=== PATIENT | female | born 1950 | race African-American/Black ===

== ENCOUNTER → 2016-08-01 | Emergency (ER) | payer MEDICARE, MEDICAID ==
[~2016-08-01] VITALS: Ht 170.2 cm; Wt 111.1 kg
[~2016-08-01] MED LIST: ACUVAIL 0.45%1 EACH OP; ALBUTEROL2.5 MG/3 M HHN; ATIVAN1 MG ORAL; AUGMENTIN 875-1 EAC1 ORAL; Acetaminophen 500mg (ES) tab ORAL ONE; BACTRIM DS TAB1 EAC1 ORAL; ERYTHROMYCIN3.5 GM BOTH EYES; FERROUS SULFAT325 MG PO; FLONASE16 GM NASAL; FUROSEMIDE20 M1 ORAL; HYDROXYZINE HCL25 M1 PO; IBUPROFEN400 MG ORAL; KEFLEX500 MG ORAL; KENALOG 0.1% CR15 GM APPLIC; LASIX20 MG PO; NAPROXEN500 M2 ORAL; PATANOL1 DROP BOTH EYES; PREDNISONE20 MG ORAL; QVAR INH1 PUFF INH; SYNALAR 0.01%15 GM EXT; TYLENOL EXTRA500 MG ORAL; VITAMIN B-122000 MC1 INJ; vitamin b 12 PO
--- NOTE | 2016-08-01 13:01 | Emergency Room Report ---
History of Present Illness General Chief Complaint: Upper Extremity Injury Present Illness HPI 66-year-old female presents to emergency department complaining of 3/ 10 localized pain in the right fifth digit times one day. Patient states she is cleaning a bit better when one of her large cement flowerpot fell onto her finger. Patient reports mild swelling mild erythema and intermittent pain. Patient reports that it feels as though "there are chips inside of her finger." She believes she may have broken her finger. Patient denies previous injury to the extremity.Denies numbness tingling or loss of sensation or gross motor movements of the extremities, incontinence of bowel or bladder. Denies CP, Palpitations, LOC, AMS, dizziness, Changes in Vision, Sensation, paresthesias, or a sudden severe headache. 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 Hx Hypertension: No - left knee replacement Hx Pacemaker: No Hx Asthma: Yes - bronchitis Hx COPD: Yes Hx Diabetes: No Hx Cancer: No Hx Dialysis: No Hx Neurological Problems: No Hx Cerebrovascular Accident: No Hx Seizures: No Review of Systems All Other Systems: negative except mentioned in HPI Physical Exam Vital Signs Date Time Temp Pulse Resp B/P Pulse Ox O2 Delivery O2 Flow Rate FiO2 08/01/16 11:54 98.4 80 18 119/76 99 Room Air Sp02 EP Interpretation: reviewed, normal General Appearance: no apparent distress, alert, GCS 15, non-toxic Head: normocephalic, atraumatic Eyes: bilateral eye PERRL, bilateral eye normal inspection ENT: hearing grossly normal, normal pharynx, no angioedema, normal voice Neck: full range of motion, supple/symm/no masses Respiratory: chest non-tender, lungs clear, normal breath sounds, speaking full sentences Cardiovascular #1: regular rate, rhythm, no edema Rectal: deferred Musculoskeletal: back normal, gait/station normal, normal range of motion - with pain, no calf tenderness, swelling - distal right 5th digit, tender - distal right 5th digit, no evidence of sub ungual hematoma. no crepitus or obvious deformity noted Neurologic: alert, oriented x3, responsive, motor strength/tone normal, sensory intact, speech normal Psychiatric: judgement/insight normal, memory normal, mood/affect normal, no suicidal/homicidal ideation Skin: normal color, no rash, warm/dry, well hydrated Lymphatic: no adenopathy Medical Decision Making PA Attestation Dr. Garcia is my supervising Physician whom patient management has been discussed with. Diagnostic Impression: Primary Impression: Contusion of finger of right hand Qualified Codes: S60.051A - Contusion of right little finger without damage to nail, initial encounter ER Course Pt. presents to the ED c/o pain and mild swelling to the right 5th digit x 1 day. flower pot fell onto finger. Ddx considered but are not limited to Fracture, dislocation, contusion, Sprain/ Strain/Spasm, crush injury. Vital signs: are WNL, pt. is afebrile H&PE are most consistent with contusion will r/o fx with imaging. ORDERS: - X-ray right hand 3 views - negative for fx, Dislocation, or significant soft tissue injury, per preliminary read in ED by Dr. Garcia ED INTERVENTIONS: - 1000mg Tylenol PO - Finger Splint applied to the right 5th digit by technical services specialist. Pt. remains neurovascularly intact. DISCHARGE: At this time pt. is stable for d/c to home. Will provide printed patient care instructions, and any necessary prescriptions. Care plan and follow up instructions have been discussed with the patient prior to discharge. Last Vital Signs Date Time Temp Pulse Resp B/P Pulse Ox O2 Delivery O2 Flow Rate FiO2 08/01/16 11:54 98.4 80 18 119/76 99 Room Air Disposition: HOME, SELF-CARE Condition: Stable Scripts Acetaminophen* (TYLENOL EXTRA STRENGTH*) 500 Mg Tablet 500 MG ORAL Q6H, #30 TAB 0 Refills Prov: Cynthia Waddell 08/01/16 Referrals: [facility],REFERRING (PCP) Patient Instructions: CONTUSION, Upper Extremity Additional Instructions: Take medications as directed. Follow up with PCP in 3-5 days Return sooner to ED if new symptoms occur, or current symptoms become worse. Cynthia Waddell Aug 01, 2016 13:01
[2016-08-01 13:19] VITALS: BP 130/80
--- NOTE | 2016-08-02 08:47 | Diagnostic Imaging Report ---
Indication: PAIN Technique: 3 views right hand Comparison: none Findings: The bones appear demineralized. No acute fractures. Questionable alignment abnormality is seen at the first carpometacarpal joint.. There is ulnar minus variance incidentally noted Impression: No acute bony trauma Questionable subluxation of the first carpometacarpal joint. Suspect artifactual, as per discussion with referring physician there is no pain at this location Suspect osteoporosis
== END | disposition home or self-care (01) ==
LOC: EMR 12:17
DX: S60.051A Contusion of right little finger without damage to nail, initial encounter (principal); J45.909 Unspecified asthma, uncomplicated; J44.9 Chronic obstructive pulmonary disease, unspecified; W20.8XXA Other cause of strike by thrown, projected or falling object, initial encounter; Y92.9 Unspecified place or not applicable; Y99.8 Other external cause status
CPT/HCPCS: 29130; 99283

== ENCOUNTER → 2016-10-17 | Emergency (ER) | payer MEDICARE, MEDICAID ==
[~2016-10-17] VITALS: Ht 170.2 cm; Wt 113.4 kg
[~2016-10-17] MED LIST changes: -Acetaminophen 500mg (ES) tab ORAL ONE; +HYDROCODON-ACE1 EA15 ORAL; +IBUPROFEN600 MG ORAL; +Ketorolac 60mg Inj IM ONE; +Methocarbamol 750mg tab ORAL ONE; +ROBAXIN-750750 MG PO
[2016-10-17 04:35] VITALS: BP 122/85
[2016-10-17 04:36] VITALS: BP 115/79
--- NOTE | 2016-10-17 22:40 | Emergency Room Report ---
History of Present Illness General Chief Complaint: Pain Source: Patient Present Illness HPI 66YOF walk in patient with c/o pain to right lateral buttock area since yesterday. Pain is sharp, non-radiating 03/04. Atraumatic. Never had before. No exacerbating activity. No associated urinary complaint. Took 2 extra strength tyelnol with minimal improvement. Denies abd pain, nausea/vomiting, diarrhea, constipation, fever/chills. She makes specific request for IV dilaudid, states "I got it here last time." Denies other medical problems. 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 Hx Hypertension: No - left knee replacement Hx Pacemaker: No Hx Asthma: Yes - bronchitis Hx COPD: Yes Hx Diabetes: No Hx Cancer: No Hx Dialysis: No Hx Neurological Problems: No Hx Cerebrovascular Accident: No Hx Seizures: No Review of Systems All Other Systems: negative except mentioned in HPI Physical Exam Vital Signs Date Time Temp Pulse Resp B/P Pulse Ox O2 Delivery O2 Flow Rate FiO2 10/17/16 02:21 98.2 78 22 115/79 100 Sp02 EP Interpretation: reviewed, normal General Appearance: normal inspection, well appearing, no apparent distress, alert, GCS 15, non-toxic, obese, other - Ambulating around the ER without diffiuculty Head: normocephalic, atraumatic Eyes: bilateral eye EOMI, bilateral eye PERRL ENT: normal ENT inspection, hearing grossly normal, normal voice Neck: normal inspection, full range of motion, supple, no bony tend Respiratory: normal inspection, lungs clear, normal breath sounds, no respiratory distress, no retraction, no wheezing Cardiovascular #1: regular rate, rhythm, no edema Gastrointestinal: normal inspection, normal bowel sounds, non tender, soft, no guarding, no hernia Genitourinary: no CVA tenderness Musculoskeletal: normal inspection, back normal, normal range of motion, Bolivar' s Sign negative, other - Focal area of ttp to right lateral buttock. No rash or ecchymoses or bruising seen Neurologic: normal inspection, alert, oriented x3, responsive, rn prior authorization III-XII nml as tested, speech normal Psychiatric: normal inspection, judgement/insight normal, mood/affect normal Skin: normal inspection, normal color, no rash Lymphatic: normal inspection Medical Decision Making Diagnostic Impression: Primary Impression: Sciatica of right side ER Course Focal area of MSK pain to right lateral buttock VSS. Afebrile. Atraumatic. No assoic urinary compaints, unlikey pyelo Low suspicion for sciatica Possibly d.t extreme of weight, ?osteoarthritis but no focal ttp of hip/pelvis Specific request for Dilaudid raises concern for narcotics seeking behavior I offered IM toradol and Rx robaxin and patient was in agreement DC home with PMD followup Last Vital Signs Date Time Temp Pulse Resp B/P Pulse Ox O2 Delivery O2 Flow Rate FiO2 10/17/16 04:36 98.2 22 115/79 100 10/17/16 04:35 78 Status: improved Disposition: HOME, SELF-CARE Condition: Improved Scripts Methocarbamol* (ROBAXIN-750*) 750 Mg Tablet 750 MG PO TID, #30 TAB 0 Refills Prov: TERELL GUADARRAMA M.D. 10/17/16 Referrals: NON PHYSICIAN (PCP) Patient Instructions: Musculoskeletal Pain Additional Instructions: - Take Robaxin up to 3x a day for pain to right buttock/back - Follow up with your primary care doctor in 2-3 days as needed - Contine applying heat to area of pain TERELL GUADARRAMA M.D. Oct 17, 2016 22:40
== END | disposition home or self-care (01) ==
LOC: EMR 03:10
DX: M54.31 Sciatica, right side (principal); J44.9 Chronic obstructive pulmonary disease, unspecified; J45.909 Unspecified asthma, uncomplicated; Z96.652 Presence of left artificial knee joint; Z86.718 Personal history of other venous thrombosis and embolism
CPT/HCPCS: 96372; 99283

== ENCOUNTER 2016-10-18 20:46 | Emergency (ER) | payer MEDICARE, MEDICAID ==
[~2016-10-18] VITALS: Ht 170.2 cm; Wt 113.9 kg
[~2016-10-18 20:46] MED LIST changes: -HYDROCODON-ACE1 EA15 ORAL; -IBUPROFEN600 MG ORAL; -Ketorolac 60mg Inj IM ONE; -Methocarbamol 750mg tab ORAL ONE
[2016-10-18] MEDS ORDERED: Ketorolac 60mg Inj IM ONE (21:45)
[2016-10-18] MEDS ORDERED: HYDROCODON-ACE1 EA15 ORAL (22:28)
[2016-10-18] MEDS ORDERED: IBUPROFEN600 MG ORAL (22:28)
[2016-10-18] MEDS ORDERED: HYDROmorphone 1mg/ml Carpuject ONE (22:28)
--- NOTE | 2016-10-18 22:29 | Emergency Room Report ---
History of Present Illness General Chief Complaint: Pain Source: Patient Present Illness HPI This is a 66-year-old female with a BMI of 39. She presents with right hip pain and has been ongoing for 2 days. She was here the other day. She was prescribed medication and help some. Worse with movement. Worse with prolonged sitting. No trauma. No fever or chills. No radiation. 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 Hx Hypertension: No - left knee replacement Hx Pacemaker: No Hx Asthma: Yes - bronchitis Hx COPD: Yes Hx Diabetes: No Hx Cancer: No Hx Dialysis: No Hx Neurological Problems: No Hx Cerebrovascular Accident: No Hx Seizures: No Review of Systems Eye: Denies: blurred vision, eye pain ENT: Denies: ear pain, nose congestion, throat swelling Respiratory: Denies: cough, shortness of breath Cardiovascular: Denies: chest pain, palpitations Gastrointestinal: Denies: abdominal pain, diarrhea, nausea, vomiting Musculoskeletal: Reports: joint pain, Denies: back pain Skin: Denies: rash Neurological: Denies: headache, numbness Endocrine: Denies: increased thirst, increased urine Hematologic/Lymphatic: Denies: easy bruising All Other Systems: negative except mentioned in HPI Physical Exam Vital Signs Date Time Temp Pulse Resp B/P Pulse Ox O2 Delivery O2 Flow Rate FiO2 10/18/16 21:06 98.1 78 18 107/69 99 Room Air vitals normal Sp02 EP Interpretation: reviewed, normal General Appearance: well appearing, no apparent distress, alert, obese Head: normocephalic, atraumatic Eyes: bilateral eye EOMI, bilateral eye PERRL ENT: hearing grossly normal, normal pharynx Neck: full range of motion, supple, no meningismus Respiratory: chest non-tender, lungs clear, normal breath sounds Cardiovascular #1: regular rate, rhythm, no murmur Gastrointestinal: normal bowel sounds, non tender, no mass, no organomegaly, no bruit, non-distended Musculoskeletal: back normal, gait/station normal, normal range of motion, other - Vague diffuse tenderness to the Right hip with range of motion. Neurologic: alert, oriented x3 Psychiatric: mood/affect normal Skin: warm/dry Medical Decision Making Diagnostic Impression: Primary Impression: Osteoarthritis of right hip Qualified Codes: M16.11 - Unilateral primary osteoarthritis, right hip Additional Impression: Morbid obesity with BMI of 40.0-44.9, adult ER Course Patient presents with right hip pain most likely secondary to osteoarthritis. This probably do to her obesity. She said she already lost about 200 pounds. I encouraged her to continue. Pain to her this is a chronic issue that she may be hip replacement in the future. No evidence of septic joint. No evidence of trauma. Other X-Ray Diagnostic Results Other X-Ray Diagnostic Results : X-Ray Ordered: Right hip x-rays Date: Oct 19, 2016 Time: 03:20 EP Interpretation: Yes Findings: no fractures, no dislocation, no soft tissue swelling, other - Degenerative changes Number of Views: 3 Last Vital Signs Date Time Temp Pulse Resp B/P Pulse Ox O2 Delivery O2 Flow Rate FiO2 10/18/16 21:06 98.1 78 18 107/69 99 Room Air Status: improved Disposition: HOME, SELF-CARE Condition: Stable Scripts Ibuprofen* (MOTRIN*) 600 Mg Tablet 600 MG ORAL THREE TIMES A DAY, #30 TAB 0 Refills Prov: CARLOS SULLIVAN M.D. 10/18/16 Hydrocodone/Acetaminophen 5-325* (HYDROCODONE/ACETAMINOPHEN 5-325*) 1 Each Tablet 1 TAB ORAL Q6H Y for For Pain, #20 TAB 0 Refills Prov: CARLOS SULLIVAN M.D. 10/18/16 Referrals: NON PHYSICIAN (PCP) Additional Instructions: Follow up with your doctor in 7 days. Return if worse. CARLOS SULLIVAN M.D. Oct 18, 2016 22:29
[2016-10-18] MEDS ORDERED: HYDROmorphone 1mg/ml Carpuject IM ONE (22:30)
[2016-10-18 22:38] VITALS: BP 108/63
--- NOTE | 2016-10-19 14:43 | Diagnostic Imaging Report ---
Indication: PAIN Technique: 2 views of the right hip Comparison: None Findings: No acute fractures. No dislocations. Joint spaces are preserved. Impression: Negative
== END 2016-10-18 22:45 | disposition home or self-care (01) ==
LOC: EMR 21:58
DX: M16.11 Unilateral primary osteoarthritis, right hip (principal); E66.01 Morbid (severe) obesity due to excess calories; Z68.41 Body mass index [BMI] 40.0-44.9, adult
CPT/HCPCS: 73502; 96372; 99284; J1170

== ENCOUNTER 2017-03-22 12:04 | Emergency (ER) | payer MEDICARE, MEDICAID ==
[~2017-03-22] VITALS: Ht 172.7 cm; Wt 115.7 kg
[~2017-03-22 12:04] MED LIST changes: +HYDROCODON-ACE1 EA15 ORAL; +IBUPROFEN600 MG ORAL
[2017-03-22 12:33] VITALS: BP 144/73
--- NOTE | 2017-03-22 13:28 | Diagnostic Imaging Report ---
Indication: PAIN Technique: 3 views of the right shoulder Comparison: none Findings: No acute fractures. No dislocations. There are mild degenerative changes of the acromioclavicular joint. The slight irregularity of the superolateral aspect of the humeral head, could indicate old Hill-Sachs injury. Impression:No acute bony trauma. Possible old Hill-Sachs deformity
[2017-03-22] MEDS ORDERED: Ketorolac 60mg Inj IM ONE (13:30)
--- NOTE | 2017-03-22 13:33 | Emergency Room Report ---
History of Present Illness General Chief Complaint: Pain Present Illness HPI 67-year-old female presents to the emergency department complaining of 8/10 in severity right shoulder pain x1 month. Patient states that she fell on her shoulder approximately one month ago and was not evaluated. Patient states her symptoms have not improved. Patient states pain with raising her arm above 45 angle. Patient states her pain is localized. Denies fevers, chills, previous injury to the extremity. Denies weakness in the affected extremity. Denies numbness tingling or loss of sensation or gross motor movements of the extremities, incontinence of bowel or bladder. Denies CP, Palpitations, LOC, AMS , dizziness, Changes in Vision, Sensation, paresthesias, or a sudden severe headache. 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 Hx Hypertension: No - left knee replacement Hx Pacemaker: No Hx Asthma: Yes - bronchitis Hx COPD: Yes Hx Diabetes: No Hx Cancer: No Hx Dialysis: No Hx Neurological Problems: No Hx Cerebrovascular Accident: No Hx Seizures: No Review of Systems All Other Systems: negative except mentioned in HPI Physical Exam Vital Signs Date Time Temp Pulse Resp B/P (MAP) Pulse Ox O2 Delivery O2 Flow Rate FiO2 03/22/17 12:11 98.2 70 18 144/73 100 Room Air Sp02 EP Interpretation: reviewed, normal General Appearance: no apparent distress, alert, GCS 15, non-toxic Head: normocephalic, atraumatic Eyes: bilateral eye normal inspection, bilateral eye PERRL ENT: hearing grossly normal, normal voice Neck: full range of motion Respiratory: lungs clear, normal breath sounds, speaking full sentences Cardiovascular #1: regular rate, rhythm, normal capillary refill Cardiovascular #2: 2+ radial (R), 2+ radial (L) Rectal: deferred Musculoskeletal: back normal, gait/station normal, normal range of motion, tender - TTP just over the A/C joint area, mild swellling noted, no bruises or obvious deformity, FROM with pain. able to perform lift off test. Neurologic: alert, oriented x3, responsive, motor strength/tone normal, sensory intact, speech normal Psychiatric: judgement/insight normal, memory normal, mood/affect normal Skin: normal color, no rash, warm/dry, well hydrated Medical Decision Making PA Attestation Dr. South is my supervising Physician whom patient management has been discussed with. Diagnostic Impression: Primary Impression: Shoulder pain, right Qualified Codes: M25.511 - Pain in right shoulder ER Course 67-year-old female presents to the emergency department complaining of 8/10 in severity right shoulder pain x1 month. Patient states that she fell on her shoulder approximately one month ago and was not evaluated. Patient states her symptoms have not improved. Patient states pain with raising her arm above 45 angle. Patient states her pain is localized. Denies fevers, chills, previous injury to the extremity. Denies weakness in the affected extremity. Denies numbness tingling or loss of sensation or gross motor movements of the extremities, incontinence of bowel or bladder. Denies CP, Palpitations, LOC, AMS , dizziness, Changes in Vision, Sensation, paresthesias, or a sudden severe headache. Ddx considered but are not limited to Fracture, dislocation, contusion, Sprain/ Strain/Spasm, Vital signs: are WNL, pt. is afebrile H&PE are most consistent with musculoskeletal injury will perform imaging to r/ o fractures/dislocations. ORDERS: - X-ray Right Shoulder 3 views - negative for fx, Dislocation, or significant soft tissue injury, per preliminary read in ED by Dr. South - interpretation is scribed by PA. - Official radiology read is also negative for acute fractures. ED INTERVENTIONS: - Toradol IM -Pt is provided with a copy of her x-rays. - Encouraged patient to followup with PMD as more advanced imaging may be required since her symptoms have not improved also patient may require orthopedic evaluation. DISCHARGE: At this time pt. is stable for d/c to home. Will provide printed patient care instructions, and any necessary prescriptions. Care plan and follow up instructions have been discussed with the patient prior to discharge. Last Vital Signs Date Time Temp Pulse Resp B/P (MAP) Pulse Ox O2 Delivery O2 Flow Rate FiO2 03/22/17 12:33 98.2 18 144/73 100 Room Air 03/22/17 12:11 70 Disposition: HOME, SELF-CARE Condition: Stable Scripts Cyclobenzaprine Hcl* (FLEXERIL*) 10 Mg Tablet 10 MG ORAL THREE TIMES A DAY for 7 Days, #21 TAB Prov: Cynthia Waddell 03/22/17 Ibuprofen* (MOTRIN*) 600 Mg Tablet 600 MG ORAL THREE TIMES A DAY, #30 TAB 0 Refills Prov: Cynthia Waddell 03/22/17 Referrals: NON PHYSICIAN (PCP) Patient Instructions: Shoulder Pain, Shoulder Range of Motion Exercises Additional Instructions: Take medications as directed. Recommend Uniform Maker Evaluation, and MRI if your symptoms are not responding to conservative treatments. Follow up with a Primary Care Provider in 3-5 days, even if your symptoms have resolved. Return sooner to ED if new symptoms occur, or current symptoms become worse. Do not drink alcohol, drive, or operate heavy machinery while taking Flexeril as this may cause drowsiness. - Please note that this Emergency Department Report was dictated using [employer] helper technology software, occasionally this can lead to erroneous entry secondary to interpretation by the dictation equipment. Cynthia Waddell Mar 22, 2017 13:33
[2017-03-22] MEDS ORDERED: IBUPROFEN600 MG ORAL (13:34)
[2017-03-22] MEDS ORDERED: CYCLOBENZAPRINE10 MG ORAL (13:34)
[2017-03-22 13:40] VITALS: BP 138/70
== END 2017-03-22 13:40 | disposition home or self-care (01) ==
LOC: EMR 12:41
DX: M25.511 Pain in right shoulder (principal); J44.9 Chronic obstructive pulmonary disease, unspecified; Z96.652 Presence of left artificial knee joint
CPT/HCPCS: 96372; 99284

== ENCOUNTER 2017-05-27 04:18 | Inpatient (IN) | payer MEDICARE, MEDICAID ==
[~2017-05-27] VITALS: Ht 170.2 cm; Wt 156.5 kg
[2017-05-27] VITALS (63 sets, daily range): BP systolic 78–185; BP diastolic 37–160
[~2017-05-27 04:18] MED LIST changes: +CYCLOBENZAPRINE10 MG ORAL
[2017-05-27] MEDS ORDERED: NS 1000ml 3,500 ML IVLG ONE (04:30)
[2017-05-27] MEDS ORDERED: Cefepime HCl 1 GM in NS 55 ML IV SCH (04:30)
[2017-05-27] MEDS ORDERED: Cefepime 1gm vial ONE (04:45)
[2017-05-27 05:00] LABS: MEAN CORPUSCULAR HEMOGLOBIN 27.5 PG (27.0-31.0); MEAN CORPUSCULAR HGB CONC 31.5 G/DL (32.0-36.0); MEAN CORPUSCULAR VOLUME 87 FL (80-99); MEAN PLATELET VOLUME 8.3 FL (6.5-10.1); PLATELET COUNT 87 K/UL (150-450); RED BLOOD COUNT 4.63 M/UL (4.20-5.40); RED CELL DISTRIBUTION WIDTH 13.1 % (11.6-14.8)
[2017-05-27 05:07] LABS: WHITE BLOOD COUNT 0.8 K/UL (4.8-10.8)
[2017-05-27 05:09] LABS: ANION GAP 17 mmol/L (5-15); CALCIUM 7.9 MG/DL (8.5-10.1); CARBON DIOXIDE 19 MMOL/L (21-32); CHLORIDE 100 MMOL/L (98-107); CREATININE 1.8 MG/DL (0.55-1.30); GLOMERULAR FILTRATION RATE 34.1 mL/min (>60); POTASSIUM 3.2 MMOL/L (3.5-5.1); SODIUM 136 MMOL/L (136-145)
--- NOTE | 2017-05-27 05:09 | Emergency Room Report ---
History of Present Illness General Chief Complaint: Fever Source: Patient, EMS Present Illness HPI Patient is a 67-year-old female presented after increased chills and fever. She reported feeling dizzy lightheaded. She reported having cough and difficulty breathing. She prior history of COPD. She previously had gastric bypass. Patient denied any hematemesis. Patient was noted to have 103 temperature. She had a remote history of DVTPatient presented increased pain to her lower back.She was noted to be taking multiple medications which primarily for pain. Allergies: Coded Allergies: No Known Allergies (Unverified , 09/04/12) Patient History Past Medical History: see triage record Reviewed Nursing Documentation: PMH: Agreed, PSxH: Agreed Nursing Documentation-PMH Hx Cardiac Problems: No - hx dvt left ankle 15 years ago Hx Hypertension: No - left knee replacement Hx Pacemaker: No Hx Asthma: Yes - bronchitis Hx COPD: Yes Hx Diabetes: No Hx Cancer: No Hx Dialysis: No Hx Neurological Problems: No Hx Cerebrovascular Accident: No Hx Seizures: No Review of Systems All Other Systems: limited - by poor historian Physical Exam Vital Signs Date Time Temp Pulse Resp B/P (MAP) Pulse Ox O2 Delivery O2 Flow Rate FiO2 05/27/17 04:19 102.9 130 22 99/46 94 Room Air General Appearance: moderate distress, obese, Chronically Ill Head: normocephalic ENT: no angioedema, uvula midline, moist mucus membranes Neck: full range of motion Respiratory: lungs clear, normal breath sounds Cardiovascular #1: no edema, tachycardia Gastrointestinal: normal inspection, non tender, soft Musculoskeletal: normal inspection, back normal, digits/nails normal Neurologic: normal inspection, alert, oriented x3, 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 Total critical care time excluding procedures approximately 45 minutes. Central Line Central Line : Consent: Emergent Central Line Lumen: triple Maximal Sterile Barrier Tech: yes cap, yes mask, yes sterile gown, yes sterile gloves, yes large sterile sheet, yes hand hygiene, yes chlorhexidine prep Central Line Postion: internal jugular (R) Anesthesia: Lidocaine cc's of anesthesia: 5 Complications: none Central Line Post Position: sutured, good blood return Attempts: One Patient Tolerated: Well Complications: None Medical Decision Making Diagnostic Impression: Primary Impression: Acute febrile illness Additional Impressions: Pyelonephritis Septic shock ER Course Patient presented for fever. Differential diagnosis included wasn't limited to pneumonia, urinary tract infection, drug fever, allergic reaction, sepsis, cholecystitis, among others.Because of complexity of patient's case laboratory testing and imaging studies were ordered. EKG interpreted by me showed sinus tachycardia with a rate of [address] depression. Patient started on IV fluids as well as IV antibiotic. The patient was noted to be hypotensive after a short time. She started on l fluid bolus. Patient was reassessed and had improvement in her perfusion after IV fluids. Patient noted persistently hypotensive after IV fluid bolus. She started on IV Levophed Laboratory testing was notable for neutropenia as well as evidence of renal insufficiency. Patient is also noted to have elevated lactic acid with lactic acid greater than 6. Dr. Alfonso Rodríguez was contacted for inpatient management due to panel physician. Labs Test 05/27/17 04:35 05/27/17 04:39 05/27/17 05:19 White Blood Count 0.8 K/UL (4.8-10.8) Red Blood Count 4.63 M/UL (4.20-5.40) Hemoglobin 12.7 G/DL (12.0-16.0) Hematocrit 40.5 % (37.0-47.0) Mean Corpuscular Volume 87 FL (80-99) Mean Corpuscular Hemoglobin 27.5 PG (27.0-31.0) Mean Corpuscular Hemoglobin Concent 31.5 G/DL (32.0-36.0) Red Cell Distribution Width 13.1 % (11.6-14.8) Platelet Count 87 K/UL (150-450) Mean Platelet Volume 8.3 FL (6.5-10.1) Neutrophils (%) (Auto) % (45.0-75.0) Lymphocytes (%) (Auto) % (20.0-45.0) Monocytes (%) (Auto) % (1.0-10.0) Eosinophils (%) (Auto) % (0.0-3.0) Basophils (%) (Auto) % (0.0-2.0) Prothrombin Time 12.6 SEC (9.30-11.50) Prothromb Time International Ratio 1.2 (0.9-1.1) Activated Partial Thromboplast Time 25 SEC (23-33) Sodium Level 136 MMOL/L (136-145) Potassium Level 3.2 MMOL/L (3.5-5.1) Chloride Level 100 MMOL/L (98-107) Carbon Dioxide Level 19 MMOL/L (21-32) Anion Gap 17 mmol/L (5-15) Blood Urea Nitrogen 31 mg/dL (7-18) Creatinine 1.8 MG/DL (0.55-1.30) Estimat Glomerular Filtration Rate 34.1 mL/min (>60) Glucose Level 118 MG/DL (74-106) Lactic Acid Level 6.60 mmol/L (0.66-2.22) Calcium Level 7.9 MG/DL (8.5-10.1) Total Bilirubin 2.2 MG/DL (0.2-1.0) Direct Bilirubin 1.1 MG/DL (0.0-0.3) Aspartate Amino Transf (AST/SGOT) 127 U/L (15-37) Alanine Aminotransferase (ALT/SGPT) 85 U/L (12-78) Alkaline Phosphatase 157 U/L (46-116) Total Creatine Kinase 64 U/L (26-308) Creatine Kinase MB 1.6 NG/ML (0.0-3.6) Creatine Kinase MB Relative Index 2.5 Troponin I < 0.017 ng/mL (0.000-0.056) Total Protein 6.6 G/DL (6.4-8.2) Albumin 2.8 G/DL (3.4-5.0) Globulin 3.8 g/dL Albumin/Globulin Ratio 0.7 (1.0-2.7) Arterial Blood pH 7.402 (7.350-7.450) Arterial Blood Partial Pressure CO2 30.8 mmHg (35.0-45.0) Arterial Blood Partial Pressure O2 72.7 mmHg (75.0-100.0) Arterial Blood HCO3 18.7 mmol/L (22.0-26.0) Arterial Blood Oxygen Saturation 92.6 % (92.0-98.0) Arterial Blood Base Excess -5.1 Geoff Test Positive Urine Color Yellow Urine Appearance Cloudy Urine pH 5 (4.5-8.0) Urine Specific [place] 1.025 (1.005-1.035) Urine Protein 1+ (NEGATIVE) Urine Glucose (UA) Negative (NEGATIVE) Urine Ketones 2+ (NEGATIVE) Urine Occult Blood 5+ (NEGATIVE) Urine Nitrite Positive (NEGATIVE) Urine Bilirubin Negative (NEGATIVE) Urine Urobilinogen 1 MG/DL (0.0-1.0) Urine Leukocyte Esterase 3+ (NEGATIVE) Urine RBC 5-10 /HPF (0 - 2) Urine WBC 30-40 /HPF (0 - 2) Urine Squamous Epithelial Cells Occasional /LPF Urine Bacteria Many /HPF (NONE) EKG Diagnostic Results Rate: tachycardiac Rhythm: NSR ST Segments: other - diffuse st depression Rhythm Strip Diag. Results EP Interpretation: yes Rhythm: NSR, no PVC's, no ectopy Last Vital Signs Date Time Temp Pulse Resp B/P (MAP) Pulse Ox O2 Delivery O2 Flow Rate FiO2 05/27/17 04:19 102.9 130 22 99/46 94 Room Air Status: improved Disposition: ADMITTED INPATIENT Condition: Critical Referrals: NOT CHOSEN IPA/,REFERRING (PCP) Steve Sarkar May 27, 2017 05:09
[2017-05-27 05:10] LABS: INR 1.2 (0.9-1.1); PROTHROMBIN TIME 12.6 SEC (9.30-11.50)
[2017-05-27] MEDS ORDERED: Acetaminophen 650 MG SUPP RECTAL ONE (05:15)
[2017-05-27 05:23] LABS: ALANINE AMINOTRANSFERASE 85 U/L (12-78); ALBUMIN/GLOBULIN RATIO 0.7 (1.0-2.7); ASPARTATE AMINO TRANSFERASE 127 U/L (15-37); CKMB 1.6 NG/ML (0.0-3.6); TOTAL PROTEIN 6.6 G/DL (6.4-8.2)
[2017-05-27 05:25] LABS: ABG BASE EXCESS -5.1; ABG PCO2 30.8 mmHg (35.0-45.0)
[2017-05-27 05:25] LABS: BILIRUBIN,DIRECT 1.1 MG/DL (0.0-0.3)
[2017-05-27 05:26] LABS: ABG ALLEN TEST POSITIVE
[2017-05-27 05:35] LABS: REFLEX LACTIC ACID YES OR NO YES
[2017-05-27 05:50] LABS: APPEARANCE,URINE CLOUDY; KETONES,URINE 2+ (NEGATIVE); LEUKOCYTE ESTERASE ,URINE 3+ (NEGATIVE); NITRITE,URINE POSITIVE (NEGATIVE); PH,URINE 5 (4.5-8.0); PROTEIN,URINE 1+ (NEGATIVE); UROBILINOGEN,URINE 1 MG/DL (0.0-1.0)
[2017-05-27 06:02] LABS: BACTERIA,URINE MANY /HPF; SQUAMOUS EPITHELIAL CELL,UR OCCASIONAL /LPF (NONE/OCC); WBC,URINE 30-40 /HPF (0 - 2)
[2017-05-27] MEDS ORDERED: HYDROXYZINE HCL10 M1 PO (06:02)
[2017-05-27] MEDS ORDERED: TRAMADOL HCL50 MG ORAL (06:02)
[2017-05-27] MEDS ORDERED: DICYCLOMINE HCL10 MG PO (06:02)
[2017-05-27] MEDS ORDERED: FEOSOL1 TAB ORAL (06:02)
[2017-05-27] MEDS ORDERED: ACETAMINOPHEN-1 EAC1 ORAL (06:02)
[2017-05-27] MEDS ORDERED: CYCLOBENZAPRINE10 MG ORAL (06:02)
[2017-05-27] MEDS ORDERED: ZOFRAN4 M3 ORAL (06:02)
[2017-05-27 06:10] LABS: BAND NEUTROPHILS % (MANUAL) 2 % (0-8); BASOPHILS % (MANUAL) 0 % (0-2); EOSINOPHILS % (MANUAL) 0 % (0-3); LYMPHOCYTES % (MANUAL) 42 % (20-45); NEUTROPHILS % (MANUAL) 53 % (45-75); PLATELET ESTIMATE DECREASED; PLATELET MORPHOLOGY NORMAL; TOTAL CELLS COUNTED 100
[2017-05-27] MEDS ORDERED: Pantoprazole Inj IVP ONE (06:15)
[2017-05-27] MEDS ORDERED: Sodium Chloride 500ML 550 ML IV SCH (06:15)
[2017-05-27] MEDS ORDERED: Levophed 4mg/4mL Inj IV ONE ×2 (06:36→10:27)
[2017-05-27] MEDS ORDERED: Miralax 17gm pkt ORAL PRN (06:45)
[2017-05-27] MEDS ORDERED: Morphine Sulfate 2mg/ml Inj IVP PRN (06:45)
[2017-05-27] MEDS ORDERED: Albuterol/Ipratropium 3ml neb HHN PRN (06:45)
[2017-05-27] MEDS ORDERED: Bacitracin Oint UD TOPIC ONE ×2 (08:06→08:15)
[2017-05-27] MEDS ORDERED: Heparin 5000 units/ml inj SUBQ SCH (09:00)
[2017-05-27] MEDS ORDERED: Amikacin Rx to dose MISC PRN (09:15)
[2017-05-27] MEDS ORDERED: Vancomycin 1.5 GM in D5W 275 ML IVPB ONE (09:30)
[2017-05-27] MEDS ORDERED: Vancomycin 1gm inj IVPB ONE (09:41)
[2017-05-27] MEDS: Pantoprazole Inj IVP SCH (09:46)
--- NOTE | 2017-05-27 09:54 | Diagnostic Imaging Report ---
Indication: Abdominal pain Technique: Continuous helical transaxial imaging of the abdomen and pelvis was obtained from the lung bases to the pubic symphysis. No intravenous contrast was administered. Coronal 2-D reformats were also obtained. Automatic Exposure Control was utilized. Total Dose length Product (DLP): [address] Dose Index Volume (CTDIvol): 0.15, 19.95 mGy Comparison: 09/26/11 Findings: Previous gastric bypass and distal jejunostomy are noted. There is no evidence of bowel obstruction or abscess. The study is significantly limited in that no intravenous contrast oral contrast was given. There are hypodensities in the liver that appear stable compared to last examination. These are nonspecific with regard to the nature. There is hydronephrosis on the right which is also stable. No obvious obstructing stone identified. There is a right adnexal cystic structure again demonstrated measuring 5.2 x 4.4 cm presumed ovarian in nature. Urinary bladder is mildly distended. Cholecystectomy clips again noted. Hysterectomy and node.] Right thigh muscular lipoma noted. Impression: Multiple chronic findings without change compared to previous study. Current study is obtained is limited as no contrast was given. The CT scanner at [facility] is accredited by the [employer] and the scans are performed using dose optimization techniques as appropriate to a performed exam including Automatic Exposure control.
[2017-05-27] MEDS ORDERED: Ertapenem 1 GM in NS 55 ML IV SCH (10:00)
[2017-05-27] MEDS ORDERED: Vancomycin 1.5gm/D5W 250ml 250 ML IVPB ONE (10:00)
--- NOTE | 2017-05-27 10:14 | Diagnostic Imaging Report ---
Indication: Line placement Comparison: Earlier the same day A single view chest radiograph was obtained. Findings: Regular line is in place and the tip is in the SVC in good position. No change otherwise. No pneumothorax. Impression: central line in good position
--- NOTE | 2017-05-27 10:15 | Diagnostic Imaging Report ---
Indication: Dyspnea Comparison: January 25, 2000 and A single view chest radiograph was obtained. Findings: Cardiomediastinal appearance is within normal limits for age. Pulmonary vascularity is appropriate. The diaphragmatic contour is smooth and costophrenic angles are sharp. No pleural effusions are identified. The bones are unremarkable. Impression: No acute findings
[2017-05-27] MEDS ORDERED: Amikacin 1,000 MG in NS 110 ML IV SCH (11:00)
[2017-05-27] MEDS ORDERED: TBO-Filgrastim 300 mcg/0.5ml SQ ONE (13:00)
[2017-05-27] MEDS: Piperacillin/Tazobactam 3.375 GM in D5W 55 ML IVPB SCH ×2 (13:50→21:54)
--- NOTE | 2017-05-27 14:37 | Cardiac Electrophysiology PN ---
Subjective Subjective [id number] Objective Last 24 Hour Vital Signs Date Time Temp Pulse Resp B/P (MAP) Pulse Ox O2 Delivery O2 Flow Rate FiO2 05/27/17 13:37 78/45 05/27/17 13:00 106 19 111/58 87 Room Air 05/27/17 12:45 106 19 111/58 87 Room Air 05/27/17 12:30 108 19 112/64 87 Room Air 05/27/17 12:15 109 21 109/65 87 Room Air 05/27/17 12:00 110 05/27/17 12:00 100.4 108 17 86/52 92 Room Air 05/27/17 11:45 110 24 92/74 95 Room Air 05/27/17 11:30 111 25 87/50 94 Room Air 05/27/17 11:15 101.4 116 25 185/160 93 Room Air 05/27/17 11:05 100.4 112 24 104/61 94 Room Air 05/27/17 11:05 101.3 112 24 104/61 94 Room Air 05/27/17 10:35 95/57 05/27/17 10:10 122 23 115/57 94 Room Air 05/27/17 10:00 115/57 05/27/17 09:55 111/47 05/27/17 09:50 87/46 05/27/17 09:35 102/56 05/27/17 09:30 87/47 05/27/17 09:25 89/50 05/27/17 09:20 86/44 05/27/17 09:10 101.3 127 24 95/47 95 Room Air 05/27/17 09:00 78/32 05/27/17 08:15 102/52 05/27/17 08:10 88/51 05/27/17 08:05 133 25 92/48 94 Room Air 05/27/17 07:50 99/52 05/27/17 07:45 88/45 05/27/17 07:40 96/52 05/27/17 07:35 89/51 05/27/17 07:30 87/42 05/27/17 07:25 87/43 05/27/17 07:20 80/47 05/27/17 07:15 102.3 124 22 84/47 95 Room Air 05/27/17 07:15 84/47 05/27/17 07:10 102.3 05/27/17 07:10 87/41 05/27/17 07:05 90/38 05/27/17 07:00 126 26 82/38 97 Room Air 05/27/17 07:00 82/38 05/27/17 06:55 120 22 91/46 97 Room Air 05/27/17 06:54 84/40 05/27/17 06:50 121 18 100/37 96 Room Air 05/27/17 06:45 124 18 84/40 96 Room Air 05/27/17 06:02 102.3 118 26 101/42 97 Room Air 05/27/17 05:32 104.4 117 27 101/41 100 Room Air 05/27/17 04:32 102.9 130 22 99/46 94 Room Air 05/27/17 04:19 102.9 130 22 99/46 94 Room Air Intake and Output 05/27/17 05/28/17 19:00 07:00 Intake Total 0 ml Balance 0 ml Intake Oral 0 ml # Voids 2 # Bowel Movements 2 Laboratory Tests Test 05/27/17 04:35 05/27/17 04:39 05/27/17 05:19 05/27/17 06:20 White Blood Count 0.8 K/UL (4.8-10.8) *L Red Blood Count 4.63 M/UL (4.20-5.40) Hemoglobin 12.7 G/DL (12.0-16.0) Hematocrit 40.5 % (37.0-47.0) Mean Corpuscular Volume 87 FL (80-99) Mean Corpuscular Hemoglobin 27.5 PG (27.0-31.0) Mean Corpuscular Hemoglobin Concent 31.5 G/DL (32.0-36.0) L Red Cell Distribution Width 13.1 % (11.6-14.8) Platelet Count 87 K/UL (150-450) L Mean Platelet Volume 8.3 FL (6.5-10.1) Neutrophils (%) (Auto) % (45.0-75.0) Lymphocytes (%) (Auto) % (20.0-45.0) Monocytes (%) (Auto) % (1.0-10.0) Eosinophils (%) (Auto) % (0.0-3.0) Basophils (%) (Auto) % (0.0-2.0) Differential Total Cells Counted 100 Neutrophils % (Manual) 53 % (45-75) Lymphocytes % (Manual) 42 % (20-45) Monocytes % (Manual) 3 % (1-10) Eosinophils % (Manual) 0 % (0-3) Basophils % (Manual) 0 % (0-2) Band Neutrophils 2 % (0-8) Platelet Estimate Decreased L Platelet Morphology Normal Prothrombin Time 12.6 SEC (9.30-11.50) H Prothromb Time International Ratio 1.2 (0.9-1.1) H Activated Partial Thromboplast Time 25 SEC (23-33) Sodium Level 136 MMOL/L (136-145) Potassium Level 3.2 MMOL/L (3.5-5.1) L Chloride Level 100 MMOL/L (98-107) Carbon Dioxide Level 19 MMOL/L (21-32) L Anion Gap 17 mmol/L (5-15) H Blood Urea Nitrogen 31 mg/dL (7-18) H Creatinine 1.8 MG/DL (0.55-1.30) H Estimat Glomerular Filtration Rate 34.1 mL/min (>60) Glucose Level 118 MG/DL (74-106) H Lactic Acid Level 6.60 mmol/L (0.66-2.22) H 4.10 mmol/L (0.66-2.22) H Calcium Level 7.9 MG/DL (8.5-10.1) L Total Bilirubin 2.2 MG/DL (0.2-1.0) H Direct Bilirubin 1.1 MG/DL (0.0-0.3) H Aspartate Amino Transf (AST/SGOT) 127 U/L (15-37) H Alanine Aminotransferase (ALT/SGPT) 85 U/L (12-78) H Alkaline Phosphatase 157 U/L (46-116) H Total Creatine Kinase 64 U/L (26-308) Creatine Kinase MB 1.6 NG/ML (0.0-3.6) Creatine Kinase MB Relative Index 2.5 Troponin I < 0.017 ng/mL (0.000-0.056) Total Protein 6.6 G/DL (6.4-8.2) Albumin 2.8 G/DL (3.4-5.0) L Globulin 3.8 g/dL Albumin/Globulin Ratio 0.7 (1.0-2.7) L HIV (1&2) Antibody Rapid Negative (NEGATIVE) Arterial Blood pH 7.402 (7.350-7.450) Arterial Blood Partial Pressure CO2 30.8 mmHg (35.0-45.0) L Arterial Blood Partial Pressure O2 72.7 mmHg (75.0-100.0) L Arterial Blood HCO3 18.7 mmol/L (22.0-26.0) L Arterial Blood Oxygen Saturation 92.6 % (92.0-98.0) Arterial Blood Base Excess -5.1 Geoff Test Positive Urine Color Yellow Urine Appearance Cloudy Urine pH 5 (4.5-8.0) Urine Specific [place] 1.025 (1.005-1.035) Urine Protein 1+ (NEGATIVE) H Urine Glucose (UA) Negative (NEGATIVE) Urine Ketones 2+ (NEGATIVE) H Urine Occult Blood 5+ (NEGATIVE) H Urine Nitrite Positive (NEGATIVE) H Urine Bilirubin Negative (NEGATIVE) Urine Urobilinogen 1 MG/DL (0.0-1.0) H Urine Leukocyte Esterase 3+ (NEGATIVE) H Urine RBC 5-10 /HPF (0 - 2) H Urine WBC 30-40 /HPF (0 - 2) H Urine Squamous Epithelial Cells Occasional /LPF Urine Bacteria Many /HPF (NONE) H Microbiology Date/Time Source Procedure Growth Status 05/27/17 05:19 Nasal Nares Influenza Types A,B Antigen (JADYN) - Final Complete CHRISTIAN FONSECA May 27, 2017 14:37
[2017-05-27] MEDS ORDERED: TBO-Filgrastim 480 mcg/0.8ml SQ ONE (15:00)
[2017-05-27 16:06] LABS: REFLEX LACTIC ACID YES OR NO YES
--- NOTE | 2017-05-27 17:46 | Pulmonolgy Critical Care Note ---
Critical Care - Asmt/Plan Problems: (1) Septic shock (2) Pyelonephritis (3) ATN (acute tubular necrosis) (4) History of DVT (deep vein thrombosis) (5) Anxiety Respiratory: monitor respiratory rate, adjust FIO2, CXR Cardiac: continue pressors, continue to monitor HR/BP Renal: F/U I&O, keep IV fluid Infectious Disease: check cultures, continue antibiotics Gastrointestinal: continue feedings/current rate Endocrine: check TSH, check HgA1C, continue sliding scale insulin Hematologic: transfuse if hgb<8.5 Neurologic: PRN Ativan, PRN Morphine, keep patient comfortable Affect: PRN ativan Prophylaxis: Protonix, Heparin Notes Reviewed: mask former, 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 with: 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0 05/27/17 14:15 100 17 97/57 87 Room Air 05/27/17 14:00 107/56 05/27/17 14:00 101 17 99/54 87 Room Air 05/27/17 13:45 101 17 100/60 88 Room Air 05/27/17 13:37 78/45 05/27/17 13:30 101 18 78/45 88 Room Air 05/27/17 13:15 102 18 100/52 88 Room Air 05/27/17 13:00 111/58 05/27/17 13:00 106 19 111/58 87 Room Air 05/27/17 12:45 106 19 111/58 87 Room Air 05/27/17 12:30 108 19 112/64 87 Room Air 05/27/17 12:15 109 21 109/65 87 Room Air 05/27/17 12:00 86/52 05/27/17 12:00 110 05/27/17 12:00 100.4 108 17 86/52 92 Room Air 05/27/17 11:45 110 24 92/74 95 Room Air 05/27/17 11:30 111 25 87/50 94 Room Air 05/27/17 11:15 101.4 116 25 185/160 93 Room Air 05/27/17 11:05 100.4 112 24 104/61 94 Room Air 05/27/17 11:05 101.3 112 24 104/61 94 Room Air 05/27/17 10:35 95/57 05/27/17 10:10 122 23 115/57 94 Room Air 05/27/17 10:00 115/57 05/27/17 09:55 111/47 05/27/17 09:50 87/46 05/27/17 09:35 102/56 05/27/17 09:30 87/47 05/27/17 09:25 89/50 05/27/17 09:20 86/44 05/27/17 09:10 101.3 127 24 95/47 95 Room Air 05/27/17 09:00 78/32 05/27/17 08:15 102/52 05/27/17 08:10 88/51 05/27/17 08:05 133 25 92/48 94 Room Air 05/27/17 07:50 99/52 05/27/17 07:45 88/45 05/27/17 07:40 96/52 05/27/17 07:35 89/51 05/27/17 07:30 87/42 05/27/17 07:25 87/43 05/27/17 07:20 80/47 05/27/17 07:15 102.3 124 22 84/47 95 Room Air 05/27/17 07:15 84/47 05/27/17 07:10 102.3 05/27/17 07:10 87/41 05/27/17 07:05 90/38 05/27/17 07:00 126 26 82/38 97 Room Air 05/27/17 07:00 82/38 05/27/17 06:55 120 22 91/46 97 Room Air 05/27/17 06:54 84/40 05/27/17 06:50 121 18 100/37 96 Room Air 05/27/17 06:45 124 18 84/40 96 Room Air 05/27/17 06:02 102.3 118 26 101/42 97 Room Air 05/27/17 05:32 104.4 117 27 101/41 100 Room Air 05/27/17 04:32 102.9 130 22 99/46 94 Room Air 05/27/17 04:19 102.9 130 22 99/46 94 Room Air Status: awake Condition: critical HEENT: atraumatic, normocephalic Lungs: clear Heart: HR/BP stable, HR/BP unstable Abdomen: soft, non-tender, active bowel sounds Extremities: no C/C/E, edema Decubiti: location Micro: Microbiology Date/Time Source Procedure Growth Status 05/27/17 05:19 Nasal Nares Influenza Types A,B Antigen (JADYN) - Final Complete Critical Care - Subjective ICU Day: 1 Interval Events: 67-year-old female with hx of COPD, DVT, gastric bypass presented to ER with CC of chills and fever. She reported feeling dizzy lightheaded having cough and difficulty breathing. Patient denied any hematemesis. Patient had a temperature of 103 . she also had increased pain to her lower back. She was hypotensive and is admitted to ICU. I&O: Intake and Output 05/27/17 05/28/17 19:00 07:00 Intake Total 1106.84 ml Balance 1106.84 ml Intake Oral 0 ml IV Total 1106.84 ml # Voids 2 # Bowel Movements 2 CXR: VAMSI Labs: Laboratory Tests Test 05/27/17 04:35 05/27/17 04:39 05/27/17 05:19 05/27/17 06:20 White Blood Count 0.8 K/UL (4.8-10.8) *L Red Blood Count 4.63 M/UL (4.20-5.40) Hemoglobin 12.7 G/DL (12.0-16.0) Hematocrit 40.5 % (37.0-47.0) Mean Corpuscular Volume 87 FL (80-99) Mean Corpuscular Hemoglobin 27.5 PG (27.0-31.0) Mean Corpuscular Hemoglobin Concent 31.5 G/DL (32.0-36.0) L Red Cell Distribution Width 13.1 % (11.6-14.8) Platelet Count 87 K/UL (150-450) L Mean Platelet Volume 8.3 FL (6.5-10.1) Neutrophils (%) (Auto) % (45.0-75.0) Lymphocytes (%) (Auto) % (20.0-45.0) Monocytes (%) (Auto) % (1.0-10.0) Eosinophils (%) (Auto) % (0.0-3.0) Basophils (%) (Auto) % (0.0-2.0) Differential Total Cells Counted 100 Neutrophils % (Manual) 53 % (45-75) Lymphocytes % (Manual) 42 % (20-45) Monocytes % (Manual) 3 % (1-10) Eosinophils % (Manual) 0 % (0-3) Basophils % (Manual) 0 % (0-2) Band Neutrophils 2 % (0-8) Platelet Estimate Decreased L Platelet Morphology Normal Prothrombin Time 12.6 SEC (9.30-11.50) H Prothromb Time International Ratio 1.2 (0.9-1.1) H Activated Partial Thromboplast Time 25 SEC (23-33) Sodium Level 136 MMOL/L (136-145) Potassium Level 3.2 MMOL/L (3.5-5.1) L Chloride Level 100 MMOL/L (98-107) Carbon Dioxide Level 19 MMOL/L (21-32) L Anion Gap 17 mmol/L (5-15) H Blood Urea Nitrogen 31 mg/dL (7-18) H Creatinine 1.8 MG/DL (0.55-1.30) H Estimat Glomerular Filtration Rate 34.1 mL/min (>60) Glucose Level 118 MG/DL (74-106) H Lactic Acid Level 6.60 mmol/L (0.66-2.22) H 4.10 mmol/L (0.66-2.22) H Calcium Level 7.9 MG/DL (8.5-10.1) L Total Bilirubin 2.2 MG/DL (0.2-1.0) H Direct Bilirubin 1.1 MG/DL (0.0-0.3) H Aspartate Amino Transf (AST/SGOT) 127 U/L (15-37) H Alanine Aminotransferase (ALT/SGPT) 85 U/L (12-78) H Alkaline Phosphatase 157 U/L (46-116) H Total Creatine Kinase 64 U/L (26-308) Creatine Kinase MB 1.6 NG/ML (0.0-3.6) Creatine Kinase MB Relative Index 2.5 Troponin I < 0.017 ng/mL (0.000-0.056) Total Protein 6.6 G/DL (6.4-8.2) Albumin 2.8 G/DL (3.4-5.0) L Globulin 3.8 g/dL Albumin/Globulin Ratio 0.7 (1.0-2.7) L HIV (1&2) Antibody Rapid Negative (NEGATIVE) Arterial Blood pH 7.402 (7.350-7.450) Arterial Blood Partial Pressure CO2 30.8 mmHg (35.0-45.0) L Arterial Blood Partial Pressure O2 72.7 mmHg (75.0-100.0) L Arterial Blood HCO3 18.7 mmol/L (22.0-26.0) L Arterial Blood Oxygen Saturation 92.6 % (92.0-98.0) Arterial Blood Base Excess -5.1 Geoff Test Positive Urine Color Yellow Urine Appearance Cloudy Urine pH 5 (4.5-8.0) Urine Specific [place] 1.025 (1.005-1.035) Urine Protein 1+ (NEGATIVE) H Urine Glucose (UA) Negative (NEGATIVE) Urine Ketones 2+ (NEGATIVE) H Urine Occult Blood 5+ (NEGATIVE) H Urine Nitrite Positive (NEGATIVE) H Urine Bilirubin Negative (NEGATIVE) Urine Urobilinogen 1 MG/DL (0.0-1.0) H Urine Leukocyte Esterase 3+ (NEGATIVE) H Urine RBC 5-10 /HPF (0 - 2) H Urine WBC 30-40 /HPF (0 - 2) H Urine Squamous Epithelial Cells Occasional /LPF Urine Bacteria Many /HPF (NONE) H Test 05/27/17 15:30 Lactic Acid Level 3.60 mmol/L (0.66-2.22) H Random Amikacin Level Pending Hepatitis A IgM Antibody Pending Hepatitis B Surface Antigen Pending Hepatitis B Core IgM Antibody Pending Hepatitis C Antibody Pending ADAMA MENDIETA 3, 2017 17:46
--- NOTE | 2017-05-27 18:00 | Consultation ---
DATE OF CONSULTATION: 05/27/2017 CONSULTING PHYSICIAN: Eric Disla M.D. PRIMARY ATTENDING PHYSICIAN: Alfonso Rodríguez D.O. REASON FOR CONSULTATION: Septic shock. HISTORY OF PRESENT ILLNESS: This is a 67-year-old female, admitted today because of fever and chills. She had also coughing and at the time of admission had low blood pressure, tachycardia, fever of 102.9. The patient had central catheter placed in ER and transferred to ICU, currently is on Levophed. PAST MEDICAL HISTORY: Significant for morbid obesity. 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 ALLERGIES: No known drug allergies. MEDICATIONS: Getting vancomycin, amikacin, DuoNeb inhaler, Tylenol, MiraLAX, Zofran, norepinephrine. REVIEW OF SYSTEMS: Fever, some throbbing headache, nausea. No vomiting. No significant coughing. No dysuria. SOCIAL HISTORY: Lives at home. Single. Denies alcohol, drug abuse, or smoking. PHYSICAL EXAMINATION: VITAL SIGNS: Temperature 101.3, pulse 122, and blood pressure 95/57. GENERAL APPEARANCE: Seems to be awake, more alert than in the ER. HEAD AND NECK: Supple neck. Right intrajugular central line. HEART: Tachycardic. LUNGS: Clear. ABDOMEN: Soft, nontender. EXTREMITIES: She has no edema. NEUROLOGIC: Awake, alert, and oriented x3. LABORATORY AND DIAGNOSTIC DATA: Sodium 136, potassium 3.2, BUN 31, creatinine 1.8, glucose 118. Lactic acid is 4.1. Bilirubin is elevated at 2.2. AST 127, ALT 85, alkaline phosphatase 157, albumin 2.8. UA showed nitrite positive, urine WBC 30-40, leukocyte esterase 3+ positive. The patient had CT scan of abdomen and pelvis without contrast that showed chronic findings, changes including right hydronephrosis and some cystic lesion, may be ovarian. WBC 0.8, hemoglobin 12.7, hematocrit platelets 87,000; neutrophil count is 53. IMPRESSION: Sepsis with septic shock. Source of infection seems to be urinary tract infection. The patient has right hydronephrosis and pyuria. The patient has leukopenia, neutropenia, has thrombocytopenia, lactic acidosis, and acute renal failure. RECOMMENDATION: We will follow up the cultures including blood, sputum, and urine. We will follow up the CBC. We will continue amikacin and vancomycin. The patient to get a dose of ertapenem. We will start the patient on Zosyn. At the end of my exam, I thank Dr. Alfonso Rodríguez for involving me in the care of this patient. Eric Disla M.D. DR: Christin JOB#: [id number] CC:
[2017-05-27] MEDS: Potassium Chloride 10 MEQ in NS 110 ML IVPB SCH ×3 (18:34→21:47)
--- NOTE | 2017-05-27 18:45 | History and Physical Report ---
DATE OF ADMISSION: 05/27/2017 TIME SEEN: At 8 a.m. CONSULTANTS: 1. Latha Gill M.D. 2. Logan Mahan M.D. 3. Dr. Ballesteros. CHIEF COMPLAINT: Shortness of breath, slight chest pain, fever, and dizziness. BRIEF HISTORY: This is a 67-year-old female who lives at home and presents with one-day history of slight fever, weakness, shortness of breath, and slight chest pain. She came to the ER, diagnosed with fever of 103, shortness of breath, chest pain, and possible sepsis, and being admitted to ICU for further care. Currently calm, she is slightly anxious in bed awaiting CT of abdomen, no complaint. PAST MEDICAL HISTORY: Nothing. PAST SURGICAL HISTORY: Gastric bypass. MEDICATIONS: Include amikacin, ertapenem, vancomycin, Protonix, albuterol, morphine sulfate, and Zofran. ALLERGIES: Denies. SOCIAL HISTORY: No smoking. No alcohol. No intravenous drug abuse. FAMILY HISTORY: Noncontributory. REVIEW OF SYSTEMS: Slight chest pain. Slight shortness of breath. No nausea, vomiting, or diarrhea. PHYSICAL EXAMINATION: GENERAL: Slightly anxious in bed, oriented x3, in no acute distress. VITAL SIGNS: Temperature not given, pulse was initially 103, pulse 133, respirations 25, and blood pressure 92/48. CARDIOVASCULAR: No murmur. LUNGS: Poor exchange. ABDOMEN: Bowel sounds positive. Nontender and nondistended. EXTREMITIES: No cyanosis, clubbing, or edema. NEUROLOGIC: The patient moves all extremities, slightly weak. LABORATORY AND DIAGNOSTIC DATA: Laboratories at this time show white count 0.8, leukopenia; platelets 87,000, thrombocytopenia. BMP showed potassium 3.2, BUN and creatinine 31/1.8, and glucose 118. Troponin 0.017. Albumin 2.8. INR 1.2. Urinalysis showed occult blood, positive nitrites. ASSESSMENT: 1. Urinary tract infection. 2. Sepsis. 3. Shock. 4. Shortness of breath. 5. Dizziness. 6. Renal insufficiency. 7. Hypokalemia. 8. Leukopenia. 9. Thrombocytopenia. 10. Malnutrition. 11. Chest pain. PLAN: 1. Continue home medications. 2. O2 and pulmonary treatment as needed. 3. Antibiotics per infectious disease. 4. OT, PT, and dietary evaluation. 5. CBC and BMP in the morning. 6. Blood pressure control. 7. Dr. Gill, Dr. Mahan, Dr. Ballesteros, Dr. Ken, and Dr. Scruggs to consult. 8. We will continue to follow this patient medically. Alfonso Rodríguez D.O. DR: Eric JOB#: [id number] CC:
--- NOTE | 2017-05-27 20:45 | Consultation ---
DATE OF CONSULTATION: 05/27/2017 CARDIOLOGY CONSULTATION CONSULTING PHYSICIAN: Logan Mahan M.D. REFERRING PHYSICIAN: Alfonso Rodríguez D.O. REASON FOR CONSULTATION: Hypotension. HISTORY OF PRESENT ILLNESS: The patient is a 67-year-old lady, who presented to the emergency room for fever and chills and dizziness and lightheadedness. The patient has a history of COPD, history of gastric bypass, and morbid obesity. The patient was noted to have a temperature of 103 and has remote history of DVT. In the emergency room, the patient was hypotensive with the blood pressure in the 70s and then was transferred to intensive care unit and started on pressors. At the time of my evaluation, the patient denies any chest pain or shortness of breath even though her white count was only 0.8. PAST MEDICAL HISTORY: Asthma, COPD, history of left ankle DVT six years ago. FAMILY HISTORY: Noncontributory. REVIEW OF SYSTEMS: Review of systems was performed and was negative other than what was mentioned in the history of present illness. PHYSICAL EXAMINATION: VITAL SIGNS: Blood pressure is 78/45, pulse 106, respirations 18, and temperature maximum is 101.4. HEAD AND NECK: No JVD. LUNGS: Coarse rhonchi. CARDIOVASCULAR: Regular S1 and S2. Tachycardic. ABDOMEN: Soft. EXTREMITIES: No pitting edema. LABORATORY DATA: Labs show white count of 0.8, hemoglobin 12.7, hematocrit of 40, and platelet count of 87,000. Sodium 133, potassium 3.2, BUN of 31, creatinine of 1.8, and glucose of 118. Lactic acid was 6.6. Troponin is negative. ASSESSMENT AND PLAN: 1. Hypotension. This is likely due to septic shock. The patient does not have any chest pain. Troponin is negative. We will get an echocardiogram to evaluate for ejection fraction and wall motion abnormality. The patient is already on broad-spectrum antibiotics with amikacin and vancomycin as well as Zosyn. The patient is also on Levophed and may need more IV fluids. 2. Chronic obstructive pulmonary disease. 3. Lactic acidosis. 4. Renal failure. Creatinine of 1.8. 5. Severe leukopenia. Evaluation is pending. Thank you very much, Dr. Rodríguez, for allowing me to participate in the care of this patient. Please do not hesitate to contact me if you have any questions regarding my evaluation. Logan Mahan M.D. DR: Boris JOB#: [id number] CC:
[2017-05-27] MEDS: Dyna-Hex 2% Top Sol 2oz TOPIC SCH (20:46)
[2017-05-27 22:05] LABS: REFLEX LACTIC ACID YES OR NO YES
--- NOTE | 2017-05-27 23:00 | Consultation ---
DATE OF CONSULTATION: 05/27/2017 HEMATOLOGY/ONCOLOGY CONSULTATION CONSULTING PHYSICIAN: Valentin Ken M.D. REQUESTING PHYSICIAN: Alfonso Rodríguez D.O. REASON FOR CONSULTATION: Evaluation of severe leukopenia. IDENTIFICATION DATA: Dear Dr.Jimmy Rodríguez, The patient is a pleasant 67-year-old female, who has been admitted multiple times in the past. She has a past medical history, which is significant for DVT, left ankle 15 years ago, COPD, asthma, gastric bypass, left knee replacement, and musculoskeletal disorder, at this time presents to [facility] with sepsis with septic shock, noted to have fevers and chills, temperature 101.2 degrees. She was started on pressors and vasopressors. Currently noted to have WBC of 0.8. Hematology service consulted. Neupogen administered. The patient currently is on pressors. PAST MEDICAL HISTORY: As noted above. PAST SURGICAL HISTORY: Gastric bypass and left knee replacement. ALLERGIES: No known drug allergies. REVIEW OF SYSTEMS: CONSTITUTIONAL: Some fevers and chills noted. SKIN: No rashes, bumps, or itching. HEENT: No headache, hearing, or vision changes. BREASTS: No lumps, pain, or discharge. PULMONARY: No cough, sputum, or shortness of breath. GASTROINTESTINAL: No nausea, vomiting, or diarrhea. GENITOURINARY: No dysuria, frequency, or urgency. MUSCULOSKELETAL: No joint swelling, muscle pain, or trauma. PHYSICAL EXAMINATION: VITAL SIGNS: Reviewed. GENERAL: No distress. PULMONARY: Decreased breath sounds. CARDIOVASCULAR: Regular rate. No S3 or S4. ABDOMEN: Soft, nontender, and nondistended. EXTREMITIES: 1+ edema. LABORATORY AND DIAGNOSTIC DATA: WBC 0.8, hemoglobin 12.7, hematocrit 41, and platelet count 87,000. ASSESSMENT AND RECOMMENDATIONS: 1. Leukopenia, severe 0.8. ANC less than 500. Administered Neupogen stat. Potentially secondary to septic shock. In addition, recommended use of antibiotics. The patient currently on vancomycin, Zosyn, and amikacin. Continue at this time per Infectious Disease service. 2. Deep venous thrombosis history in the past. Obtain duplex of lower extremities to rule out deep venous thrombosis. 3. Thrombocytopenia. Rule out human immunodeficiency virus, hepatitis, and cirrhosis of the liver. 4. Acute kidney injury with creatinine of 1.8. Continue to closely monitor. Administer fluids as needed. 5. Transaminitis, rule out alcohol abuse. 6. Coagulopathy, potentially secondary to myelosuppression. Continue to closely follow. 7. Urinary tract infection, on antibiotics. We will continue to closely monitor. We will medications as needed. Rule out those medications that can cause leukopenia besides and currently septic shock. I appreciate the consultation. Valentin Ken M.D. DR: Ambika JOB#: [id number] CC:
[2017-05-28] VITALS (95 sets, daily range): BP systolic 43–132; BP diastolic 18–81
[2017-05-28 05:37] LABS: MEAN CORPUSCULAR HEMOGLOBIN 28.3 PG (27.0-31.0); MEAN CORPUSCULAR HGB CONC 32.1 G/DL (32.0-36.0); MEAN CORPUSCULAR VOLUME 88 FL (80-99); MEAN PLATELET VOLUME 8.9 FL (6.5-10.1); PLATELET COUNT 50 K/UL (150-450); RED BLOOD COUNT 4.48 M/UL (4.20-5.40); RED CELL DISTRIBUTION WIDTH 13.8 % (11.6-14.8); WHITE BLOOD COUNT 17.2 K/UL (4.8-10.8)
[2017-05-28] MEDS: Piperacillin/Tazobactam 3.375 GM in D5W 55 ML IVPB SCH ×3 (05:43→22:03)
[2017-05-28 06:18] LABS: ALANINE AMINOTRANSFERASE 59 U/L (12-78); ALBUMIN/GLOBULIN RATIO 0.7 (1.0-2.7); ANION GAP 13 mmol/L (5-15); ASPARTATE AMINO TRANSFERASE 91 U/L (15-37); BILIRUBIN,DIRECT 1.8 MG/DL (0.0-0.3); CALCIUM 7.4 MG/DL (8.5-10.1); CARBON DIOXIDE 19 MMOL/L (21-32); CHLORIDE 107 MMOL/L (98-107); CREATININE 1.8 MG/DL (0.55-1.30); GLOMERULAR FILTRATION RATE 34.1 mL/min (>60); POTASSIUM 3.6 MMOL/L (3.5-5.1); SODIUM 139 MMOL/L (136-145); THYROID STIMULATING HORMONE 0.782 uiU/mL (0.358-3.740); TOTAL PROTEIN 5.8 G/DL (6.4-8.2)
[2017-05-28 06:35] LABS: REFLEX LACTIC ACID YES OR NO YES
[2017-05-28 07:29] LABS: BAND NEUTROPHILS % (MANUAL) 28 % (0-8); BASOPHILS % (MANUAL) 0 % (0-2); EOSINOPHILS % (MANUAL) 0 % (0-3); LYMPHOCYTES % (MANUAL) 4 % (20-45); NEUTROPHILS % (MANUAL) 63 % (45-75); PLATELET ESTIMATE DECREASED; TOTAL CELLS COUNTED 100
[2017-05-28 07:30] LABS: PLATELET MORPHOLOGY NORMAL
--- NOTE | 2017-05-28 08:05 | Infectious Diseases Prog Note ---
Assessment/Plan Assessment/Plan A; Sepsis/Septic shock UTI Acute renal failure Elevated bilirubin & transaminase s/p Cholecystectomy s/p gastric bypass Lactic acidosis P: Discontinue Amikacin Continue Zosyn & Vancomycin will f/u cultures Subjective ROS Limited/Unobtainable: No HEENT: Reports: no symptoms Respiratory: Reports: no symptoms Cardiovascular: Reports: other - on Levophed 16 microgram/kg/min Gastrointestinal/Abdominal: Reports: no symptoms Genitourinary: Reports: no symptoms Neurologic: Reports: no symptoms Allergies: Coded Allergies: No Known Allergies (Unverified , 09/04/12) Objective Vital Signs Last 24 Hour Vital Signs Date Time Temp Pulse Resp B/P (MAP) Pulse Ox O2 Delivery O2 Flow Rate FiO2 05/28/17 07:27 108 26 Nasal Cannula 28 05/28/17 07:20 Nasal Cannula 2.0 05/28/17 07:20 95 Nasal Cannula 2.0 05/28/17 06:30 111 17 116/60 94 Nasal Cannula 2.0 05/28/17 06:15 111 17 116/60 94 Nasal Cannula 2.0 05/28/17 06:13 98.4 05/28/17 06:00 112 17 103/57 94 Nasal Cannula 2.0 05/28/17 05:45 108 17 106/65 94 Nasal Cannula 2.0 05/28/17 05:33 107 15 99 Room Air 21 05/28/17 05:30 110 17 114/60 94 Nasal Cannula 2.0 05/28/17 05:24 36 05/28/17 05:24 110 24 94 Room Air 21 05/28/17 05:24 108 14 Room Air 21 05/28/17 05:15 110 17 114/67 94 Nasal Cannula 2.0 05/28/17 05:00 108 17 106/65 94 Nasal Cannula 2.0 05/28/17 04:56 98/59 05/28/17 04:45 108 17 106/65 94 Nasal Cannula 2.0 05/28/17 04:30 110 17 72/49 94 Nasal Cannula 2.0 05/28/17 04:15 110 17 95/56 94 Nasal Cannula 2.0 05/28/17 04:00 99.0 109 17 110/68 94 Nasal Cannula 2.0 05/28/17 04:00 109 05/28/17 03:45 109 17 96/56 94 Nasal Cannula 2.0 05/28/17 03:30 110 17 101/52 94 Nasal Cannula 2.0 05/28/17 03:15 109 17 98/57 96 Nasal Cannula 2.0 05/28/17 03:00 108 17 98/59 96 Nasal Cannula 2.0 05/28/17 02:45 108 17 98/58 96 Nasal Cannula 2.0 05/28/17 02:30 107 17 91/57 96 Nasal Cannula 2.0 05/28/17 02:15 107 17 98/57 96 Nasal Cannula 2.0 05/28/17 02:00 107 17 87/41 96 Nasal Cannula 2.0 05/28/17 01:45 107 17 85/45 96 Nasal Cannula 2.0 05/28/17 01:30 106 17 91/42 96 Nasal Cannula 2.0 05/28/17 01:15 108 17 98/52 96 Nasal Cannula 2.0 05/28/17 01:05 94/58 05/28/17 01:00 107 17 100/58 96 Nasal Cannula 2.0 05/28/17 00:45 107 17 101/48 96 Nasal Cannula 2.0 05/28/17 00:30 107 17 105/62 96 Nasal Cannula 2.0 05/28/17 00:15 106 17 94/52 96 Nasal Cannula 2.0 05/28/17 00:00 105 05/28/17 00:00 98.4 106 17 94/54 96 Nasal Cannula 2.0 05/27/17 23:45 106 17 101/58 96 Nasal Cannula 2.0 05/27/17 23:30 108 17 94/58 96 Nasal Cannula 2.0 05/27/17 23:15 106 17 96/53 96 Nasal Cannula 2.0 05/27/17 23:00 106 17 97/56 96 Nasal Cannula 2.0 05/27/17 22:45 106 17 97/56 96 Nasal Cannula 2.0 05/27/17 22:30 106 17 102/59 96 Nasal Cannula 2.0 05/27/17 22:15 106 17 100/61 96 Nasal Cannula 2.0 05/27/17 22:00 104 17 101/59 96 Nasal Cannula 2.0 05/27/17 21:45 102 19 97/52 96 Nasal Cannula 2.0 05/27/17 21:31 101/59 05/27/17 21:30 99 19 113/63 96 Nasal Cannula 2.0 05/27/17 21:15 100 19 100/63 96 Nasal Cannula 2.0 05/27/17 21:00 98 19 112/71 96 Nasal Cannula 2.0 05/27/17 20:45 95 19 110/60 96 Nasal Cannula 2.0 05/27/17 20:30 95 19 102/64 96 Nasal Cannula 2.0 05/27/17 20:15 94 19 88/56 96 Nasal Cannula 2.0 05/27/17 20:00 99 05/27/17 20:00 98.1 95 19 87/57 96 Nasal Cannula 2.0 05/27/17 19:45 95 19 93/60 96 Nasal Cannula 2.0 05/27/17 19:30 96 22 86/54 97 Nasal Cannula 2.0 05/27/17 19:15 96 22 87/53 97 Nasal Cannula 2.0 05/27/17 19:00 98 Nasal Cannula 2.0 28 05/27/17 19:00 Nasal Cannula 2.0 28 05/27/17 19:00 101/59 05/27/17 19:00 97 22 101/59 97 Nasal Cannula 2.0 05/27/17 18:45 96 22 118/67 97 Nasal Cannula 2.0 05/27/17 18:30 96 18 107/62 96 Nasal Cannula 2.0 05/27/17 18:15 96 18 107/60 96 Nasal Cannula 2.0 05/27/17 18:00 96 18 100/60 96 Nasal Cannula 2.0 05/27/17 18:00 100/60 05/27/17 17:45 95 19 109/61 96 Nasal Cannula 2.0 05/27/17 17:30 95 18 112/69 96 Nasal Cannula 2.0 05/27/17 17:15 96 17 105/65 95 Nasal Cannula 2.0 05/27/17 17:00 97 21 99/59 95 Nasal Cannula 2.0 05/27/17 16:49 112/68 05/27/17 16:45 96 21 78/53 95 Nasal Cannula 2.0 05/27/17 16:30 97 17 106/64 94 Nasal Cannula 2.0 05/27/17 16:15 98.1 96 17 112/68 95 Nasal Cannula 2.0 05/27/17 16:00 100 05/27/17 16:00 106/66 05/27/17 16:00 98 16 106/66 95 Nasal Cannula 2.0 05/27/17 15:45 99 16 106/66 95 Nasal Cannula 2.0 05/27/17 15:30 99 16 109/62 94 Nasal Cannula 2.0 05/27/17 15:15 100 19 94/65 96 Nasal Cannula 2.0 05/27/17 15:00 100 16 97/58 94 Nasal Cannula 2.0 05/27/17 15:00 97/58 05/27/17 14:45 100 16 107/56 95 Nasal Cannula 2.0 05/27/17 14:30 100 16 97/57 95 Nasal Cannula 2.0 05/27/17 14:15 100 17 97/57 87 Room Air 05/27/17 14:00 107/56 05/27/17 14:00 101 17 99/54 87 Room Air 05/27/17 13:45 101 17 100/60 88 Room Air 05/27/17 13:37 78/45 05/27/17 13:30 101 18 78/45 88 Room Air 05/27/17 13:15 102 18 100/52 88 Room Air 05/27/17 13:00 111/58 05/27/17 13:00 106 19 111/58 87 Room Air 05/27/17 12:45 106 19 111/58 87 Room Air 05/27/17 12:30 108 19 112/64 87 Room Air 05/27/17 12:15 109 21 109/65 87 Room Air 05/27/17 12:00 86/52 05/27/17 12:00 110 05/27/17 12:00 100.4 108 17 86/52 92 Room Air 05/27/17 11:45 110 24 92/74 95 Room Air 05/27/17 11:30 111 25 87/50 94 Room Air 05/27/17 11:15 101.4 116 25 185/160 93 Room Air 05/27/17 11:05 100.4 112 24 104/61 94 Room Air 05/27/17 11:05 101.3 112 24 104/61 94 Room Air 05/27/17 10:35 95/57 05/27/17 10:10 122 23 115/57 94 Room Air 05/27/17 10:00 115/57 05/27/17 09:55 111/47 05/27/17 09:50 87/46 05/27/17 09:35 102/56 05/27/17 09:30 87/47 05/27/17 09:25 89/50 05/27/17 09:20 86/44 05/27/17 09:10 101.3 127 24 95/47 95 Room Air 05/27/17 09:00 78/32 05/27/17 08:15 102/52 05/27/17 08:10 88/51 05/27/17 08:05 133 25 92/48 94 Room Air Height (Feet): 5 Height (Inches): 7.00 Weight (Pounds): 313 General Appearance: no acute distress HEENT: mucous membranes moist Respiratory/Chest: lungs clear Cardiovascular: tachycardia, other - RIJ central line Abdomen: soft, non tender Extremities: no edema Neurologic/Psychiatric: alert, oriented x 3, responsive Microbiology Date/Time Source Procedure Growth Status 05/27/17 04:40 Blood Blood Culture - Preliminary NO GROWTH AFTER 24 HOURS Resulted 05/27/17 04:35 Blood Blood Culture - Preliminary NO GROWTH AFTER 24 HOURS Resulted 05/27/17 05:19 Nasal Nares Influenza Types A,B Antigen (JADYN) - Final Complete 05/27/17 05:19 Urine,Clean Catch Urine Culture - Preliminary Gram Negative Bacillus 1 Resulted Laboratory Tests Test 05/27/17 15:30 05/27/17 21:21 05/28/17 04:35 Lactic Acid Level 3.60 mmol/L (0.66-2.22) H 2.50 mmol/L (0.66-2.22) H 2.00 mmol/L (0.66-2.22) Random Amikacin Level Pending Hepatitis A IgM Antibody Pending Hepatitis B Surface Antigen Pending Hepatitis B Core IgM Antibody Pending Hepatitis C Antibody Pending White Blood Count 17.2 K/UL (4.8-10.8) #H Red Blood Count 4.48 M/UL (4.20-5.40) Hemoglobin 12.7 G/DL (12.0-16.0) Hematocrit 39.5 % (37.0-47.0) Mean Corpuscular Volume 88 FL (80-99) Mean Corpuscular Hemoglobin 28.3 PG (27.0-31.0) Mean Corpuscular Hemoglobin Concent 32.1 G/DL (32.0-36.0) Red Cell Distribution Width 13.8 % (11.6-14.8) Platelet Count 50 K/UL (150-450) L Mean Platelet Volume 8.9 FL (6.5-10.1) Neutrophils (%) (Auto) % (45.0-75.0) Lymphocytes (%) (Auto) % (20.0-45.0) Monocytes (%) (Auto) % (1.0-10.0) Eosinophils (%) (Auto) % (0.0-3.0) Basophils (%) (Auto) % (0.0-2.0) Differential Total Cells Counted 100 Neutrophils % (Manual) 63 % (45-75) Lymphocytes % (Manual) 4 % (20-45) L Monocytes % (Manual) 5 % (1-10) Eosinophils % (Manual) 0 % (0-3) Basophils % (Manual) 0 % (0-2) Band Neutrophils 28 % (0-8) H Platelet Estimate Decreased L Platelet Morphology Normal Red Blood Cell Morphology Normal Sodium Level 139 MMOL/L (136-145) Potassium Level 3.6 MMOL/L (3.5-5.1) Chloride Level 107 MMOL/L (98-107) Carbon Dioxide Level 19 MMOL/L (21-32) L Anion Gap 13 mmol/L (5-15) Blood Urea Nitrogen 37 mg/dL (7-18) H Creatinine 1.8 MG/DL (0.55-1.30) H Estimat Glomerular Filtration Rate 34.1 mL/min (>60) Glucose Level 91 MG/DL (74-106) Calcium Level 7.4 MG/DL (8.5-10.1) L Total Bilirubin 2.8 MG/DL (0.2-1.0) H Direct Bilirubin 1.8 MG/DL (0.0-0.3) H Aspartate Amino Transf (AST/SGOT) 91 U/L (15-37) H Alanine Aminotransferase (ALT/SGPT) 59 U/L (12-78) Alkaline Phosphatase 113 U/L (46-116) Troponin I 0.006 ng/mL (0.000-0.056) Pro-B-Type Natriuretic Peptide 7572 pg/mL (0-125) H Total Protein 5.8 G/DL (6.4-8.2) L Albumin 2.3 G/DL (3.4-5.0) L Globulin 3.5 g/dL Albumin/Globulin Ratio 0.7 (1.0-2.7) L Thyroid Stimulating Hormone (TSH) 0.782 uiU/mL (0.358-3.740) Free Thyroxine 1.18 NG/DL (0.76-1.46) Current Medications Medications (Trade) Dose Ordered Sig/Safia Route PRN Reason Start Time Stop Time Status Last Admin Dose Admin Acetaminophen (Tylenol) 650 mg Q4H PRN ORAL fever 05/27/17 06:45 06/26/17 06:44 Albuterol/ Ipratropium (Albuterol/ Ipratropium) 3 ml Q4H PRN HHN Shortness of Breath 05/27/17 06:45 06/01/17 06:44 05/28/17 05:29 Amikacin Protocol (Amikacin pharmacy to dose) 1 ea DAILYPRN PRN MISC RX PROTOCOL 05/27/17 09:15 06/26/17 09:14 Amikacin Sulfate 1000 mg/Sodium Chloride 114 ml @ 114 mls/hr Q48H IV 05/27/17 11:00 06/03/17 10:59 05/27/17 12:40 Chlorhexidine Gluconate (Desiree-Hex 2%) 1 applic DAILY@2000 TOPIC 05/27/17 20:00 06/26/17 19:59 05/27/17 20:46 Hydromorphone HCl (Dilaudid) 2 mg Q4H PRN IVP Severe Pain (Pain Scale 7-10) 05/27/17 12:00 06/03/17 11:59 05/28/17 05:43 Norepinephrine Bitartrate 4 mg/ Dextrose 254 ml @ 0 mls/hr Q24H IV 05/27/17 06:45 06/26/17 06:44 05/28/17 04:56 Ondansetron HCl (Zofran) 4 mg Q6H PRN IVP Nausea & Vomiting 05/27/17 06:45 06/26/17 06:44 05/27/17 21:32 Pantoprazole (Protonix) 40 mg DAILY IVP 05/27/17 09:00 06/26/17 08:59 05/27/17 09:46 Piperacillin Sod/ Tazobactam Sod 3.375 gm/Dextrose 55 ml @ 13.75 mls/ hr Q8HR IVPB 05/27/17 13:00 06/03/17 12:59 05/28/17 05:43 Polyethylene Glycol (Miralax) 17 gm DAILYPRN PRN ORAL Constipation 05/27/17 06:45 06/26/17 06:44 Sodium Chloride 1,000 ml @ 100 mls/hr Q10H IVLG 05/27/17 06:44 06/26/17 06:43 05/28/17 00:46 Vancomycin HCl (Vanco rx to dose) 1 ea DAILYPRN PRN MISC RX PROTOCOL 05/27/17 08:45 06/26/17 08:44 Vancomycin HCl/ Dextrose 250 ml @ 125 mls/hr Q24H IVPB 05/28/17 09:00 06/02/17 08:59 SUKHDEV CUEVAS May 28, 2017 08:05
--- NOTE | 2017-05-28 08:45 | General Progress Note ---
Progress Note Progress Note patient seen and examined lab ordered full note will be dictated shortly PHILLY DONNELLY May 28, 2017 08:44
[2017-05-28] MEDS: Vancomycin 1.5 GM/D5W 250ML IVPB SCH (09:03)
[2017-05-28] MEDS: Pantoprazole Inj IVP SCH (09:03)
--- NOTE | 2017-05-28 10:33 | Diagnostic Imaging Report ---
Indication: DYSPNEA Technique: One view of the chest Comparison: 05/27/2017 Findings: Lungs and pleural spaces are clear. Heart size is normal. Right jugular central venous catheter projects with the tip in the high right atrium. Findings are unchanged Impression: Unchanged, over one day, findings as above.
[2017-05-28 11:33] LABS: ABG BASE EXCESS -6.9
[2017-05-28 11:34] LABS: ABG ALLEN TEST POSITIVE
--- NOTE | 2017-05-28 12:04 | Pulmonolgy Critical Care Note ---
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 with: nurses, consultants, 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 - Objective Last 24 Hour Vital Signs Date Time Temp Pulse Resp B/P (MAP) Pulse Ox O2 Delivery O2 Flow Rate FiO2 05/28/17 11:00 109/71 05/28/17 10:45 106 22 72/57 96 Room Air 05/28/17 10:30 106 20 112/71 96 Room Air 05/28/17 10:15 106 15 115/68 97 Room Air 05/28/17 10:00 106/55 05/28/17 10:00 106 14 115/68 96 Room Air 05/28/17 09:45 108 21 115/68 99 Room Air 05/28/17 09:30 105 21 115/68 97 Room Air 05/28/17 09:24 103/81 05/28/17 09:15 103 21 88/71 98 Room Air 05/28/17 09:00 105 20 88/71 97 Room Air 05/28/17 08:45 108 20 78/52 98 Room Air 05/28/17 08:30 108 20 95/79 99 Room Air 05/28/17 08:15 108 20 95/79 97 Room Air 05/28/17 08:00 98.1 108 20 113/64 100 Room Air 05/28/17 08:00 108 05/28/17 08:00 113/64 05/28/17 07:45 107 21 113/64 97 Room Air 05/28/17 07:30 108 19 113/62 96 Room Air 05/28/17 07:27 108 26 Nasal Cannula 28 05/28/17 07:20 Nasal Cannula 2.0 28 05/28/17 07:20 95 Nasal Cannula 2.0 28 05/28/17 07:15 109 21 90/50 96 Room Air 05/28/17 07:00 110 18 90/50 97 Room Air 05/28/17 06:30 111 17 116/60 94 Nasal Cannula 2.0 05/28/17 06:15 111 17 116/60 94 Nasal Cannula 2.0 05/28/17 06:13 98.4 05/28/17 06:00 112 17 103/57 94 Nasal Cannula 2.0 05/28/17 05:45 108 17 106/65 94 Nasal Cannula 2.0 05/28/17 05:33 107 15 99 Room Air 21 05/28/17 05:30 110 17 114/60 94 Nasal Cannula 2.0 05/28/17 05:24 36 05/28/17 05:24 110 24 94 Room Air 21 05/28/17 05:24 108 14 Room Air 05/28/17 05:15 110 17 114/67 94 Nasal Cannula 2.0 05/28/17 05:00 108 17 106/65 94 Nasal Cannula 2.0 05/28/17 04:56 98/59 05/28/17 04:45 108 17 106/65 94 Nasal Cannula 2.0 05/28/17 04:30 110 17 72/49 94 Nasal Cannula 2.0 05/28/17 04:15 110 17 95/56 94 Nasal Cannula 2.0 05/28/17 04:00 99.0 109 17 110/68 94 Nasal Cannula 2.0 05/28/17 04:00 109 05/28/17 03:45 109 17 96/56 94 Nasal Cannula 2.0 05/28/17 03:30 110 17 101/52 94 Nasal Cannula 2.0 05/28/17 03:15 109 17 98/57 96 Nasal Cannula 2.0 05/28/17 03:00 108 17 98/59 96 Nasal Cannula 2.0 05/28/17 02:45 108 17 98/58 96 Nasal Cannula 2.0 05/28/17 02:30 107 17 91/57 96 Nasal Cannula 2.0 05/28/17 02:15 107 17 98/57 96 Nasal Cannula 2.0 05/28/17 02:00 107 17 87/41 96 Nasal Cannula 2.0 05/28/17 01:45 107 17 85/45 96 Nasal Cannula 2.0 05/28/17 01:30 106 17 91/42 96 Nasal Cannula 2.0 05/28/17 01:15 108 17 98/52 96 Nasal Cannula 2.0 05/28/17 01:05 94/58 05/28/17 01:00 107 17 100/58 96 Nasal Cannula 2.0 05/28/17 00:45 107 17 101/48 96 Nasal Cannula 2.0 05/28/17 00:30 107 17 105/62 96 Nasal Cannula 2.0 05/28/17 00:15 106 17 94/52 96 Nasal Cannula 2.0 05/28/17 00:00 105 05/28/17 00:00 98.4 106 17 94/54 96 Nasal Cannula 2.0 05/27/17 23:45 106 17 101/58 96 Nasal Cannula 2.0 05/27/17 23:30 108 17 94/58 96 Nasal Cannula 2.0 05/27/17 23:15 106 17 96/53 96 Nasal Cannula 2.0 05/27/17 23:00 106 17 97/56 96 Nasal Cannula 2.0 05/27/17 22:45 106 17 97/56 96 Nasal Cannula 2.0 05/27/17 22:30 106 17 102/59 96 Nasal Cannula 2.0 05/27/17 22:15 106 17 100/61 96 Nasal Cannula 2.0 05/27/17 22:00 104 17 101/59 96 Nasal Cannula 2.0 05/27/17 21:45 102 19 97/52 96 Nasal Cannula 2.0 05/27/17 21:31 101/59 05/27/17 21:30 99 19 113/63 96 Nasal Cannula 2.0 05/27/17 21:15 100 19 100/63 96 Nasal Cannula 2.0 05/27/17 21:00 98 19 112/71 96 Nasal Cannula 2.0 05/27/17 20:45 95 19 110/60 96 Nasal Cannula 2.0 05/27/17 20:30 95 19 102/64 96 Nasal Cannula 2.0 05/27/17 20:15 94 19 88/56 96 Nasal Cannula 2.0 05/27/17 20:00 99 05/27/17 20:00 98.1 95 19 87/57 96 Nasal Cannula 2.0 05/27/17 19:45 95 19 93/60 96 Nasal Cannula 2.0 05/27/17 19:30 96 22 86/54 97 Nasal Cannula 2.0 05/27/17 19:15 96 22 87/53 97 Nasal Cannula 2.0 05/27/17 19:00 98 Nasal Cannula 2.0 28 05/27/17 19:00 Nasal Cannula 2.0 28 05/27/17 19:00 101/59 05/27/17 19:00 97 22 101/59 97 Nasal Cannula 2.0 05/27/17 18:45 96 22 118/67 97 Nasal Cannula 2.0 05/27/17 18:30 96 18 107/62 96 Nasal Cannula 2.0 05/27/17 18:15 96 18 107/60 96 Nasal Cannula 2.0 05/27/17 18:00 96 18 100/60 96 Nasal Cannula 2.0 05/27/17 18:00 100/60 05/27/17 17:45 95 19 109/61 96 Nasal Cannula 2.0 05/27/17 17:30 95 18 112/69 96 Nasal Cannula 2.0 05/27/17 17:15 96 17 105/65 95 Nasal Cannula 2.0 05/27/17 17:00 97 21 99/59 95 Nasal Cannula 2.0 05/27/17 16:49 112/68 05/27/17 16:45 96 21 78/53 95 Nasal Cannula 2.0 05/27/17 16:30 97 17 106/64 94 Nasal Cannula 2.0 05/27/17 16:15 98.1 96 17 112/68 95 Nasal Cannula 2.0 05/27/17 16:00 100 05/27/17 16:00 106/66 05/27/17 16:00 98 16 106/66 95 Nasal Cannula 2.0 05/27/17 15:45 99 16 106/66 95 Nasal Cannula 2.0 05/27/17 15:30 99 16 109/62 94 Nasal Cannula 2.0 05/27/17 15:15 100 19 94/65 96 Nasal Cannula 2.0 05/27/17 15:00 100 16 97/58 94 Nasal Cannula 2.0 05/27/17 15:00 97/58 05/27/17 14:45 100 16 107/56 95 Nasal Cannula 2.0 05/27/17 14:30 100 16 97/57 95 Nasal Cannula 2.0 05/27/17 14:15 100 17 97/57 87 Room Air 12/3/17 14:00 107/56 05/27/17 14:00 101 17 99/54 87 Room Air 05/27/17 13:45 101 17 100/60 88 Room Air 05/27/17 13:37 78/45 05/27/17 13:30 101 18 78/45 88 Room Air 05/27/17 13:15 102 18 100/52 88 Room Air 05/27/17 13:00 111/58 05/27/17 13:00 106 19 111/58 87 Room Air 05/27/17 12:45 106 19 111/58 87 Room Air 05/27/17 12:30 108 19 112/64 87 Room Air 05/27/17 12:15 109 21 109/65 87 Room Air Status: awake Condition: critical HEENT: atraumatic Neck: full ROM Heart: regular Abdomen: non-tender, feeding tube Extremities: no C/C/E Micro: Microbiology Date/Time Source Procedure Growth Status 05/27/17 04:40 Blood Blood Culture - Preliminary NO GROWTH AFTER 24 HOURS Resulted 05/27/17 04:35 Blood Blood Culture - Preliminary NO GROWTH AFTER 24 HOURS Resulted 05/27/17 05:19 Nasal Nares Influenza Types A,B Antigen (JADYN) - Final Complete 05/27/17 05:19 Urine,Clean Catch Urine Culture - Preliminary Gram Negative Bacillus 1 Resulted Critical Care - Subjective ROS Limited/Unobtainable: Yes ICU Day: 2 Intubation Day: 2 Condition: critical EKG Rhythm: Sinus Rhythm FI02: 28 Sputum Amount: None Fluids: NS 100 cc/hour Drips: levophed 14 I&O: Intake and Output 05/28/17 05/29/17 19:00 07:00 Intake Total 913.01 ml Output Total 575 ml Balance 338.01 ml IV Total 763.01 ml Other 150 ml Output Urine Total 575 ml CXR: clear Labs: Laboratory Tests Test 05/27/17 15:30 05/27/17 21:21 05/28/17 04:35 05/28/17 10:30 Lactic Acid Level 3.60 mmol/L (0.66-2.22) H 2.50 mmol/L (0.66-2.22) H 2.00 mmol/L (0.66-2.22) 2.80 mmol/L (0.66-2.22) H Random Amikacin Level Pending Hepatitis A IgM Antibody Pending Hepatitis B Surface Antigen Pending Hepatitis B Core IgM Antibody Pending Hepatitis C Antibody Pending White Blood Count 17.2 K/UL (4.8-10.8) #H Red Blood Count 4.48 M/UL (4.20-5.40) Hemoglobin 12.7 G/DL (12.0-16.0) Hematocrit 39.5 % (37.0-47.0) Mean Corpuscular Volume 88 FL (80-99) Mean Corpuscular Hemoglobin 28.3 PG (27.0-31.0) Mean Corpuscular Hemoglobin Concent 32.1 G/DL (32.0-36.0) Red Cell Distribution Width 13.8 % (11.6-14.8) Platelet Count 50 K/UL (150-450) L Mean Platelet Volume 8.9 FL (6.5-10.1) Neutrophils (%) (Auto) % (45.0-75.0) Lymphocytes (%) (Auto) % (20.0-45.0) Monocytes (%) (Auto) % (1.0-10.0) Eosinophils (%) (Auto) % (0.0-3.0) Basophils (%) (Auto) % (0.0-2.0) Differential Total Cells Counted 100 Neutrophils % (Manual) 63 % (45-75) Lymphocytes % (Manual) 4 % (20-45) L Monocytes % (Manual) 5 % (1-10) Eosinophils % (Manual) 0 % (0-3) Basophils % (Manual) 0 % (0-2) Band Neutrophils 28 % (0-8) H Platelet Estimate Decreased L Platelet Morphology Normal Red Blood Cell Morphology Normal Sodium Level 139 MMOL/L (136-145) Potassium Level 3.6 MMOL/L (3.5-5.1) Chloride Level 107 MMOL/L (98-107) Carbon Dioxide Level 19 MMOL/L (21-32) L Anion Gap 13 mmol/L (5-15) Blood Urea Nitrogen 37 mg/dL (7-18) H Creatinine 1.8 MG/DL (0.55-1.30) H Estimat Glomerular Filtration Rate 34.1 mL/min (>60) Glucose Level 91 MG/DL (74-106) Calcium Level 7.4 MG/DL (8.5-10.1) L Total Bilirubin 2.8 MG/DL (0.2-1.0) H Direct Bilirubin 1.8 MG/DL (0.0-0.3) H Aspartate Amino Transf (AST/SGOT) 91 U/L (15-37) H Alanine Aminotransferase (ALT/SGPT) 59 U/L (12-78) Alkaline Phosphatase 113 U/L (46-116) Troponin I 0.006 ng/mL (0.000-0.056) Pro-B-Type Natriuretic Peptide 7572 pg/mL (0-125) H Total Protein 5.8 G/DL (6.4-8.2) L Albumin 2.3 G/DL (3.4-5.0) L Globulin 3.5 g/dL Albumin/Globulin Ratio 0.7 (1.0-2.7) L Thyroid Stimulating Hormone (TSH) 0.782 uiU/mL (0.358-3.740) Free Thyroxine 1.18 NG/DL (0.76-1.46) Fibrinogen 387 mg/dL (200-400) Folate Pending Test 05/28/17 11:25 Arterial Blood pH 7.366 (7.350-7.450) Arterial Blood Partial Pressure CO2 31.0 mmHg (35.0-45.0) L Arterial Blood Partial Pressure O2 73.8 mmHg (75.0-100.0) L Arterial Blood HCO3 17.4 mmol/L (22.0-26.0) L Arterial Blood Oxygen Saturation 94.4 % (92.0-98.0) Arterial Blood Base Excess -6.9 Geoff Test Positive ADAMA MENDIETA May 28, 2017 12:04
--- NOTE | 2017-05-28 12:15 | Cardiac Electrophysiology PN ---
Assessment/Plan Assessment/Plan 1. Septic shock. The patient does not have any chest pain. Troponin is negative. Her echocardiogram showed EF 55%. The patient is already on broad-spectrum antibiotics and Levophed. 2. Chronic obstructive pulmonary disease. 3. Lactic acidosis. 4. Renal failure. Creatinine of 1.8. 5. Severe leukopenia. 0.8 increased to 17 DW RN Subjective Subjective Alert in ICU on Levophed 15 mcg/ min. No arrhythmias on tele. Objective Last 24 Hour Vital Signs Date Time Temp Pulse Resp B/P (MAP) Pulse Ox O2 Delivery O2 Flow Rate FiO2 05/28/17 11:00 109/71 05/28/17 10:45 106 22 72/57 96 Room Air 05/28/17 10:30 106 20 112/71 96 Room Air 05/28/17 10:15 106 15 115/68 97 Room Air 05/28/17 10:00 106/55 05/28/17 10:00 106 14 115/68 96 Room Air 05/28/17 09:45 108 21 115/68 99 Room Air 05/28/17 09:30 105 21 115/68 97 Room Air 05/28/17 09:24 103/81 05/28/17 09:15 103 21 88/71 98 Room Air 05/28/17 09:00 105 20 88/71 97 Room Air 05/28/17 08:45 108 20 78/52 98 Room Air 05/28/17 08:30 108 20 95/79 99 Room Air 05/28/17 08:15 108 20 95/79 97 Room Air 05/28/17 08:00 98.1 108 20 113/64 100 Room Air 05/28/17 08:00 108 05/28/17 08:00 113/64 05/28/17 07:45 107 21 113/64 97 Room Air 05/28/17 07:30 108 19 113/62 96 Room Air 05/28/17 07:27 108 26 Nasal Cannula 28 05/28/17 07:20 Nasal Cannula 2.0 28 05/28/17 07:20 95 Nasal Cannula 2.0 28 05/28/17 07:15 109 21 90/50 96 Room Air 05/28/17 07:00 110 18 90/50 97 Room Air 05/28/17 06:30 111 17 116/60 94 Nasal Cannula 2.0 05/28/17 06:15 111 17 116/60 94 Nasal Cannula 2.0 05/28/17 06:13 98.4 05/28/17 06:00 112 17 103/57 94 Nasal Cannula 2.0 05/28/17 05:45 108 17 106/65 94 Nasal Cannula 2.0 05/28/17 05:33 107 15 99 Room Air 21 05/28/17 05:30 110 17 114/60 94 Nasal Cannula 2.0 05/28/17 05:24 36 05/28/17 05:24 110 24 94 Room Air 21 05/28/17 05:24 108 14 Room Air 21 05/28/17 05:15 110 17 114/67 94 Nasal Cannula 2.0 05/28/17 05:00 108 17 106/65 94 Nasal Cannula 2.0 05/28/17 04:56 98/59 05/28/17 04:45 108 17 106/65 94 Nasal Cannula 2.0 05/28/17 04:30 110 17 72/49 94 Nasal Cannula 2.0 05/28/17 04:15 110 17 95/56 94 Nasal Cannula 2.0 05/28/17 04:00 99.0 109 17 110/68 94 Nasal Cannula 2.0 05/28/17 04:00 109 05/28/17 03:45 109 17 96/56 94 Nasal Cannula 2.0 05/28/17 03:30 110 17 101/52 94 Nasal Cannula 2.0 05/28/17 03:15 109 17 98/57 96 Nasal Cannula 2.0 05/28/17 03:00 108 17 98/59 96 Nasal Cannula 2.0 05/28/17 02:45 108 17 98/58 96 Nasal Cannula 2.0 05/28/17 02:30 107 17 91/57 96 Nasal Cannula 2.0 05/28/17 02:15 107 17 98/57 96 Nasal Cannula 2.0 05/28/17 02:00 107 17 87/41 96 Nasal Cannula 2.0 05/28/17 01:45 107 17 85/45 96 Nasal Cannula 2.0 05/28/17 01:30 106 17 91/42 96 Nasal Cannula 2.0 05/28/17 01:15 108 17 98/52 96 Nasal Cannula 2.0 05/28/17 01:05 94/58 05/28/17 01:00 107 17 100/58 96 Nasal Cannula 2.0 05/28/17 00:45 107 17 101/48 96 Nasal Cannula 2.0 05/28/17 00:30 107 17 105/62 96 Nasal Cannula 2.0 05/28/17 00:15 106 17 94/52 96 Nasal Cannula 2.0 05/28/17 00:00 105 05/28/17 00:00 98.4 106 17 94/54 96 Nasal Cannula 2.0 05/27/17 23:45 106 17 101/58 96 Nasal Cannula 2.0 05/27/17 23:30 108 17 94/58 96 Nasal Cannula 2.0 05/27/17 23:15 106 17 96/53 96 Nasal Cannula 2.0 05/27/17 23:00 106 17 97/56 96 Nasal Cannula 2.0 05/27/17 22:45 106 17 97/56 96 Nasal Cannula 2.0 05/27/17 22:30 106 17 102/59 96 Nasal Cannula 2.0 05/27/17 22:15 106 17 100/61 96 Nasal Cannula 2.0 05/27/17 22:00 104 17 101/59 96 Nasal Cannula 2.0 05/27/17 21:45 102 19 97/52 96 Nasal Cannula 2.0 05/27/17 21:31 101/59 05/27/17 21:30 99 19 113/63 96 Nasal Cannula 2.0 05/27/17 21:15 100 19 100/63 96 Nasal Cannula 2.0 05/27/17 21:00 98 19 112/71 96 Nasal Cannula 2.0 05/27/17 20:45 95 19 110/60 96 Nasal Cannula 2.0 05/27/17 20:30 95 19 102/64 96 Nasal Cannula 2.0 05/27/17 20:15 94 19 88/56 96 Nasal Cannula 2.0 05/27/17 20:00 99 05/27/17 20:00 98.1 95 19 87/57 96 Nasal Cannula 2.0 05/27/17 19:45 95 19 93/60 96 Nasal Cannula 2.0 05/27/17 19:30 96 22 86/54 97 Nasal Cannula 2.0 05/27/17 19:15 96 22 87/53 97 Nasal Cannula 2.0 05/27/17 19:00 98 Nasal Cannula 2.0 28 05/27/17 19:00 Nasal Cannula 2.0 28 05/27/17 19:00 101/59 05/27/17 19:00 97 22 101/59 97 Nasal Cannula 2.0 05/27/17 18:45 96 22 118/67 97 Nasal Cannula 2.0 05/27/17 18:30 96 18 107/62 96 Nasal Cannula 2.0 05/27/17 18:15 96 18 107/60 96 Nasal Cannula 2.0 05/27/17 18:00 96 18 100/60 96 Nasal Cannula 2.0 05/27/17 18:00 100/60 05/27/17 17:45 95 19 109/61 96 Nasal Cannula 2.0 05/27/17 17:30 95 18 112/69 96 Nasal Cannula 2.0 05/27/17 17:15 96 17 105/65 95 Nasal Cannula 2.0 05/27/17 17:00 97 21 99/59 95 Nasal Cannula 2.0 05/27/17 16:49 112/68 05/27/17 16:45 96 21 78/53 95 Nasal Cannula 2.0 05/27/17 16:30 97 17 106/64 94 Nasal Cannula 2.0 05/27/17 16:15 98.1 96 17 112/68 95 Nasal Cannula 2.0 05/27/17 16:00 100 05/27/17 16:00 106/66 05/27/17 16:00 98 16 106/66 95 Nasal Cannula 2.0 05/27/17 15:45 99 16 106/66 95 Nasal Cannula 2.0 05/27/17 15:30 99 16 109/62 94 Nasal Cannula 2.0 05/27/17 15:15 100 19 94/65 96 Nasal Cannula 2.0 05/27/17 15:00 100 16 97/58 94 Nasal Cannula 2.0 05/27/17 15:00 97/58 05/27/17 14:45 100 16 107/56 95 Nasal Cannula 2.0 05/27/17 14:30 100 16 97/57 95 Nasal Cannula 2.0 05/27/17 14:15 100 17 97/57 87 Room Air 05/27/17 14:00 107/56 05/27/17 14:00 101 17 99/54 87 Room Air 05/27/17 13:45 101 17 100/60 88 Room Air 05/27/17 13:37 78/45 05/27/17 13:30 101 18 78/45 88 Room Air 05/27/17 13:15 102 18 100/52 88 Room Air 05/27/17 13:00 111/58 05/27/17 13:00 106 19 111/58 87 Room Air 05/27/17 12:45 106 19 111/58 87 Room Air 05/27/17 12:30 108 19 112/64 87 Room Air 05/27/17 12:15 109 21 109/65 87 Room Air Intake and Output 05/28/17 05/29/17 19:00 07:00 Intake Total 913.01 ml Output Total 750 ml Balance 163.01 ml IV Total 763.01 ml Other 150 ml Output Urine Total 750 ml Laboratory Tests Test 05/27/17 15:30 05/27/17 21:21 05/28/17 04:35 05/28/17 10:30 Lactic Acid Level 3.60 mmol/L (0.66-2.22) H 2.50 mmol/L (0.66-2.22) H 2.00 mmol/L (0.66-2.22) 2.80 mmol/L (0.66-2.22) H Random Amikacin Level Pending Hepatitis A IgM Antibody Pending Hepatitis B Surface Antigen Pending Hepatitis B Core IgM Antibody Pending Hepatitis C Antibody Pending White Blood Count 17.2 K/UL (4.8-10.8) #H Red Blood Count 4.48 M/UL (4.20-5.40) Hemoglobin 12.7 G/DL (12.0-16.0) Hematocrit 39.5 % (37.0-47.0) Mean Corpuscular Volume 88 FL (80-99) Mean Corpuscular Hemoglobin 28.3 PG (27.0-31.0) Mean Corpuscular Hemoglobin Concent 32.1 G/DL (32.0-36.0) Red Cell Distribution Width 13.8 % (11.6-14.8) Platelet Count 50 K/UL (150-450) L Mean Platelet Volume 8.9 FL (6.5-10.1) Neutrophils (%) (Auto) % (45.0-75.0) Lymphocytes (%) (Auto) % (20.0-45.0) Monocytes (%) (Auto) % (1.0-10.0) Eosinophils (%) (Auto) % (0.0-3.0) Basophils (%) (Auto) % (0.0-2.0) Differential Total Cells Counted 100 Neutrophils % (Manual) 63 % (45-75) Lymphocytes % (Manual) 4 % (20-45) L Monocytes % (Manual) 5 % (1-10) Eosinophils % (Manual) 0 % (0-3) Basophils % (Manual) 0 % (0-2) Band Neutrophils 28 % (0-8) H Platelet Estimate Decreased L Platelet Morphology Normal Red Blood Cell Morphology Normal Sodium Level 139 MMOL/L (136-145) Potassium Level 3.6 MMOL/L (3.5-5.1) Chloride Level 107 MMOL/L (98-107) Carbon Dioxide Level 19 MMOL/L (21-32) L Anion Gap 13 mmol/L (5-15) Blood Urea Nitrogen 37 mg/dL (7-18) H Creatinine 1.8 MG/DL (0.55-1.30) H Estimat Glomerular Filtration Rate 34.1 mL/min (>60) Glucose Level 91 MG/DL (74-106) Calcium Level 7.4 MG/DL (8.5-10.1) L Total Bilirubin 2.8 MG/DL (0.2-1.0) H Direct Bilirubin 1.8 MG/DL (0.0-0.3) H Aspartate Amino Transf (AST/SGOT) 91 U/L (15-37) H Alanine Aminotransferase (ALT/SGPT) 59 U/L (12-78) Alkaline Phosphatase 113 U/L (46-116) Troponin I 0.006 ng/mL (0.000-0.056) Pro-B-Type Natriuretic Peptide 7572 pg/mL (0-125) H Total Protein 5.8 G/DL (6.4-8.2) L Albumin 2.3 G/DL (3.4-5.0) L Globulin 3.5 g/dL Albumin/Globulin Ratio 0.7 (1.0-2.7) L Thyroid Stimulating Hormone (TSH) 0.782 uiU/mL (0.358-3.740) Free Thyroxine 1.18 NG/DL (0.76-1.46) Fibrinogen 387 mg/dL (200-400) Folate Pending Test 05/28/17 11:25 Arterial Blood pH 7.366 (7.350-7.450) Arterial Blood Partial Pressure CO2 31.0 mmHg (35.0-45.0) L Arterial Blood Partial Pressure O2 73.8 mmHg (75.0-100.0) L Arterial Blood HCO3 17.4 mmol/L (22.0-26.0) L Arterial Blood Oxygen Saturation 94.4 % (92.0-98.0) Arterial Blood Base Excess -6.9 Geoff Test Positive Microbiology Date/Time Source Procedure Growth Status 05/27/17 04:40 Blood Blood Culture - Preliminary NO GROWTH AFTER 24 HOURS Resulted 05/27/17 04:35 Blood Blood Culture - Preliminary NO GROWTH AFTER 24 HOURS Resulted 05/27/17 05:19 Nasal Nares Influenza Types A,B Antigen (JADYN) - Final Complete 05/27/17 05:19 Urine,Clean Catch Urine Culture - Preliminary Gram Negative Bacillus 1 Resulted Objective HEAD AND NECK: No JVD. LUNGS: Coarse rhonchi. CARDIOVASCULAR: Regular S1 and S2. Tachycardic. ABDOMEN: Soft. EXTREMITIES: No pitting edema. CHRISTIAN FONSECA May 28, 2017 12:15
--- NOTE | 2017-05-28 13:44 | General Progress Note ---
Assessment/Plan Problem List: (1) UTI (urinary tract infection) ICD Codes: N39.0 - Urinary tract infection, site not specified SNOMED: 88326850 (2) Fever ICD Codes: R50.9 - Fever, unspecified SNOMED: 837920273 (3) Sepsis ICD Codes: A41.9 - Sepsis, unspecified organism SNOMED: 97462459 (4) Shock ICD Codes: R57.9 - Shock, unspecified SNOMED: 41854152 (5) Malnutrition ICD Codes: E46 - Unspecified protein-calorie malnutrition SNOMED: 20207739 (6) Dizzy ICD Codes: R42 - Dizziness and giddiness SNOMED: 724905343, 935683860 Status: stable, progressing, tolerating diet Assessment/Plan o2 pul tx abx ot pt diet cbc bmp am Subjective Constitutional: Reports: weakness Allergies: Coded Allergies: No Known Allergies (Unverified , 09/04/12) All Systems: reviewed and negative except above Subjective o2nc calm in icu Objective Last 24 Hour Vital Signs Date Time Temp Pulse Resp B/P (MAP) Pulse Ox O2 Delivery O2 Flow Rate FiO2 05/28/17 13:00 109/65 05/28/17 12:00 106 05/28/17 12:00 103/50 05/28/17 11:00 109/71 05/28/17 10:45 106 22 72/57 96 Room Air 05/28/17 10:30 106 20 112/71 96 Room Air 05/28/17 10:15 106 15 115/68 97 Room Air 05/28/17 10:00 106/55 05/28/17 10:00 106 14 115/68 96 Room Air 05/28/17 09:45 108 21 115/68 99 Room Air 05/28/17 09:30 105 21 115/68 97 Room Air 05/28/17 09:24 103/81 05/28/17 09:15 103 21 88/71 98 Room Air 05/28/17 09:00 105 20 88/71 97 Room Air 05/28/17 08:45 108 20 78/52 98 Room Air 05/28/17 08:30 108 20 95/79 99 Room Air 05/28/17 08:15 108 20 95/79 97 Room Air 05/28/17 08:00 98.1 108 20 113/64 100 Room Air 05/28/17 08:00 108 05/28/17 08:00 113/64 05/28/17 07:45 107 21 113/64 97 Room Air 05/28/17 07:30 108 19 113/62 96 Room Air 05/28/17 07:27 108 26 Nasal Cannula 28 05/28/17 07:20 Nasal Cannula 2.0 28 05/28/17 07:20 95 Nasal Cannula 2.0 28 05/28/17 07:15 109 21 90/50 96 Room Air 05/28/17 07:00 110 18 90/50 97 Room Air 05/28/17 06:30 111 17 116/60 94 Nasal Cannula 2.0 05/28/17 06:15 111 17 116/60 94 Nasal Cannula 2.0 05/28/17 06:13 98.4 05/28/17 06:00 112 17 103/57 94 Nasal Cannula 2.0 05/28/17 05:45 108 17 106/65 94 Nasal Cannula 2.0 05/28/17 05:33 107 15 99 Room Air 05/28/17 05:30 110 17 114/60 94 Nasal Cannula 2.0 05/28/17 05:24 36 05/28/17 05:24 110 24 94 Room Air 21 05/28/17 05:24 108 14 Room Air 21 05/28/17 05:15 110 17 114/67 94 Nasal Cannula 2.0 05/28/17 05:00 108 17 106/65 94 Nasal Cannula 2.0 05/28/17 04:56 98/59 05/28/17 04:45 108 17 106/65 94 Nasal Cannula 2.0 05/28/17 04:30 110 17 72/49 94 Nasal Cannula 2.0 05/28/17 04:15 110 17 95/56 94 Nasal Cannula 2.0 05/28/17 04:00 99.0 109 17 110/68 94 Nasal Cannula 2.0 05/28/17 04:00 109 05/28/17 03:45 109 17 96/56 94 Nasal Cannula 2.0 05/28/17 03:30 110 17 101/52 94 Nasal Cannula 2.0 05/28/17 03:15 109 17 98/57 96 Nasal Cannula 2.0 05/28/17 03:00 108 17 98/59 96 Nasal Cannula 2.0 05/28/17 02:45 108 17 98/58 96 Nasal Cannula 2.0 05/28/17 02:30 107 17 91/57 96 Nasal Cannula 2.0 05/28/17 02:15 107 17 98/57 96 Nasal Cannula 2.0 05/28/17 02:00 107 17 87/41 96 Nasal Cannula 2.0 05/28/17 01:45 107 17 85/45 96 Nasal Cannula 2.0 05/28/17 01:30 106 17 91/42 96 Nasal Cannula 2.0 05/28/17 01:15 108 17 98/52 96 Nasal Cannula 2.0 05/28/17 01:05 94/58 05/28/17 01:00 107 17 100/58 96 Nasal Cannula 2.0 05/28/17 00:45 107 17 101/48 96 Nasal Cannula 2.0 05/28/17 00:30 107 17 105/62 96 Nasal Cannula 2.0 05/28/17 00:15 106 17 94/52 96 Nasal Cannula 2.0 05/28/17 00:00 105 05/28/17 00:00 98.4 106 17 94/54 96 Nasal Cannula 2.0 05/27/17 23:45 106 17 101/58 96 Nasal Cannula 2.0 05/27/17 23:30 108 17 94/58 96 Nasal Cannula 2.0 05/27/17 23:15 106 17 96/53 96 Nasal Cannula 2.0 05/27/17 23:00 106 17 97/56 96 Nasal Cannula 2.0 05/27/17 22:45 106 17 97/56 96 Nasal Cannula 2.0 05/27/17 22:30 106 17 102/59 96 Nasal Cannula 2.0 05/27/17 22:15 106 17 100/61 96 Nasal Cannula 2.0 05/27/17 22:00 104 17 101/59 96 Nasal Cannula 2.0 05/27/17 21:45 102 19 97/52 96 Nasal Cannula 2.0 05/27/17 21:31 101/59 05/27/17 21:30 99 19 113/63 96 Nasal Cannula 2.0 05/27/17 21:15 100 19 100/63 96 Nasal Cannula 2.0 05/27/17 21:00 98 19 112/71 96 Nasal Cannula 2.0 05/27/17 20:45 95 19 110/60 96 Nasal Cannula 2.0 05/27/17 20:30 95 19 102/64 96 Nasal Cannula 2.0 05/27/17 20:15 94 19 88/56 96 Nasal Cannula 2.0 05/27/17 20:00 99 05/27/17 20:00 98.1 95 19 87/57 96 Nasal Cannula 2.0 05/27/17 19:45 95 19 93/60 96 Nasal Cannula 2.0 05/27/17 19:30 96 22 86/54 97 Nasal Cannula 2.0 05/27/17 19:15 96 22 87/53 97 Nasal Cannula 2.0 05/27/17 19:00 98 Nasal Cannula 2.0 28 05/27/17 19:00 Nasal Cannula 2.0 28 05/27/17 19:00 101/59 05/27/17 19:00 97 22 101/59 97 Nasal Cannula 2.0 05/27/17 18:45 96 22 118/67 97 Nasal Cannula 2.0 05/27/17 18:30 96 18 107/62 96 Nasal Cannula 2.0 05/27/17 18:15 96 18 107/60 96 Nasal Cannula 2.0 05/27/17 18:00 96 18 100/60 96 Nasal Cannula 2.0 05/27/17 18:00 100/60 05/27/17 17:45 95 19 109/61 96 Nasal Cannula 2.0 05/27/17 17:30 95 18 112/69 96 Nasal Cannula 2.0 05/27/17 17:15 96 17 105/65 95 Nasal Cannula 2.0 05/27/17 17:00 97 21 99/59 95 Nasal Cannula 2.0 05/27/17 16:49 112/68 05/27/17 16:45 96 21 78/53 95 Nasal Cannula 2.0 05/27/17 16:30 97 17 106/64 94 Nasal Cannula 2.0 05/27/17 16:15 98.1 96 17 112/68 95 Nasal Cannula 2.0 05/27/17 16:00 100 05/27/17 16:00 106/66 05/27/17 16:00 98 16 106/66 95 Nasal Cannula 2.0 05/27/17 15:45 99 16 106/66 95 Nasal Cannula 2.0 05/27/17 15:30 99 16 109/62 94 Nasal Cannula 2.0 05/27/17 15:15 100 19 94/65 96 Nasal Cannula 2.0 05/27/17 15:00 100 16 97/58 94 Nasal Cannula 2.0 05/27/17 15:00 97/58 05/27/17 14:45 100 16 107/56 95 Nasal Cannula 2.0 05/27/17 14:30 100 16 97/57 95 Nasal Cannula 2.0 05/27/17 14:15 100 17 97/57 87 Room Air 05/27/17 14:00 107/56 05/27/17 14:00 101 17 99/54 87 Room Air 05/27/17 13:45 101 17 100/60 88 Room Air Intake and Output 05/28/17 05/29/17 19:00 07:00 Intake Total 966.35 ml Output Total 790 ml Balance 176.35 ml IV Total 816.35 ml Other 150 ml Output Urine Total 790 ml Laboratory Tests 05/27/17 15:30: Lactic Acid Level 3.60H, Random Amikacin Level [Pending], Hepatitis A IgM Antibody [Pending], Hepatitis B Surface Antigen [Pending], Hepatitis B Core IgM Antibody [Pending], Hepatitis C Antibody [Pending] 05/27/17 21:21: Lactic Acid Level 2.50H 05/28/17 04:35: Lactic Acid Level 2.00, White Blood Count 17.2#H, Red Blood Count 4.48, Hemoglobin 12.7, Hematocrit 39.5, Mean Corpuscular Volume 88, Mean Corpuscular Hemoglobin 28.3, Mean Corpuscular Hemoglobin Concent 32.1, Red Cell Distribution Width 13.8, Platelet Count 50L, Mean Platelet Volume 8.9, Neutrophils (%) (Auto) , Lymphocytes (%) (Auto) , Monocytes (%) (Auto) , Eosinophils (%) (Auto) , Basophils (%) (Auto) , Differential Total Cells Counted 100, Neutrophils % (Manual) 63, Lymphocytes % (Manual) 4L, Monocytes % ( Manual) 5, Eosinophils % (Manual) 0, Basophils % (Manual) 0, Band Neutrophils 28H, Platelet Estimate DecreasedL, Platelet Morphology Normal, Red Blood Cell Morphology Normal, Sodium Level 139, Potassium Level 3.6, Chloride Level 107, Carbon Dioxide Level 19L, Anion Gap 13, Blood Urea Nitrogen 37H, Creatinine 1.8H , Estimat Glomerular Filtration Rate 34.1, Glucose Level 91, Calcium Level 7.4L , Total Bilirubin 2.8H, Direct Bilirubin 1.8H, Aspartate Amino Transf (AST/SGOT ) 91H, Alanine Aminotransferase (ALT/SGPT) 59, Alkaline Phosphatase 113, Troponin I 0.006, Pro-B-Type Natriuretic Peptide 7572H, Total Protein 5.8L, Albumin 2.3L, Globulin 3.5, Albumin/Globulin Ratio 0.7L, Thyroid Stimulating Hormone (TSH) 0.782, Free Thyroxine 1.18 05/28/17 10:30: Lactic Acid Level 2.80H, Fibrinogen 387, Folate 14.6 05/28/17 11:25: Arterial Blood pH 7.366, Arterial Blood Partial Pressure CO2 31.0L, Arterial Blood Partial Pressure O2 73.8L, Arterial Blood HCO3 17.4L, Arterial Blood Oxygen Saturation 94.4, Arterial Blood Base Excess -6.9, Geoff Test Positive Height (Feet): 5 Height (Inches): 7.00 Weight (Pounds): 313 General Appearance: alert EENT: normal ENT inspection Neck: normal alignment Cardiovascular: normal peripheral pulses, normal rate, regular rhythm Respiratory/Chest: chest wall non-tender, lungs clear, normal breath sounds Abdomen: normal bowel sounds, non tender, soft Extremities: normal inspection Edema: no edema noted Arm (L), no edema noted Arm (R), no edema noted Leg (L), no edema noted Leg (R), no edema noted Pedal (L), no edema noted Pedal (R), no edema noted Generalized Neurologic: responsive, motor weakness Skin: normal pigmentation, warm/dry JUAN KELLER May 28, 2017 13:44
--- NOTE | 2017-05-28 17:00 | Consultation ---
DATE OF CONSULTATION: 05/28/2017 NEPHROLOGY CONSULTATION CONSULTING PHYSICIAN: Maira Iverson M.D. REFERRING PHYSICIAN: Alfonso Rodríguez D.O. REASON FOR CONSULTATION: Acute versus chronic renal failure. HISTORY OF PRESENT ILLNESS: The patient is a 67-year-old female with past medical history significant for history of gastric bypass, history of COPD, morbid obesity, history of DVT, and the patient lost about more than 100 pounds over the years. She presented to emergency room complaining of increasing temperature of 103 degrees. The patient found to be hypotensive. Blood pressure was in 70s. The patient received some boluses and was found to have a creatinine of 1.8. I was called for management of renal disease and electrolyte imbalance. PAST MEDICAL HISTORY: History of asthma, history of DVT, history of morbid obesity, and history of gastric bypass. FAMILY HISTORY: Noncontributory. REVIEW OF SYSTEMS: GENERAL: She complained of generalized weakness, complained of fever and chills before she presented to emergency room. PULMONARY: Denies any shortness of breath, cough, or sputum. CARDIOVASCULAR: Denies any chest pain or palpitations. GASTROINTESTINAL: Complained of some nausea and vomiting. No melena. No hematochezia. GENITOURINARY: Denies any dysuria, frequency, or hematuria, although the patient states that about couple of years ago she had history of acute renal failure to the point that she was about to be started on dialysis and so baseline creatinine is unknown, but she does have a history of chronic kidney disease. PHYSICAL EXAMINATION: VITAL SIGNS: The patient has temperature of 98 degrees, blood pressure of 115/68, pulse rate of 106, and respiratory rate of 18. HEAD AND NECK: No JVP. No LAD. No thyromegaly. Extraocular movement intact. Pupils are reactive to light and accommodation. LUNGS: Clear to auscultation. CARDIAC: Regular rate and rhythm. S1 and S2. No murmur. No rub. ABDOMEN: Soft and thin. Not tender and not distended. EXTREMITIES: No edema. No clubbing. No cyanosis. LABORATORY AND DIAGNOSTIC DATA: The patient had WBC count of 17,000, hemoglobin of 12.7, hematocrit of 39, and platelet count 50. Chemistry revealed sodium 139, potassium 3.7, chloride 107, BUN of 37, and creatinine of 1.8. Lactic acid level was 6.0 dropped to 2.0. Calcium 7.1. Total bilirubin is 2.8 and direct bilirubin 1.9. Total protein is 5.8 and albumin 2.3. TSH within normal limits. Her urine revealed specific gravity of 1.025, protein 1+, ketones 1+, blood 5+, nitrite positive, WBC count of 30 to 50, and RBC of 5 to 10. ASSESSMENT: 1. Acute renal failure. The etiology of acute renal failure is multifactorial most likely unstable hemodynamics. The patient was hypotensive and tachycardic on the admission. The other possibility is that the patient received aminoglycoside, amikacin on admission for possible urinary tract infection. The other possibility is chronic kidney disease, the etiology is unknown. 2. Hypotension. 3. Hypokalemia. 4. Hypocalcemia. 5. Low albumin, I am not sure reason is malabsorption. The patient does not seem to be malnourished at this time based on the weight. 6. Neutropenia. At this point, actually the white blood cell count increased to 17,000. PLAN: Plan for the patient to check the random urine protein and creatinine ratio to calculate the proteinuria. Check the urine sodium and creatinine to calculate fractional excretion of sodium. I would do ultrasound of the kidney to evaluate the kidney size. I would replace the electrolytes as needed. I would avoid any NSAIDs. I will discontinue amikacin. I would check the vancomycin level. At the end, I would like to thank Dr. Alfonso Rodríguez for allowing me to participate in the care of this patient. Maira Iverson M.D. DR: Myles JOB#: [id number] CC:
--- NOTE | 2017-05-28 17:30 | Diagnostic Imaging Report ---
Indication: Abnormal liver function tests. Abnormal renal function tests Technique: Read-scale and duplex images of the upper abdomen were obtained Comparison: CT scan 05/27/2017. No prior ultrasounds Findings: Gallbladder is surgically absent. Common bile duct measures 7 mm in diameter. No intrahepatic biliary ductal dilatation. Liver demonstrates normal echogenicity. Within or adjacent to the left hepatic lobe, there is what appears to be a slightly hyperechoic masslike which measures 4.5 cm in diameter. Liver is slightly enlarged. Portal vein and hepatic veins are patent. Pancreas is obscured by bowel gas. Spleen is unremarkable. Left kidney measures 11.6 cm in length. Right kidney measures 12.4 cm length. Both kidneys demonstrate normal echogenicity. There is no hydronephrosis. No focal abnormality . Non-aneurysmal abdominal aorta . Impression: Surgically absent gallbladder. Mildly prominent common bile duct, likely related to postcholecystectomy state; downstream obstruction not completely excludable, however. Correlate with liver function tests, consider MRCP if clinically indicated Apparent masslike lesion adjacent to the left hepatic lobe. Review of recent CT indicates that this is most likely a postoperative stomach
--- NOTE | 2017-05-28 18:34 | Cardiology Report ---
APPROVED REPORT EXAM: Two-dimensional and M-mode echocardiogram with Doppler and color Doppler. INDICATION Left ventricular function M-Mode DIMENSIONS IVSd0.8 (0.7-1.1cm)Left Atrium (MM)3.8 (1.6-4.0cm) LVDd4.0 (3.5-5.6cm)Aortic Root2.8 (2.0-3.7cm) PWd0.9 (0.7-1.1cm)Aortic Cusp Exc.1.8 (1.5-2.0cm) LVDs3.5 (2.5-4.0cm) PWs0.9 cm Technically difficult study due to poor acoustical windows. Normal left ventricular chamber size, systolic function and wall motion. Left ventricular ejection fraction estimated to be 50-55%. No evidence of left ventricular hypertrophy. No evidence of pericardial or pleural effusion. Right cardiac chamber sizes are within normal limits. Mild left atrial enlargement by 2D. Focal aortic valve sclerosis with adequate cusp excursion. Normal mitral valve leaflets with normal excursion. Normal mitral annulus and aortic root. Pulmonic valve not well visualized. Normal tricuspid valve structure. IVC dilated at 2.4cm collapsible with respiration. A color flow and spectral Doppler study was performed and revealed: No aortic regurgitation. No mitral regurgitation. Mitral inflow velocities indicates possible pseudo normalization pattern implying significant left ventricular diastolic dysfunction. Trace tricuspid regurgitation. Tricuspid systolic velocities suggests peak right ventricular systolic pressure of 38mmHg Consistent with mild pulmonary hypertension.
--- NOTE | 2017-05-28 18:38 | Cardiology Report ---
APPROVED REPORT EKG Measurement Heart [id number] MI [id number] Sinus tachycardia Possible Left atrial enlargement Incomplete right bundle branch block Nonspecific ST abnormality Abnormal ECG
[2017-05-28] MEDS: Dyna-Hex 2% Top Sol 2oz TOPIC SCH (20:52)
--- NOTE | 2017-05-28 21:49 | General Progress Note ---
Assessment/Plan Assessment/Plan ASSESSMENT AND RECOMMENDATIONS: 1. Leukopenia, improved. s/p neupogen --> The patient currently on vancomycin, Zosyn. 2. Thrombocytopenia. Rule out human immunodeficiency virus, hepatitis. 3. Coagulopathy, potentially secondary to myelosuppression. Continue to closely follow. 4. Urinary tract infection, on antibiotics. Subjective Allergies: Coded Allergies: No Known Allergies (Unverified , 09/04/12) All Systems: reviewed and negative except above Subjective no bleeding reported, no fevers Objective Last 24 Hour Vital Signs Date Time Temp Pulse Resp B/P (MAP) Pulse Ox O2 Delivery O2 Flow Rate FiO2 05/28/17 21:22 98.6 05/28/17 21:02 126/63 05/28/17 19:35 105 24 Nasal Cannula 28 05/28/17 19:35 97 Nasal Cannula 28 05/28/17 19:35 Nasal Cannula 2.0 28 05/28/17 19:00 100 22 81/55 97 Room Air 05/28/17 19:00 81/55 05/28/17 18:45 100 20 81/55 96 Room Air 05/28/17 18:30 99 20 99/48 95 Room Air 05/28/17 18:15 105 19 99/48 93 Room Air 05/28/17 18:00 105 20 95/44 98 Room Air 05/28/17 18:00 102/58 05/28/17 17:45 104 21 43/18 90 Room Air 05/28/17 17:30 105 22 65/53 92 Room Air 05/28/17 17:15 105 22 65/53 94 Room Air 05/28/17 17:00 104 21 109/60 93 Room Air 05/28/17 17:00 109/60 05/28/17 16:45 104 22 114/57 92 Room Air 05/28/17 16:30 106 20 132/70 91 Room Air 05/28/17 16:15 106 21 83/57 91 Room Air 05/28/17 16:00 98.6 104 15 83/57 95 Room Air 05/28/17 16:00 89/54 05/28/17 16:00 103 05/28/17 15:45 104 21 105/68 91 Room Air 05/28/17 15:30 105 18 105/68 100 Room Air 05/28/17 15:15 105 14 102/59 99 Room Air 05/28/17 15:00 104 18 102/56 95 Room Air 05/28/17 15:00 119/40 05/28/17 14:45 105 14 109/71 99 Room Air 05/28/17 14:42 105/64 05/28/17 14:30 105 16 106/59 95 Room Air 05/28/17 14:15 104 17 99/59 96 Room Air 05/28/17 14:00 99/59 05/28/17 14:00 102 19 105/64 98 Room Air 05/28/17 13:45 104 19 105/64 93 Room Air 05/28/17 13:30 104 19 109/66 97 Room Air 05/28/17 13:15 105 20 89/61 99 Room Air 05/28/17 13:00 109/65 05/28/17 13:00 105 15 109/65 98 Room Air 05/28/17 12:45 106 19 109/65 100 Room Air 05/28/17 12:30 98.4 107 17 103/50 98 Room Air 05/28/17 12:15 107 15 103/50 100 Room Air 05/28/17 12:00 106 05/28/17 12:00 103/50 05/28/17 12:00 107 16 87/39 100 Room Air 05/28/17 11:45 107 16 99/55 99 Room Air 05/28/17 11:30 105 13 99/55 93 Room Air 05/28/17 11:15 104 21 107/67 98 Room Air 05/28/17 11:00 109/71 05/28/17 11:00 104 21 126/67 97 Room Air 05/28/17 10:45 106 22 72/57 96 Room Air 05/28/17 10:30 106 20 112/71 96 Room Air 05/28/17 10:15 106 15 115/68 97 Room Air 05/28/17 10:00 106/55 05/28/17 10:00 106 14 115/68 96 Room Air 05/28/17 09:45 108 21 115/68 99 Room Air 05/28/17 09:30 105 21 115/68 97 Room Air 05/28/17 09:24 103/81 05/28/17 09:15 103 21 88/71 98 Room Air 05/28/17 09:00 105 20 88/71 97 Room Air 05/28/17 08:45 108 20 78/52 98 Room Air 05/28/17 08:30 108 20 95/79 99 Room Air 05/28/17 08:15 108 20 95/79 97 Room Air 05/28/17 08:00 98.1 108 20 113/64 100 Room Air 05/28/17 08:00 108 05/28/17 08:00 113/64 05/28/17 07:45 107 21 113/64 97 Room Air 05/28/17 07:30 108 19 113/62 96 Room Air 05/28/17 07:27 108 26 Nasal Cannula 28 05/28/17 07:20 Nasal Cannula 2.0 28 05/28/17 07:20 95 Nasal Cannula 2.0 28 05/28/17 07:15 109 21 90/50 96 Room Air 05/28/17 07:00 110 18 90/50 97 Room Air 05/28/17 06:30 111 17 116/60 94 Nasal Cannula 2.0 05/28/17 06:15 111 17 116/60 94 Nasal Cannula 2.0 05/28/17 06:00 112 17 103/57 94 Nasal Cannula 2.0 05/28/17 05:45 108 17 106/65 94 Nasal Cannula 2.0 05/28/17 05:33 107 15 99 Room Air 05/28/17 05:30 110 17 114/60 94 Nasal Cannula 2.0 05/28/17 05:24 36 05/28/17 05:24 110 24 94 Room Air 21 05/28/17 05:24 108 14 Room Air 05/28/17 05:15 110 17 114/67 94 Nasal Cannula 2.0 05/28/17 05:00 108 17 106/65 94 Nasal Cannula 2.0 05/28/17 04:56 98/59 05/28/17 04:45 108 17 106/65 94 Nasal Cannula 2.0 05/28/17 04:30 110 17 72/49 94 Nasal Cannula 2.0 05/28/17 04:15 110 17 95/56 94 Nasal Cannula 2.0 05/28/17 04:00 99.0 109 17 110/68 94 Nasal Cannula 2.0 05/28/17 04:00 109 05/28/17 03:45 109 17 96/56 94 Nasal Cannula 2.0 05/28/17 03:30 110 17 101/52 94 Nasal Cannula 2.0 05/28/17 03:15 109 17 98/57 96 Nasal Cannula 2.0 05/28/17 03:00 108 17 98/59 96 Nasal Cannula 2.0 05/28/17 02:45 108 17 98/58 96 Nasal Cannula 2.0 05/28/17 02:30 107 17 91/57 96 Nasal Cannula 2.0 05/28/17 02:15 107 17 98/57 96 Nasal Cannula 2.0 05/28/17 02:00 107 17 87/41 96 Nasal Cannula 2.0 05/28/17 01:45 107 17 85/45 96 Nasal Cannula 2.0 05/28/17 01:30 106 17 91/42 96 Nasal Cannula 2.0 05/28/17 01:15 108 17 98/52 96 Nasal Cannula 2.0 05/28/17 01:05 94/58 05/28/17 01:00 107 17 100/58 96 Nasal Cannula 2.0 05/28/17 00:45 107 17 101/48 96 Nasal Cannula 2.0 05/28/17 00:30 107 17 105/62 96 Nasal Cannula 2.0 05/28/17 00:15 106 17 94/52 96 Nasal Cannula 2.0 05/28/17 00:00 105 05/28/17 00:00 98.4 106 17 94/54 96 Nasal Cannula 2.0 05/27/17 23:45 106 17 101/58 96 Nasal Cannula 2.0 05/27/17 23:30 108 17 94/58 96 Nasal Cannula 2.0 05/27/17 23:15 106 17 96/53 96 Nasal Cannula 2.0 05/27/17 23:00 106 17 97/56 96 Nasal Cannula 2.0 05/27/17 22:45 106 17 97/56 96 Nasal Cannula 2.0 05/27/17 22:30 106 17 102/59 96 Nasal Cannula 2.0 05/27/17 22:15 106 17 100/61 96 Nasal Cannula 2.0 05/27/17 22:00 104 17 101/59 96 Nasal Cannula 2.0 Intake and Output 05/28/17 05/29/17 19:00 07:00 Intake Total 2799.010 ml 100 ml Output Total 1840 ml 300 ml Balance 959.010 ml -200 ml Intake Oral 800 ml 100 ml IV Total 1849.010 ml Other 150 ml Output Urine Total 1840 ml 300 ml # Bowel Movements 2 Laboratory Tests 05/28/17 04:35: White Blood Count 17.2#H, Red Blood Count 4.48, Hemoglobin 12.7, Hematocrit 39.5 , Mean Corpuscular Volume 88, Mean Corpuscular Hemoglobin 28.3, Mean Corpuscular Hemoglobin Concent 32.1, Red Cell Distribution Width 13.8, Platelet Count 50L, Mean Platelet Volume 8.9, Neutrophils (%) (Auto) , Lymphocytes (%) ( Auto) , Monocytes (%) (Auto) , Eosinophils (%) (Auto) , Basophils (%) (Auto) , Differential Total Cells Counted 100, Neutrophils % (Manual) 63, Lymphocytes % ( Manual) 4L, Monocytes % (Manual) 5, Eosinophils % (Manual) 0, Basophils % ( Manual) 0, Band Neutrophils 28H, Platelet Estimate DecreasedL, Platelet Morphology Normal, Red Blood Cell Morphology Normal, Sodium Level 139, Potassium Level 3.6, Chloride Level 107, Carbon Dioxide Level 19L, Anion Gap 13 , Blood Urea Nitrogen 37H, Creatinine 1.8H, Estimat Glomerular Filtration Rate 34.1, Glucose Level 91, Lactic Acid Level 2.00, Calcium Level 7.4L, Total Bilirubin 2.8H, Direct Bilirubin 1.8H, Aspartate Amino Transf (AST/SGOT) 91H, Alanine Aminotransferase (ALT/SGPT) 59, Alkaline Phosphatase 113, Troponin I 0.006, Pro-B-Type Natriuretic Peptide 7572H, Total Protein 5.8L, Albumin 2.3L, Globulin 3.5, Albumin/Globulin Ratio 0.7L, Thyroid Stimulating Hormone (TSH) 0.782, Free Thyroxine 1.18 05/28/17 10:30: Lactic Acid Level 2.80H, Fibrinogen 387, Folate 14.6 05/28/17 11:25: Arterial Blood pH 7.366, Arterial Blood Partial Pressure CO2 31.0L, Arterial Blood Partial Pressure O2 73.8L, Arterial Blood HCO3 17.4L, Arterial Blood Oxygen Saturation 94.4, Arterial Blood Base Excess -6.9, Geoff Test Positive 05/28/17 16:50: Urine Eosinophils None seen, Urine Random Creatinine [Pending], Urine Random Microalbumin [Pending], Urine Random Sodium 57, Urine Creatinine 38.1, Urine Microalbumin/Creatinine Ratio [Pending] Height (Feet): 5 Height (Inches): 7.00 Weight (Pounds): 313 General Appearance: no apparent distress EENT: TMs normal Neck: normal alignment Cardiovascular: normal peripheral pulses Extremities: non-tender Skin: normal pigmentation Valentin Ken May 28, 2017 21:49
[2017-05-29] VITALS (86 sets, daily range): BP systolic 66–131; BP diastolic 23–114
[2017-05-29 05:03] LABS: ANION GAP 11 mmol/L (5-15); CARBON DIOXIDE 21 MMOL/L (21-32); CHLORIDE 107 MMOL/L (98-107); CREATININE 1.4 MG/DL (0.55-1.30); GLOMERULAR FILTRATION RATE 45.6 mL/min (>60); POTASSIUM 3.4 MMOL/L (3.5-5.1); SODIUM 139 MMOL/L (136-145)
[2017-05-29 05:08] LABS: MEAN CORPUSCULAR HEMOGLOBIN 28.7 PG (27.0-31.0); MEAN CORPUSCULAR HGB CONC 32.9 G/DL (32.0-36.0); MEAN CORPUSCULAR VOLUME 87 FL (80-99); MEAN PLATELET VOLUME 10.6 FL (6.5-10.1); PLATELET COUNT 43 K/UL (150-450); RED BLOOD COUNT 4.17 M/UL (4.20-5.40); RED CELL DISTRIBUTION WIDTH 13.8 % (11.6-14.8)
[2017-05-29] MEDS: Piperacillin/Tazobactam 3.375 GM in D5W 55 ML IVPB SCH ×3 (05:36→22:03)
[2017-05-29 08:31] LABS: BAND NEUTROPHILS % (MANUAL) 2 % (0-8); LYMPHOCYTES % (MANUAL) 5 % (20-45); NEUTROPHILS % (MANUAL) 88 % (45-75); TOTAL CELLS COUNTED 100
[2017-05-29 08:32] LABS: BASOPHILS % (MANUAL) 0 % (0-2); EOSINOPHILS % (MANUAL) 0 % (0-3); PLATELET ESTIMATE DECREASED; PLATELET MORPHOLOGY NORMAL
[2017-05-29] MEDS: Pantoprazole Inj IVP SCH (08:35)
[2017-05-29] MEDS: Vancomycin 1.5 GM/D5W 250ML IVPB SCH (08:36)
--- NOTE | 2017-05-29 09:38 | General Progress Note ---
Assessment/Plan Assessment/Plan ASSESSMENT AND RECOMMENDATIONS: 1. Leukopenia, improved. s/p neupogen, now actually resolved, wbc is 16k --> The patient currently on vancomycin, Zosyn. 2. Thrombocytopenia. Rule out human immunodeficiency virus, hepatitis. --> viral studies are negative 3. Coagulopathy, potentially secondary to myelosuppression. Continue to closely follow. 4. Urinary tract infection, on antibiotics. 5. GRAY has improved --> monitor with nephrology 6. Hypokalemia has improved with PO intake Subjective Constitutional: Reports: no symptoms HEENT: Reports: no symptoms Cardiovascular: Reports: no symptoms Respiratory: Reports: no symptoms Gastrointestinal/Abdominal: Reports: no symptoms Genitourinary: Reports: no symptoms Neurologic/Psychiatric: Reports: no symptoms Endocrine: Reports: no symptoms Hematologic/Lymphatic: Reports: anemia Allergies: Coded Allergies: No Known Allergies (Unverified , 09/04/12) Subjective no bleeding reported, no fevers, no chills Objective Last 24 Hour Vital Signs Date Time Temp Pulse Resp B/P (MAP) Pulse Ox O2 Delivery O2 Flow Rate FiO2 05/29/17 08:00 85 05/29/17 08:00 98.6 84 18 89/35 100 Room Air 05/29/17 08:00 89/35 05/29/17 07:45 85 20 83/38 99 Room Air 05/29/17 07:30 85 20 87/38 98 Room Air 05/29/17 07:15 84 18 94/47 99 Room Air 05/29/17 07:00 83 17 86/47 100 Room Air 05/29/17 06:50 98 Nasal Cannula 2.0 28 05/29/17 06:50 Nasal Cannula 2.0 28 05/29/17 06:50 84 17 Nasal Cannula 2.0 28 05/29/17 06:45 83 17 81/37 100 Room Air 05/29/17 06:30 83 17 85/43 100 Room Air 05/29/17 06:15 83 17 85/43 100 Room Air 05/29/17 06:00 89 24 81/41 97 Room Air 05/29/17 05:45 91 24 94/47 97 Room Air 05/29/17 05:30 87 24 88/46 97 Room Air 05/29/17 05:15 90 24 117/69 97 Room Air 05/29/17 05:00 90 24 131/114 97 Room Air 05/29/17 04:45 90 24 115/60 97 Room Air 05/29/17 04:30 90 24 117/69 97 Room Air 05/29/17 04:15 90 24 107/59 97 Room Air 05/29/17 04:00 89 05/29/17 04:00 98.0 90 24 106/63 97 Room Air 05/29/17 03:45 90 24 95/71 97 Room Air 05/29/17 03:30 90 24 108/55 97 Room Air 05/29/17 03:15 90 24 112/61 97 Room Air 05/29/17 03:00 90 24 99/54 97 Room Air 05/29/17 02:45 90 18 103/58 97 Room Air 05/29/17 02:30 92 18 111/64 97 Room Air 05/29/17 02:15 92 18 108/66 97 Room Air 05/29/17 02:00 91 20 122/68 96 Room Air 05/29/17 01:45 91 23 115/63 96 Room Air 05/29/17 01:30 91 24 106/61 95 Room Air 05/29/17 01:15 92 20 117/69 95 Room Air 05/29/17 01:00 115/64 05/29/17 01:00 92 20 115/64 95 Room Air 05/29/17 00:45 93 20 114/68 92 Room Air 05/29/17 00:30 92 20 119/58 91 Room Air 05/29/17 00:15 93 20 114/68 93 Room Air 05/29/17 00:00 103 05/29/17 00:00 98.7 94 20 119/64 91 Room Air 05/28/17 23:45 94 20 114/68 91 Room Air 05/28/17 23:30 97 20 122/67 91 Room Air 05/28/17 23:15 101 20 118/71 91 Room Air 05/28/17 23:00 108/67 05/28/17 23:00 102 20 108/67 91 Room Air 05/28/17 22:45 102 20 108/67 91 Room Air 05/28/17 22:30 102 20 89/49 91 Room Air 05/28/17 22:15 102 20 102/56 91 Room Air 05/28/17 22:00 102 20 102/56 91 Room Air 05/28/17 21:45 104 20 98/49 91 Room Air 05/28/17 21:30 104 20 98/49 91 Room Air 05/28/17 21:22 98.6 05/28/17 21:15 104 20 72/50 91 Room Air 05/28/17 21:02 126/63 05/28/17 21:00 104 20 85/39 91 Room Air 05/28/17 21:00 121/67 05/28/17 20:45 104 20 85/31 91 Room Air 05/28/17 20:30 103 20 126/63 91 Room Air 05/28/17 20:15 103 20 121/67 91 Room Air 05/28/17 20:00 97 05/28/17 20:00 99.0 105 20 111/66 94 Room Air 05/28/17 19:45 105 20 90/60 91 Room Air 05/28/17 19:35 105 24 Nasal Cannula 05/28/17 19:35 97 Nasal Cannula 05/28/17 19:35 Nasal Cannula 2.0 05/28/17 19:30 97 20 107/81 95 Room Air 05/28/17 19:15 97 20 107/81 95 Room Air 05/28/17 19:00 100 22 81/55 97 Room Air 05/28/17 19:00 81/55 05/28/17 18:45 100 20 81/55 96 Room Air 05/28/17 18:30 99 20 99/48 95 Room Air 05/28/17 18:15 105 19 99/48 93 Room Air 05/28/17 18:00 105 20 95/44 98 Room Air 05/28/17 18:00 102/58 05/28/17 17:45 104 21 43/18 90 Room Air 05/28/17 17:30 105 22 65/53 92 Room Air 05/28/17 17:15 105 22 65/53 94 Room Air 05/28/17 17:00 104 21 109/60 93 Room Air 05/28/17 17:00 109/60 05/28/17 16:45 104 22 114/57 92 Room Air 05/28/17 16:30 106 20 132/70 91 Room Air 05/28/17 16:15 106 21 83/57 91 Room Air 05/28/17 16:00 98.6 104 15 83/57 95 Room Air 05/28/17 16:00 89/54 05/28/17 16:00 103 05/28/17 15:45 104 21 105/68 91 Room Air 05/28/17 15:30 105 18 105/68 100 Room Air 05/28/17 15:15 105 14 102/59 99 Room Air 05/28/17 15:00 104 18 102/56 95 Room Air 05/28/17 15:00 119/40 05/28/17 14:45 105 14 109/71 99 Room Air 05/28/17 14:42 105/64 05/28/17 14:30 105 16 106/59 95 Room Air 05/28/17 14:15 104 17 99/59 96 Room Air 05/28/17 14:00 99/59 05/28/17 14:00 102 19 105/64 98 Room Air 05/28/17 13:45 104 19 105/64 93 Room Air 05/28/17 13:30 104 19 109/66 97 Room Air 05/28/17 13:15 105 20 89/61 99 Room Air 05/28/17 13:00 109/65 05/28/17 13:00 105 15 109/65 98 Room Air 05/28/17 12:45 106 19 109/65 100 Room Air 05/28/17 12:30 98.4 107 17 103/50 98 Room Air 05/28/17 12:15 107 15 103/50 100 Room Air 05/28/17 12:00 106 05/28/17 12:00 103/50 05/28/17 12:00 107 16 87/39 100 Room Air 05/28/17 11:45 107 16 99/55 99 Room Air 05/28/17 11:30 105 13 99/55 93 Room Air 05/28/17 11:15 104 21 107/67 98 Room Air 05/28/17 11:00 109/71 05/28/17 11:00 104 21 126/67 97 Room Air 05/28/17 10:45 106 22 72/57 96 Room Air 05/28/17 10:30 106 20 112/71 96 Room Air 05/28/17 10:15 106 15 115/68 97 Room Air 05/28/17 10:00 106/55 05/28/17 10:00 106 14 115/68 96 Room Air 05/28/17 09:45 108 21 115/68 99 Room Air Intake and Output 05/29/17 05/30/17 19:00 07:00 Intake Total 271.37 ml Output Total 250 ml Balance 21.37 ml Intake Oral 50 ml IV Total 121.37 ml Other 100 ml Output Urine Total 250 ml Laboratory Tests 05/28/17 10:30: Fibrinogen 387, Lactic Acid Level 2.80H, Folate 14.6 05/28/17 11:25: Arterial Blood pH 7.366, Arterial Blood Partial Pressure CO2 31.0L, Arterial Blood Partial Pressure O2 73.8L, Arterial Blood HCO3 17.4L, Arterial Blood Oxygen Saturation 94.4, Arterial Blood Base Excess -6.9, Geoff Test Positive 05/28/17 16:50: Urine Eosinophils None seen, Urine Random Creatinine [Pending], Urine Random Microalbumin [Pending], Urine Random Sodium 57, Urine Creatinine 38.1, Urine Microalbumin/Creatinine Ratio [Pending] 05/29/17 03:40: Lactic Acid Level 1.30, White Blood Count 16.0H, Red Blood Count 4.17L, Hemoglobin 12.0, Hematocrit 36.4L, Mean Corpuscular Volume 87, Mean Corpuscular Hemoglobin 28.7, Mean Corpuscular Hemoglobin Concent 32.9, Red Cell Distribution Width 13.8, Platelet Count 43L, Mean Platelet Volume 10.6H, Neutrophils (%) (Auto) , Lymphocytes (%) (Auto) , Monocytes (%) (Auto) , Eosinophils (%) (Auto) , Basophils (%) (Auto) , Differential Total Cells Counted 100, Neutrophils % (Manual) 88H, Lymphocytes % (Manual) 5L, Monocytes % (Manual) 5, Eosinophils % (Manual) 0, Basophils % (Manual) 0, Band Neutrophils 2 , Platelet Estimate DecreasedL, Platelet Morphology Normal, Sodium Level 139, Potassium Level 3.4L, Chloride Level 107, Carbon Dioxide Level 21, Anion Gap 11 , Blood Urea Nitrogen 28H, Creatinine 1.4H, Estimat Glomerular Filtration Rate 45.6, Glucose Level 92, Calcium Level 8.0L Height (Feet): 5 Height (Inches): 7.00 Weight (Pounds): 315 General Appearance: no apparent distress EENT: normal ENT inspection Neck: normal alignment Cardiovascular: regular rhythm Respiratory/Chest: chest wall non-tender Abdomen: non tender Extremities: non-tender Edema: 1+ Leg (L), 1+ Leg (R) Edema: mild edema Neurologic: alert Skin: warm/dry Valentin Ken May 29, 2017 09:38
--- NOTE | 2017-05-29 09:42 | Pulmonolgy Critical Care Note ---
Critical Care - Asmt/Plan Problems: (1) Septic shock (2) Pyelonephritis (3) ATN (acute tubular necrosis) (4) Thrombocytopenia (5) Anxiety (6) History of DVT (deep vein thrombosis) Respiratory: monitor respiratory rate, adjust FIO2 Cardiac: continue pressors, continue to monitor HR/BP Renal: F/U I&O, keep IV fluid, other - KCL 40 Infectious Disease: check cultures, continue antibiotics Gastrointestinal: continue feedings/current rate Endocrine: monitor blood sugar, check TSH Hematologic: monitor H/H, other - dc Vanco for low Plt Neurologic: PRN Ativan Prophylaxis: Heparin Disposition: keep in ICU Notes Reviewed: renal, ID Discussed with: nurses, consultants, case investigatorcertified orthotist practice manager - Objective Last 24 Hour Vital Signs Date Time Temp Pulse Resp B/P (MAP) Pulse Ox O2 Delivery O2 Flow Rate FiO2 05/29/17 08:00 85 05/29/17 08:00 98.6 84 18 89/35 100 Room Air 05/29/17 08:00 89/35 05/29/17 07:45 85 20 83/38 99 Room Air 05/29/17 07:30 85 20 87/38 98 Room Air 05/29/17 07:15 84 18 94/47 99 Room Air 05/29/17 07:00 83 17 86/47 100 Room Air 05/29/17 06:50 98 Nasal Cannula 2.0 28 05/29/17 06:50 Nasal Cannula 2.0 28 05/29/17 06:50 84 17 Nasal Cannula 2.0 28 05/29/17 06:45 83 17 81/37 100 Room Air 05/29/17 06:30 83 17 85/43 100 Room Air 05/29/17 06:15 83 17 85/43 100 Room Air 05/29/17 06:00 89 24 81/41 97 Room Air 05/29/17 05:45 91 24 94/47 97 Room Air 05/29/17 05:30 87 24 88/46 97 Room Air 05/29/17 05:15 90 24 117/69 97 Room Air 05/29/17 05:00 90 24 131/114 97 Room Air 05/29/17 04:45 90 24 115/60 97 Room Air 05/29/17 04:30 90 24 117/69 97 Room Air 05/29/17 04:15 90 24 107/59 97 Room Air 05/29/17 04:00 89 05/29/17 04:00 98.0 90 24 106/63 97 Room Air 05/29/17 03:45 90 24 95/71 97 Room Air 05/29/17 03:30 90 24 108/55 97 Room Air 05/29/17 03:15 90 24 112/61 97 Room Air 05/29/17 03:00 90 24 99/54 97 Room Air 05/29/17 02:45 90 18 103/58 97 Room Air 05/29/17 02:30 92 18 111/64 97 Room Air 05/29/17 02:15 92 18 108/66 97 Room Air 05/29/17 02:00 91 20 122/68 96 Room Air 05/29/17 01:45 91 23 115/63 96 Room Air 05/29/17 01:30 91 24 106/61 95 Room Air 05/29/17 01:15 92 20 117/69 95 Room Air 05/29/17 01:00 115/64 05/29/17 01:00 92 20 115/64 95 Room Air 05/29/17 00:45 93 20 114/68 92 Room Air 05/29/17 00:30 92 20 119/58 91 Room Air 05/29/17 00:15 93 20 114/68 93 Room Air 05/29/17 00:00 103 05/29/17 00:00 98.7 94 20 119/64 91 Room Air 05/28/17 23:45 94 20 114/68 91 Room Air 05/28/17 23:30 97 20 122/67 91 Room Air 05/28/17 23:15 101 20 118/71 91 Room Air 05/28/17 23:00 108/67 05/28/17 23:00 102 20 108/67 91 Room Air 05/28/17 22:45 102 20 108/67 91 Room Air 05/28/17 22:30 102 20 89/49 91 Room Air 05/28/17 22:15 102 20 102/56 91 Room Air 05/28/17 22:00 102 20 102/56 91 Room Air 05/28/17 21:45 104 20 98/49 91 Room Air 05/28/17 21:30 104 20 98/49 91 Room Air 05/28/17 21:22 98.6 05/28/17 21:15 104 20 72/50 91 Room Air 05/28/17 21:02 126/63 05/28/17 21:00 104 20 85/39 91 Room Air 05/28/17 21:00 121/67 05/28/17 20:45 104 20 85/31 91 Room Air 05/28/17 20:30 103 20 126/63 91 Room Air 05/28/17 20:15 103 20 121/67 91 Room Air 05/28/17 20:00 97 05/28/17 20:00 99.0 105 20 111/66 94 Room Air 05/28/17 19:45 105 20 90/60 91 Room Air 05/28/17 19:35 105 24 Nasal Cannula 28 05/28/17 19:35 97 Nasal Cannula 28 05/28/17 19:35 Nasal Cannula 2.0 28 05/28/17 19:30 97 20 107/81 95 Room Air 05/28/17 19:15 97 20 107/81 95 Room Air 05/28/17 19:00 100 22 81/55 97 Room Air 05/28/17 19:00 81/55 05/28/17 18:45 100 20 81/55 96 Room Air 05/28/17 18:30 99 20 99/48 95 Room Air 05/28/17 18:15 105 19 99/48 93 Room Air 05/28/17 18:00 105 20 95/44 98 Room Air 05/28/17 18:00 102/58 05/28/17 17:45 104 21 43/18 90 Room Air 05/28/17 17:30 105 22 65/53 92 Room Air 05/28/17 17:15 105 22 65/53 94 Room Air 05/28/17 17:00 104 21 109/60 93 Room Air 05/28/17 17:00 109/60 05/28/17 16:45 104 22 114/57 92 Room Air 05/28/17 16:30 106 20 132/70 91 Room Air 05/28/17 16:15 106 21 83/57 91 Room Air 05/28/17 16:00 98.6 104 15 83/57 95 Room Air 05/28/17 16:00 89/54 05/28/17 16:00 103 05/28/17 15:45 104 21 105/68 91 Room Air 05/28/17 15:30 105 18 105/68 100 Room Air 05/28/17 15:15 105 14 102/59 99 Room Air 05/28/17 15:00 104 18 102/56 95 Room Air 05/28/17 15:00 119/40 05/28/17 14:45 105 14 109/71 99 Room Air 05/28/17 14:42 105/64 05/28/17 14:30 105 16 106/59 95 Room Air 05/28/17 14:15 104 17 99/59 96 Room Air 05/28/17 14:00 99/59 05/28/17 14:00 102 19 105/64 98 Room Air 05/28/17 13:45 104 19 105/64 93 Room Air 05/28/17 13:30 104 19 109/66 97 Room Air 05/28/17 13:15 105 20 89/61 99 Room Air 05/28/17 13:00 109/65 05/28/17 13:00 105 15 109/65 98 Room Air 05/28/17 12:45 106 19 109/65 100 Room Air 05/28/17 12:30 98.4 107 17 103/50 98 Room Air 05/28/17 12:15 107 15 103/50 100 Room Air 05/28/17 12:00 106 05/28/17 12:00 103/50 05/28/17 12:00 107 16 87/39 100 Room Air 05/28/17 11:45 107 16 99/55 99 Room Air 05/28/17 11:30 105 13 99/55 93 Room Air 05/28/17 11:15 104 21 107/67 98 Room Air 05/28/17 11:00 109/71 05/28/17 11:00 104 21 126/67 97 Room Air 05/28/17 10:45 106 22 72/57 96 Room Air 05/28/17 10:30 106 20 112/71 96 Room Air 05/28/17 10:15 106 15 115/68 97 Room Air 05/28/17 10:00 106/55 05/28/17 10:00 106 14 115/68 96 Room Air 05/28/17 09:45 108 21 115/68 99 Room Air Status: awake, sedated HEENT: atraumatic Lungs: clear, chest wall tender Heart: HR/BP stable, HR/BP unstable Abdomen: soft, non-tender, feeding tube Extremities: no C/C/E Micro: Microbiology Date/Time Source Procedure Growth Status 05/27/17 15:40 Blood Blood Culture - Preliminary NO GROWTH AFTER 24 HOURS Resulted 05/27/17 15:30 Blood Blood Culture - Preliminary NO GROWTH AFTER 24 HOURS Resulted 05/27/17 04:40 Blood Blood Culture - Preliminary NO GROWTH AFTER 48 HOURS Resulted 05/27/17 04:35 Blood Blood Culture - Preliminary Gram Negative Bacillus 1 Resulted 05/27/17 05:19 Nasal Nares MRSA Culture - Final Staphylococcus Aureus - Mrsa Complete 05/27/17 05:19 Nasal Nares Influenza Types A,B Antigen (JADYN) - Final Complete 05/27/17 05:19 Urine,Clean Catch Urine Culture - Preliminary Enterobacter Cloacae Complex Gram Negative Bacillus 1 Resulted 05/27/17 05:19 Rectum VRE Culture - Final NO VANCOMYCIN RESISTANT ENTEROCOCCUS ... Complete Critical Care - Subjective ROS Limited/Unobtainable: No ICU Day: 3 Interval Events: still on levophed Condition: critical EKG Rhythm: Sinus Rhythm FI02: 28 Sputum Amount: None Fluids: NS 100 cc/hour Drips: Levophed I&O: Intake and Output 05/29/17 05/30/17 19:00 07:00 Intake Total 271.37 ml Output Total 250 ml Balance 21.37 ml Intake Oral 50 ml IV Total 121.37 ml Other 100 ml Output Urine Total 250 ml CXR: VAMSI Labs: Laboratory Tests Test 05/28/17 10:30 05/28/17 11:25 05/28/17 16:50 05/29/17 03:40 Fibrinogen 387 mg/dL (200-400) Lactic Acid Level 2.80 mmol/L (0.66-2.22) H 1.30 mmol/L (0.66-2.22) Folate 14.6 NG/ML (8.6-58.9) Arterial Blood pH 7.366 (7.350-7.450) Arterial Blood Partial Pressure CO2 31.0 mmHg (35.0-45.0) L Arterial Blood Partial Pressure O2 73.8 mmHg (75.0-100.0) L Arterial Blood HCO3 17.4 mmol/L (22.0-26.0) L Arterial Blood Oxygen Saturation 94.4 % (92.0-98.0) Arterial Blood Base Excess -6.9 Geoff Test Positive Urine Eosinophils None seen Urine Random Creatinine Pending Urine Random Microalbumin Pending Urine Random Sodium 57 MEQ/L (20-110) Urine Creatinine 38.1 MG/DL (30.0-125.0) Urine Microalbumin/Creatinine Ratio Pending White Blood Count 16.0 K/UL (4.8-10.8) H Red Blood Count 4.17 M/UL (4.20-5.40) L Hemoglobin 12.0 G/DL (12.0-16.0) Hematocrit 36.4 % (37.0-47.0) L Mean Corpuscular Volume 87 FL (80-99) Mean Corpuscular Hemoglobin 28.7 PG (27.0-31.0) Mean Corpuscular Hemoglobin Concent 32.9 G/DL (32.0-36.0) Red Cell Distribution Width 13.8 % (11.6-14.8) Platelet Count 43 K/UL (150-450) L Mean Platelet Volume 10.6 FL (6.5-10.1) H Neutrophils (%) (Auto) % (45.0-75.0) Lymphocytes (%) (Auto) % (20.0-45.0) Monocytes (%) (Auto) % (1.0-10.0) Eosinophils (%) (Auto) % (0.0-3.0) Basophils (%) (Auto) % (0.0-2.0) Differential Total Cells Counted 100 Neutrophils % (Manual) 88 % (45-75) H Lymphocytes % (Manual) 5 % (20-45) L Monocytes % (Manual) 5 % (1-10) Eosinophils % (Manual) 0 % (0-3) Basophils % (Manual) 0 % (0-2) Band Neutrophils 2 % (0-8) Platelet Estimate Decreased L Platelet Morphology Normal Sodium Level 139 MMOL/L (136-145) Potassium Level 3.4 MMOL/L (3.5-5.1) L Chloride Level 107 MMOL/L (98-107) Carbon Dioxide Level 21 MMOL/L (21-32) Anion Gap 11 mmol/L (5-15) Blood Urea Nitrogen 28 mg/dL (7-18) H Creatinine 1.4 MG/DL (0.55-1.30) H Estimat Glomerular Filtration Rate 45.6 mL/min (>60) Glucose Level 92 MG/DL (74-106) Calcium Level 8.0 MG/DL (8.5-10.1) L ADAMA MENDIETA May 29, 2017 09:42
--- NOTE | 2017-05-29 10:37 | Cardiac Electrophysiology PN ---
Assessment/Plan Assessment/Plan 1. Septic shock. Being tapered off Levophed. The patient does not have any chest pain. Troponin is negative. Her echocardiogram showed EF 55%. The patient is already on broad-spectrum antibiotics. 2. Chronic obstructive pulmonary disease. 3. Lactic acidosis. 4. Renal failure. Creatinine of 1.8. 5. Severe leukopenia. 0.8 increased to 17 and down to 16 today. STEPHIE RN, Paula Subjective Subjective Alert in ICU on Levophed only on 2 mcg/ min. No arrhythmias on tele.On iv Abx. Vanco DCed. Objective Last 24 Hour Vital Signs Date Time Temp Pulse Resp B/P (MAP) Pulse Ox O2 Delivery O2 Flow Rate FiO2 05/29/17 09:55 74/32 05/29/17 08:00 85 05/29/17 08:00 98.6 84 18 89/35 100 Room Air 05/29/17 08:00 89/35 05/29/17 07:45 85 20 83/38 99 Room Air 05/29/17 07:30 85 20 87/38 98 Room Air 05/29/17 07:15 84 18 94/47 99 Room Air 05/29/17 07:00 83 17 86/47 100 Room Air 05/29/17 06:50 98 Nasal Cannula 2.0 28 05/29/17 06:50 Nasal Cannula 2.0 28 05/29/17 06:50 84 17 Nasal Cannula 2.0 28 05/29/17 06:45 83 17 81/37 100 Room Air 05/29/17 06:30 83 17 85/43 100 Room Air 05/29/17 06:15 83 17 85/43 100 Room Air 05/29/17 06:00 89 24 81/41 97 Room Air 05/29/17 05:45 91 24 94/47 97 Room Air 05/29/17 05:30 87 24 88/46 97 Room Air 05/29/17 05:15 90 24 117/69 97 Room Air 05/29/17 05:00 90 24 131/114 97 Room Air 05/29/17 04:45 90 24 115/60 97 Room Air 05/29/17 04:30 90 24 117/69 97 Room Air 05/29/17 04:15 90 24 107/59 97 Room Air 05/29/17 04:00 89 05/29/17 04:00 98.0 90 24 106/63 97 Room Air 05/29/17 03:45 90 24 95/71 97 Room Air 05/29/17 03:30 90 24 108/55 97 Room Air 05/29/17 03:15 90 24 112/61 97 Room Air 05/29/17 03:00 90 24 99/54 97 Room Air 05/29/17 02:45 90 18 103/58 97 Room Air 05/29/17 02:30 92 18 111/64 97 Room Air 05/29/17 02:15 92 18 108/66 97 Room Air 05/29/17 02:00 91 20 122/68 96 Room Air 05/29/17 01:45 91 23 115/63 96 Room Air 05/29/17 01:30 91 24 106/61 95 Room Air 05/29/17 01:15 92 20 117/69 95 Room Air 05/29/17 01:00 115/64 05/29/17 01:00 92 20 115/64 95 Room Air 05/29/17 00:45 93 20 114/68 92 Room Air 05/29/17 00:30 92 20 119/58 91 Room Air 05/29/17 00:15 93 20 114/68 93 Room Air 05/29/17 00:00 103 05/29/17 00:00 98.7 94 20 119/64 91 Room Air 05/28/17 23:45 94 20 114/68 91 Room Air 05/28/17 23:30 97 20 122/67 91 Room Air 05/28/17 23:15 101 20 118/71 91 Room Air 05/28/17 23:00 108/67 05/28/17 23:00 102 20 108/67 91 Room Air 05/28/17 22:45 102 20 108/67 91 Room Air 05/28/17 22:30 102 20 89/49 91 Room Air 05/28/17 22:15 102 20 102/56 91 Room Air 05/28/17 22:00 102 20 102/56 91 Room Air 05/28/17 21:45 104 20 98/49 91 Room Air 05/28/17 21:30 104 20 98/49 91 Room Air 05/28/17 21:22 98.6 05/28/17 21:15 104 20 72/50 91 Room Air 05/28/17 21:02 126/63 05/28/17 21:00 104 20 85/39 91 Room Air 05/28/17 21:00 121/67 05/28/17 20:45 104 20 85/31 91 Room Air 05/28/17 20:30 103 20 126/63 91 Room Air 05/28/17 20:15 103 20 121/67 91 Room Air 05/28/17 20:00 97 05/28/17 20:00 99.0 105 20 111/66 94 Room Air 05/28/17 19:45 105 20 90/60 91 Room Air 05/28/17 19:35 105 24 Nasal Cannula 28 05/28/17 19:35 97 Nasal Cannula 28 05/28/17 19:35 Nasal Cannula 2.0 28 05/28/17 19:30 97 20 107/81 95 Room Air 05/28/17 19:15 97 20 107/81 95 Room Air 05/28/17 19:00 100 22 81/55 97 Room Air 05/28/17 19:00 81/55 05/28/17 18:45 100 20 81/55 96 Room Air 05/28/17 18:30 99 20 99/48 95 Room Air 05/28/17 18:15 105 19 99/48 93 Room Air 05/28/17 18:00 105 20 95/44 98 Room Air 05/28/17 18:00 102/58 05/28/17 17:45 104 21 43/18 90 Room Air 05/28/17 17:30 105 22 65/53 92 Room Air 05/28/17 17:15 105 22 65/53 94 Room Air 05/28/17 17:00 104 21 109/60 93 Room Air 05/28/17 17:00 109/60 05/28/17 16:45 104 22 114/57 92 Room Air 05/28/17 16:30 106 20 132/70 91 Room Air 05/28/17 16:15 106 21 83/57 91 Room Air 05/28/17 16:00 98.6 104 15 83/57 95 Room Air 05/28/17 16:00 89/54 05/28/17 16:00 103 05/28/17 15:45 104 21 105/68 91 Room Air 05/28/17 15:30 105 18 105/68 100 Room Air 05/28/17 15:15 105 14 102/59 99 Room Air 05/28/17 15:00 104 18 102/56 95 Room Air 05/28/17 15:00 119/40 05/28/17 14:45 105 14 109/71 99 Room Air 05/28/17 14:42 105/64 05/28/17 14:30 105 16 106/59 95 Room Air 05/28/17 14:15 104 17 99/59 96 Room Air 05/28/17 14:00 99/59 05/28/17 14:00 102 19 105/64 98 Room Air 05/28/17 13:45 104 19 105/64 93 Room Air 05/28/17 13:30 104 19 109/66 97 Room Air 05/28/17 13:15 105 20 89/61 99 Room Air 05/28/17 13:00 109/65 05/28/17 13:00 105 15 109/65 98 Room Air 05/28/17 12:45 106 19 109/65 100 Room Air 05/28/17 12:30 98.4 107 17 103/50 98 Room Air 05/28/17 12:15 107 15 103/50 100 Room Air 05/28/17 12:00 106 05/28/17 12:00 103/50 05/28/17 12:00 107 16 87/39 100 Room Air 05/28/17 11:45 107 16 99/55 99 Room Air 05/28/17 11:30 105 13 99/55 93 Room Air 05/28/17 11:15 104 21 107/67 98 Room Air 05/28/17 11:00 109/71 05/28/17 11:00 104 21 126/67 97 Room Air 05/28/17 10:45 106 22 72/57 96 Room Air Intake and Output 05/29/17 05/30/17 19:00 07:00 Intake Total 271.37 ml Output Total 250 ml Balance 21.37 ml Intake Oral 50 ml IV Total 121.37 ml Other 100 ml Output Urine Total 250 ml Laboratory Tests Test 05/28/17 11:25 05/28/17 16:50 05/29/17 03:40 Arterial Blood pH 7.366 (7.350-7.450) Arterial Blood Partial Pressure CO2 31.0 mmHg (35.0-45.0) L Arterial Blood Partial Pressure O2 73.8 mmHg (75.0-100.0) L Arterial Blood HCO3 17.4 mmol/L (22.0-26.0) L Arterial Blood Oxygen Saturation 94.4 % (92.0-98.0) Arterial Blood Base Excess -6.9 Geoff Test Positive Urine Eosinophils None seen Urine Random Creatinine Pending Urine Random Microalbumin Pending Urine Random Sodium 57 MEQ/L (20-110) Urine Creatinine 38.1 MG/DL (30.0-125.0) Urine Microalbumin/Creatinine Ratio Pending White Blood Count 16.0 K/UL (4.8-10.8) H Red Blood Count 4.17 M/UL (4.20-5.40) L Hemoglobin 12.0 G/DL (12.0-16.0) Hematocrit 36.4 % (37.0-47.0) L Mean Corpuscular Volume 87 FL (80-99) Mean Corpuscular Hemoglobin 28.7 PG (27.0-31.0) Mean Corpuscular Hemoglobin Concent 32.9 G/DL (32.0-36.0) Red Cell Distribution Width 13.8 % (11.6-14.8) Platelet Count 43 K/UL (150-450) L Mean Platelet Volume 10.6 FL (6.5-10.1) H Neutrophils (%) (Auto) % (45.0-75.0) Lymphocytes (%) (Auto) % (20.0-45.0) Monocytes (%) (Auto) % (1.0-10.0) Eosinophils (%) (Auto) % (0.0-3.0) Basophils (%) (Auto) % (0.0-2.0) Differential Total Cells Counted 100 Neutrophils % (Manual) 88 % (45-75) H Lymphocytes % (Manual) 5 % (20-45) L Monocytes % (Manual) 5 % (1-10) Eosinophils % (Manual) 0 % (0-3) Basophils % (Manual) 0 % (0-2) Band Neutrophils 2 % (0-8) Platelet Estimate Decreased L Platelet Morphology Normal Sodium Level 139 MMOL/L (136-145) Potassium Level 3.4 MMOL/L (3.5-5.1) L Chloride Level 107 MMOL/L (98-107) Carbon Dioxide Level 21 MMOL/L (21-32) Anion Gap 11 mmol/L (5-15) Blood Urea Nitrogen 28 mg/dL (7-18) H Creatinine 1.4 MG/DL (0.55-1.30) H Estimat Glomerular Filtration Rate 45.6 mL/min (>60) Glucose Level 92 MG/DL (74-106) Lactic Acid Level 1.30 mmol/L (0.66-2.22) Calcium Level 8.0 MG/DL (8.5-10.1) L Microbiology Date/Time Source Procedure Growth Status 05/27/17 15:40 Blood Blood Culture - Preliminary NO GROWTH AFTER 24 HOURS Resulted 05/27/17 15:30 Blood Blood Culture - Preliminary NO GROWTH AFTER 24 HOURS Resulted 05/27/17 04:40 Blood Blood Culture - Preliminary NO GROWTH AFTER 48 HOURS Resulted 05/27/17 04:35 Blood Blood Culture - Preliminary Gram Negative Bacillus 1 Resulted 05/27/17 05:19 Nasal Nares MRSA Culture - Final Staphylococcus Aureus - Mrsa Complete 05/27/17 05:19 Nasal Nares Influenza Types A,B Antigen (JADYN) - Final Complete 05/27/17 05:19 Urine,Clean Catch Urine Culture - Preliminary Enterobacter Cloacae Complex Gram Negative Bacillus 1 Resulted 05/27/17 05:19 Rectum VRE Culture - Final NO VANCOMYCIN RESISTANT ENTEROCOCCUS ... Complete Objective HEAD AND NECK: No JVD. LUNGS: Coarse rhonchi. CARDIOVASCULAR: Regular S1 and S2. Mildly Tachycardic. ABDOMEN: Soft. EXTREMITIES: No pitting edema. CHRISTIAN FONSECA May 29, 2017 10:37
--- NOTE | 2017-05-29 10:39 | Diagnostic Imaging Report ---
APPROVED REPORT CPT Code: 97646 Present Symptoms Comments: Hx COPD. Lt knee replacement 2013. BILATERAL: Imaging reveals a patent deep venous system bilaterally. There is no evidence of thrombus within the femoral, popliteal or tibial segments. The greater saphenous veins are also within normal limits. Doppler indicates normal spontaneous flow within these segments.
--- NOTE | 2017-05-29 12:41 | Nephrology Progress Note ---
Assessment/Plan Assessment 1. Acute renal failure. . 2. Hypotension. 3. Hypokalemia. 4. Hypocalcemia. 5. Low albumin Plan plan to continue ivf monitoring electrolyte replace k avoid NSAID Subjective ROS Limited/Unobtainable: Yes Constitutional: Reports: no symptoms HEENT: Reports: no symptoms Genitourinary: Reports: no symptoms Neurologic/Psychiatric: Reports: no symptoms Subjective still on levophed alert and awake no complains Objective Objective Last 24 Hour Vital Signs Date Time Temp Pulse Resp B/P (MAP) Pulse Ox O2 Delivery O2 Flow Rate FiO2 05/29/17 12:00 92/57 05/29/17 11:00 101/44 05/29/17 10:45 84 19 101/44 95 Room Air 05/29/17 10:30 85 13 109/80 92 Room Air 05/29/17 10:15 82 15 109/80 95 Room Air 05/29/17 10:15 98.6 05/29/17 10:00 85 21 84/43 95 Room Air 05/29/17 09:55 74/32 05/29/17 09:45 86 15 84/43 93 Room Air 05/29/17 09:30 86 19 74/32 98 Room Air 05/29/17 09:15 86 17 90/52 97 Room Air 05/29/17 09:00 87/87 05/29/17 09:00 84 18 87/41 99 Room Air 05/29/17 08:45 84 20 79/48 99 Room Air 05/29/17 08:30 84 19 66/52 98 Room Air 05/29/17 08:15 85 19 90/36 99 Room Air 05/29/17 08:00 85 05/29/17 08:00 98.6 84 18 89/35 100 Room Air 05/29/17 08:00 89/35 05/29/17 07:45 85 20 83/38 99 Room Air 05/29/17 07:30 85 20 87/38 98 Room Air 05/29/17 07:15 84 18 94/47 99 Room Air 05/29/17 07:00 83 17 86/47 100 Room Air 05/29/17 06:50 98 Nasal Cannula 2.0 28 05/29/17 06:50 Nasal Cannula 2.0 28 05/29/17 06:50 84 17 Nasal Cannula 2.0 05/29/17 06:45 83 17 81/37 100 Room Air 05/29/17 06:30 83 17 85/43 100 Room Air 05/29/17 06:15 83 17 85/43 100 Room Air 05/29/17 06:00 89 24 81/41 97 Room Air 05/29/17 05:45 91 24 94/47 97 Room Air 05/29/17 05:30 87 24 88/46 97 Room Air 05/29/17 05:15 90 24 117/69 97 Room Air 05/29/17 05:00 90 24 131/114 97 Room Air 05/29/17 04:45 90 24 115/60 97 Room Air 05/29/17 04:30 90 24 117/69 97 Room Air 05/29/17 04:15 90 24 107/59 97 Room Air 05/29/17 04:00 89 05/29/17 04:00 98.0 90 24 106/63 97 Room Air 05/29/17 03:45 90 24 95/71 97 Room Air 05/29/17 03:30 90 24 108/55 97 Room Air 05/29/17 03:15 90 24 112/61 97 Room Air 05/29/17 03:00 90 24 99/54 97 Room Air 05/29/17 02:45 90 18 103/58 97 Room Air 05/29/17 02:30 92 18 111/64 97 Room Air 05/29/17 02:15 92 18 108/66 97 Room Air 05/29/17 02:00 91 20 122/68 96 Room Air 05/29/17 01:45 91 23 115/63 96 Room Air 05/29/17 01:30 91 24 106/61 95 Room Air 05/29/17 01:15 92 20 117/69 95 Room Air 05/29/17 01:00 115/64 05/29/17 01:00 92 20 115/64 95 Room Air 05/29/17 00:45 93 20 114/68 92 Room Air 05/29/17 00:30 92 20 119/58 91 Room Air 05/29/17 00:15 93 20 114/68 93 Room Air 05/29/17 00:00 103 05/29/17 00:00 98.7 94 20 119/64 91 Room Air 05/28/17 23:45 94 20 114/68 91 Room Air 05/28/17 23:30 97 20 122/67 91 Room Air 05/28/17 23:15 101 20 118/71 91 Room Air 05/28/17 23:00 108/67 05/28/17 23:00 102 20 108/67 91 Room Air 05/28/17 22:45 102 20 108/67 91 Room Air 05/28/17 22:30 102 20 89/49 91 Room Air 05/28/17 22:15 102 20 102/56 91 Room Air 05/28/17 22:00 102 20 102/56 91 Room Air 05/28/17 21:45 104 20 98/49 91 Room Air 05/28/17 21:30 104 20 98/49 91 Room Air 05/28/17 21:15 104 20 72/50 91 Room Air 05/28/17 21:02 126/63 05/28/17 21:00 104 20 85/39 91 Room Air 05/28/17 21:00 121/67 05/28/17 20:45 104 20 85/31 91 Room Air 05/28/17 20:30 103 20 126/63 91 Room Air 05/28/17 20:15 103 20 121/67 91 Room Air 05/28/17 20:00 97 05/28/17 20:00 99.0 105 20 111/66 94 Room Air 05/28/17 19:45 105 20 90/60 91 Room Air 05/28/17 19:35 105 24 Nasal Cannula 05/28/17 19:35 97 Nasal Cannula 28 05/28/17 19:35 Nasal Cannula 2.0 28 05/28/17 19:30 97 20 107/81 95 Room Air 05/28/17 19:15 97 20 107/81 95 Room Air 05/28/17 19:00 100 22 81/55 97 Room Air 05/28/17 19:00 81/55 05/28/17 18:45 100 20 81/55 96 Room Air 05/28/17 18:30 99 20 99/48 95 Room Air 05/28/17 18:15 105 19 99/48 93 Room Air 05/28/17 18:00 105 20 95/44 98 Room Air 05/28/17 18:00 102/58 05/28/17 17:45 104 21 43/18 90 Room Air 05/28/17 17:30 105 22 65/53 92 Room Air 05/28/17 17:15 105 22 65/53 94 Room Air 05/28/17 17:00 104 21 109/60 93 Room Air 05/28/17 17:00 109/60 05/28/17 16:45 104 22 114/57 92 Room Air 05/28/17 16:30 106 20 132/70 91 Room Air 05/28/17 16:15 106 21 83/57 91 Room Air 05/28/17 16:00 98.6 104 15 83/57 95 Room Air 05/28/17 16:00 89/54 05/28/17 16:00 103 05/28/17 15:45 104 21 105/68 91 Room Air 05/28/17 15:30 105 18 105/68 100 Room Air 05/28/17 15:15 105 14 102/59 99 Room Air 05/28/17 15:00 104 18 102/56 95 Room Air 05/28/17 15:00 119/40 05/28/17 14:45 105 14 109/71 99 Room Air 05/28/17 14:42 105/64 05/28/17 14:30 105 16 106/59 95 Room Air 05/28/17 14:15 104 17 99/59 96 Room Air 05/28/17 14:00 99/59 05/28/17 14:00 102 19 105/64 98 Room Air 05/28/17 13:45 104 19 105/64 93 Room Air 05/28/17 13:30 104 19 109/66 97 Room Air 05/28/17 13:15 105 20 89/61 99 Room Air 05/28/17 13:00 109/65 05/28/17 13:00 105 15 109/65 98 Room Air 05/28/17 12:45 106 19 109/65 100 Room Air Intake and Output 05/29/17 05/30/17 19:00 07:00 Intake Total 797.92 ml Output Total 600 ml Balance 197.92 ml Intake Oral 50 ml IV Total 567.92 ml Other 180 ml Output Urine Total 600 ml Laboratory Tests 05/28/17 16:50: Urine Eosinophils None seen, Urine Random Creatinine [Pending], Urine Random Microalbumin [Pending], Urine Random Sodium 57, Urine Creatinine 38.1, Urine Microalbumin/Creatinine Ratio [Pending] 12/5/17 03:40: White Blood Count 16.0H, Red Blood Count 4.17L, Hemoglobin 12.0, Hematocrit 36.4L, Mean Corpuscular Volume 87, Mean Corpuscular Hemoglobin 28.7, Mean Corpuscular Hemoglobin Concent 32.9, Red Cell Distribution Width 13.8, Platelet Count 43L, Mean Platelet Volume 10.6H, Neutrophils (%) (Auto) , Lymphocytes (%) (Auto) , Monocytes (%) (Auto) , Eosinophils (%) (Auto) , Basophils (%) (Auto) , Differential Total Cells Counted 100, Neutrophils % (Manual) 88H, Lymphocytes % (Manual) 5L, Monocytes % (Manual) 5, Eosinophils % (Manual) 0, Basophils % ( Manual) 0, Band Neutrophils 2, Platelet Estimate DecreasedL, Platelet Morphology Normal, Sodium Level 139, Potassium Level 3.4L, Chloride Level 107, Carbon Dioxide Level 21, Anion Gap 11, Blood Urea Nitrogen 28H, Creatinine 1.4H , Estimat Glomerular Filtration Rate 45.6, Glucose Level 92, Lactic Acid Level 1.30, Calcium Level 8.0L Height (Feet): 5 Height (Inches): 7.00 Weight (Pounds): 315 Objective HEAD AND NECK: No JVP. No LAD. No thyromegaly. Extraocular movement intact. Pupils are reactive to light and accommodation. LUNGS: Clear to auscultation. CARDIAC: Regular rate and rhythm. S1 and S2. No murmur. No rub. ABDOMEN: Soft and thin. Not tender and not distended. EXTREMITIES: No edema. No clubbing. No cyanosis. PHILLY DONNELLY May 29, 2017 12:41
--- NOTE | 2017-05-29 13:05 | Infectious Diseases Prog Note ---
Assessment/Plan Assessment/Plan A; Sepsis, gram negative Septic shock is resolving UTI with Enterobacter & gram negative Acute renal failure improving Elevated bilirubin & transaminase s/p Cholecystectomy s/p gastric bypass Lactic acidosis P: Continue Zosyn will f/u cultures Subjective ROS Limited/Unobtainable: No Constitutional: Reports: no symptoms, other - feels better Respiratory: Reports: no symptoms Cardiovascular: Reports: no symptoms Gastrointestinal/Abdominal: Reports: no symptoms Genitourinary: Reports: no symptoms Allergies: Coded Allergies: No Known Allergies (Unverified , 09/04/12) Objective Vital Signs Last 24 Hour Vital Signs Date Time Temp Pulse Resp B/P (MAP) Pulse Ox O2 Delivery O2 Flow Rate FiO2 05/29/17 12:00 85 05/29/17 12:00 92/57 05/29/17 12:00 98.2 83 18 92/75 97 Room Air 05/29/17 11:45 82 17 92/75 93 Room Air 05/29/17 11:30 82 17 101/50 94 Room Air 05/29/17 11:15 80 18 87/63 94 Room Air 05/29/17 11:00 84 19 113/84 95 Room Air 05/29/17 11:00 101/44 05/29/17 10:45 84 19 101/44 95 Room Air 05/29/17 10:30 85 13 109/80 92 Room Air 05/29/17 10:15 82 15 109/80 95 Room Air 05/29/17 10:15 98.6 05/29/17 10:00 85 21 84/43 95 Room Air 05/29/17 09:55 74/32 05/29/17 09:45 86 15 84/43 93 Room Air 05/29/17 09:30 86 19 74/32 98 Room Air 05/29/17 09:15 86 17 90/52 97 Room Air 05/29/17 09:00 87/87 05/29/17 09:00 84 18 87/41 99 Room Air 05/29/17 08:45 84 20 79/48 99 Room Air 05/29/17 08:30 84 19 66/52 98 Room Air 05/29/17 08:15 85 19 90/36 99 Room Air 05/29/17 08:00 85 05/29/17 08:00 98.6 84 18 89/35 100 Room Air 05/29/17 08:00 89/35 05/29/17 07:45 85 20 83/38 99 Room Air 05/29/17 07:30 85 20 87/38 98 Room Air 05/29/17 07:15 84 18 94/47 99 Room Air 05/29/17 07:00 83 17 86/47 100 Room Air 05/29/17 06:50 98 Nasal Cannula 2.0 28 05/29/17 06:50 Nasal Cannula 2.0 05/29/17 06:50 84 17 Nasal Cannula 2.0 05/29/17 06:45 83 17 81/37 100 Room Air 05/29/17 06:30 83 17 85/43 100 Room Air 05/29/17 06:15 83 17 85/43 100 Room Air 05/29/17 06:00 89 24 81/41 97 Room Air 05/29/17 05:45 91 24 94/47 97 Room Air 05/29/17 05:30 87 24 88/46 97 Room Air 05/29/17 05:15 90 24 117/69 97 Room Air 05/29/17 05:00 90 24 131/114 97 Room Air 05/29/17 04:45 90 24 115/60 97 Room Air 05/29/17 04:30 90 24 117/69 97 Room Air 05/29/17 04:15 90 24 107/59 97 Room Air 05/29/17 04:00 89 05/29/17 04:00 98.0 90 24 106/63 97 Room Air 05/29/17 03:45 90 24 95/71 97 Room Air 05/29/17 03:30 90 24 108/55 97 Room Air 05/29/17 03:15 90 24 112/61 97 Room Air 05/29/17 03:00 90 24 99/54 97 Room Air 05/29/17 02:45 90 18 103/58 97 Room Air 05/29/17 02:30 92 18 111/64 97 Room Air 05/29/17 02:15 92 18 108/66 97 Room Air 05/29/17 02:00 91 20 122/68 96 Room Air 05/29/17 01:45 91 23 115/63 96 Room Air 05/29/17 01:30 91 24 106/61 95 Room Air 05/29/17 01:15 92 20 117/69 95 Room Air 05/29/17 01:00 115/64 05/29/17 01:00 92 20 115/64 95 Room Air 05/29/17 00:45 93 20 114/68 92 Room Air 05/29/17 00:30 92 20 119/58 91 Room Air 05/29/17 00:15 93 20 114/68 93 Room Air 05/29/17 00:00 103 05/29/17 00:00 98.7 94 20 119/64 91 Room Air 05/28/17 23:45 94 20 114/68 91 Room Air 05/28/17 23:30 97 20 122/67 91 Room Air 05/28/17 23:15 101 20 118/71 91 Room Air 05/28/17 23:00 108/67 05/28/17 23:00 102 20 108/67 91 Room Air 05/28/17 22:45 102 20 108/67 91 Room Air 05/28/17 22:30 102 20 89/49 91 Room Air 05/28/17 22:15 102 20 102/56 91 Room Air 05/28/17 22:00 102 20 102/56 91 Room Air 05/28/17 21:45 104 20 98/49 91 Room Air 05/28/17 21:30 104 20 98/49 91 Room Air 05/28/17 21:15 104 20 72/50 91 Room Air 05/28/17 21:02 126/63 05/28/17 21:00 104 20 85/39 91 Room Air 05/28/17 21:00 121/67 05/28/17 20:45 104 20 85/31 91 Room Air 05/28/17 20:30 103 20 126/63 91 Room Air 05/28/17 20:15 103 20 121/67 91 Room Air 05/28/17 20:00 97 05/28/17 20:00 99.0 105 20 111/66 94 Room Air 05/28/17 19:45 105 20 90/60 91 Room Air 05/28/17 19:35 105 24 Nasal Cannula 05/28/17 19:35 97 Nasal Cannula 28 05/28/17 19:35 Nasal Cannula 2.0 05/28/17 19:30 97 20 107/81 95 Room Air 05/28/17 19:15 97 20 107/81 95 Room Air 05/28/17 19:00 100 22 81/55 97 Room Air 05/28/17 19:00 81/55 05/28/17 18:45 100 20 81/55 96 Room Air 05/28/17 18:30 99 20 99/48 95 Room Air 05/28/17 18:15 105 19 99/48 93 Room Air 05/28/17 18:00 105 20 95/44 98 Room Air 05/28/17 18:00 102/58 05/28/17 17:45 104 21 43/18 90 Room Air 05/28/17 17:30 105 22 65/53 92 Room Air 05/28/17 17:15 105 22 65/53 94 Room Air 05/28/17 17:00 104 21 109/60 93 Room Air 05/28/17 17:00 109/60 05/28/17 16:45 104 22 114/57 92 Room Air 05/28/17 16:30 106 20 132/70 91 Room Air 05/28/17 16:15 106 21 83/57 91 Room Air 05/28/17 16:00 98.6 104 15 83/57 95 Room Air 05/28/17 16:00 89/54 05/28/17 16:00 103 05/28/17 15:45 104 21 105/68 91 Room Air 05/28/17 15:30 105 18 105/68 100 Room Air 05/28/17 15:15 105 14 102/59 99 Room Air 05/28/17 15:00 104 18 102/56 95 Room Air 05/28/17 15:00 119/40 05/28/17 14:45 105 14 109/71 99 Room Air 05/28/17 14:42 105/64 05/28/17 14:30 105 16 106/59 95 Room Air 05/28/17 14:15 104 17 99/59 96 Room Air 05/28/17 14:00 99/59 05/28/17 14:00 102 19 105/64 98 Room Air 05/28/17 13:45 104 19 105/64 93 Room Air 05/28/17 13:30 104 19 109/66 97 Room Air 05/28/17 13:15 105 20 89/61 99 Room Air Height (Feet): 5 Height (Inches): 7.00 Weight (Pounds): 315 General Appearance: no acute distress HEENT: mucous membranes moist Respiratory/Chest: lungs clear Cardiovascular: normal rate, other - RIJ line Abdomen: soft, non tender Extremities: no edema, other - bilateral SCD Microbiology Date/Time Source Procedure Growth Status 05/27/17 15:40 Blood Blood Culture - Preliminary NO GROWTH AFTER 24 HOURS Resulted 05/27/17 15:30 Blood Blood Culture - Preliminary NO GROWTH AFTER 24 HOURS Resulted 05/27/17 04:40 Blood Blood Culture - Preliminary NO GROWTH AFTER 48 HOURS Resulted 05/27/17 04:35 Blood Blood Culture - Preliminary Gram Negative Bacillus 1 Resulted 05/27/17 05:19 Nasal Nares MRSA Culture - Final Staphylococcus Aureus - Mrsa Complete 05/27/17 05:19 Nasal Nares Influenza Types A,B Antigen (JADYN) - Final Complete 05/27/17 05:19 Urine,Clean Catch Urine Culture - Preliminary Enterobacter Cloacae Complex Gram Negative Bacillus 1 Resulted 05/27/17 05:19 Rectum VRE Culture - Final NO VANCOMYCIN RESISTANT ENTEROCOCCUS ... Complete Laboratory Tests Test 05/28/17 16:50 05/29/17 03:40 Urine Eosinophils None seen Urine Random Creatinine Pending Urine Random Microalbumin Pending Urine Random Sodium 57 MEQ/L (20-110) Urine Creatinine 38.1 MG/DL (30.0-125.0) Urine Microalbumin/Creatinine Ratio Pending White Blood Count 16.0 K/UL (4.8-10.8) H Red Blood Count 4.17 M/UL (4.20-5.40) L Hemoglobin 12.0 G/DL (12.0-16.0) Hematocrit 36.4 % (37.0-47.0) L Mean Corpuscular Volume 87 FL (80-99) Mean Corpuscular Hemoglobin 28.7 PG (27.0-31.0) Mean Corpuscular Hemoglobin Concent 32.9 G/DL (32.0-36.0) Red Cell Distribution Width 13.8 % (11.6-14.8) Platelet Count 43 K/UL (150-450) L Mean Platelet Volume 10.6 FL (6.5-10.1) H Neutrophils (%) (Auto) % (45.0-75.0) Lymphocytes (%) (Auto) % (20.0-45.0) Monocytes (%) (Auto) % (1.0-10.0) Eosinophils (%) (Auto) % (0.0-3.0) Basophils (%) (Auto) % (0.0-2.0) Differential Total Cells Counted 100 Neutrophils % (Manual) 88 % (45-75) H Lymphocytes % (Manual) 5 % (20-45) L Monocytes % (Manual) 5 % (1-10) Eosinophils % (Manual) 0 % (0-3) Basophils % (Manual) 0 % (0-2) Band Neutrophils 2 % (0-8) Platelet Estimate Decreased L Platelet Morphology Normal Sodium Level 139 MMOL/L (136-145) Potassium Level 3.4 MMOL/L (3.5-5.1) L Chloride Level 107 MMOL/L (98-107) Carbon Dioxide Level 21 MMOL/L (21-32) Anion Gap 11 mmol/L (5-15) Blood Urea Nitrogen 28 mg/dL (7-18) H Creatinine 1.4 MG/DL (0.55-1.30) H Estimat Glomerular Filtration Rate 45.6 mL/min (>60) Glucose Level 92 MG/DL (74-106) Lactic Acid Level 1.30 mmol/L (0.66-2.22) Calcium Level 8.0 MG/DL (8.5-10.1) L Current Medications Medications (Trade) Dose Ordered Sig/Safia Route PRN Reason Start Time Stop Time Status Last Admin Dose Admin Acetaminophen (Tylenol) 650 mg Q4H PRN ORAL fever 05/27/17 06:45 06/26/17 06:44 Al Hydroxide/Mg Hydroxide (Mylanta) 30 ml Q6H PRN ORAL HEARTBURN 05/29/17 10:00 06/28/17 09:59 05/29/17 10:12 Albuterol/ Ipratropium (Albuterol/ Ipratropium) 3 ml Q4H PRN HHN Shortness of Breath 05/27/17 06:45 06/01/17 06:44 05/28/17 05:29 Chlorhexidine Gluconate (Desiree-Hex 2%) 1 applic DAILY@1999 TOPIC 05/27/17 20:00 06/26/17 19:59 05/28/17 20:52 Diphenhydramine HCl (Benadryl) 25 mg Q6H PRN ORAL Itching 05/29/17 11:00 1/4/18 10:59 05/29/17 10:57 Hydromorphone HCl (Dilaudid) 2 mg Q4H PRN IVP Severe Pain (Pain Scale 7-10) 05/27/17 12:00 06/03/17 11:59 05/29/17 09:45 Hydroxyzine HCl (Vistaril) 10 mg BID ORAL 05/28/17 18:00 06/27/17 17:59 05/29/17 08:36 Norepinephrine Bitartrate 4 mg/ Dextrose 254 ml @ 0 mls/hr Q24H IV 05/27/17 06:45 06/26/17 06:44 05/29/17 09:55 Ondansetron HCl (Zofran) 4 mg Q6H PRN IVP Nausea & Vomiting 05/27/17 06:45 06/26/17 06:44 05/27/17 21:32 Pantoprazole (Protonix) 40 mg DAILY IVP 05/27/17 09:00 06/26/17 08:59 05/29/17 08:35 Piperacillin Sod/ Tazobactam Sod 3.375 gm/Dextrose 55 ml @ 13.75 mls/ hr Q8HR IVPB 05/27/17 13:00 06/03/17 12:59 05/29/17 05:36 Polyethylene Glycol (Miralax) 17 gm DAILYPRN PRN ORAL Constipation 05/27/17 06:45 06/26/17 06:44 Sodium Chloride 1,000 ml @ 100 mls/hr Q10H IVLG 05/27/17 06:44 06/26/17 06:43 05/29/17 08:35 SUKHDEV CUEVAS May 29, 2017 13:05
--- NOTE | 2017-05-29 13:43 | General Progress Note ---
Assessment/Plan Problem List: (1) UTI (urinary tract infection) ICD Codes: N39.0 - Urinary tract infection, site not specified SNOMED: 22879746 (2) Fever ICD Codes: R50.9 - Fever, unspecified SNOMED: 639748775 (3) Sepsis ICD Codes: A41.9 - Sepsis, unspecified organism SNOMED: 05928565 (4) Shock ICD Codes: R57.9 - Shock, unspecified SNOMED: 49464359 (5) Malnutrition ICD Codes: E46 - Unspecified protein-calorie malnutrition SNOMED: 68223822 (6) Dizzy ICD Codes: R42 - Dizziness and giddiness SNOMED: 595797064, 592011234 Status: stable, progressing, tolerating diet Assessment/Plan o2 pul tx abx ot pt diet cbc bmp am Subjective Constitutional: Reports: weakness Allergies: Coded Allergies: No Known Allergies (Unverified , 09/04/12) All Systems: reviewed and negative except above Subjective calm in icu Objective Last 24 Hour Vital Signs Date Time Temp Pulse Resp B/P (MAP) Pulse Ox O2 Delivery O2 Flow Rate FiO2 05/29/17 12:00 85 05/29/17 12:00 92/57 05/29/17 12:00 98.2 83 18 92/75 97 Room Air 05/29/17 11:45 82 17 92/75 93 Room Air 05/29/17 11:30 82 17 101/50 94 Room Air 05/29/17 11:15 80 18 87/63 94 Room Air 05/29/17 11:00 84 19 113/84 95 Room Air 05/29/17 11:00 101/44 05/29/17 10:45 84 19 101/44 95 Room Air 05/29/17 10:30 85 13 109/80 92 Room Air 05/29/17 10:15 82 15 109/80 95 Room Air 05/29/17 10:15 98.6 05/29/17 10:00 85 21 84/43 95 Room Air 05/29/17 09:55 74/32 05/29/17 09:45 86 15 84/43 93 Room Air 05/29/17 09:30 86 19 74/32 98 Room Air 05/29/17 09:15 86 17 90/52 97 Room Air 05/29/17 09:00 87/87 05/29/17 09:00 84 18 87/41 99 Room Air 05/29/17 08:45 84 20 79/48 99 Room Air 05/29/17 08:30 84 19 66/52 98 Room Air 05/29/17 08:15 85 19 90/36 99 Room Air 05/29/17 08:00 85 05/29/17 08:00 98.6 84 18 89/35 100 Room Air 05/29/17 08:00 89/35 05/29/17 07:45 85 20 83/38 99 Room Air 05/29/17 07:30 85 20 87/38 98 Room Air 05/29/17 07:15 84 18 94/47 99 Room Air 05/29/17 07:00 83 17 86/47 100 Room Air 05/29/17 06:50 98 Nasal Cannula 2.0 05/29/17 06:50 Nasal Cannula 2.0 05/29/17 06:50 84 17 Nasal Cannula 2.0 05/29/17 06:45 83 17 81/37 100 Room Air 05/29/17 06:30 83 17 85/43 100 Room Air 05/29/17 06:15 83 17 85/43 100 Room Air 05/29/17 06:00 89 24 81/41 97 Room Air 05/29/17 05:45 91 24 94/47 97 Room Air 05/29/17 05:30 87 24 88/46 97 Room Air 05/29/17 05:15 90 24 117/69 97 Room Air 05/29/17 05:00 90 24 131/114 97 Room Air 05/29/17 04:45 90 24 115/60 97 Room Air 05/29/17 04:30 90 24 117/69 97 Room Air 05/29/17 04:15 90 24 107/59 97 Room Air 05/29/17 04:00 89 05/29/17 04:00 98.0 90 24 106/63 97 Room Air 05/29/17 03:45 90 24 95/71 97 Room Air 05/29/17 03:30 90 24 108/55 97 Room Air 05/29/17 03:15 90 24 112/61 97 Room Air 05/29/17 03:00 90 24 99/54 97 Room Air 05/29/17 02:45 90 18 103/58 97 Room Air 05/29/17 02:30 92 18 111/64 97 Room Air 05/29/17 02:15 92 18 108/66 97 Room Air 05/29/17 02:00 91 20 122/68 96 Room Air 05/29/17 01:45 91 23 115/63 96 Room Air 05/29/17 01:30 91 24 106/61 95 Room Air 05/29/17 01:15 92 20 117/69 95 Room Air 05/29/17 01:00 115/64 05/29/17 01:00 92 20 115/64 95 Room Air 05/29/17 00:45 93 20 114/68 92 Room Air 05/29/17 00:30 92 20 119/58 91 Room Air 05/29/17 00:15 93 20 114/68 93 Room Air 05/29/17 00:00 103 05/29/17 00:00 98.7 94 20 119/64 91 Room Air 05/28/17 23:45 94 20 114/68 91 Room Air 05/28/17 23:30 97 20 122/67 91 Room Air 05/28/17 23:15 101 20 118/71 91 Room Air 05/28/17 23:00 108/67 05/28/17 23:00 102 20 108/67 91 Room Air 05/28/17 22:45 102 20 108/67 91 Room Air 05/28/17 22:30 102 20 89/49 91 Room Air 05/28/17 22:15 102 20 102/56 91 Room Air 05/28/17 22:00 102 20 102/56 91 Room Air 05/28/17 21:45 104 20 98/49 91 Room Air 05/28/17 21:30 104 20 98/49 91 Room Air 05/28/17 21:15 104 20 72/50 91 Room Air 05/28/17 21:02 126/63 05/28/17 21:00 104 20 85/39 91 Room Air 05/28/17 21:00 121/67 05/28/17 20:45 104 20 85/31 91 Room Air 05/28/17 20:30 103 20 126/63 91 Room Air 05/28/17 20:15 103 20 121/67 91 Room Air 05/28/17 20:00 97 05/28/17 20:00 99.0 105 20 111/66 94 Room Air 05/28/17 19:45 105 20 90/60 91 Room Air 05/28/17 19:35 105 24 Nasal Cannula 28 05/28/17 19:35 97 Nasal Cannula 28 05/28/17 19:35 Nasal Cannula 2.0 05/28/17 19:30 97 20 107/81 95 Room Air 05/28/17 19:15 97 20 107/81 95 Room Air 05/28/17 19:00 100 22 81/55 97 Room Air 05/28/17 19:00 81/55 05/28/17 18:45 100 20 81/55 96 Room Air 05/28/17 18:30 99 20 99/48 95 Room Air 05/28/17 18:15 105 19 99/48 93 Room Air 05/28/17 18:00 105 20 95/44 98 Room Air 05/28/17 18:00 102/58 05/28/17 17:45 104 21 43/18 90 Room Air 05/28/17 17:30 105 22 65/53 92 Room Air 05/28/17 17:15 105 22 65/53 94 Room Air 05/28/17 17:00 104 21 109/60 93 Room Air 05/28/17 17:00 109/60 05/28/17 16:45 104 22 114/57 92 Room Air 05/28/17 16:30 106 20 132/70 91 Room Air 05/28/17 16:15 106 21 83/57 91 Room Air 05/28/17 16:00 98.6 104 15 83/57 95 Room Air 05/28/17 16:00 89/54 05/28/17 16:00 103 05/28/17 15:45 104 21 105/68 91 Room Air 05/28/17 15:30 105 18 105/68 100 Room Air 05/28/17 15:15 105 14 102/59 99 Room Air 05/28/17 15:00 104 18 102/56 95 Room Air 05/28/17 15:00 119/40 05/28/17 14:45 105 14 109/71 99 Room Air 05/28/17 14:42 105/64 05/28/17 14:30 105 16 106/59 95 Room Air 05/28/17 14:15 104 17 99/59 96 Room Air 05/28/17 14:00 99/59 05/28/17 14:00 102 19 105/64 98 Room Air 05/28/17 13:45 104 19 105/64 93 Room Air Intake and Output 05/29/17 05/30/17 19:00 07:00 Intake Total 847.92 ml Output Total 725 ml Balance 122.92 ml Intake Oral 100 ml IV Total 567.92 ml Other 180 ml Output Urine Total 725 ml Laboratory Tests 05/28/17 16:50: Urine Eosinophils None seen, Urine Random Creatinine [Pending], Urine Random Microalbumin [Pending], Urine Random Sodium 57, Urine Creatinine 38.1, Urine Microalbumin/Creatinine Ratio [Pending] 05/29/17 03:40: White Blood Count 16.0H, Red Blood Count 4.17L, Hemoglobin 12.0, Hematocrit 36.4L, Mean Corpuscular Volume 87, Mean Corpuscular Hemoglobin 28.7, Mean Corpuscular Hemoglobin Concent 32.9, Red Cell Distribution Width 13.8, Platelet Count 43L, Mean Platelet Volume 10.6H, Neutrophils (%) (Auto) , Lymphocytes (%) (Auto) , Monocytes (%) (Auto) , Eosinophils (%) (Auto) , Basophils (%) (Auto) , Differential Total Cells Counted 100, Neutrophils % (Manual) 88H, Lymphocytes % (Manual) 5L, Monocytes % (Manual) 5, Eosinophils % (Manual) 0, Basophils % ( Manual) 0, Band Neutrophils 2, Platelet Estimate DecreasedL, Platelet Morphology Normal, Sodium Level 139, Potassium Level 3.4L, Chloride Level 107, Carbon Dioxide Level 21, Anion Gap 11, Blood Urea Nitrogen 28H, Creatinine 1.4H , Estimat Glomerular Filtration Rate 45.6, Glucose Level 92, Lactic Acid Level 1.30, Calcium Level 8.0L Height (Feet): 5 Height (Inches): 7.00 Weight (Pounds): 315 General Appearance: lethargic EENT: normal ENT inspection Neck: normal alignment Cardiovascular: normal peripheral pulses, normal rate, regular rhythm Respiratory/Chest: chest wall non-tender, lungs clear, normal breath sounds Abdomen: normal bowel sounds, non tender, soft Extremities: normal inspection Edema: no edema noted Arm (L), no edema noted Arm (R), no edema noted Leg (L), no edema noted Leg (R), no edema noted Pedal (L), no edema noted Pedal (R), no edema noted Generalized Neurologic: responsive, motor weakness JUAN KELLER May 29, 2017 13:43
[2017-05-29] MEDS ORDERED: Tubing IV Secondary IV ONE (15:20)
[2017-05-29] MEDS ORDERED: NS 500ML ONE (15:20)
[2017-05-29] MEDS: Dyna-Hex 2% Top Sol 2oz TOPIC SCH (19:50)
[2017-05-30] VITALS (33 sets, daily range): BP systolic 67–128; BP diastolic 38–77
[2017-05-30 05:21] LABS: MEAN CORPUSCULAR HEMOGLOBIN 28.2 PG (27.0-31.0); MEAN CORPUSCULAR HGB CONC 32.4 G/DL (32.0-36.0); MEAN CORPUSCULAR VOLUME 87 FL (80-99); MEAN PLATELET VOLUME 9.3 FL (6.5-10.1); PLATELET COUNT 49 K/UL (150-450); RED BLOOD COUNT 4.07 M/UL (4.20-5.40); RED CELL DISTRIBUTION WIDTH 13.8 % (11.6-14.8)
[2017-05-30] MEDS: Piperacillin/Tazobactam 3.375 GM in D5W 55 ML IVPB SCH (05:39)
[2017-05-30 05:44] LABS: ALANINE AMINOTRANSFERASE 31 U/L (12-78); ALBUMIN/GLOBULIN RATIO 0.6 (1.0-2.7); ANION GAP 8 mmol/L (5-15); ASPARTATE AMINO TRANSFERASE 30 U/L (15-37); CALCIUM 7.7 MG/DL (8.5-10.1); CARBON DIOXIDE 24 MMOL/L (21-32); CHLORIDE 109 MMOL/L (98-107); CREATININE 1.1 MG/DL (0.55-1.30); GLOMERULAR FILTRATION RATE > 60 mL/min (>60); MAGNESIUM 1.4 MG/DL (1.8-2.4); PHOSPHORUS 2.4 MG/DL (2.5-4.9); POTASSIUM 3.6 MMOL/L (3.5-5.1); SODIUM 141 MMOL/L (136-145); TOTAL PROTEIN 5.3 G/DL (6.4-8.2)
[2017-05-30 08:15] LABS: BAND NEUTROPHILS % (MANUAL) 6 % (0-8); BASOPHILS % (MANUAL) 0 % (0-2); EOSINOPHILS % (MANUAL) 1 % (0-3); LYMPHOCYTES % (MANUAL) 9 % (20-45); NEUTROPHILS % (MANUAL) 80 % (45-75); PLATELET ESTIMATE DECREASED; PLATELET MORPHOLOGY NORMAL; TOTAL CELLS COUNTED 100
[2017-05-30 08:16] LABS: HYPOCHROMASIA 1+
[2017-05-30 08:39] LABS: ERYTHROCYTE SEDIMENTATION RATE 35 MM/HR (0-30)
[2017-05-30] MEDS: Pantoprazole Inj IVP SCH (08:54)
[2017-05-30 10:00] LABS: OTHERS PATHOLOGIST COMMENT
--- NOTE | 2017-05-30 10:12 | Infectious Diseases Prog Note ---
Assessment/Plan Assessment/Plan A; Sepsis with Enterobacter Septic shock is resolving UTI with Enterobacter Acute renal failure improving Elevated bilirubin & transaminase s/p Cholecystectomy s/p gastric bypass Lactic acidosis P: Change Zosyn to Rocephin Subjective ROS Limited/Unobtainable: No Constitutional: Reports: no symptoms HEENT: Reports: no symptoms Respiratory: Reports: no symptoms Cardiovascular: Reports: other - hypotensive on low dose Levophed Gastrointestinal/Abdominal: Reports: no symptoms Genitourinary: Reports: no symptoms Allergies: Coded Allergies: No Known Allergies (Unverified , 09/04/12) Objective Vital Signs Last 24 Hour Vital Signs Date Time Temp Pulse Resp B/P (MAP) Pulse Ox O2 Delivery O2 Flow Rate FiO2 05/30/17 08:30 73 19 106/63 97 Room Air 05/30/17 08:00 98.2 75 19 110/77 98 Room Air 05/30/17 08:00 73 05/30/17 07:30 74 19 112/59 99 Room Air 05/30/17 07:00 77 19 108/61 96 Room Air 05/30/17 06:30 77 19 101/56 96 Room Air 05/30/17 06:00 79 19 98/50 96 Room Air 05/30/17 05:30 79 19 110/69 96 Room Air 05/30/17 05:00 77 19 88/49 96 Room Air 05/30/17 04:30 77 19 88/48 96 Room Air 05/30/17 04:00 98.0 77 19 82/60 95 Room Air 05/30/17 04:00 84 05/30/17 03:30 82 19 67/39 95 Room Air 05/30/17 03:00 82 19 67/38 95 Room Air 05/30/17 02:32 98.0 05/30/17 02:30 82 19 79/44 95 Room Air 05/30/17 02:00 82 19 79/44 95 Room Air 05/30/17 01:30 84 19 85/47 99 Room Air 05/30/17 01:00 83 19 82/40 100 Room Air 05/30/17 00:30 80 19 102/40 100 Room Air 05/30/17 00:00 84 05/30/17 00:00 98.0 84 20 93/48 99 Room Air 05/29/17 23:30 84 19 83/48 100 Room Air 05/29/17 23:00 84 19 86/49 100 Room Air 05/29/17 22:30 84 19 85/47 99 Room Air 05/29/17 22:00 85 19 104/57 99 Room Air 05/29/17 21:30 82 19 111/70 99 Room Air 05/29/17 21:00 90/51 05/29/17 21:00 84 19 92/56 99 Room Air 05/29/17 20:30 78 19 90/43 99 Room Air 05/29/17 20:00 84 05/29/17 20:00 98.0 81 19 80/54 99 Room Air 05/29/17 19:30 84 19 91/56 99 Room Air 05/29/17 19:00 94/52 05/29/17 19:00 86 19 105/62 99 Room Air 05/29/17 18:58 88 20 Room Air 21 05/29/17 18:58 Room Air 21 05/29/17 18:58 96 Room Air 21 05/29/17 18:45 85 19 94/54 99 Room Air 05/29/17 18:30 86 19 94/52 99 Room Air 05/29/17 18:15 80 17 98/48 100 Room Air 05/29/17 18:00 87/51 05/29/17 18:00 81 17 87/51 100 Room Air 05/29/17 17:45 81 17 103/58 100 Room Air 05/29/17 17:30 81 19 98/58 99 Room Air 05/29/17 17:15 82 18 92/56 95 Room Air 05/29/17 17:00 92/56 05/29/17 17:00 87 16 92/56 93 Room Air 05/29/17 16:45 84 16 92/54 100 Room Air 05/29/17 16:30 83 16 92/54 100 Room Air 05/29/17 16:15 84 16 93/51 100 Room Air 05/29/17 16:00 98.4 83 15 96/78 99 Room Air 05/29/17 16:00 83 05/29/17 16:00 89/51 05/29/17 15:45 84 15 96/78 99 Room Air 05/29/17 15:30 85 15 96/78 100 Room Air 05/29/17 15:15 85 15 84/58 99 Room Air 05/29/17 15:00 95/57 05/29/17 15:00 83 15 95/57 98 Room Air 05/29/17 14:45 82 20 109/80 99 Room Air 05/29/17 14:30 82 20 87/65 99 Room Air 05/29/17 14:15 80 15 87/65 95 Room Air 05/29/17 14:00 83/48 05/29/17 14:00 80 20 83/48 97 Room Air 05/29/17 13:45 84 18 80/45 96 Room Air 05/29/17 13:30 85 15 91/45 96 Room Air 05/29/17 13:15 85 21 75/23 97 Room Air 05/29/17 13:00 75/23 05/29/17 13:00 87 18 75/23 96 Room Air 05/29/17 12:45 83 17 72/52 98 Room Air 05/29/17 12:30 84 18 87/47 97 Room Air 05/29/17 12:15 84 18 87/47 97 Room Air 05/29/17 12:00 85 05/29/17 12:00 92/57 05/29/17 12:00 98.2 83 18 92/75 97 Room Air 05/29/17 11:45 82 17 92/75 93 Room Air 05/29/17 11:30 82 17 101/50 94 Room Air 05/29/17 11:15 80 18 87/63 94 Room Air 05/29/17 11:00 84 19 113/84 95 Room Air 05/29/17 11:00 101/44 05/29/17 10:45 84 19 101/44 95 Room Air 05/29/17 10:30 85 13 109/80 92 Room Air 05/29/17 10:15 82 15 109/80 95 Room Air Height (Feet): 5 Height (Inches): 7.00 Weight (Pounds): 316 General Appearance: no acute distress, other - obese HEENT: mucous membranes moist Respiratory/Chest: lungs clear Cardiovascular: normal rate Abdomen: soft, non tender Extremities: other - bilateral SCD Neurologic/Psychiatric: alert, oriented x 3, responsive Microbiology Date/Time Source Procedure Growth Status 05/27/17 15:40 Blood Blood Culture - Preliminary NO GROWTH AFTER 48 HOURS Resulted 05/27/17 15:30 Blood Blood Culture - Preliminary NO GROWTH AFTER 48 HOURS Resulted 05/28/17 05:00 Sputum Gram Stain - Final Complete 05/28/17 05:00 Sputum Sputum Culture - Final CULTURE NOT PERFORMED ... Complete Laboratory Tests Test 05/30/17 05:00 White Blood Count 14.0 K/UL (4.8-10.8) H Red Blood Count 4.07 M/UL (4.20-5.40) L Hemoglobin 11.5 G/DL (12.0-16.0) L Hematocrit 35.5 % (37.0-47.0) L Mean Corpuscular Volume 87 FL (80-99) Mean Corpuscular Hemoglobin 28.2 PG (27.0-31.0) Mean Corpuscular Hemoglobin Concent 32.4 G/DL (32.0-36.0) Red Cell Distribution Width 13.8 % (11.6-14.8) Platelet Count 49 K/UL (150-450) L Mean Platelet Volume 9.3 FL (6.5-10.1) Neutrophils (%) (Auto) % (45.0-75.0) Lymphocytes (%) (Auto) % (20.0-45.0) Monocytes (%) (Auto) % (1.0-10.0) Eosinophils (%) (Auto) % (0.0-3.0) Basophils (%) (Auto) % (0.0-2.0) Differential Total Cells Counted 100 Neutrophils % (Manual) 80 % (45-75) H Lymphocytes % (Manual) 9 % (20-45) L Monocytes % (Manual) 4 % (1-10) Eosinophils % (Manual) 1 % (0-3) Basophils % (Manual) 0 % (0-2) Band Neutrophils 6 % (0-8) Platelet Estimate Decreased L Platelet Morphology Normal Hypochromasia 1+ Erythrocyte Sedimentation Rate 35 MM/HR (0-30) H Sodium Level 141 MMOL/L (136-145) Potassium Level 3.6 MMOL/L (3.5-5.1) Chloride Level 109 MMOL/L (98-107) H Carbon Dioxide Level 24 MMOL/L (21-32) Anion Gap 8 mmol/L (5-15) Blood Urea Nitrogen 16 mg/dL (7-18) Creatinine 1.1 MG/DL (0.55-1.30) Estimat Glomerular Filtration Rate > 60 mL/min (>60) Glucose Level 110 MG/DL (74-106) H Calcium Level 7.7 MG/DL (8.5-10.1) L Phosphorus Level 2.4 MG/DL (2.5-4.9) L Magnesium Level 1.4 MG/DL (1.8-2.4) L Total Bilirubin 0.6 MG/DL (0.2-1.0) Aspartate Amino Transf (AST/SGOT) 30 U/L (15-37) Alanine Aminotransferase (ALT/SGPT) 31 U/L (12-78) Alkaline Phosphatase 129 U/L (46-116) H Total Protein 5.3 G/DL (6.4-8.2) L Albumin 2.0 G/DL (3.4-5.0) L Globulin 3.3 g/dL Albumin/Globulin Ratio 0.6 (1.0-2.7) L Current Medications Medications (Trade) Dose Ordered Sig/Safia Route PRN Reason Start Time Stop Time Status Last Admin Dose Admin Acetaminophen (Tylenol) 650 mg Q4H PRN ORAL fever 05/27/17 06:45 06/26/17 06:44 Al Hydroxide/Mg Hydroxide (Mylanta) 30 ml Q6H PRN ORAL HEARTBURN 05/29/17 10:00 06/28/17 09:59 05/29/17 10:12 Albuterol/ Ipratropium (Albuterol/ Ipratropium) 3 ml Q4H PRN HHN Shortness of Breath 05/27/17 06:45 06/01/17 06:44 05/28/17 05:29 Chlorhexidine Gluconate (Desiree-Hex 2%) 1 applic DAILY@1999 TOPIC 05/27/17 20:00 06/26/17 19:59 05/29/17 19:50 Diphenhydramine HCl (Benadryl) 25 mg Q6H PRN ORAL Itching 05/29/17 11:00 06/28/17 10:59 05/30/17 02:44 Hydromorphone HCl (Dilaudid) 2 mg Q4H PRN IVP Severe Pain (Pain Scale 7-10) 05/27/17 12:00 06/03/17 11:59 05/30/17 02:02 Hydroxyzine HCl (Vistaril) 10 mg BID ORAL 05/28/17 18:00 06/27/17 17:59 05/30/17 08:54 Norepinephrine Bitartrate 4 mg/ Dextrose 254 ml @ 0 mls/hr Q24H IV 05/27/17 06:45 06/26/17 06:44 05/29/17 09:55 Ondansetron HCl (Zofran) 4 mg Q6H PRN IVP Nausea & Vomiting 05/27/17 06:45 06/26/17 06:44 05/27/17 21:32 Pantoprazole (Protonix) 40 mg DAILY IVP 05/27/17 09:00 06/26/17 08:59 05/30/17 08:54 Piperacillin Sod/ Tazobactam Sod 3.375 gm/Dextrose 55 ml @ 13.75 mls/ hr Q8HR IVPB 05/27/17 13:00 06/03/17 12:59 05/30/17 05:39 Polyethylene Glycol (Miralax) 17 gm DAILYPRN PRN ORAL Constipation 05/27/17 06:45 06/26/17 06:44 Sodium Chloride 1,000 ml @ 100 mls/hr Q10H IVLG 05/27/17 06:44 06/26/17 06:43 05/30/17 03:25 SUKHDEV CUEVAS May 30, 2017 10:12
--- NOTE | 2017-05-30 10:17 | General Progress Note ---
Assessment/Plan Assessment/Plan ASSESSMENT AND RECOMMENDATIONS: 1. Leukopenia, improved. s/p neupogen, now actually resolved, wbc is 16k --> The patient currently on antibiotics, continue to monitor with ID team 2. Thrombocytopenia. Likely related to sepsis/consumption, no heparin administered --> viral studies are negative, us of the abdomen has been reviewed 3. Coagulopathy, potentially secondary to myelosuppression. Continue to closely follow. with sepsis 4. Urinary tract infection, on antibiotics. 5. GRAY has improved --> monitor with nephrology 6. Hypokalemia has improved with PO intake Subjective Constitutional: Reports: no symptoms HEENT: Reports: no symptoms Cardiovascular: Reports: no symptoms Respiratory: Reports: no symptoms Gastrointestinal/Abdominal: Reports: no symptoms Genitourinary: Reports: no symptoms Neurologic/Psychiatric: Reports: no symptoms Endocrine: Reports: no symptoms Hematologic/Lymphatic: Reports: anemia Allergies: Coded Allergies: No Known Allergies (Unverified , 09/04/12) Subjective no bleeding reported, no fevers, no chills Objective Last 24 Hour Vital Signs Date Time Temp Pulse Resp B/P (MAP) Pulse Ox O2 Delivery O2 Flow Rate FiO2 05/30/17 08:30 73 19 106/63 97 Room Air 05/30/17 08:00 98.2 75 19 110/77 98 Room Air 05/30/17 08:00 73 05/30/17 07:30 74 19 112/59 99 Room Air 05/30/17 07:00 77 19 108/61 96 Room Air 05/30/17 06:30 77 19 101/56 96 Room Air 05/30/17 06:00 79 19 98/50 96 Room Air 05/30/17 05:30 79 19 110/69 96 Room Air 05/30/17 05:00 77 19 88/49 96 Room Air 05/30/17 04:30 77 19 88/48 96 Room Air 05/30/17 04:00 98.0 77 19 82/60 95 Room Air 05/30/17 04:00 84 05/30/17 03:30 82 19 67/39 95 Room Air 05/30/17 03:00 82 19 67/38 95 Room Air 05/30/17 02:32 98.0 05/30/17 02:30 82 19 79/44 95 Room Air 05/30/17 02:00 82 19 79/44 95 Room Air 05/30/17 01:30 84 19 85/47 99 Room Air 05/30/17 01:00 83 19 82/40 100 Room Air 05/30/17 00:30 80 19 102/40 100 Room Air 05/30/17 00:00 84 05/30/17 00:00 98.0 84 20 93/48 99 Room Air 05/29/17 23:30 84 19 83/48 100 Room Air 05/29/17 23:00 84 19 86/49 100 Room Air 05/29/17 22:30 84 19 85/47 99 Room Air 05/29/17 22:00 85 19 104/57 99 Room Air 05/29/17 21:30 82 19 111/70 99 Room Air 05/29/17 21:00 90/51 05/29/17 21:00 84 19 92/56 99 Room Air 05/29/17 20:30 78 19 90/43 99 Room Air 05/29/17 20:00 84 05/29/17 20:00 98.0 81 19 80/54 99 Room Air 05/29/17 19:30 84 19 91/56 99 Room Air 05/29/17 19:00 94/52 05/29/17 19:00 86 19 105/62 99 Room Air 05/29/17 18:58 88 20 Room Air 21 05/29/17 18:58 Room Air 21 05/29/17 18:58 96 Room Air 21 05/29/17 18:45 85 19 94/54 99 Room Air 05/29/17 18:30 86 19 94/52 99 Room Air 05/29/17 18:15 80 17 98/48 100 Room Air 05/29/17 18:00 87/51 05/29/17 18:00 81 17 87/51 100 Room Air 05/29/17 17:45 81 17 103/58 100 Room Air 05/29/17 17:30 81 19 98/58 99 Room Air 05/29/17 17:15 82 18 92/56 95 Room Air 05/29/17 17:00 92/56 05/29/17 17:00 87 16 92/56 93 Room Air 05/29/17 16:45 84 16 92/54 100 Room Air 05/29/17 16:30 83 16 92/54 100 Room Air 05/29/17 16:15 84 16 93/51 100 Room Air 05/29/17 16:00 98.4 83 15 96/78 99 Room Air 05/29/17 16:00 83 05/29/17 16:00 89/51 05/29/17 15:45 84 15 96/78 99 Room Air 05/29/17 15:30 85 15 96/78 100 Room Air 05/29/17 15:15 85 15 84/58 99 Room Air 05/29/17 15:00 95/57 05/29/17 15:00 83 15 95/57 98 Room Air 05/29/17 14:45 82 20 109/80 99 Room Air 05/29/17 14:30 82 20 87/65 99 Room Air 05/29/17 14:15 80 15 87/65 95 Room Air 05/29/17 14:00 83/48 05/29/17 14:00 80 20 83/48 97 Room Air 05/29/17 13:45 84 18 80/45 96 Room Air 05/29/17 13:30 85 15 91/45 96 Room Air 05/29/17 13:15 85 21 75/23 97 Room Air 05/29/17 13:00 75/23 05/29/17 13:00 87 18 75/23 96 Room Air 05/29/17 12:45 83 17 72/52 98 Room Air 05/29/17 12:30 84 18 87/47 97 Room Air 05/29/17 12:15 84 18 87/47 97 Room Air 05/29/17 12:00 85 05/29/17 12:00 92/57 05/29/17 12:00 98.2 83 18 92/75 97 Room Air 05/29/17 11:45 82 17 92/75 93 Room Air 05/29/17 11:30 82 17 101/50 94 Room Air 05/29/17 11:15 80 18 87/63 94 Room Air 05/29/17 11:00 84 19 113/84 95 Room Air 05/29/17 11:00 101/44 05/29/17 10:45 84 19 101/44 95 Room Air 05/29/17 10:30 85 13 109/80 92 Room Air Intake and Output 05/30/17 05/31/17 19:00 07:00 Intake Total 384.99 ml Output Total 200 ml Balance 184.99 ml Intake Oral 250 ml IV Total 134.99 ml Output Urine Total 200 ml Laboratory Tests 05/30/17 05:00: White Blood Count 14.0H, Red Blood Count 4.07L, Hemoglobin 11.5L, Hematocrit 35.5L, Mean Corpuscular Volume 87, Mean Corpuscular Hemoglobin 28.2, Mean Corpuscular Hemoglobin Concent 32.4, Red Cell Distribution Width 13.8, Platelet Count 49L, Mean Platelet Volume 9.3, Neutrophils (%) (Auto) , Lymphocytes (%) ( Auto) , Monocytes (%) (Auto) , Eosinophils (%) (Auto) , Basophils (%) (Auto) , Differential Total Cells Counted 100, Neutrophils % (Manual) 80H, Lymphocytes % (Manual) 9L, Monocytes % (Manual) 4, Eosinophils % (Manual) 1, Basophils % ( Manual) 0, Band Neutrophils 6, Platelet Estimate DecreasedL, Platelet Morphology Normal, Hypochromasia 1+, Erythrocyte Sedimentation Rate 35H, Sodium Level 141, Potassium Level 3.6, Chloride Level 109H, Carbon Dioxide Level 24, Anion Gap 8, Blood Urea Nitrogen 16, Creatinine 1.1, Estimat Glomerular Filtration Rate > 60, Glucose Level 110H, Calcium Level 7.7L, Phosphorus Level 2.4L, Magnesium Level 1.4L, Total Bilirubin 0.6, Aspartate Amino Transf (AST/ SGOT) 30, Alanine Aminotransferase (ALT/SGPT) 31, Alkaline Phosphatase 129H, Total Protein 5.3L, Albumin 2.0L, Globulin 3.3, Albumin/Globulin Ratio 0.6L Height (Feet): 5 Height (Inches): 7.00 Weight (Pounds): 316 General Appearance: alert EENT: normal ENT inspection Neck: supple Cardiovascular: normal rate Respiratory/Chest: lungs clear Abdomen: normal bowel sounds Extremities: non-tender Edema: 1+ Leg (L), 1+ Leg (R) Edema: mild edema Neurologic: no motor/sensory deficits Skin: warm/dry Valentin Ken May 30, 2017 10:17
--- NOTE | 2017-05-30 10:57 | Pulmonolgy Critical Care Note ---
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, 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 with: nurses, 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, 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 program management - Objective Last 24 Hour Vital Signs Date Time Temp Pulse Resp B/P (MAP) Pulse Ox O2 Delivery O2 Flow Rate FiO2 05/30/17 08:30 73 19 106/63 97 Room Air 05/30/17 08:00 98.2 75 19 110/77 98 Room Air 05/30/17 08:00 73 05/30/17 07:30 74 19 112/59 99 Room Air 05/30/17 07:00 77 19 108/61 96 Room Air 05/30/17 06:30 77 19 101/56 96 Room Air 05/30/17 06:00 79 19 98/50 96 Room Air 05/30/17 05:30 79 19 110/69 96 Room Air 05/30/17 05:00 77 19 88/49 96 Room Air 05/30/17 04:30 77 19 88/48 96 Room Air 05/30/17 04:00 98.0 77 19 82/60 95 Room Air 05/30/17 04:00 84 05/30/17 03:30 82 19 67/39 95 Room Air 05/30/17 03:00 82 19 67/38 95 Room Air 05/30/17 02:32 98.0 05/30/17 02:30 82 19 79/44 95 Room Air 05/30/17 02:00 82 19 79/44 95 Room Air 05/30/17 01:30 84 19 85/47 99 Room Air 05/30/17 01:00 83 19 82/40 100 Room Air 05/30/17 00:30 80 19 102/40 100 Room Air 05/30/17 00:00 84 05/30/17 00:00 98.0 84 20 93/48 99 Room Air 05/29/17 23:30 84 19 83/48 100 Room Air 05/29/17 23:00 84 19 86/49 100 Room Air 05/29/17 22:30 84 19 85/47 99 Room Air 05/29/17 22:00 85 19 104/57 99 Room Air 05/29/17 21:30 82 19 111/70 99 Room Air 05/29/17 21:00 90/51 05/29/17 21:00 84 19 92/56 99 Room Air 05/29/17 20:30 78 19 90/43 99 Room Air 05/29/17 20:00 84 05/29/17 20:00 98.0 81 19 80/54 99 Room Air 05/29/17 19:30 84 19 91/56 99 Room Air 05/29/17 19:00 94/52 05/29/17 19:00 86 19 105/62 99 Room Air 05/29/17 18:58 88 20 Room Air 21 05/29/17 18:58 Room Air 21 05/29/17 18:58 96 Room Air 21 05/29/17 18:45 85 19 94/54 99 Room Air 05/29/17 18:30 86 19 94/52 99 Room Air 05/29/17 18:15 80 17 98/48 100 Room Air 05/29/17 18:00 87/51 05/29/17 18:00 81 17 87/51 100 Room Air 05/29/17 17:45 81 17 103/58 100 Room Air 05/29/17 17:30 81 19 98/58 99 Room Air 05/29/17 17:15 82 18 92/56 95 Room Air 05/29/17 17:00 92/56 05/29/17 17:00 87 16 92/56 93 Room Air 05/29/17 16:45 84 16 92/54 100 Room Air 05/29/17 16:30 83 16 92/54 100 Room Air 05/29/17 16:15 84 16 93/51 100 Room Air 05/29/17 16:00 98.4 83 15 96/78 99 Room Air 05/29/17 16:00 83 05/29/17 16:00 89/51 05/29/17 15:45 84 15 96/78 99 Room Air 05/29/17 15:30 85 15 96/78 100 Room Air 05/29/17 15:15 85 15 84/58 99 Room Air 05/29/17 15:00 95/57 05/29/17 15:00 83 15 95/57 98 Room Air 05/29/17 14:45 82 20 109/80 99 Room Air 05/29/17 14:30 82 20 87/65 99 Room Air 05/29/17 14:15 80 15 87/65 95 Room Air 05/29/17 14:00 83/48 05/29/17 14:00 80 20 83/48 97 Room Air 05/29/17 13:45 84 18 80/45 96 Room Air 05/29/17 13:30 85 15 91/45 96 Room Air 05/29/17 13:15 85 21 75/23 97 Room Air 05/29/17 13:00 75/23 05/29/17 13:00 87 18 75/23 96 Room Air 05/29/17 12:45 83 17 72/52 98 Room Air 05/29/17 12:30 84 18 87/47 97 Room Air 05/29/17 12:15 84 18 87/47 97 Room Air 05/29/17 12:00 85 05/29/17 12:00 92/57 05/29/17 12:00 98.2 83 18 92/75 97 Room Air 05/29/17 11:45 82 17 92/75 93 Room Air 05/29/17 11:30 82 17 101/50 94 Room Air 05/29/17 11:15 80 18 87/63 94 Room Air 05/29/17 11:00 84 19 113/84 95 Room Air 05/29/17 11:00 101/44 Status: awake Condition: critical HEENT: atraumatic, normocephalic Lungs: clear Heart: HR/BP stable, HR/BP unstable Abdomen: non-tender, feeding tube Extremities: no C/C/E, edema Decubiti: location Micro: Microbiology Date/Time Source Procedure Growth Status 05/27/17 15:40 Blood Blood Culture - Preliminary NO GROWTH AFTER 48 HOURS Resulted 05/27/17 15:30 Blood Blood Culture - Preliminary NO GROWTH AFTER 48 HOURS Resulted 05/28/17 05:00 Sputum Gram Stain - Final Complete 05/28/17 05:00 Sputum Sputum Culture - Final CULTURE NOT PERFORMED ... Complete Critical Care - Subjective ROS Limited/Unobtainable: No ICU Day: 4 Interval Events: awake, still on drips. EKG Rhythm: Sinus Rhythm FI02: 21 Sputum Amount: None Fluids: NS 100 ccc/hour I&O: Intake and Output 05/30/17 05/31/17 19:00 07:00 Intake Total 384.99 ml Output Total 350 ml Balance 34.99 ml Intake Oral 250 ml IV Total 134.99 ml Output Urine Total 350 ml CXR: no change Labs: Laboratory Tests Test 05/30/17 05:00 White Blood Count 14.0 K/UL (4.8-10.8) H Red Blood Count 4.07 M/UL (4.20-5.40) L Hemoglobin 11.5 G/DL (12.0-16.0) L Hematocrit 35.5 % (37.0-47.0) L Mean Corpuscular Volume 87 FL (80-99) Mean Corpuscular Hemoglobin 28.2 PG (27.0-31.0) Mean Corpuscular Hemoglobin Concent 32.4 G/DL (32.0-36.0) Red Cell Distribution Width 13.8 % (11.6-14.8) Platelet Count 49 K/UL (150-450) L Mean Platelet Volume 9.3 FL (6.5-10.1) Neutrophils (%) (Auto) % (45.0-75.0) Lymphocytes (%) (Auto) % (20.0-45.0) Monocytes (%) (Auto) % (1.0-10.0) Eosinophils (%) (Auto) % (0.0-3.0) Basophils (%) (Auto) % (0.0-2.0) Differential Total Cells Counted 100 Neutrophils % (Manual) 80 % (45-75) H Lymphocytes % (Manual) 9 % (20-45) L Monocytes % (Manual) 4 % (1-10) Eosinophils % (Manual) 1 % (0-3) Basophils % (Manual) 0 % (0-2) Band Neutrophils 6 % (0-8) Platelet Estimate Decreased L Platelet Morphology Normal Hypochromasia 1+ Erythrocyte Sedimentation Rate 35 MM/HR (0-30) H Sodium Level 141 MMOL/L (136-145) Potassium Level 3.6 MMOL/L (3.5-5.1) Chloride Level 109 MMOL/L (98-107) H Carbon Dioxide Level 24 MMOL/L (21-32) Anion Gap 8 mmol/L (5-15) Blood Urea Nitrogen 16 mg/dL (7-18) Creatinine 1.1 MG/DL (0.55-1.30) Estimat Glomerular Filtration Rate > 60 mL/min (>60) Glucose Level 110 MG/DL (74-106) H Calcium Level 7.7 MG/DL (8.5-10.1) L Phosphorus Level 2.4 MG/DL (2.5-4.9) L Magnesium Level 1.4 MG/DL (1.8-2.4) L Total Bilirubin 0.6 MG/DL (0.2-1.0) Aspartate Amino Transf (AST/SGOT) 30 U/L (15-37) Alanine Aminotransferase (ALT/SGPT) 31 U/L (12-78) Alkaline Phosphatase 129 U/L (46-116) H Total Protein 5.3 G/DL (6.4-8.2) L Albumin 2.0 G/DL (3.4-5.0) L Globulin 3.3 g/dL Albumin/Globulin Ratio 0.6 (1.0-2.7) L ADAMA MENDIETA May 30, 2017 10:57
[2017-05-30] MEDS ORDERED: cefTRIAXone 2 GM in D5W 55 ML IVPB SCH (11:00)
--- NOTE | 2017-05-30 14:11 | General Progress Note ---
Assessment/Plan Problem List: (1) UTI (urinary tract infection) ICD Codes: N39.0 - Urinary tract infection, site not specified SNOMED: 83749475 (2) Fever ICD Codes: R50.9 - Fever, unspecified SNOMED: 816651897 (3) Sepsis ICD Codes: A41.9 - Sepsis, unspecified organism SNOMED: 34117758 (4) Shock ICD Codes: R57.9 - Shock, unspecified SNOMED: 41091988 (5) Malnutrition ICD Codes: E46 - Unspecified protein-calorie malnutrition SNOMED: 57968584 (6) Dizzy ICD Codes: R42 - Dizziness and giddiness SNOMED: 517241885, 769309455 Status: stable, progressing, tolerating diet Assessment/Plan o2 pul tx abx ot pt diet cbc bmp am ltach eval Subjective Constitutional: Reports: weakness Allergies: Coded Allergies: No Known Allergies (Unverified , 09/04/12) All Systems: reviewed and negative except above Subjective calm in icu Objective Last 24 Hour Vital Signs Date Time Temp Pulse Resp B/P (MAP) Pulse Ox O2 Delivery O2 Flow Rate FiO2 05/30/17 13:00 81 18 106/54 99 Room Air 05/30/17 12:00 98.1 79 18 103/53 99 Room Air 05/30/17 12:00 79 05/30/17 11:30 81 18 99/56 99 Room Air 05/30/17 11:00 79 19 128/60 98 Room Air 05/30/17 10:30 80 19 99/45 98 Room Air 05/30/17 10:00 80 19 96/52 98 Room Air 05/30/17 09:30 77 19 102/51 98 Room Air 05/30/17 09:00 82 19 105/60 98 Room Air 05/30/17 08:30 73 19 106/63 97 Room Air 05/30/17 08:00 98.2 75 19 110/77 98 Room Air 05/30/17 08:00 73 05/30/17 07:30 74 19 112/59 99 Room Air 05/30/17 07:00 77 19 108/61 96 Room Air 05/30/17 06:30 77 19 101/56 96 Room Air 05/30/17 06:00 79 19 98/50 96 Room Air 05/30/17 05:30 79 19 110/69 96 Room Air 05/30/17 05:00 77 19 88/49 96 Room Air 05/30/17 04:30 77 19 88/48 96 Room Air 05/30/17 04:00 98.0 77 19 82/60 95 Room Air 05/30/17 04:00 84 05/30/17 03:30 82 19 67/39 95 Room Air 05/30/17 03:00 82 19 67/38 95 Room Air 05/30/17 02:32 98.0 05/30/17 02:30 82 19 79/44 95 Room Air 05/30/17 02:00 82 19 79/44 95 Room Air 05/30/17 01:30 84 19 85/47 99 Room Air 05/30/17 01:00 83 19 82/40 100 Room Air 05/30/17 00:30 80 19 102/40 100 Room Air 05/30/17 00:00 84 05/30/17 00:00 98.0 84 20 93/48 99 Room Air 05/29/17 23:30 84 19 83/48 100 Room Air 05/29/17 23:00 84 19 86/49 100 Room Air 05/29/17 22:30 84 19 85/47 99 Room Air 05/29/17 22:00 85 19 104/57 99 Room Air 05/29/17 21:30 82 19 111/70 99 Room Air 05/29/17 21:00 90/51 05/29/17 21:00 84 19 92/56 99 Room Air 05/29/17 20:30 78 19 90/43 99 Room Air 05/29/17 20:00 84 05/29/17 20:00 98.0 81 19 80/54 99 Room Air 05/29/17 19:30 84 19 91/56 99 Room Air 05/29/17 19:00 94/52 05/29/17 19:00 86 19 105/62 99 Room Air 05/29/17 18:58 88 20 Room Air 21 05/29/17 18:58 Room Air 21 05/29/17 18:58 96 Room Air 21 05/29/17 18:45 85 19 94/54 99 Room Air 05/29/17 18:30 86 19 94/52 99 Room Air 05/29/17 18:15 80 17 98/48 100 Room Air 05/29/17 18:00 87/51 12/5/17 18:00 81 17 87/51 100 Room Air 05/29/17 17:45 81 17 103/58 100 Room Air 05/29/17 17:30 81 19 98/58 99 Room Air 05/29/17 17:15 82 18 92/56 95 Room Air 05/29/17 17:00 92/56 05/29/17 17:00 87 16 92/56 93 Room Air 05/29/17 16:45 84 16 92/54 100 Room Air 05/29/17 16:30 83 16 92/54 100 Room Air 05/29/17 16:15 84 16 93/51 100 Room Air 05/29/17 16:00 98.4 83 15 96/78 99 Room Air 05/29/17 16:00 83 05/29/17 16:00 89/51 05/29/17 15:45 84 15 96/78 99 Room Air 05/29/17 15:30 85 15 96/78 100 Room Air 05/29/17 15:15 85 15 84/58 99 Room Air 05/29/17 15:00 95/57 05/29/17 15:00 83 15 95/57 98 Room Air 05/29/17 14:45 82 20 109/80 99 Room Air 05/29/17 14:30 82 20 87/65 99 Room Air 05/29/17 14:15 80 15 87/65 95 Room Air Intake and Output 05/30/17 05/31/17 19:00 07:00 Intake Total 811.85 ml Output Total 970 ml Balance -158.15 ml Intake Oral 250 ml IV Total 561.85 ml Output Urine Total 970 ml Laboratory Tests 05/30/17 05:00: White Blood Count 14.0H, Red Blood Count 4.07L, Hemoglobin 11.5L, Hematocrit 35.5L, Mean Corpuscular Volume 87, Mean Corpuscular Hemoglobin 28.2, Mean Corpuscular Hemoglobin Concent 32.4, Red Cell Distribution Width 13.8, Platelet Count 49L, Mean Platelet Volume 9.3, Neutrophils (%) (Auto) , Lymphocytes (%) ( Auto) , Monocytes (%) (Auto) , Eosinophils (%) (Auto) , Basophils (%) (Auto) , Differential Total Cells Counted 100, Neutrophils % (Manual) 80H, Lymphocytes % (Manual) 9L, Monocytes % (Manual) 4, Eosinophils % (Manual) 1, Basophils % ( Manual) 0, Band Neutrophils 6, Platelet Estimate DecreasedL, Platelet Morphology Normal, Hypochromasia 1+, Erythrocyte Sedimentation Rate 35H, Sodium Level 141, Potassium Level 3.6, Chloride Level 109H, Carbon Dioxide Level 24, Anion Gap 8, Blood Urea Nitrogen 16, Creatinine 1.1, Estimat Glomerular Filtration Rate > 60, Glucose Level 110H, Calcium Level 7.7L, Phosphorus Level 2.4L, Magnesium Level 1.4L, Total Bilirubin 0.6, Aspartate Amino Transf (AST/ SGOT) 30, Alanine Aminotransferase (ALT/SGPT) 31, Alkaline Phosphatase 129H, Total Protein 5.3L, Albumin 2.0L, Globulin 3.3, Albumin/Globulin Ratio 0.6L Height (Feet): 5 Height (Inches): 7.00 Weight (Pounds): 316 General Appearance: lethargic EENT: normal ENT inspection Neck: normal alignment Cardiovascular: normal peripheral pulses, normal rate, regular rhythm Respiratory/Chest: chest wall non-tender, lungs clear, normal breath sounds Abdomen: normal bowel sounds, non tender, soft Extremities: normal inspection Edema: no edema noted Arm (L), no edema noted Arm (R), no edema noted Leg (L), no edema noted Leg (R), no edema noted Pedal (L), no edema noted Pedal (R), no edema noted Generalized Neurologic: motor weakness Skin: normal pigmentation, warm/dry JUAN KELLER May 30, 2017 14:11
--- NOTE | 2017-05-30 14:57 | Cardiac Electrophysiology PN ---
Assessment/Plan Assessment/Plan 1. Septic shock. Now off Levophed. The patient does not have any chest pain. Troponin is negative. Her echocardiogram showed EF 55%. The patient is already on broad-spectrum antibiotics. Start Midodrine 10 tid. 2. Chronic obstructive pulmonary disease. 3. Lactic acidosis. 4. Renal failure. Resolved 5. Severe leukopenia. 0.8 increased to 17 and down to 14 today. STEPHIE RN, Deonna Subjective Subjective Alert in ICU off Levophed since 11 am today. No arrhythmias on tele.On iv Abx. RN at bedside. Objective Last 24 Hour Vital Signs Date Time Temp Pulse Resp B/P (MAP) Pulse Ox O2 Delivery O2 Flow Rate FiO2 05/30/17 14:00 78 18 95/62 99 Room Air 05/30/17 13:00 81 18 106/54 99 Room Air 05/30/17 12:00 98.1 79 18 103/53 99 Room Air 05/30/17 12:00 79 05/30/17 11:30 81 18 99/56 99 Room Air 05/30/17 11:00 79 19 128/60 98 Room Air 05/30/17 10:30 80 19 99/45 98 Room Air 05/30/17 10:00 80 19 96/52 98 Room Air 05/30/17 09:30 77 19 102/51 98 Room Air 05/30/17 09:00 82 19 105/60 98 Room Air 05/30/17 08:30 73 19 106/63 97 Room Air 05/30/17 08:00 98.2 75 19 110/77 98 Room Air 05/30/17 08:00 73 05/30/17 07:30 74 19 112/59 99 Room Air 05/30/17 07:00 77 19 108/61 96 Room Air 05/30/17 06:30 77 19 101/56 96 Room Air 05/30/17 06:00 79 19 98/50 96 Room Air 05/30/17 05:30 79 19 110/69 96 Room Air 05/30/17 05:00 77 19 88/49 96 Room Air 05/30/17 04:30 77 19 88/48 96 Room Air 05/30/17 04:00 98.0 77 19 82/60 95 Room Air 05/30/17 04:00 84 05/30/17 03:30 82 19 67/39 95 Room Air 05/30/17 03:00 82 19 67/38 95 Room Air 05/30/17 02:32 98.0 05/30/17 02:30 82 19 79/44 95 Room Air 05/30/17 02:00 82 19 79/44 95 Room Air 05/30/17 01:30 84 19 85/47 99 Room Air 05/30/17 01:00 83 19 82/40 100 Room Air 05/30/17 00:30 80 19 102/40 100 Room Air 05/30/17 00:00 84 05/30/17 00:00 98.0 84 20 93/48 99 Room Air 05/29/17 23:30 84 19 83/48 100 Room Air 05/29/17 23:00 84 19 86/49 100 Room Air 05/29/17 22:30 84 19 85/47 99 Room Air 05/29/17 22:00 85 19 104/57 99 Room Air 05/29/17 21:30 82 19 111/70 99 Room Air 05/29/17 21:00 90/51 05/29/17 21:00 84 19 92/56 99 Room Air 05/29/17 20:30 78 19 90/43 99 Room Air 05/29/17 20:00 84 05/29/17 20:00 98.0 81 19 80/54 99 Room Air 05/29/17 19:30 84 19 91/56 99 Room Air 05/29/17 19:00 94/52 05/29/17 19:00 86 19 105/62 99 Room Air 05/29/17 18:58 88 20 Room Air 21 05/29/17 18:58 Room Air 21 05/29/17 18:58 96 Room Air 21 05/29/17 18:45 85 19 94/54 99 Room Air 05/29/17 18:30 86 19 94/52 99 Room Air 05/29/17 18:15 80 17 98/48 100 Room Air 05/29/17 18:00 87/51 05/29/17 18:00 81 17 87/51 100 Room Air 05/29/17 17:45 81 17 103/58 100 Room Air 05/29/17 17:30 81 19 98/58 99 Room Air 05/29/17 17:15 82 18 92/56 95 Room Air 05/29/17 17:00 92/56 05/29/17 17:00 87 16 92/56 93 Room Air 05/29/17 16:45 84 16 92/54 100 Room Air 05/29/17 16:30 83 16 92/54 100 Room Air 05/29/17 16:15 84 16 93/51 100 Room Air 05/29/17 16:00 98.4 83 15 96/78 99 Room Air 05/29/17 16:00 83 05/29/17 16:00 89/51 05/29/17 15:45 84 15 96/78 99 Room Air 05/29/17 15:30 85 15 96/78 100 Room Air 05/29/17 15:15 85 15 84/58 99 Room Air 05/29/17 15:00 95/57 05/29/17 15:00 83 15 95/57 98 Room Air Intake and Output 05/30/17 05/31/17 19:00 07:00 Intake Total 1221.85 ml Output Total 1170 ml Balance 51.85 ml Intake Oral 350 ml IV Total 871.85 ml Output Urine Total 1170 ml Laboratory Tests Test 05/30/17 05:00 White Blood Count 14.0 K/UL (4.8-10.8) H Red Blood Count 4.07 M/UL (4.20-5.40) L Hemoglobin 11.5 G/DL (12.0-16.0) L Hematocrit 35.5 % (37.0-47.0) L Mean Corpuscular Volume 87 FL (80-99) Mean Corpuscular Hemoglobin 28.2 PG (27.0-31.0) Mean Corpuscular Hemoglobin Concent 32.4 G/DL (32.0-36.0) Red Cell Distribution Width 13.8 % (11.6-14.8) Platelet Count 49 K/UL (150-450) L Mean Platelet Volume 9.3 FL (6.5-10.1) Neutrophils (%) (Auto) % (45.0-75.0) Lymphocytes (%) (Auto) % (20.0-45.0) Monocytes (%) (Auto) % (1.0-10.0) Eosinophils (%) (Auto) % (0.0-3.0) Basophils (%) (Auto) % (0.0-2.0) Differential Total Cells Counted 100 Neutrophils % (Manual) 80 % (45-75) H Lymphocytes % (Manual) 9 % (20-45) L Monocytes % (Manual) 4 % (1-10) Eosinophils % (Manual) 1 % (0-3) Basophils % (Manual) 0 % (0-2) Band Neutrophils 6 % (0-8) Platelet Estimate Decreased L Platelet Morphology Normal Hypochromasia 1+ Erythrocyte Sedimentation Rate 35 MM/HR (0-30) H Sodium Level 141 MMOL/L (136-145) Potassium Level 3.6 MMOL/L (3.5-5.1) Chloride Level 109 MMOL/L (98-107) H Carbon Dioxide Level 24 MMOL/L (21-32) Anion Gap 8 mmol/L (5-15) Blood Urea Nitrogen 16 mg/dL (7-18) Creatinine 1.1 MG/DL (0.55-1.30) Estimat Glomerular Filtration Rate > 60 mL/min (>60) Glucose Level 110 MG/DL (74-106) H Calcium Level 7.7 MG/DL (8.5-10.1) L Phosphorus Level 2.4 MG/DL (2.5-4.9) L Magnesium Level 1.4 MG/DL (1.8-2.4) L Total Bilirubin 0.6 MG/DL (0.2-1.0) Aspartate Amino Transf (AST/SGOT) 30 U/L (15-37) Alanine Aminotransferase (ALT/SGPT) 31 U/L (12-78) Alkaline Phosphatase 129 U/L (46-116) H Total Protein 5.3 G/DL (6.4-8.2) L Albumin 2.0 G/DL (3.4-5.0) L Globulin 3.3 g/dL Albumin/Globulin Ratio 0.6 (1.0-2.7) L Microbiology Date/Time Source Procedure Growth Status 05/27/17 15:40 Blood Blood Culture - Preliminary NO GROWTH AFTER 48 HOURS Resulted 05/27/17 15:30 Blood Blood Culture - Preliminary NO GROWTH AFTER 48 HOURS Resulted 05/28/17 05:00 Sputum Gram Stain - Final Complete 05/28/17 05:00 Sputum Sputum Culture - Final CULTURE NOT PERFORMED ... Complete Objective HEAD AND NECK: No JVD. LUNGS: Coarse rhonchi. CARDIOVASCULAR: Regular S1 and S2. Mildly Tachycardic. ABDOMEN: Soft. EXTREMITIES: No pitting edema. CHRISTIAN FONSECA May 30, 2017 14:57
[2017-05-30] MEDS ORDERED: Midodrine 10mg tab ORAL SCH (15:30)
--- NOTE | 2017-05-30 15:33 | Nephrology Progress Note ---
Assessment/Plan Assessment 1. Acute renal failure. . 2. Hypotension. 3. Hypokalemia. 4. Hypocalcemia. 5. Low albumin Plan plan to continue ivf monitoring electrolyte replace k as need it avoid NSAID Subjective Constitutional: Reports: no symptoms HEENT: Reports: no symptoms Genitourinary: Reports: no symptoms Subjective still off levophed alert and awake no complains Objective Objective Last 24 Hour Vital Signs Date Time Temp Pulse Resp B/P (MAP) Pulse Ox O2 Delivery O2 Flow Rate FiO2 05/30/17 15:00 81 18 101/42 99 Room Air 05/30/17 14:00 78 18 95/62 99 Room Air 05/30/17 13:00 81 18 106/54 99 Room Air 05/30/17 12:00 98.1 79 18 103/53 99 Room Air 05/30/17 12:00 79 05/30/17 11:30 81 18 99/56 99 Room Air 05/30/17 11:00 79 19 128/60 98 Room Air 05/30/17 10:30 80 19 99/45 98 Room Air 05/30/17 10:00 80 19 96/52 98 Room Air 05/30/17 09:30 77 19 102/51 98 Room Air 05/30/17 09:00 82 19 105/60 98 Room Air 05/30/17 08:30 73 19 106/63 97 Room Air 05/30/17 08:00 98.2 75 19 110/77 98 Room Air 05/30/17 08:00 73 05/30/17 07:30 74 19 112/59 99 Room Air 05/30/17 07:00 77 19 108/61 96 Room Air 05/30/17 06:30 77 19 101/56 96 Room Air 05/30/17 06:00 79 19 98/50 96 Room Air 05/30/17 05:30 79 19 110/69 96 Room Air 05/30/17 05:00 77 19 88/49 96 Room Air 05/30/17 04:30 77 19 88/48 96 Room Air 05/30/17 04:00 98.0 77 19 82/60 95 Room Air 05/30/17 04:00 84 05/30/17 03:30 82 19 67/39 95 Room Air 05/30/17 03:00 82 19 67/38 95 Room Air 05/30/17 02:32 98.0 05/30/17 02:30 82 19 79/44 95 Room Air 05/30/17 02:00 82 19 79/44 95 Room Air 05/30/17 01:30 84 19 85/47 99 Room Air 05/30/17 01:00 83 19 82/40 100 Room Air 05/30/17 00:30 80 19 102/40 100 Room Air 05/30/17 00:00 84 05/30/17 00:00 98.0 84 20 93/48 99 Room Air 05/29/17 23:30 84 19 83/48 100 Room Air 05/29/17 23:00 84 19 86/49 100 Room Air 05/29/17 22:30 84 19 85/47 99 Room Air 05/29/17 22:00 85 19 104/57 99 Room Air 05/29/17 21:30 82 19 111/70 99 Room Air 05/29/17 21:00 90/51 05/29/17 21:00 84 19 92/56 99 Room Air 05/29/17 20:30 78 19 90/43 99 Room Air 05/29/17 20:00 84 05/29/17 20:00 98.0 81 19 80/54 99 Room Air 05/29/17 19:30 84 19 91/56 99 Room Air 05/29/17 19:00 94/52 05/29/17 19:00 86 19 105/62 99 Room Air 05/29/17 18:58 88 20 Room Air 21 05/29/17 18:58 Room Air 21 05/29/17 18:58 96 Room Air 21 05/29/17 18:45 85 19 94/54 99 Room Air 05/29/17 18:30 86 19 94/52 99 Room Air 05/29/17 18:15 80 17 98/48 100 Room Air 05/29/17 18:00 87/51 05/29/17 18:00 81 17 87/51 100 Room Air 05/29/17 17:45 81 17 103/58 100 Room Air 05/29/17 17:30 81 19 98/58 99 Room Air 05/29/17 17:15 82 18 92/56 95 Room Air 05/29/17 17:00 92/56 05/29/17 17:00 87 16 92/56 93 Room Air 05/29/17 16:45 84 16 92/54 100 Room Air 05/29/17 16:30 83 16 92/54 100 Room Air 05/29/17 16:15 84 16 93/51 100 Room Air 05/29/17 16:00 98.4 83 15 96/78 99 Room Air 05/29/17 16:00 83 05/29/17 16:00 89/51 05/29/17 15:45 84 15 96/78 99 Room Air Intake and Output 05/30/17 05/31/17 19:00 07:00 Intake Total 1221.85 ml Output Total 1370 ml Balance -148.15 ml Intake Oral 350 ml IV Total 871.85 ml Output Urine Total 1370 ml Laboratory Tests 05/30/17 05:00: White Blood Count 14.0H, Red Blood Count 4.07L, Hemoglobin 11.5L, Hematocrit 35.5L, Mean Corpuscular Volume 87, Mean Corpuscular Hemoglobin 28.2, Mean Corpuscular Hemoglobin Concent 32.4, Red Cell Distribution Width 13.8, Platelet Count 49L, Mean Platelet Volume 9.3, Neutrophils (%) (Auto) , Lymphocytes (%) ( Auto) , Monocytes (%) (Auto) , Eosinophils (%) (Auto) , Basophils (%) (Auto) , Differential Total Cells Counted 100, Neutrophils % (Manual) 80H, Lymphocytes % (Manual) 9L, Monocytes % (Manual) 4, Eosinophils % (Manual) 1, Basophils % ( Manual) 0, Band Neutrophils 6, Platelet Estimate DecreasedL, Platelet Morphology Normal, Hypochromasia 1+, Erythrocyte Sedimentation Rate 35H, Sodium Level 141, Potassium Level 3.6, Chloride Level 109H, Carbon Dioxide Level 24, Anion Gap 8, Blood Urea Nitrogen 16, Creatinine 1.1, Estimat Glomerular Filtration Rate > 60, Glucose Level 110H, Calcium Level 7.7L, Phosphorus Level 2.4L, Magnesium Level 1.4L, Total Bilirubin 0.6, Aspartate Amino Transf (AST/ SGOT) 30, Alanine Aminotransferase (ALT/SGPT) 31, Alkaline Phosphatase 129H, Total Protein 5.3L, Albumin 2.0L, Globulin 3.3, Albumin/Globulin Ratio 0.6L Height (Feet): 5 Height (Inches): 7.00 Weight (Pounds): 316 Objective HEAD AND NECK: No JVP. No LAD. No thyromegaly. Extraocular movement intact. Pupils are reactive to light and accommodation. LUNGS: Clear to auscultation. CARDIAC: Regular rate and rhythm. S1 and S2. No murmur. No rub. ABDOMEN: Soft and thin. Not tender and not distended. EXTREMITIES: No edema. No clubbing. No cyanosis. PHILLY DONNELLY May 30, 2017 15:32
[2017-05-30] MEDS ORDERED: Miralax 17gm pkt ORAL PRN (17:00)
[2017-05-30] MEDS ORDERED: Albuterol/Ipratropium 3ml neb HHN PRN (17:00)
[2017-05-30] MEDS: Midodrine 10mg tab ORAL SCH (18:00)
[2017-05-30] MEDS ORDERED: Dyna-Hex 2% Top Sol 2oz TOPIC SCH (20:00)
[2017-05-30] MEDS ORDERED: Sodium Phosphate 30 MM in NS 275 ML IV ONE (21:00)
[2017-05-31 00:03] VITALS: BP 103/62
[2017-05-31 04:00] VITALS: BP 94/49
[2017-05-31 05:10] LABS: MEAN CORPUSCULAR HEMOGLOBIN 27.9 PG (27.0-31.0); MEAN CORPUSCULAR VOLUME 87 FL (80-99); MEAN PLATELET VOLUME 12.4 FL (6.5-10.1); PLATELET COUNT 69 K/UL (150-450); RED BLOOD COUNT 4.27 M/UL (4.20-5.40); RED CELL DISTRIBUTION WIDTH 13.8 % (11.6-14.8); WHITE BLOOD COUNT 10.1 K/UL (4.8-10.8)
[2017-05-31 05:53] LABS: ALANINE AMINOTRANSFERASE 26 U/L (12-78); ALBUMIN/GLOBULIN RATIO 0.6 (1.0-2.7); ANION GAP 4 mmol/L (5-15); ASPARTATE AMINO TRANSFERASE 22 U/L (15-37); CALCIUM 7.6 MG/DL (8.5-10.1); CARBON DIOXIDE 28 MMOL/L (21-32); CHLORIDE 109 MMOL/L (98-107); CREATININE 0.7 MG/DL (0.55-1.30); GLOMERULAR FILTRATION RATE > 60 mL/min (>60); MAGNESIUM 1.7 MG/DL (1.8-2.4); PHOSPHORUS 3.6 MG/DL (2.5-4.9); POTASSIUM 3.6 MMOL/L (3.5-5.1); SODIUM 141 MMOL/L (136-145); TOTAL PROTEIN 5.5 G/DL (6.4-8.2)
--- NOTE | 2017-05-31 07:41 | Infectious Diseases Prog Note ---
Assessment/Plan Assessment/Plan A; Sepsis with Enterobacter Septic shock resolved UTI with Enterobacter Acute renal failure improving Elevated bilirubin & transaminase s/p Cholecystectomy s/p gastric bypass Lactic acidosis MRSA carrier P: Continue Rocephin Remove Sharma catheter Subjective ROS Limited/Unobtainable: No Constitutional: Reports: no symptoms, other - doing better transferred out of ICU to [facility] Respiratory: Reports: no symptoms Gastrointestinal/Abdominal: Reports: no symptoms Genitourinary: Reports: other - discomfort with Sharma catheter Skin: Reports: other - itching Allergies: Coded Allergies: No Known Allergies (Unverified , 09/04/12) Objective Vital Signs Last 24 Hour Vital Signs Date Time Temp Pulse Resp B/P (MAP) Pulse Ox O2 Delivery O2 Flow Rate FiO2 05/31/17 04:00 98.2 75 18 94/49 91 Room Air 05/31/17 04:00 79 05/31/17 00:03 97.6 75 18 103/62 99 Room Air 05/31/17 00:00 73 05/30/17 23:05 96 Room Air 21 05/30/17 23:05 Room Air 21 05/30/17 23:04 70 18 Room Air 21 05/30/17 22:05 96 Room Air 2.0 21 05/30/17 22:04 76 18 Room Air 2.0 21 05/30/17 20:00 98.9 71 18 103/53 99 Room Air 05/30/17 20:00 72 05/30/17 19:00 97.6 75 18 103/62 99 Room Air 05/30/17 18:00 98.0 78 16 99/51 100 Room Air 05/30/17 17:00 97.8 83 20 99/51 99 Room Air 05/30/17 16:00 78 05/30/17 16:00 98.4 79 18 98/43 99 Room Air 05/30/17 15:00 81 18 101/42 99 Room Air 05/30/17 14:00 78 18 95/62 99 Room Air 05/30/17 13:00 81 18 106/54 99 Room Air 05/30/17 12:00 98.1 79 18 103/53 99 Room Air 05/30/17 12:00 79 05/30/17 11:30 81 18 99/56 99 Room Air 05/30/17 11:00 79 19 128/60 98 Room Air 05/30/17 10:30 80 19 99/45 98 Room Air 05/30/17 10:00 80 19 96/52 98 Room Air 05/30/17 09:30 77 19 102/51 98 Room Air 05/30/17 09:00 82 19 105/60 98 Room Air 05/30/17 08:30 73 19 106/63 97 Room Air 05/30/17 08:00 98.2 75 19 110/77 98 Room Air 05/30/17 08:00 73 Height (Feet): 5 Height (Inches): 7.00 Weight (Pounds): 320 General Appearance: no acute distress HEENT: mucous membranes moist Respiratory/Chest: lungs clear Cardiovascular: normal rate Abdomen: soft, non tender Extremities: no edema Neurologic/Psychiatric: alert, oriented x 3, responsive Laboratory Tests Test 05/31/17 03:50 White Blood Count 10.1 K/UL (4.8-10.8) Red Blood Count 4.27 M/UL (4.20-5.40) Hemoglobin 11.9 G/DL (12.0-16.0) L Hematocrit 37.2 % (37.0-47.0) Mean Corpuscular Volume 87 FL (80-99) Mean Corpuscular Hemoglobin 27.9 PG (27.0-31.0) Mean Corpuscular Hemoglobin Concent 32.0 G/DL (32.0-36.0) Red Cell Distribution Width 13.8 % (11.6-14.8) Platelet Count 69 K/UL (150-450) L Mean Platelet Volume 12.4 FL (6.5-10.1) H Neutrophils (%) (Auto) % (45.0-75.0) Lymphocytes (%) (Auto) % (20.0-45.0) Monocytes (%) (Auto) % (1.0-10.0) Eosinophils (%) (Auto) % (0.0-3.0) Basophils (%) (Auto) % (0.0-2.0) Sodium Level 141 MMOL/L (136-145) Potassium Level 3.6 MMOL/L (3.5-5.1) Chloride Level 109 MMOL/L (98-107) H Carbon Dioxide Level 28 MMOL/L (21-32) Anion Gap 4 mmol/L (5-15) L Blood Urea Nitrogen 9 mg/dL (7-18) Creatinine 0.7 MG/DL (0.55-1.30) Estimat Glomerular Filtration Rate > 60 mL/min (>60) Glucose Level 89 MG/DL (74-106) Calcium Level 7.6 MG/DL (8.5-10.1) L Phosphorus Level 3.6 MG/DL (2.5-4.9) Magnesium Level 1.7 MG/DL (1.8-2.4) L Total Bilirubin 0.4 MG/DL (0.2-1.0) Aspartate Amino Transf (AST/SGOT) 22 U/L (15-37) Alanine Aminotransferase (ALT/SGPT) 26 U/L (12-78) Alkaline Phosphatase 122 U/L (46-116) H Total Protein 5.5 G/DL (6.4-8.2) L Albumin 2.1 G/DL (3.4-5.0) L Globulin 3.4 g/dL Albumin/Globulin Ratio 0.6 (1.0-2.7) L Current Medications Medications (Trade) Dose Ordered Sig/Safia Route PRN Reason Start Time Stop Time Status Last Admin Dose Admin Acetaminophen (Tylenol) 650 mg Q4H PRN ORAL fever 05/30/17 17:00 06/26/17 16:59 Al Hydroxide/Mg Hydroxide (Mylanta) 30 ml Q6H PRN ORAL HEARTBURN 05/30/17 17:00 06/28/17 16:59 Albuterol/ Ipratropium (Albuterol/ Ipratropium) 3 ml Q4H PRN HHN Shortness of Breath 05/30/17 17:00 06/01/17 16:59 Ceftriaxone Sodium 2 gm/ Dextrose 55 ml @ 110 mls/hr Q24H IVPB 05/31/17 11:00 06/06/17 10:59 Chlorhexidine Gluconate (Desiree-Hex 2%) 1 applic DAILY@2000 TOPIC 05/30/17 20:00 06/26/17 19:59 05/30/17 20:08 Diphenhydramine HCl (Benadryl) 25 mg Q6H PRN ORAL Itching 05/30/17 17:00 06/28/17 10:59 05/31/17 00:54 Hydromorphone HCl (Dilaudid) 2 mg Q4H PRN IVP Severe Pain (Pain Scale 7-10) 05/30/17 17:00 06/03/17 16:59 05/31/17 00:34 Hydroxyzine HCl (Vistaril) 10 mg BID ORAL 05/30/17 18:00 06/27/17 17:59 Midodrine (Pro-Amatine) 10 mg THREE TIMES A DAY ORAL 05/30/17 18:00 06/29/17 15:29 Ondansetron HCl (Zofran) 4 mg Q6H PRN IVP Nausea & Vomiting 05/30/17 17:00 06/26/17 16:59 Pantoprazole (Protonix) 40 mg DAILY IVP 05/31/17 09:00 06/26/17 08:59 Polyethylene Glycol (Miralax) 17 gm DAILYPRN PRN ORAL Constipation 05/30/17 17:00 06/29/17 16:59 Sodium Chloride 1,000 ml @ 100 mls/hr Q10H IVLG 05/30/17 16:15 06/26/17 16:14 05/31/17 01:49 SUKHDEV CUEVAS May 31, 2017 07:41
[2017-05-31 08:00] VITALS: BP 115/61
[2017-05-31] MEDS: Midodrine 10mg tab ORAL SCH ×3 (08:56→18:19)
[2017-05-31] MEDS: Pantoprazole Inj IVP SCH (08:57)
--- NOTE | 2017-05-31 11:16 | Cardiac Electrophysiology PN ---
Assessment/Plan Assessment/Plan 1. S/P Septic shock. Now off Levophed.No chest pain or SOB. Troponin is negative. Her echocardiogram showed EF 55%. The patient is already on broad-spectrum antibiotics. Continue Midodrine 10 tid. 2. Chronic obstructive pulmonary disease. 3. Lactic acidosis. 4. Renal failure. Resolved 5. Severe leukopenia. 0.8 increased to 17 and down to 14 today. DW RN Subjective Subjective Transferred out of ICU No arrhythmias on tele.On iv Abx. Sister at bedside. Objective Last 24 Hour Vital Signs Date Time Temp Pulse Resp B/P (MAP) Pulse Ox O2 Delivery O2 Flow Rate FiO2 05/31/17 08:10 Room Air 21 05/31/17 08:09 99 Room Air 21 05/31/17 08:00 98.6 84 21 115/61 97 Room Air 05/31/17 08:00 79 05/31/17 07:00 78 18 Room Air 05/31/17 04:00 98.2 75 18 94/49 91 Room Air 05/31/17 04:00 79 05/31/17 00:03 97.6 75 18 103/62 99 Room Air 05/31/17 00:00 73 05/30/17 23:05 96 Room Air 21 05/30/17 23:05 Room Air 21 05/30/17 23:04 70 18 Room Air 21 05/30/17 22:05 96 Room Air 2.0 21 05/30/17 22:04 76 18 Room Air 2.0 21 05/30/17 20:00 98.9 71 18 103/53 99 Room Air 05/30/17 20:00 72 05/30/17 19:00 97.6 75 18 103/62 99 Room Air 05/30/17 18:00 98.0 78 16 99/51 100 Room Air 05/30/17 17:00 97.8 83 20 99/51 99 Room Air 05/30/17 16:00 78 05/30/17 16:00 98.4 79 18 98/43 99 Room Air 05/30/17 15:00 81 18 101/42 99 Room Air 05/30/17 14:00 78 18 95/62 99 Room Air 05/30/17 13:00 81 18 106/54 99 Room Air 05/30/17 12:00 98.1 79 18 103/53 99 Room Air 05/30/17 12:00 79 05/30/17 11:30 81 18 99/56 99 Room Air Intake and Output 05/31/17 06/01/17 19:00 07:00 Intake Total 240 ml Balance 240 ml Intake Oral 240 ml # Bowel Movements 1 Laboratory Tests Test 05/31/17 03:50 White Blood Count 10.1 K/UL (4.8-10.8) Red Blood Count 4.27 M/UL (4.20-5.40) Hemoglobin 11.9 G/DL (12.0-16.0) L Hematocrit 37.2 % (37.0-47.0) Mean Corpuscular Volume 87 FL (80-99) Mean Corpuscular Hemoglobin 27.9 PG (27.0-31.0) Mean Corpuscular Hemoglobin Concent 32.0 G/DL (32.0-36.0) Red Cell Distribution Width 13.8 % (11.6-14.8) Platelet Count 69 K/UL (150-450) L Mean Platelet Volume 12.4 FL (6.5-10.1) H Neutrophils (%) (Auto) % (45.0-75.0) Lymphocytes (%) (Auto) % (20.0-45.0) Monocytes (%) (Auto) % (1.0-10.0) Eosinophils (%) (Auto) % (0.0-3.0) Basophils (%) (Auto) % (0.0-2.0) Sodium Level 141 MMOL/L (136-145) Potassium Level 3.6 MMOL/L (3.5-5.1) Chloride Level 109 MMOL/L (98-107) H Carbon Dioxide Level 28 MMOL/L (21-32) Anion Gap 4 mmol/L (5-15) L Blood Urea Nitrogen 9 mg/dL (7-18) Creatinine 0.7 MG/DL (0.55-1.30) Estimat Glomerular Filtration Rate > 60 mL/min (>60) Glucose Level 89 MG/DL (74-106) Calcium Level 7.6 MG/DL (8.5-10.1) L Phosphorus Level 3.6 MG/DL (2.5-4.9) Magnesium Level 1.7 MG/DL (1.8-2.4) L Total Bilirubin 0.4 MG/DL (0.2-1.0) Aspartate Amino Transf (AST/SGOT) 22 U/L (15-37) Alanine Aminotransferase (ALT/SGPT) 26 U/L (12-78) Alkaline Phosphatase 122 U/L (46-116) H Total Protein 5.5 G/DL (6.4-8.2) L Albumin 2.1 G/DL (3.4-5.0) L Globulin 3.4 g/dL Albumin/Globulin Ratio 0.6 (1.0-2.7) L Objective HEAD AND NECK: No JVD. LUNGS: Coarse rhonchi. CARDIOVASCULAR: Regular S1 and S2. Mildly Tachycardic. ABDOMEN: Soft. EXTREMITIES: No pitting edema. CHRISTIAN FONSECA May 31, 2017 11:16
--- NOTE | 2017-05-31 11:21 | General Progress Note ---
Assessment/Plan Assessment/Plan ASSESSMENT AND RECOMMENDATIONS: 1. Leukopenia, improved. s/p neupogen, now actually resolved, wbc is 10k --> The patient currently on antibiotics, continue to monitor with ID team 2. Thrombocytopenia. Likely related to sepsis/consumption, no heparin administered --> viral studies are negative, us of the abdomen has been reviewed 3. Coagulopathy, potentially secondary to myelosuppression. Continue to closely follow. with sepsis 4. Urinary tract infection, on antibiotics. 5. GRAY has improved --> monitor with nephrology 6. Hypokalemia has improved with PO intake Subjective Allergies: Coded Allergies: No Known Allergies (Unverified , 09/04/12) All Systems: reviewed and negative except above Subjective no bleeding reported, no fevers, wbc normalized Objective Last 24 Hour Vital Signs Date Time Temp Pulse Resp B/P (MAP) Pulse Ox O2 Delivery O2 Flow Rate FiO2 05/31/17 08:10 Room Air 05/31/17 08:09 99 Room Air 05/31/17 08:00 98.6 84 21 115/61 97 Room Air 05/31/17 08:00 79 05/31/17 07:00 78 18 Room Air 05/31/17 04:00 98.2 75 18 94/49 91 Room Air 05/31/17 04:00 79 05/31/17 00:03 97.6 75 18 103/62 99 Room Air 05/31/17 00:00 73 05/30/17 23:05 96 Room Air 05/30/17 23:05 Room Air 05/30/17 23:04 70 18 Room Air 05/30/17 22:05 96 Room Air 2.0 21 05/30/17 22:04 76 18 Room Air 2.0 21 05/30/17 20:00 98.9 71 18 103/53 99 Room Air 05/30/17 20:00 72 05/30/17 19:00 97.6 75 18 103/62 99 Room Air 05/30/17 18:00 98.0 78 16 99/51 100 Room Air 05/30/17 17:00 97.8 83 20 99/51 99 Room Air 05/30/17 16:00 78 05/30/17 16:00 98.4 79 18 98/43 99 Room Air 05/30/17 15:00 81 18 101/42 99 Room Air 05/30/17 14:00 78 18 95/62 99 Room Air 05/30/17 13:00 81 18 106/54 99 Room Air 05/30/17 12:00 98.1 79 18 103/53 99 Room Air 05/30/17 12:00 79 05/30/17 11:30 81 18 99/56 99 Room Air Intake and Output 05/31/17 06/01/17 19:00 07:00 Intake Total 550 ml Balance 550 ml Intake Oral 240 ml IV Total 310 ml # Bowel Movements 1 Laboratory Tests 05/31/17 03:50: White Blood Count 10.1, Red Blood Count 4.27, Hemoglobin 11.9L, Hematocrit 37.2 , Mean Corpuscular Volume 87, Mean Corpuscular Hemoglobin 27.9, Mean Corpuscular Hemoglobin Concent 32.0, Red Cell Distribution Width 13.8, Platelet Count 69L, Mean Platelet Volume 12.4H, Neutrophils (%) (Auto) , Lymphocytes (%) (Auto) , Monocytes (%) (Auto) , Eosinophils (%) (Auto) , Basophils (%) (Auto) , Sodium Level 141, Potassium Level 3.6, Chloride Level 109H, Carbon Dioxide Level 28, Anion Gap 4L, Blood Urea Nitrogen 9, Creatinine 0.7, Estimat Glomerular Filtration Rate > 60, Glucose Level 89, Calcium Level 7.6L, Phosphorus Level 3.6, Magnesium Level 1.7L, Total Bilirubin 0.4, Aspartate Amino Transf (AST/SGOT) 22, Alanine Aminotransferase (ALT/SGPT) 26, Alkaline Phosphatase 122H, Total Protein 5.5L, Albumin 2.1L, Globulin 3.4, Albumin/ Globulin Ratio 0.6L Height (Feet): 5 Height (Inches): 7.00 Weight (Pounds): 320 General Appearance: no apparent distress EENT: normal ENT inspection Neck: normal alignment Cardiovascular: normal peripheral pulses Respiratory/Chest: chest wall non-tender Edema: trace edema Valentin Ken May 31, 2017 11:21
[2017-05-31] MEDS: cefTRIAXone 2 GM in D5W 55 ML IVPB SCH (11:26)
--- NOTE | 2017-05-31 11:54 | Pulmonology Progress Note ---
Assessment/Plan Problems: (1) Pyelonephritis (2) UTI (urinary tract infection) (3) ATN (acute tubular necrosis) (4) Septic shock Assessment/Plan improving IV abx wbc is lower hemodynamically better check electrolytes Mg supplement dc planning soon Subjective ROS Limited/Unobtainable: No Interval Events: doing better Allergies: Coded Allergies: No Known Allergies (Unverified , 09/04/12) Objective Last 24 Hour Vital Signs Date Time Temp Pulse Resp B/P (MAP) Pulse Ox O2 Delivery O2 Flow Rate FiO2 05/31/17 08:10 Room Air 21 05/31/17 08:09 99 Room Air 21 05/31/17 08:00 98.6 84 21 115/61 97 Room Air 05/31/17 08:00 79 05/31/17 07:00 78 18 Room Air 05/31/17 04:00 98.2 75 18 94/49 91 Room Air 05/31/17 04:00 79 05/31/17 00:03 97.6 75 18 103/62 99 Room Air 05/31/17 00:00 73 05/30/17 23:05 96 Room Air 21 05/30/17 23:05 Room Air 21 05/30/17 23:04 70 18 Room Air 21 05/30/17 22:05 96 Room Air 2.0 21 05/30/17 22:04 76 18 Room Air 2.0 21 05/30/17 20:00 98.9 71 18 103/53 99 Room Air 05/30/17 20:00 72 05/30/17 19:00 97.6 75 18 103/62 99 Room Air 05/30/17 18:00 98.0 78 16 99/51 100 Room Air 05/30/17 17:00 97.8 83 20 99/51 99 Room Air 05/30/17 16:00 78 05/30/17 16:00 98.4 79 18 98/43 99 Room Air 05/30/17 15:00 81 18 101/42 99 Room Air 05/30/17 14:00 78 18 95/62 99 Room Air 05/30/17 13:00 81 18 106/54 99 Room Air 05/30/17 12:00 98.1 79 18 103/53 99 Room Air 05/30/17 12:00 79 Intake and Output 05/31/17 06/01/17 19:00 07:00 Intake Total 550 ml Balance 550 ml Intake Oral 240 ml IV Total 310 ml # Bowel Movements 1 General Appearance: WD/WN HEENT: normocephalic, atraumatic Respiratory/Chest: chest wall non-tender, lungs clear Breasts: no masses Cardiovascular: normal rate Abdomen: normal bowel sounds, soft, non tender Genitourinary: normal external genitalia Extremities: no cyanosis Skin: no rash Laboratory Tests 05/31/17 03:50: White Blood Count 10.1, Red Blood Count 4.27, Hemoglobin 11.9L, Hematocrit 37.2 , Mean Corpuscular Volume 87, Mean Corpuscular Hemoglobin 27.9, Mean Corpuscular Hemoglobin Concent 32.0, Red Cell Distribution Width 13.8, Platelet Count 69L, Mean Platelet Volume 12.4H, Neutrophils (%) (Auto) , Lymphocytes (%) (Auto) , Monocytes (%) (Auto) , Eosinophils (%) (Auto) , Basophils (%) (Auto) , Sodium Level 141, Potassium Level 3.6, Chloride Level 109H, Carbon Dioxide Level 28, Anion Gap 4L, Blood Urea Nitrogen 9, Creatinine 0.7, Estimat Glomerular Filtration Rate > 60, Glucose Level 89, Calcium Level 7.6L, Phosphorus Level 3.6, Magnesium Level 1.7L, Total Bilirubin 0.4, Aspartate Amino Transf (AST/SGOT) 22, Alanine Aminotransferase (ALT/SGPT) 26, Alkaline Phosphatase 122H, Total Protein 5.5L, Albumin 2.1L, Globulin 3.4, Albumin/ Globulin Ratio 0.6L Current Medications Medications (Trade) Dose Ordered Sig/Safia Route PRN Reason Start Time Stop Time Status Last Admin Dose Admin Acetaminophen (Tylenol) 650 mg Q4H PRN ORAL fever 05/30/17 17:00 06/26/17 16:59 Al Hydroxide/Mg Hydroxide (Mylanta) 30 ml Q6H PRN ORAL HEARTBURN 05/30/17 17:00 06/28/17 16:59 Albuterol/ Ipratropium (Albuterol/ Ipratropium) 3 ml Q4H PRN HHN Shortness of Breath 05/30/17 17:00 06/01/17 16:59 Ceftriaxone Sodium 2 gm/ Dextrose 55 ml @ 110 mls/hr Q24H IVPB 05/31/17 11:00 06/06/17 10:59 05/31/17 11:26 Chlorhexidine Gluconate (Deisree-Hex 2%) 1 applic DAILY@2000 TOPIC 05/30/17 20:00 06/26/17 19:59 05/30/17 20:08 Diphenhydramine HCl (Benadryl) 25 mg Q6H PRN ORAL Itching 05/30/17 17:00 06/28/17 10:59 05/31/17 00:54 Hydromorphone HCl (Dilaudid) 2 mg Q4H PRN IVP Severe Pain (Pain Scale 7-10) 05/30/17 17:00 06/03/17 16:59 05/31/17 08:59 Hydroxyzine HCl (Vistaril) 10 mg BID ORAL 05/30/17 18:00 06/27/17 17:59 05/31/17 08:56 Midodrine (Pro-Amatine) 10 mg THREE TIMES A DAY ORAL 05/30/17 18:00 06/29/17 15:29 05/31/17 08:56 Ondansetron HCl (Zofran) 4 mg Q6H PRN IVP Nausea & Vomiting 05/30/17 17:00 06/26/17 16:59 Pantoprazole (Protonix) 40 mg DAILY IVP 05/31/17 09:00 06/26/17 08:59 05/31/17 08:57 Polyethylene Glycol (Miralax) 17 gm DAILYPRN PRN ORAL Constipation 05/30/17 17:00 06/29/17 16:59 Sodium Chloride 1,000 ml @ 100 mls/hr Q10H IVLG 05/30/17 16:15 06/26/17 16:14 05/31/17 01:49 ADAMA MENDIETA May 31, 2017 11:54
[2017-05-31 12:00] VITALS: BP 125/56
--- NOTE | 2017-05-31 14:43 | Nephrology Progress Note ---
Assessment/Plan Assessment 1. Acute renal failure resolved 2. Hypotension. 3. Hypokalemia. 4. Hypocalcemia. 5. Low albumin Plan plan to continue ivf monitoring electrolyte replace k as need it avoid NSAID Subjective Constitutional: Reports: no symptoms HEENT: Reports: no symptoms Genitourinary: Reports: no symptoms Neurologic/Psychiatric: Reports: no symptoms Subjective transferred out of icu no complains Objective Objective Last 24 Hour Vital Signs Date Time Temp Pulse Resp B/P (MAP) Pulse Ox O2 Delivery O2 Flow Rate FiO2 05/31/17 12:00 99.0 76 21 125/56 97 Room Air 05/31/17 12:00 76 05/31/17 08:10 Room Air 21 05/31/17 08:09 99 Room Air 21 05/31/17 08:00 98.6 84 21 115/61 97 Room Air 05/31/17 08:00 79 05/31/17 07:00 78 18 Room Air 21 05/31/17 04:00 98.2 75 18 94/49 91 Room Air 05/31/17 04:00 79 05/31/17 00:03 97.6 75 18 103/62 99 Room Air 05/31/17 00:00 73 05/30/17 23:05 96 Room Air 21 05/30/17 23:05 Room Air 21 05/30/17 23:04 70 18 Room Air 21 05/30/17 22:05 96 Room Air 2.0 21 05/30/17 22:04 76 18 Room Air 2.0 21 05/30/17 20:00 98.9 71 18 103/53 99 Room Air 05/30/17 20:00 72 05/30/17 19:00 97.6 75 18 103/62 99 Room Air 05/30/17 18:00 98.0 78 16 99/51 100 Room Air 05/30/17 17:00 97.8 83 20 99/51 99 Room Air 05/30/17 16:00 78 05/30/17 16:00 98.4 79 18 98/43 99 Room Air 05/30/17 15:00 81 18 101/42 99 Room Air Intake and Output 05/31/17 06/01/17 19:00 07:00 Intake Total 605 ml Balance 605 ml Intake Oral 240 ml IV Total 365 ml # Bowel Movements 1 Laboratory Tests 05/31/17 03:50: White Blood Count 10.1, Red Blood Count 4.27, Hemoglobin 11.9L, Hematocrit 37.2 , Mean Corpuscular Volume 87, Mean Corpuscular Hemoglobin 27.9, Mean Corpuscular Hemoglobin Concent 32.0, Red Cell Distribution Width 13.8, Platelet Count 69L, Mean Platelet Volume 12.4H, Neutrophils (%) (Auto) , Lymphocytes (%) (Auto) , Monocytes (%) (Auto) , Eosinophils (%) (Auto) , Basophils (%) (Auto) , Sodium Level 141, Potassium Level 3.6, Chloride Level 109H, Carbon Dioxide Level 28, Anion Gap 4L, Blood Urea Nitrogen 9, Creatinine 0.7, Estimat Glomerular Filtration Rate > 60, Glucose Level 89, Calcium Level 7.6L, Phosphorus Level 3.6, Magnesium Level 1.7L, Total Bilirubin 0.4, Aspartate Amino Transf (AST/SGOT) 22, Alanine Aminotransferase (ALT/SGPT) 26, Alkaline Phosphatase 122H, Total Protein 5.5L, Albumin 2.1L, Globulin 3.4, Albumin/ Globulin Ratio 0.6L Height (Feet): 5 Height (Inches): 7.00 Weight (Pounds): 320 Objective HEAD AND NECK: No JVP. No LAD. No thyromegaly. Extraocular movement intact. Pupils are reactive to light and accommodation. LUNGS: Clear to auscultation. CARDIAC: Regular rate and rhythm. S1 and S2. No murmur. No rub. ABDOMEN: Soft and thin. Not tender and not distended. EXTREMITIES: No edema. No clubbing. No cyanosis. PHILLY DONNELLY May 31, 2017 14:43
--- NOTE | 2017-05-31 14:52 | General Progress Note ---
Assessment/Plan Problem List: (1) UTI (urinary tract infection) ICD Codes: N39.0 - Urinary tract infection, site not specified SNOMED: 65573064 (2) Fever ICD Codes: R50.9 - Fever, unspecified SNOMED: 480944023 (3) Sepsis ICD Codes: A41.9 - Sepsis, unspecified organism SNOMED: 76939384 (4) Shock ICD Codes: R57.9 - Shock, unspecified SNOMED: 01770042 (5) Malnutrition ICD Codes: E46 - Unspecified protein-calorie malnutrition SNOMED: 11070129 (6) Dizzy ICD Codes: R42 - Dizziness and giddiness SNOMED: 640413454, 693417422 Status: stable, progressing, tolerating diet Assessment/Plan o2 pul tx abx ot pt diet cbc bmp am ltach eval Subjective Constitutional: Reports: weakness Allergies: Coded Allergies: No Known Allergies (Unverified , 09/04/12) All Systems: reviewed and negative except above Subjective calm in edmundo Objective Last 24 Hour Vital Signs Date Time Temp Pulse Resp B/P (MAP) Pulse Ox O2 Delivery O2 Flow Rate FiO2 05/31/17 12:00 99.0 76 21 125/56 97 Room Air 05/31/17 12:00 76 05/31/17 08:10 Room Air 05/31/17 08:09 99 Room Air 05/31/17 08:00 98.6 84 21 115/61 97 Room Air 05/31/17 08:00 79 05/31/17 07:00 78 18 Room Air 05/31/17 04:00 98.2 75 18 94/49 91 Room Air 05/31/17 04:00 79 05/31/17 00:03 97.6 75 18 103/62 99 Room Air 05/31/17 00:00 73 05/30/17 23:05 96 Room Air 21 05/30/17 23:05 Room Air 05/30/17 23:04 70 18 Room Air 21 05/30/17 22:05 96 Room Air 2.0 21 05/30/17 22:04 76 18 Room Air 2.0 21 05/30/17 20:00 98.9 71 18 103/53 99 Room Air 05/30/17 20:00 72 05/30/17 19:00 97.6 75 18 103/62 99 Room Air 05/30/17 18:00 98.0 78 16 99/51 100 Room Air 05/30/17 17:00 97.8 83 20 99/51 99 Room Air 05/30/17 16:00 78 05/30/17 16:00 98.4 79 18 98/43 99 Room Air 05/30/17 15:00 81 18 101/42 99 Room Air Intake and Output 05/31/17 06/01/17 19:00 07:00 Intake Total 605 ml Balance 605 ml Intake Oral 240 ml IV Total 365 ml # Bowel Movements 1 Laboratory Tests 05/31/17 03:50: White Blood Count 10.1, Red Blood Count 4.27, Hemoglobin 11.9L, Hematocrit 37.2 , Mean Corpuscular Volume 87, Mean Corpuscular Hemoglobin 27.9, Mean Corpuscular Hemoglobin Concent 32.0, Red Cell Distribution Width 13.8, Platelet Count 69L, Mean Platelet Volume 12.4H, Neutrophils (%) (Auto) , Lymphocytes (%) (Auto) , Monocytes (%) (Auto) , Eosinophils (%) (Auto) , Basophils (%) (Auto) , Sodium Level 141, Potassium Level 3.6, Chloride Level 109H, Carbon Dioxide Level 28, Anion Gap 4L, Blood Urea Nitrogen 9, Creatinine 0.7, Estimat Glomerular Filtration Rate > 60, Glucose Level 89, Calcium Level 7.6L, Phosphorus Level 3.6, Magnesium Level 1.7L, Total Bilirubin 0.4, Aspartate Amino Transf (AST/SGOT) 22, Alanine Aminotransferase (ALT/SGPT) 26, Alkaline Phosphatase 122H, Total Protein 5.5L, Albumin 2.1L, Globulin 3.4, Albumin/ Globulin Ratio 0.6L Height (Feet): 5 Height (Inches): 7.00 Weight (Pounds): 320 General Appearance: alert EENT: normal ENT inspection Neck: normal alignment Cardiovascular: normal peripheral pulses, normal rate, regular rhythm Respiratory/Chest: chest wall non-tender, lungs clear, normal breath sounds Abdomen: normal bowel sounds, non tender, soft Extremities: normal inspection Edema: no edema noted Arm (L), no edema noted Arm (R), no edema noted Leg (L), no edema noted Leg (R), no edema noted Pedal (L), no edema noted Pedal (R), no edema noted Generalized Neurologic: responsive, motor weakness Skin: normal pigmentation, warm/dry JUAN KELLER May 31, 2017 14:52
[2017-05-31] MEDS ORDERED: NS 500ML ONE ×2 (15:59→16:01)
[2017-05-31] MEDS ORDERED: Tubing IV Secondary IV ONE (15:59)
[2017-05-31 16:00] VITALS: BP 153/79
[2017-05-31 20:00] VITALS: BP 121/67
[2017-06-01] VITALS: BP 118/68
[2017-06-01 04:00] VITALS: BP 120/71
[2017-06-01 07:56] LABS: ALANINE AMINOTRANSFERASE 17 U/L (12-78); ALBUMIN/GLOBULIN RATIO 0.6 (1.0-2.7); ANION GAP 6 mmol/L (5-15); ASPARTATE AMINO TRANSFERASE 17 U/L (15-37); CALCIUM 7.9 MG/DL (8.5-10.1); CARBON DIOXIDE 29 MMOL/L (21-32); CHLORIDE 111 MMOL/L (98-107); CREATININE 0.8 MG/DL (0.55-1.30); GLOMERULAR FILTRATION RATE > 60 mL/min (>60); MAGNESIUM 1.8 MG/DL (1.8-2.4); PHOSPHORUS 3.2 MG/DL (2.5-4.9); POTASSIUM 3.5 MMOL/L (3.5-5.1); SODIUM 146 MMOL/L (136-145); TOTAL PROTEIN 5.3 G/DL (6.4-8.2)
[2017-06-01 08:00] VITALS: BP 117/51
[2017-06-01] MEDS: Midodrine 10mg tab ORAL SCH ×3 (08:47→18:16)
[2017-06-01] MEDS: Pantoprazole Inj IVP SCH (08:47)
[2017-06-01 09:37] LABS: BASOPHILS % (AUTO) 0.9 % (0.0-2.0); EOSINOPHILS % (AUTO) 2.4 % (0.0-3.0); LYMPHOCYTES % (AUTO) 14.9 % (20.0-45.0); MEAN CORPUSCULAR HEMOGLOBIN 27.1 PG (27.0-31.0); MEAN CORPUSCULAR VOLUME 87 FL (80-99); MEAN PLATELET VOLUME 8.7 FL (6.5-10.1); MONOCYTES % (AUTO) 6.9 % (1.0-10.0); PLATELET COUNT 138 K/UL (150-450); RED BLOOD COUNT 4.57 M/UL (4.20-5.40); RED CELL DISTRIBUTION WIDTH 13.6 % (11.6-14.8); WHITE BLOOD COUNT 7.3 K/UL (4.8-10.8)
--- NOTE | 2017-06-01 11:04 | Infectious Diseases Prog Note ---
Assessment/Plan Assessment/Plan A; Sepsis with Enterobacter Septic shock resolved UTI with Enterobacter Acute renal failure improving Elevated bilirubin & transaminase s/p Cholecystectomy s/p gastric bypass Lactic acidosis MRSA carrier P: Continue Rocephin At time of discharge PO Levaquin X 7 days Subjective ROS Limited/Unobtainable: No Constitutional: Reports: chills, other - dosen't feel good Gastrointestinal/Abdominal: Reports: diarrhea, other - chronic Allergies: Coded Allergies: No Known Allergies (Unverified , 09/04/12) Objective Vital Signs Last 24 Hour Vital Signs Date Time Temp Pulse Resp B/P (MAP) Pulse Ox O2 Delivery O2 Flow Rate FiO2 06/01/17 08:00 78 18 117/51 98 Room Air 06/01/17 04:00 99 Room Air 06/01/17 04:00 98.1 80 18 120/71 99 06/01/17 00:00 98.1 70 18 118/68 99 06/01/17 00:00 99 Room Air 05/31/17 21:25 74 18 Room Air 21 05/31/17 20:00 75 05/31/17 20:00 97.9 67 20 121/67 97 Room Air 05/31/17 16:00 98.8 84 20 153/79 95 Room Air 05/31/17 16:00 77 05/31/17 12:00 99.0 76 21 125/56 97 Room Air 05/31/17 12:00 76 Height (Feet): 5 Height (Inches): 7.00 Weight (Pounds): 153 General Appearance: no acute distress HEENT: mucous membranes moist Respiratory/Chest: lungs clear Cardiovascular: normal rate Abdomen: soft, non tender Extremities: other - edema of legs Neurologic/Psychiatric: alert, oriented x 3, responsive Laboratory Tests Test 06/01/17 05:40 06/01/17 09:00 Sodium Level 146 MMOL/L (136-145) H Potassium Level 3.5 MMOL/L (3.5-5.1) Chloride Level 111 MMOL/L (98-107) H Carbon Dioxide Level 29 MMOL/L (21-32) Anion Gap 6 mmol/L (5-15) Blood Urea Nitrogen 5 mg/dL (7-18) L Creatinine 0.8 MG/DL (0.55-1.30) Estimat Glomerular Filtration Rate > 60 mL/min (>60) Glucose Level 89 MG/DL (74-106) Calcium Level 7.9 MG/DL (8.5-10.1) L Phosphorus Level 3.2 MG/DL (2.5-4.9) Magnesium Level 1.8 MG/DL (1.8-2.4) Total Bilirubin 0.4 MG/DL (0.2-1.0) Aspartate Amino Transf (AST/SGOT) 17 U/L (15-37) Alanine Aminotransferase (ALT/SGPT) 17 U/L (12-78) Alkaline Phosphatase 102 U/L (46-116) Total Protein 5.3 G/DL (6.4-8.2) L Albumin 2.0 G/DL (3.4-5.0) L Globulin 3.3 g/dL Albumin/Globulin Ratio 0.6 (1.0-2.7) L White Blood Count 7.3 K/UL (4.8-10.8) Red Blood Count 4.57 M/UL (4.20-5.40) Hemoglobin 12.4 G/DL (12.0-16.0) Hematocrit 39.9 % (37.0-47.0) Mean Corpuscular Volume 87 FL (80-99) Mean Corpuscular Hemoglobin 27.1 PG (27.0-31.0) Mean Corpuscular Hemoglobin Concent 31.0 G/DL (32.0-36.0) L Red Cell Distribution Width 13.6 % (11.6-14.8) Platelet Count 138 K/UL (150-450) #L Mean Platelet Volume 8.7 FL (6.5-10.1) Neutrophils (%) (Auto) 75.0 % (45.0-75.0) Lymphocytes (%) (Auto) 14.9 % (20.0-45.0) L Monocytes (%) (Auto) 6.9 % (1.0-10.0) Eosinophils (%) (Auto) 2.4 % (0.0-3.0) Basophils (%) (Auto) 0.9 % (0.0-2.0) Current Medications Medications (Trade) Dose Ordered Sig/Safia Route PRN Reason Start Time Stop Time Status Last Admin Dose Admin Acetaminophen (Tylenol) 650 mg Q4H PRN ORAL fever 05/30/17 17:00 06/26/17 16:59 Al Hydroxide/Mg Hydroxide (Mylanta) 30 ml Q6H PRN ORAL HEARTBURN 05/30/17 17:00 06/28/17 16:59 Albuterol/ Ipratropium (Albuterol/ Ipratropium) 3 ml Q4H PRN HHN Shortness of Breath 05/30/17 17:00 06/01/17 16:59 Ceftriaxone Sodium 2 gm/ Dextrose 55 ml @ 110 mls/hr Q24H IVPB 05/31/17 11:00 06/06/17 10:59 05/31/17 11:26 Diphenhydramine HCl (Benadryl) 25 mg Q6H PRN ORAL Itching 05/30/17 17:00 06/28/17 10:59 05/31/17 23:23 Hydromorphone HCl (Dilaudid) 2 mg Q4H PRN IVP Severe Pain (Pain Scale 7-10) 05/30/17 17:00 06/03/17 16:59 05/31/17 18:20 Hydroxyzine HCl (Vistaril) 10 mg BID ORAL 05/30/17 18:00 06/27/17 17:59 06/01/17 08:47 Midodrine (Pro-Amatine) 10 mg THREE TIMES A DAY ORAL 05/30/17 18:00 06/29/17 15:29 06/01/17 08:47 Ondansetron HCl (Zofran) 4 mg Q6H PRN IVP Nausea & Vomiting 05/30/17 17:00 06/26/17 16:59 Pantoprazole (Protonix) 40 mg DAILY IVP 05/31/17 09:00 06/26/17 08:59 06/01/17 08:47 Polyethylene Glycol (Miralax) 17 gm DAILYPRN PRN ORAL Constipation 05/30/17 17:00 06/29/17 16:59 Sodium Chloride 1,000 ml @ 100 mls/hr Q10H IVLG 05/30/17 16:15 06/26/17 16:14 05/31/17 23:12 SUKHDEV CUEVAS Jun 01, 2017 11:03
[2017-06-01] MEDS: cefTRIAXone 2 GM in D5W 55 ML IVPB SCH (11:18)
--- NOTE | 2017-06-01 11:54 | General Progress Note ---
Assessment/Plan Problem List: (1) UTI (urinary tract infection) ICD Codes: N39.0 - Urinary tract infection, site not specified SNOMED: 26982504 (2) Fever ICD Codes: R50.9 - Fever, unspecified SNOMED: 762600222 (3) Sepsis ICD Codes: A41.9 - Sepsis, unspecified organism SNOMED: 76080644 (4) Shock ICD Codes: R57.9 - Shock, unspecified SNOMED: 50720025 (5) Malnutrition ICD Codes: E46 - Unspecified protein-calorie malnutrition SNOMED: 34780833 (6) Dizzy ICD Codes: R42 - Dizziness and giddiness SNOMED: 742950929, 397641850 Status: stable, progressing, tolerating diet Assessment/Plan o2 pul tx abx ot pt diet cbc bmp am dc to [facility] Subjective Constitutional: Reports: weakness Allergies: Coded Allergies: No Known Allergies (Unverified , 09/04/12) All Systems: reviewed and negative except above Subjective calm sl sob Objective Last 24 Hour Vital Signs Date Time Temp Pulse Resp B/P (MAP) Pulse Ox O2 Delivery O2 Flow Rate FiO2 06/01/17 08:00 78 18 117/51 98 Room Air 06/01/17 04:00 99 Room Air 06/01/17 04:00 98.1 80 18 120/71 99 06/01/17 00:00 98.1 70 18 118/68 99 06/01/17 00:00 99 Room Air 05/31/17 21:25 74 18 Room Air 21 05/31/17 20:00 75 05/31/17 20:00 97.9 67 20 121/67 97 Room Air 05/31/17 16:00 98.8 84 20 153/79 95 Room Air 05/31/17 16:00 77 05/31/17 12:00 99.0 76 21 125/56 97 Room Air 05/31/17 12:00 76 Laboratory Tests 06/01/17 05:40: Sodium Level 146H, Potassium Level 3.5, Chloride Level 111H, Carbon Dioxide Level 29, Anion Gap 6, Blood Urea Nitrogen 5L, Creatinine 0.8, Estimat Glomerular Filtration Rate > 60, Glucose Level 89, Calcium Level 7.9L, Phosphorus Level 3.2, Magnesium Level 1.8, Total Bilirubin 0.4, Aspartate Amino Transf (AST/SGOT) 17, Alanine Aminotransferase (ALT/SGPT) 17, Alkaline Phosphatase 102, Total Protein 5.3L, Albumin 2.0L, Globulin 3.3, Albumin/ Globulin Ratio 0.6L 06/01/17 09:00: White Blood Count 7.3, Red Blood Count 4.57, Hemoglobin 12.4, Hematocrit 39.9, Mean Corpuscular Volume 87, Mean Corpuscular Hemoglobin 27.1, Mean Corpuscular Hemoglobin Concent 31.0L, Red Cell Distribution Width 13.6, Platelet Count 138#L , Mean Platelet Volume 8.7, Neutrophils (%) (Auto) 75.0, Lymphocytes (%) (Auto) 14.9L, Monocytes (%) (Auto) 6.9, Eosinophils (%) (Auto) 2.4, Basophils (%) (Auto ) 0.9 Height (Feet): 5 Height (Inches): 7.00 Weight (Pounds): 153 General Appearance: lethargic EENT: normal ENT inspection Neck: normal alignment Cardiovascular: normal peripheral pulses, normal rate, regular rhythm Respiratory/Chest: chest wall non-tender, lungs clear, normal breath sounds Abdomen: normal bowel sounds, non tender, soft Extremities: normal inspection Edema: no edema noted Arm (L), no edema noted Arm (R), no edema noted Leg (L), no edema noted Leg (R), no edema noted Pedal (L), no edema noted Pedal (R), no edema noted Generalized Neurologic: responsive, motor weakness Skin: normal pigmentation, warm/dry JUAN KELLER Jun 01, 2017 11:54
[2017-06-01 12:00] VITALS: BP 125/70
--- NOTE | 2017-06-01 12:34 | Nephrology Progress Note ---
Assessment/Plan Assessment 1. Acute renal failure resolved 2. Hypernatremia 3. Hypokalemia.resolved 4. Hypocalcemia. 5. Low albumin Plan plan to continue ivf monitoring electrolyte replace k as need it avoid NSAID Subjective Constitutional: Reports: no symptoms HEENT: Reports: no symptoms Genitourinary: Reports: no symptoms Neurologic/Psychiatric: Reports: no symptoms Subjective no complains Objective Objective Last 24 Hour Vital Signs Date Time Temp Pulse Resp B/P (MAP) Pulse Ox O2 Delivery O2 Flow Rate FiO2 06/01/17 08:00 78 18 117/51 98 Room Air 06/01/17 04:00 99 Room Air 06/01/17 04:00 98.1 80 18 120/71 99 06/01/17 00:00 98.1 70 18 118/68 99 06/01/17 00:00 99 Room Air 05/31/17 21:25 74 18 Room Air 21 05/31/17 20:00 75 05/31/17 20:00 97.9 67 20 121/67 97 Room Air 05/31/17 16:00 98.8 84 20 153/79 95 Room Air 05/31/17 16:00 77 Laboratory Tests 06/01/17 05:40: Sodium Level 146H, Potassium Level 3.5, Chloride Level 111H, Carbon Dioxide Level 29, Anion Gap 6, Blood Urea Nitrogen 5L, Creatinine 0.8, Estimat Glomerular Filtration Rate > 60, Glucose Level 89, Calcium Level 7.9L, Phosphorus Level 3.2, Magnesium Level 1.8, Total Bilirubin 0.4, Aspartate Amino Transf (AST/SGOT) 17, Alanine Aminotransferase (ALT/SGPT) 17, Alkaline Phosphatase 102, Total Protein 5.3L, Albumin 2.0L, Globulin 3.3, Albumin/ Globulin Ratio 0.6L 06/01/17 09:00: White Blood Count 7.3, Red Blood Count 4.57, Hemoglobin 12.4, Hematocrit 39.9, Mean Corpuscular Volume 87, Mean Corpuscular Hemoglobin 27.1, Mean Corpuscular Hemoglobin Concent 31.0L, Red Cell Distribution Width 13.6, Platelet Count 138#L , Mean Platelet Volume 8.7, Neutrophils (%) (Auto) 75.0, Lymphocytes (%) (Auto) 14.9L, Monocytes (%) (Auto) 6.9, Eosinophils (%) (Auto) 2.4, Basophils (%) (Auto ) 0.9 Height (Feet): 5 Height (Inches): 7.00 Weight (Pounds): 153 Objective HEAD AND NECK: No JVP. No LAD. No thyromegaly. Extraocular movement intact. Pupils are reactive to light and accommodation. LUNGS: Clear to auscultation. CARDIAC: Regular rate and rhythm. S1 and S2. No murmur. No rub. ABDOMEN: Soft and thin. Not tender and not distended. EXTREMITIES: No edema. No clubbing. No cyanosis. PHILLY DONNELLY Jun 01, 2017 12:34
--- NOTE | 2017-06-01 15:57 | Cardiac Electrophysiology PN ---
Assessment/Plan Assessment/Plan 1. S/P Septic shock.No chest pain or SOB. Troponin is negative. Her echocardiogram showed EF 55%. On broad-spectrum antibiotics. Continue Midodrine 10 tid. 2. Chronic obstructive pulmonary disease. 3. Lactic acidosis. 4. Renal failure. Resolved 5. Severe leukopenia. 0.8 increased to 17 and down to 7 today. STEPHIE RN Subjective Subjective Transferred to [facility] [place]. On iv Abx. DC planning Objective Last 24 Hour Vital Signs Date Time Temp Pulse Resp B/P (MAP) Pulse Ox O2 Delivery O2 Flow Rate FiO2 06/01/17 13:38 72 18 Room Air 21 06/01/17 12:00 98.2 74 20 125/70 95 74 06/01/17 11:52 98.1 06/01/17 08:00 78 18 117/51 98 Room Air 06/01/17 04:00 99 Room Air 06/01/17 04:00 98.1 80 18 120/71 99 06/01/17 00:00 98.1 70 18 118/68 99 06/01/17 00:00 99 Room Air 05/31/17 21:25 74 18 Room Air 21 05/31/17 20:00 75 05/31/17 20:00 97.9 67 20 121/67 97 Room Air 05/31/17 16:00 98.8 84 20 153/79 95 Room Air 05/31/17 16:00 77 Intake and Output 06/01/17 06/02/17 19:00 07:00 # Bowel Movements 1 Laboratory Tests Test 06/01/17 05:40 06/01/17 09:00 Sodium Level 146 MMOL/L (136-145) H Potassium Level 3.5 MMOL/L (3.5-5.1) Chloride Level 111 MMOL/L (98-107) H Carbon Dioxide Level 29 MMOL/L (21-32) Anion Gap 6 mmol/L (5-15) Blood Urea Nitrogen 5 mg/dL (7-18) L Creatinine 0.8 MG/DL (0.55-1.30) Estimat Glomerular Filtration Rate > 60 mL/min (>60) Glucose Level 89 MG/DL (74-106) Calcium Level 7.9 MG/DL (8.5-10.1) L Phosphorus Level 3.2 MG/DL (2.5-4.9) Magnesium Level 1.8 MG/DL (1.8-2.4) Total Bilirubin 0.4 MG/DL (0.2-1.0) Aspartate Amino Transf (AST/SGOT) 17 U/L (15-37) Alanine Aminotransferase (ALT/SGPT) 17 U/L (12-78) Alkaline Phosphatase 102 U/L (46-116) Total Protein 5.3 G/DL (6.4-8.2) L Albumin 2.0 G/DL (3.4-5.0) L Globulin 3.3 g/dL Albumin/Globulin Ratio 0.6 (1.0-2.7) L White Blood Count 7.3 K/UL (4.8-10.8) Red Blood Count 4.57 M/UL (4.20-5.40) Hemoglobin 12.4 G/DL (12.0-16.0) Hematocrit 39.9 % (37.0-47.0) Mean Corpuscular Volume 87 FL (80-99) Mean Corpuscular Hemoglobin 27.1 PG (27.0-31.0) Mean Corpuscular Hemoglobin Concent 31.0 G/DL (32.0-36.0) L Red Cell Distribution Width 13.6 % (11.6-14.8) Platelet Count 138 K/UL (150-450) #L Mean Platelet Volume 8.7 FL (6.5-10.1) Neutrophils (%) (Auto) 75.0 % (45.0-75.0) Lymphocytes (%) (Auto) 14.9 % (20.0-45.0) L Monocytes (%) (Auto) 6.9 % (1.0-10.0) Eosinophils (%) (Auto) 2.4 % (0.0-3.0) Basophils (%) (Auto) 0.9 % (0.0-2.0) Objective HEAD AND NECK: No JVD. LUNGS: Coarse rhonchi. CARDIOVASCULAR: Regular S1 and S2. Mildly Tachycardic. ABDOMEN: Soft. EXTREMITIES: 1 plus pitting edema. CHRISTIAN FONSECA Jun 01, 2017 15:57
[2017-06-01 16:00] VITALS: BP 126/74
--- NOTE | 2017-06-01 16:59 | Pulmonology Progress Note ---
Assessment/Plan Problems: (1) Pyelonephritis (2) UTI (urinary tract infection) (3) ATN (acute tubular necrosis) (4) Septic shock Assessment/Plan improving IV abx wbc is lower hemodynamically better check electrolytes all noted, meds reviewed dc planning soon Subjective ROS Limited/Unobtainable: No Constitutional: Reports: no symptoms HEENT: Repors: no symptoms Respiratory: Reports: no symptoms Allergies: Coded Allergies: No Known Allergies (Unverified , 09/04/12) Objective Last 24 Hour Vital Signs Date Time Temp Pulse Resp B/P (MAP) Pulse Ox O2 Delivery O2 Flow Rate FiO2 06/01/17 13:38 72 18 Room Air 21 06/01/17 12:00 98.2 74 20 125/70 95 74 06/01/17 11:52 98.1 06/01/17 08:00 78 18 117/51 98 Room Air 06/01/17 04:00 99 Room Air 06/01/17 04:00 98.1 80 18 120/71 99 06/01/17 00:00 98.1 70 18 118/68 99 06/01/17 00:00 99 Room Air 05/31/17 21:25 74 18 Room Air 21 05/31/17 20:00 75 05/31/17 20:00 97.9 67 20 121/67 97 Room Air Intake and Output 06/01/17 06/02/17 19:00 07:00 # Bowel Movements 1 General Appearance: WD/WN HEENT: normocephalic, atraumatic Respiratory/Chest: chest wall non-tender, lungs clear Breasts: no masses Cardiovascular: normal peripheral pulses Abdomen: normal bowel sounds, soft, non tender Genitourinary: normal external genitalia Extremities: no cyanosis, no clubbing Skin: no rash Laboratory Tests 06/01/17 05:40: Sodium Level 146H, Potassium Level 3.5, Chloride Level 111H, Carbon Dioxide Level 29, Anion Gap 6, Blood Urea Nitrogen 5L, Creatinine 0.8, Estimat Glomerular Filtration Rate > 60, Glucose Level 89, Calcium Level 7.9L, Phosphorus Level 3.2, Magnesium Level 1.8, Total Bilirubin 0.4, Aspartate Amino Transf (AST/SGOT) 17, Alanine Aminotransferase (ALT/SGPT) 17, Alkaline Phosphatase 102, Total Protein 5.3L, Albumin 2.0L, Globulin 3.3, Albumin/ Globulin Ratio 0.6L 06/01/17 09:00: White Blood Count 7.3, Red Blood Count 4.57, Hemoglobin 12.4, Hematocrit 39.9, Mean Corpuscular Volume 87, Mean Corpuscular Hemoglobin 27.1, Mean Corpuscular Hemoglobin Concent 31.0L, Red Cell Distribution Width 13.6, Platelet Count 138#L , Mean Platelet Volume 8.7, Neutrophils (%) (Auto) 75.0, Lymphocytes (%) (Auto) 14.9L, Monocytes (%) (Auto) 6.9, Eosinophils (%) (Auto) 2.4, Basophils (%) (Auto ) 0.9 Current Medications Medications (Trade) Dose Ordered Sig/Safia Route PRN Reason Start Time Stop Time Status Last Admin Dose Admin Acetaminophen (Tylenol) 650 mg Q4H PRN ORAL fever 05/30/17 17:00 06/26/17 16:59 Al Hydroxide/Mg Hydroxide (Mylanta) 30 ml Q6H PRN ORAL HEARTBURN 05/30/17 17:00 06/28/17 16:59 Albuterol/ Ipratropium (Albuterol/ Ipratropium) 3 ml Q4H PRN HHN Shortness of Breath 05/30/17 17:00 06/01/17 16:59 Ceftriaxone Sodium 2 gm/ Dextrose 55 ml @ 110 mls/hr Q24H IVPB 05/31/17 11:00 06/06/17 10:59 06/01/17 11:18 Diphenhydramine HCl (Benadryl) 25 mg Q6H PRN ORAL Itching 05/30/17 17:00 06/28/17 10:59 06/01/17 11:22 Hydromorphone HCl (Dilaudid) 2 mg Q4H PRN IVP Severe Pain (Pain Scale 7-10) 05/30/17 17:00 06/03/17 16:59 06/01/17 11:22 Hydroxyzine HCl (Vistaril) 10 mg BID ORAL 05/30/17 18:00 06/27/17 17:59 06/01/17 08:47 Midodrine (Pro-Amatine) 10 mg THREE TIMES A DAY ORAL 05/30/17 18:00 06/29/17 15:29 12/8/17 13:40 Ondansetron HCl (Zofran) 4 mg Q6H PRN IVP Nausea & Vomiting 05/30/17 17:00 06/26/17 16:59 Pantoprazole (Protonix) 40 mg DAILY ORAL 06/02/17 09:00 07/02/17 08:59 Polyethylene Glycol (Miralax) 17 gm DAILYPRN PRN ORAL Constipation 05/30/17 17:00 06/29/17 16:59 Sodium Chloride 1,000 ml @ 100 mls/hr Q10H IVLG 05/30/17 16:15 06/26/17 16:14 05/31/17 23:12 ADAMA MENDIETA Jun 01, 2017 16:59
--- NOTE | 2017-06-01 17:06 | General Progress Note ---
Assessment/Plan Assessment/Plan ASSESSMENT AND RECOMMENDATIONS: 1. Leukopenia, improved. s/p neupogen, now actually resolved --> The patient currently on antibiotics, continue to monitor with ID team 2. Thrombocytopenia. Likely related to sepsis/consumption, no heparin administered --> viral studies are negative, us of the abdomen has been reviewed 3. Coagulopathy, potentially secondary to myelosuppression. Continue to closely follow. with sepsis 4. Urinary tract infection, on antibiotics. 5. GRAY has improved --> monitor with nephrology 6. Hypokalemia has improved with PO intake Subjective Allergies: Coded Allergies: No Known Allergies (Unverified , 09/04/12) All Systems: reviewed and negative except above Subjective NAD Objective Last 24 Hour Vital Signs Date Time Temp Pulse Resp B/P (MAP) Pulse Ox O2 Delivery O2 Flow Rate FiO2 06/01/17 13:38 72 18 Room Air 21 06/01/17 12:00 98.2 74 20 125/70 95 74 06/01/17 11:52 98.1 06/01/17 08:00 78 18 117/51 98 Room Air 06/01/17 04:00 99 Room Air 06/01/17 04:00 98.1 80 18 120/71 99 06/01/17 00:00 98.1 70 18 118/68 99 06/01/17 00:00 99 Room Air 05/31/17 21:25 74 18 Room Air 21 05/31/17 20:00 75 05/31/17 20:00 97.9 67 20 121/67 97 Room Air Intake and Output 06/01/17 06/02/17 19:00 07:00 # Bowel Movements 1 Laboratory Tests 06/01/17 05:40: Sodium Level 146H, Potassium Level 3.5, Chloride Level 111H, Carbon Dioxide Level 29, Anion Gap 6, Blood Urea Nitrogen 5L, Creatinine 0.8, Estimat Glomerular Filtration Rate > 60, Glucose Level 89, Calcium Level 7.9L, Phosphorus Level 3.2, Magnesium Level 1.8, Total Bilirubin 0.4, Aspartate Amino Transf (AST/SGOT) 17, Alanine Aminotransferase (ALT/SGPT) 17, Alkaline Phosphatase 102, Total Protein 5.3L, Albumin 2.0L, Globulin 3.3, Albumin/ Globulin Ratio 0.6L 06/01/17 09:00: White Blood Count 7.3, Red Blood Count 4.57, Hemoglobin 12.4, Hematocrit 39.9, Mean Corpuscular Volume 87, Mean Corpuscular Hemoglobin 27.1, Mean Corpuscular Hemoglobin Concent 31.0L, Red Cell Distribution Width 13.6, Platelet Count 138#L , Mean Platelet Volume 8.7, Neutrophils (%) (Auto) 75.0, Lymphocytes (%) (Auto) 14.9L, Monocytes (%) (Auto) 6.9, Eosinophils (%) (Auto) 2.4, Basophils (%) (Auto ) 0.9 Height (Feet): 5 Height (Inches): 7.00 Weight (Pounds): 153 General Appearance: no apparent distress EENT: normal ENT inspection Neck: normal alignment Cardiovascular: normal peripheral pulses Extremities: normal inspection Valentin Ken Jun 01, 2017 17:06
--- NOTE | 2017-06-01 17:30 | GI Initial Consult Note ---
GertrudisIrene Armendarizoi N.P. 06/01/17 1730: History of Present Illness General Date patient seen: Jun 01, 2017 Time patient seen: 17:23 Reason for Hospitalization: Fever Referring physician: JUAN KELLER Reason for Consultation: DIARRHEA Present Illness HPI Patient is a 67-year-old female presented after increased chills and fever. She reported feeling dizzy lightheaded. She reported having cough and difficulty breathing. She prior history of COPD. She previously had gastric bypass. Patient denied any hematemesis. Patient was noted to have 103 temperature. She had a remote history of DVT. Patient presented increased pain to her lower back.She was noted to be taking multiple medications which primarily for pain. GI consulted for chronic diarrhea. HPI as noted above. Pt seen on floor, awake A&Ox4 NAD with no active s/sx of N/V/D. States her diarrhea has improved this morning. The patient states she has history of gastric bypass, was morbidly obese above 500 lbs. History of EGD/colonoscopy a few months ago. Presents today chronic diarrhea and hypoalbuminemia. No leukocytosis. Noted hepatitis panel negative. Home Meds Active Scripts Cyclobenzaprine Hcl* (FLEXERIL*) 10 Mg Tablet, 10 MG ORAL THREE TIMES A DAY for 7 Days, #21 TAB Prov:Cynthia Waddell P.A. 03/22/17 Ibuprofen* (MOTRIN*) 600 Mg Tablet, 600 MG ORAL THREE TIMES A DAY, #30 TAB 0 Refills Prov:Cynthia Waddell P.A. 03/22/17 Ibuprofen* (MOTRIN*) 600 Mg Tablet, 600 MG ORAL THREE TIMES A DAY, #30 TAB 0 Refills Prov:CARLOS SULLIVAN M.D. 10/18/16 Hydrocodone/Acetaminophen 5-325* (HYDROCODONE/ACETAMINOPHEN 5-325*) 1 Each Tablet, 1 TAB ORAL Q6H Y for For Pain, #20 TAB 0 Refills Prov:CARLOS SULLIVAN M.D. 10/18/16 Methocarbamol* (ROBAXIN-750*) 750 Mg Tablet, 750 MG PO TID, #30 TAB 0 Refills Prov:TERELL GUADARRAMA M.D. 10/17/16 Acetaminophen* (TYLENOL EXTRA STRENGTH*) 500 Mg Tablet, 500 MG ORAL Q6H, #30 TAB 0 Refills Prov:Cynthia Waddell 08/01/16 Prednisone* (PREDNISONE*) 20 Mg Tablet, 60 MG ORAL DAILY for 5 Days, TAB Prov:Cynthia Waddell 01/02/16 Prednisone* (PREDNISONE*) 20 Mg Tablet, 40 MG ORAL DAILY, #10 TAB Prov:Steve Sarkar 09/04/15 Lorazepam* (ATIVAN*) 1 Mg Tablet, 1 MG ORAL THREE TIMES A DAY, #15 TAB Prov:GAYLA WEEKS 06/03/15 Triamcinolone Acet (Triamcinolone Acetonide) 15 Gm Cr, 60 GM APPLIC BID, #60 GM Prov:GAYLA WEEKS 06/03/15 Trimethoprim/Sulfamethoxazole 160/800* (BACTRIM DS TABLET*) 1 Each Tablet, 1 TAB ORAL Q12H, #14 TAB Prov:GAYLA WEEKS 06/03/15 Reported Medications Ondansetron* (ZOFRAN*) 4 Mg Tablet, 4 MG ORAL Q6H Y for Nausea & Vomiting, TAB 05/27/17 Acetaminophen With Codeine (T#3) (TYLENOL #3 TAB*) Y Tab, 2 TAB ORAL Q8HR Y for For Pain, TAB 05/27/17 Tramadol Hcl* (ULTRAM*) 50 Mg Tablet, 50 MG ORAL EVERY 8 HOURS Y for For Pain, # 30 TAB 0 Refills 05/27/17 Ferrous Sulfate (Ferrous Sulfate) 325 Mg Tablet, 1 TAB ORAL DAILY, TAB 0 Refills 05/27/17 Hydroxyzine Hcl (HYDROXYZINE HCL) 10 Mg Tablet, 10 MG PO BID, TAB 05/27/17 Dicyclomine Hcl* (DICYCLOMINE HCL*) 10 Mg Capsule, 10 MG PO QID, CAP 05/27/17 Cyclobenzaprine Hcl* (FLEXERIL*) 10 Mg Tablet, 10 MG ORAL TWICE A DAY, TAB 05/27/17 Naproxen* (NAPROXEN*) 500 Mg Tablet, 500 MG ORAL TWICE A DAY, TAB 09/04/15 Hydroxyzine Hcl (HYDROXYZINE HCL) 25 Mg Tablet, 25 MG PO THREE TIMES A DAY, TAB 09/04/15 Fluocinolone Acet (Fluocinolone Acetonide) 15 Gm Cr, 15 GM EXT, GM 09/04/15 Cyanocobalamin (Vitamin B-12) (Vitamin B-12) 2,000 Mcg Tablet, 54140 MCG INJ MONTHLY, TAB 07/17/14 Ibuprofen* (MOTRIN*) 400 Mg Tablet, 200 MG ORAL FOUR TIMES A DAY Y for For Pain , #30 TAB 0 Refills 04/02/14 Furosemide (Furosemide) 20 Mg Vial, 20 MG PO DAILY, #10 TAB Take 1 tablet by mouth every day. 09/04/12 Ferrous Sulfate* (FERROUS SULFATE*) 325 Mg Tablet, 325 MG PO BID, #20 TAB 09/04/12 Med list reviewed/reconciled: Yes Allergies: Coded Allergies: No Known Allergies (Unverified , 09/04/12) Patient History PMH Narrative Hx Cardiac Problems: No - hx dvt left ankle 15 years ago Hx Hypertension: No - left knee replacement Hx Pacemaker: No Hx Asthma: Yes - bronchitis Hx COPD: Yes Hx Diabetes: No Hx Cancer: No Hx Dialysis: No Hx Neurological Problems: No Hx Cerebrovascular Accident: No Hx Seizures: No Social History: Denies: smoking, alcohol use, drug use, other Review of Systems All Other Systems: negative except mentioned in HPI Physical Exam Vital Signs Date Time Temp Pulse Resp B/P (MAP) Pulse Ox O2 Delivery O2 Flow Rate FiO2 05/28/17 07:00 110 18 90/50 97 Room Air 05/28/17 07:20 2.0 28 05/28/17 08:00 98.1 Sp02 EP Interpretation: reviewed, normal Labs Laboratory Tests Test 06/01/17 05:40 06/01/17 09:00 Sodium Level 146 MMOL/L (136-145) H Potassium Level 3.5 MMOL/L (3.5-5.1) Chloride Level 111 MMOL/L (98-107) H Carbon Dioxide Level 29 MMOL/L (21-32) Anion Gap 6 mmol/L (5-15) Blood Urea Nitrogen 5 mg/dL (7-18) L Creatinine 0.8 MG/DL (0.55-1.30) Estimat Glomerular Filtration Rate > 60 mL/min (>60) Glucose Level 89 MG/DL (74-106) Calcium Level 7.9 MG/DL (8.5-10.1) L Phosphorus Level 3.2 MG/DL (2.5-4.9) Magnesium Level 1.8 MG/DL (1.8-2.4) Total Bilirubin 0.4 MG/DL (0.2-1.0) Aspartate Amino Transf (AST/SGOT) 17 U/L (15-37) Alanine Aminotransferase (ALT/SGPT) 17 U/L (12-78) Alkaline Phosphatase 102 U/L (46-116) Total Protein 5.3 G/DL (6.4-8.2) L Albumin 2.0 G/DL (3.4-5.0) L Globulin 3.3 g/dL Albumin/Globulin Ratio 0.6 (1.0-2.7) L White Blood Count 7.3 K/UL (4.8-10.8) Red Blood Count 4.57 M/UL (4.20-5.40) Hemoglobin 12.4 G/DL (12.0-16.0) Hematocrit 39.9 % (37.0-47.0) Mean Corpuscular Volume 87 FL (80-99) Mean Corpuscular Hemoglobin 27.1 PG (27.0-31.0) Mean Corpuscular Hemoglobin Concent 31.0 G/DL (32.0-36.0) L Red Cell Distribution Width 13.6 % (11.6-14.8) Platelet Count 138 K/UL (150-450) #L Mean Platelet Volume 8.7 FL (6.5-10.1) Neutrophils (%) (Auto) 75.0 % (45.0-75.0) Lymphocytes (%) (Auto) 14.9 % (20.0-45.0) L Monocytes (%) (Auto) 6.9 % (1.0-10.0) Eosinophils (%) (Auto) 2.4 % (0.0-3.0) Basophils (%) (Auto) 0.9 % (0.0-2.0) General Appearance: well appearing, no apparent distress, alert, obese Head: normocephalic EENT: PERRL/EOMI, normal ENT inspection Neck: supple Respiratory: normal breath sounds, no respiratory distress Cardiovascular: normal rate Gastrointestinal: normal inspection, non tender, soft, normal bowel sounds, non -distended Rectal: deferred Genitourinary: no CVA tenderness Musculoskeletal: normal inspection, back normal Neurologic: normal inspection, alert, oriented x3, responsive Psychiatric: normal inspection, judgement/insight normal, memory normal Skin: normal inspection, normal color, no rash, warm/dry, palpation normal, well hydrated Lymphatic: normal inspection, no adenopathy Current Medications Current Medications Medications (Trade) Dose Ordered Sig/Safia Route PRN Reason Start Time Stop Time Status Last Admin Dose Admin Acetaminophen (Tylenol) 650 mg Q4H PRN ORAL fever 05/30/17 17:00 06/26/17 16:59 Al Hydroxide/Mg Hydroxide (Mylanta) 30 ml Q6H PRN ORAL HEARTBURN 05/30/17 17:00 06/28/17 16:59 Ceftriaxone Sodium 2 gm/ Dextrose 55 ml @ 110 mls/hr Q24H IVPB 05/31/17 11:00 06/06/17 10:59 06/01/17 11:18 Diphenhydramine HCl (Benadryl) 25 mg Q6H PRN ORAL Itching 05/30/17 17:00 06/28/17 10:59 06/01/17 11:22 Hydromorphone HCl (Dilaudid) 2 mg Q4H PRN IVP Severe Pain (Pain Scale 7-10) 05/30/17 17:00 06/03/17 16:59 06/01/17 11:22 Hydroxyzine HCl (Vistaril) 10 mg BID ORAL 05/30/17 18:00 06/27/17 17:59 06/01/17 08:47 Midodrine (Pro-Amatine) 10 mg THREE TIMES A DAY ORAL 05/30/17 18:00 06/29/17 15:29 06/01/17 13:40 Ondansetron HCl (Zofran) 4 mg Q6H PRN IVP Nausea & Vomiting 05/30/17 17:00 06/26/17 16:59 Pantoprazole (Protonix) 40 mg DAILY ORAL 06/02/17 09:00 07/02/17 08:59 Polyethylene Glycol (Miralax) 17 gm DAILYPRN PRN ORAL Constipation 05/30/17 17:00 06/29/17 16:59 Sodium Chloride 1,000 ml @ 100 mls/hr Q10H IVLG 05/30/17 16:15 06/26/17 16:14 05/31/17 23:12 GI: Plan Problems: (1) H/O gastric bypass (2) Chronic diarrhea (3) Hypoalbuminemia Plan hepatitis panel >> negative symptomatic treatment at this time Imodium prn low residual diet, add Metamucil ppi abx pain mgmt fu labs Discussed with Dr. Stout. Thank you for this patient referral, we will follow. KATARZYNASCOTTYMICHELLEPatiKARYNAD 06/03/17 1331: History of Present Illness General Reason for Hospitalization: Fever Present Illness Home Meds Active Scripts Cyclobenzaprine Hcl* (FLEXERIL*) 10 Mg Tablet, 10 MG ORAL THREE TIMES A DAY for 7 Days, #21 TAB Prov:Cynthia Waddell P.A. 03/22/17 Ibuprofen* (MOTRIN*) 600 Mg Tablet, 600 MG ORAL THREE TIMES A DAY, #30 TAB 0 Refills Prov:Cynthia Waddell P.A. 03/22/17 Ibuprofen* (MOTRIN*) 600 Mg Tablet, 600 MG ORAL THREE TIMES A DAY, #30 TAB 0 Refills Prov:CARLOS SULLIVAN M.D. 10/18/16 Hydrocodone/Acetaminophen 5-325* (HYDROCODONE/ACETAMINOPHEN 5-325*) 1 Each Tablet, 1 TAB ORAL Q6H Y for For Pain, #20 TAB 0 Refills Prov:CARLOS SULLIVAN M.D. 10/18/16 Methocarbamol* (ROBAXIN-750*) 750 Mg Tablet, 750 MG PO TID, #30 TAB 0 Refills Prov:TERELL GUADARRAMA M.D. 10/17/16 Acetaminophen* (TYLENOL EXTRA STRENGTH*) 500 Mg Tablet, 500 MG ORAL Q6H, #30 TAB 0 Refills Prov:Cynthia Waddell P.AMigel 08/01/16 Prednisone* (PREDNISONE*) 20 Mg Tablet, 60 MG ORAL DAILY for 5 Days, TAB Prov:Cynthia Waddell P.A. 01/02/16 Prednisone* (PREDNISONE*) 20 Mg Tablet, 40 MG ORAL DAILY, #10 TAB Prov:Steve Sarkar 09/04/15 Lorazepam* (ATIVAN*) 1 Mg Tablet, 1 MG ORAL THREE TIMES A DAY, #15 TAB Prov:GAYLA WEEKS P.A. 06/03/15 Triamcinolone Acet (Triamcinolone Acetonide) 15 Gm Cr, 60 GM APPLIC BID, #60 GM Prov:GAYLA WEEKS P.AMigel 06/03/15 Trimethoprim/Sulfamethoxazole 160/800* (BACTRIM DS TABLET*) 1 Each Tablet, 1 TAB ORAL Q12H, #14 TAB Prov:GAYLA WEEKS P.A. 06/03/15 Reported Medications Ondansetron* (ZOFRAN*) 4 Mg Tablet, 4 MG ORAL Q6H Y for Nausea & Vomiting, TAB 05/27/17 Acetaminophen With Codeine (T#3) (TYLENOL #3 TAB*) Y Tab, 2 TAB ORAL Q8HR Y for For Pain, TAB 05/27/17 Tramadol Hcl* (ULTRAM*) 50 Mg Tablet, 50 MG ORAL EVERY 8 HOURS Y for For Pain, # 30 TAB 0 Refills 05/27/17 Ferrous Sulfate (Ferrous Sulfate) 325 Mg Tablet, 1 TAB ORAL DAILY, TAB 0 Refills 05/27/17 Hydroxyzine Hcl (HYDROXYZINE HCL) 10 Mg Tablet, 10 MG PO BID, TAB 05/27/17 Dicyclomine Hcl* (DICYCLOMINE HCL*) 10 Mg Capsule, 10 MG PO QID, CAP 05/27/17 Cyclobenzaprine Hcl* (FLEXERIL*) 10 Mg Tablet, 10 MG ORAL TWICE A DAY, TAB 05/27/17 Naproxen* (NAPROXEN*) 500 Mg Tablet, 500 MG ORAL TWICE A DAY, TAB 09/04/15 Hydroxyzine Hcl (HYDROXYZINE HCL) 25 Mg Tablet, 25 MG PO THREE TIMES A DAY, TAB 09/04/15 Fluocinolone Acet (Fluocinolone Acetonide) 15 Gm Cr, 15 GM EXT, GM 09/04/15 Cyanocobalamin (Vitamin B-12) (Vitamin B-12) 2,000 Mcg Tablet, 94994 MCG INJ MONTHLY, TAB 07/17/14 Ibuprofen* (MOTRIN*) 400 Mg Tablet, 200 MG ORAL FOUR TIMES A DAY Y for For Pain , #30 TAB 0 Refills 04/02/14 Furosemide (Furosemide) 20 Mg Vial, 20 MG PO DAILY, #10 TAB Take 1 tablet by mouth every day. 09/04/12 Ferrous Sulfate* (FERROUS SULFATE*) 325 Mg Tablet, 325 MG PO BID, #20 TAB 09/04/12 Allergies: Coded Allergies: No Known Allergies (Unverified , 09/04/12) GI: Plan Plan The patient was seen and examined at bedside and all new and available data was reviewed in the patients chart. I agree with the above findings, impression and plan. (Patient seen earlier today. Signature stamp does not reflect patient encounter time.). - [facility] Abner Thompson Jun 01, 2017 17:30 REHAN STOUT Jun 03, 2017 13:31
[2017-06-01] MEDS: Metamucil Pkt ORAL SCH (18:16)
[2017-06-01 20:00] VITALS: BP 124/68
[2017-06-02] VITALS: BP 119/57
[2017-06-02 04:00] VITALS: BP 131/55
[2017-06-02 07:20] LABS: BASOPHILS % (AUTO) 1.4 % (0.0-2.0); EOSINOPHILS % (AUTO) 3.5 % (0.0-3.0); LYMPHOCYTES % (AUTO) 20.3 % (20.0-45.0); MEAN CORPUSCULAR HEMOGLOBIN 28.1 PG (27.0-31.0); MEAN CORPUSCULAR HGB CONC 32.1 G/DL (32.0-36.0); MEAN CORPUSCULAR VOLUME 88 FL (80-99); MEAN PLATELET VOLUME 8.4 FL (6.5-10.1); MONOCYTES % (AUTO) 11.2 % (1.0-10.0); NEUTROPHILS % (AUTO) 63.7 % (45.0-75.0); PLATELET COUNT 174 K/UL (150-450); RED BLOOD COUNT 4.14 M/UL (4.20-5.40); RED CELL DISTRIBUTION WIDTH 13.8 % (11.6-14.8); WHITE BLOOD COUNT 6.3 K/UL (4.8-10.8)
[2017-06-02 07:32] LABS: MAGNESIUM 1.7 MG/DL (1.8-2.4); PHOSPHORUS 3.3 MG/DL (2.5-4.9)
[2017-06-02 07:38] LABS: ALANINE AMINOTRANSFERASE 14 U/L (12-78); ALBUMIN/GLOBULIN RATIO 0.6 (1.0-2.7); ANION GAP 8 mmol/L (5-15); ASPARTATE AMINO TRANSFERASE 16 U/L (15-37); CARBON DIOXIDE 27 MMOL/L (21-32); CHLORIDE 112 MMOL/L (98-107); CREATININE 0.7 MG/DL (0.55-1.30); GLOMERULAR FILTRATION RATE > 60 mL/min (>60); POTASSIUM 2.8 MMOL/L (3.5-5.1); SODIUM 147 MMOL/L (136-145); TOTAL PROTEIN 5.8 G/DL (6.4-8.2)
--- NOTE | 2017-06-02 07:56 | General Progress Note ---
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 - Postgastric surgery syndromes SNOMED: 29537349 Assessment/Plan small frequent meals dc miralax and protonix imodium prn trial of cholestyramine patient has had EGD and colonoscopy this year Subjective ROS Limited/Unobtainable: Yes Allergies: Coded Allergies: No Known Allergies (Unverified , 09/04/12) Subjective diarrhea Objective Last 24 Hour Vital Signs Date Time Temp Pulse Resp B/P (MAP) Pulse Ox O2 Delivery O2 Flow Rate FiO2 06/02/17 04:00 97.9 70 20 131/55 99 Room Air 06/02/17 00:00 98.1 64 20 119/57 96 Room Air 06/01/17 21:53 97.7 06/01/17 20:05 70 18 Room Air 21 06/01/17 20:00 97.7 65 20 124/68 100 Room Air 06/01/17 16:00 98.1 72 20 126/74 98 72 06/01/17 13:38 72 18 Room Air 21 06/01/17 12:00 98.2 74 20 125/70 95 74 06/01/17 08:00 78 18 117/51 98 Room Air Laboratory Tests 06/01/17 09:00: White Blood Count 7.3, Red Blood Count 4.57, Hemoglobin 12.4, Hematocrit 39.9, Mean Corpuscular Volume 87, Mean Corpuscular Hemoglobin 27.1, Mean Corpuscular Hemoglobin Concent 31.0L, Red Cell Distribution Width 13.6, Platelet Count 138#L , Mean Platelet Volume 8.7, Neutrophils (%) (Auto) 75.0, Lymphocytes (%) (Auto) 14.9L, Monocytes (%) (Auto) 6.9, Eosinophils (%) (Auto) 2.4, Basophils (%) (Auto ) 0.9 06/02/17 05:46: White Blood Count 6.3, Red Blood Count 4.14L, Hemoglobin 11.6L, Hematocrit 36.3L , Mean Corpuscular Volume 88, Mean Corpuscular Hemoglobin 28.1, Mean Corpuscular Hemoglobin Concent 32.1, Red Cell Distribution Width 13.8, Platelet Count 174, Mean Platelet Volume 8.4, Neutrophils (%) (Auto) 63.7, Lymphocytes (% ) (Auto) 20.3, Monocytes (%) (Auto) 11.2H, Eosinophils (%) (Auto) 3.5H, Basophils (%) (Auto) 1.4, Sodium Level 147H, Potassium Level 2.8L, Chloride Level 112H, Carbon Dioxide Level 27, Anion Gap 8, Blood Urea Nitrogen 3L, Creatinine 0.7, Estimat Glomerular Filtration Rate > 60, Glucose Level 86, Calcium Level 8.0L, Phosphorus Level 3.3, Magnesium Level 1.7L, Total Bilirubin 0.3, Aspartate Amino Transf (AST/SGOT) 16, Alanine Aminotransferase (ALT/SGPT) 14, Alkaline Phosphatase 97, Total Protein 5.8L, Albumin 2.2L, Globulin 3.6, Albumin/Globulin Ratio 0.6L Height (Feet): 5 Height (Inches): 7.00 Weight (Pounds): 338 General Appearance: alert EENT: normal ENT inspection Neck: supple Cardiovascular: normal rate Respiratory/Chest: decreased breath sounds Abdomen: normal bowel sounds, non tender, soft Extremities: non-tender REHAN STOUT Jun 02, 2017 07:56
[2017-06-02 08:00] VITALS: BP 127/63
[2017-06-02] MEDS: Midodrine 10mg tab ORAL SCH ×3 (08:41→18:17)
[2017-06-02] MEDS: Metamucil Pkt ORAL SCH ×3 (08:41→18:00)
[2017-06-02] MEDS: Loperamide 2mg cap ORAL PRN ×3 (08:42→18:17)
[2017-06-02] MEDS: Cholestyramine 4gm Pkt ORAL SCH ×2 (08:44→18:00)
--- NOTE | 2017-06-02 09:14 | General Progress Note ---
Assessment/Plan Problem List: (1) UTI (urinary tract infection) ICD Codes: N39.0 - Urinary tract infection, site not specified SNOMED: 62142499 (2) Fever ICD Codes: R50.9 - Fever, unspecified SNOMED: 251462962 (3) Sepsis ICD Codes: A41.9 - Sepsis, unspecified organism SNOMED: 53028048 (4) Shock ICD Codes: R57.9 - Shock, unspecified SNOMED: 21414972 (5) Malnutrition ICD Codes: E46 - Unspecified protein-calorie malnutrition SNOMED: 82539272 (6) Dizzy ICD Codes: R42 - Dizziness and giddiness SNOMED: 466133455, 281211683 Status: stable, progressing, tolerating diet Assessment/Plan o2 pul tx abx ot pt diet immodium prn neph f/u cbc bmp am dc plan snf Subjective Constitutional: Reports: weakness Allergies: Coded Allergies: No Known Allergies (Unverified , 09/04/12) All Systems: reviewed and negative except above Subjective calm c/o diarrhea sl sob Objective Last 24 Hour Vital Signs Date Time Temp Pulse Resp B/P (MAP) Pulse Ox O2 Delivery O2 Flow Rate FiO2 06/02/17 04:00 97.9 70 20 131/55 99 Room Air 06/02/17 00:00 98.1 64 20 119/57 96 Room Air 06/01/17 21:53 97.7 06/01/17 20:05 70 18 Room Air 06/01/17 20:00 97.7 65 20 124/68 100 Room Air 06/01/17 16:00 98.1 72 20 126/74 98 72 06/01/17 13:38 72 18 Room Air 21 06/01/17 12:00 98.2 74 20 125/70 95 74 Laboratory Tests 06/02/17 05:46: White Blood Count 6.3, Red Blood Count 4.14L, Hemoglobin 11.6L, Hematocrit 36.3L , Mean Corpuscular Volume 88, Mean Corpuscular Hemoglobin 28.1, Mean Corpuscular Hemoglobin Concent 32.1, Red Cell Distribution Width 13.8, Platelet Count 174, Mean Platelet Volume 8.4, Neutrophils (%) (Auto) 63.7, Lymphocytes (% ) (Auto) 20.3, Monocytes (%) (Auto) 11.2H, Eosinophils (%) (Auto) 3.5H, Basophils (%) (Auto) 1.4, Sodium Level 147H, Potassium Level 2.8L, Chloride Level 112H, Carbon Dioxide Level 27, Anion Gap 8, Blood Urea Nitrogen 3L, Creatinine 0.7, Estimat Glomerular Filtration Rate > 60, Glucose Level 86, Calcium Level 8.0L, Phosphorus Level 3.3, Magnesium Level 1.7L, Total Bilirubin 0.3, Aspartate Amino Transf (AST/SGOT) 16, Alanine Aminotransferase (ALT/SGPT) 14, Alkaline Phosphatase 97, Total Protein 5.8L, Albumin 2.2L, Globulin 3.6, Albumin/Globulin Ratio 0.6L Height (Feet): 5 Height (Inches): 7.00 Weight (Pounds): 338 General Appearance: lethargic EENT: normal ENT inspection Neck: normal alignment Cardiovascular: normal peripheral pulses, normal rate, regular rhythm Respiratory/Chest: chest wall non-tender, lungs clear, normal breath sounds Abdomen: normal bowel sounds, non tender, soft Extremities: normal inspection Edema: no edema noted Arm (L), no edema noted Arm (R), no edema noted Leg (L), no edema noted Leg (R), no edema noted Pedal (L), no edema noted Pedal (R), no edema noted Generalized Neurologic: responsive, motor weakness Skin: normal pigmentation, warm/dry JUAN KELLER Jun 02, 2017 09:14
[2017-06-02] MEDS: cefTRIAXone 2 GM in D5W 55 ML IVPB SCH (11:06)
--- NOTE | 2017-06-02 11:20 | Infectious Diseases Prog Note ---
Assessment/Plan Assessment/Plan antibiotics : ceftriaxone A 1. enterobacter sepsis secondary to UTI 2. enterobacter UTI 3. leucocytosis resolved 4. MRSA nasal colonization 5. renal failure improving P 1. continue ceftriaxone 2. will follow up cultures Subjective Constitutional: Denies: fever, chills Respiratory: Denies: shortness of breath, dry cough Gastrointestinal/Abdominal: Reports: nausea, diarrhea, Denies: vomiting Musculoskeletal: Reports: pain - abdominal Allergies: Coded Allergies: No Known Allergies (Unverified , 09/04/12) Objective Vital Signs Last 24 Hour Vital Signs Date Time Temp Pulse Resp B/P (MAP) Pulse Ox O2 Delivery O2 Flow Rate FiO2 06/02/17 08:00 99.5 77 18 127/63 99 06/02/17 04:00 97.9 70 20 131/55 99 Room Air 06/02/17 00:00 98.1 64 20 119/57 96 Room Air 06/01/17 21:53 97.7 06/01/17 20:05 70 18 Room Air 21 06/01/17 20:00 97.7 65 20 124/68 100 Room Air 06/01/17 16:00 98.1 72 20 126/74 98 72 06/01/17 13:38 72 18 Room Air 21 06/01/17 12:00 98.2 74 20 125/70 95 74 Height (Feet): 5 Height (Inches): 7.00 Weight (Pounds): 338 Respiratory/Chest: lungs clear Cardiovascular: normal rate, regular rhythm, no gallop/murmur Abdomen: soft, non tender Extremities: other - + edema Laboratory Tests Test 06/02/17 05:46 White Blood Count 6.3 K/UL (4.8-10.8) Red Blood Count 4.14 M/UL (4.20-5.40) L Hemoglobin 11.6 G/DL (12.0-16.0) L Hematocrit 36.3 % (37.0-47.0) L Mean Corpuscular Volume 88 FL (80-99) Mean Corpuscular Hemoglobin 28.1 PG (27.0-31.0) Mean Corpuscular Hemoglobin Concent 32.1 G/DL (32.0-36.0) Red Cell Distribution Width 13.8 % (11.6-14.8) Platelet Count 174 K/UL (150-450) Mean Platelet Volume 8.4 FL (6.5-10.1) Neutrophils (%) (Auto) 63.7 % (45.0-75.0) Lymphocytes (%) (Auto) 20.3 % (20.0-45.0) Monocytes (%) (Auto) 11.2 % (1.0-10.0) H Eosinophils (%) (Auto) 3.5 % (0.0-3.0) H Basophils (%) (Auto) 1.4 % (0.0-2.0) Sodium Level 147 MMOL/L (136-145) H Potassium Level 2.8 MMOL/L (3.5-5.1) L Chloride Level 112 MMOL/L (98-107) H Carbon Dioxide Level 27 MMOL/L (21-32) Anion Gap 8 mmol/L (5-15) Blood Urea Nitrogen 3 mg/dL (7-18) L Creatinine 0.7 MG/DL (0.55-1.30) Estimat Glomerular Filtration Rate > 60 mL/min (>60) Glucose Level 86 MG/DL (74-106) Calcium Level 8.0 MG/DL (8.5-10.1) L Phosphorus Level 3.3 MG/DL (2.5-4.9) Magnesium Level 1.7 MG/DL (1.8-2.4) L Total Bilirubin 0.3 MG/DL (0.2-1.0) Aspartate Amino Transf (AST/SGOT) 16 U/L (15-37) Alanine Aminotransferase (ALT/SGPT) 14 U/L (12-78) Alkaline Phosphatase 97 U/L (46-116) Total Protein 5.8 G/DL (6.4-8.2) L Albumin 2.2 G/DL (3.4-5.0) L Globulin 3.6 g/dL Albumin/Globulin Ratio 0.6 (1.0-2.7) L ANISA MARTÍNEZ Jun 02, 2017 11:20
[2017-06-02 16:15] VITALS: BP 122/86
--- NOTE | 2017-06-02 16:34 | Cardiac Electrophysiology PN ---
Assessment/Plan Assessment/Plan 1. S/P Septic shock. No chest pain or SOB. Troponin is negative.Echocardiogram showed EF 55%. On broad-spectrum antibiotics. Continue Midodrine 10 tid. 2. Chronic obstructive pulmonary disease. 3. Lactic acidosis. 4. Renal failure. Resolved 5. Severe leukopenia. WBC 0.8 increased to 17 and down to 7 on Abx. STEPHIE RN Subjective Subjective On iv Abx. Refused [place]. Awaiting placement. Objective Last 24 Hour Vital Signs Date Time Temp Pulse Resp B/P (MAP) Pulse Ox O2 Delivery O2 Flow Rate FiO2 06/02/17 16:15 97.2 92 19 122/86 99 Room Air 06/02/17 11:44 99.5 06/02/17 09:33 73 18 Room Air 21 06/02/17 08:00 99.5 77 18 127/63 99 06/02/17 04:00 97.9 70 20 131/55 99 Room Air 06/02/17 00:00 98.1 64 20 119/57 96 Room Air 06/01/17 20:05 70 18 Room Air 21 06/01/17 20:00 97.7 65 20 124/68 100 Room Air Intake and Output 06/02/17 06/03/17 19:00 07:00 Intake Total 1040 ml Balance 1040 ml Intake Oral 1040 ml # Voids 3 Laboratory Tests Test 06/02/17 05:46 White Blood Count 6.3 K/UL (4.8-10.8) Red Blood Count 4.14 M/UL (4.20-5.40) L Hemoglobin 11.6 G/DL (12.0-16.0) L Hematocrit 36.3 % (37.0-47.0) L Mean Corpuscular Volume 88 FL (80-99) Mean Corpuscular Hemoglobin 28.1 PG (27.0-31.0) Mean Corpuscular Hemoglobin Concent 32.1 G/DL (32.0-36.0) Red Cell Distribution Width 13.8 % (11.6-14.8) Platelet Count 174 K/UL (150-450) Mean Platelet Volume 8.4 FL (6.5-10.1) Neutrophils (%) (Auto) 63.7 % (45.0-75.0) Lymphocytes (%) (Auto) 20.3 % (20.0-45.0) Monocytes (%) (Auto) 11.2 % (1.0-10.0) H Eosinophils (%) (Auto) 3.5 % (0.0-3.0) H Basophils (%) (Auto) 1.4 % (0.0-2.0) Sodium Level 147 MMOL/L (136-145) H Potassium Level 2.8 MMOL/L (3.5-5.1) L Chloride Level 112 MMOL/L (98-107) H Carbon Dioxide Level 27 MMOL/L (21-32) Anion Gap 8 mmol/L (5-15) Blood Urea Nitrogen 3 mg/dL (7-18) L Creatinine 0.7 MG/DL (0.55-1.30) Estimat Glomerular Filtration Rate > 60 mL/min (>60) Glucose Level 86 MG/DL (74-106) Calcium Level 8.0 MG/DL (8.5-10.1) L Phosphorus Level 3.3 MG/DL (2.5-4.9) Magnesium Level 1.7 MG/DL (1.8-2.4) L Total Bilirubin 0.3 MG/DL (0.2-1.0) Aspartate Amino Transf (AST/SGOT) 16 U/L (15-37) Alanine Aminotransferase (ALT/SGPT) 14 U/L (12-78) Alkaline Phosphatase 97 U/L (46-116) Total Protein 5.8 G/DL (6.4-8.2) L Albumin 2.2 G/DL (3.4-5.0) L Globulin 3.6 g/dL Albumin/Globulin Ratio 0.6 (1.0-2.7) L Objective HEAD AND NECK: No JVD. LUNGS: Coarse rhonchi. CARDIOVASCULAR: Regular S1 and S2. ABDOMEN: Soft. EXTREMITIES: 1 plus pitting edema. CHRISTIAN FONSECA Jun 02, 2017 16:34
[2017-06-02] MEDS ORDERED: NS 500ML ONE (17:21)
[2017-06-02] MEDS ORDERED: Tubing IV Secondary IV ONE (17:21)
[2017-06-02 20:00] VITALS: BP 124/54
--- NOTE | 2017-06-02 21:17 | General Progress Note ---
Assessment/Plan Assessment/Plan ASSESSMENT AND RECOMMENDATIONS: 1. Leukopenia, improved. s/p neupogen, now actually resolved --> The patient currently on antibiotics, continue to monitor with ID team 2. Thrombocytopenia. Likely related to sepsis/consumption, no heparin administered --> viral studies are negative, us of the abdomen has been reviewed --> resolved 3. Coagulopathy, potentially secondary to myelosuppression. Continue to closely follow. with sepsis 4. Urinary tract infection, on antibiotics. 5. GRAY has improved --> monitor with nephrology 6.Anemia, currently mild. Subjective Allergies: Coded Allergies: No Known Allergies (Unverified , 09/04/12) All Systems: reviewed and negative except above Subjective NAD Objective Last 24 Hour Vital Signs Date Time Temp Pulse Resp B/P (MAP) Pulse Ox O2 Delivery O2 Flow Rate FiO2 06/02/17 20:00 97.7 68 20 124/54 96 Room Air 06/02/17 19:03 97.2 06/02/17 18:48 78 18 Room Air 21 06/02/17 16:15 97.2 92 19 122/86 99 Room Air 06/02/17 09:33 73 18 Room Air 21 06/02/17 08:00 99.5 77 18 127/63 99 06/02/17 04:00 97.9 70 20 131/55 99 Room Air 06/02/17 00:00 98.1 64 20 119/57 96 Room Air Intake and Output 06/02/17 06/03/17 19:00 07:00 Intake Total 1280 ml Balance 1280 ml Intake Oral 1280 ml # Voids 3 Laboratory Tests 06/02/17 05:46: White Blood Count 6.3, Red Blood Count 4.14L, Hemoglobin 11.6L, Hematocrit 36.3L , Mean Corpuscular Volume 88, Mean Corpuscular Hemoglobin 28.1, Mean Corpuscular Hemoglobin Concent 32.1, Red Cell Distribution Width 13.8, Platelet Count 174, Mean Platelet Volume 8.4, Neutrophils (%) (Auto) 63.7, Lymphocytes (% ) (Auto) 20.3, Monocytes (%) (Auto) 11.2H, Eosinophils (%) (Auto) 3.5H, Basophils (%) (Auto) 1.4, Sodium Level 147H, Potassium Level 2.8L, Chloride Level 112H, Carbon Dioxide Level 27, Anion Gap 8, Blood Urea Nitrogen 3L, Creatinine 0.7, Estimat Glomerular Filtration Rate > 60, Glucose Level 86, Calcium Level 8.0L, Phosphorus Level 3.3, Magnesium Level 1.7L, Total Bilirubin 0.3, Aspartate Amino Transf (AST/SGOT) 16, Alanine Aminotransferase (ALT/SGPT) 14, Alkaline Phosphatase 97, Total Protein 5.8L, Albumin 2.2L, Globulin 3.6, Albumin/Globulin Ratio 0.6L Height (Feet): 5 Height (Inches): 7.00 Weight (Pounds): 338 General Appearance: no apparent distress EENT: normal ENT inspection Neck: normal alignment Cardiovascular: normal peripheral pulses Edema: 1+ Pedal (L), 1+ Pedal (R) Skin: normal pigmentation, warm/dry Valentin Ken Jun 02, 2017 21:17
--- NOTE | 2017-06-02 22:49 | Pulmonology Progress Note ---
Assessment/Plan Problems: (1) Pyelonephritis (2) UTI (urinary tract infection) (3) ATN (acute tubular necrosis) (4) Septic shock Assessment/Plan improving IV abx wbc is lower hemodynamically better check electrolytes all noted, meds reviewed dc planning soon Subjective ROS Limited/Unobtainable: No Constitutional: Reports: no symptoms HEENT: Repors: no symptoms Respiratory: Reports: no symptoms Cardiovascular: Reports: no symptoms Allergies: Coded Allergies: No Known Allergies (Unverified , 09/04/12) Objective Last 24 Hour Vital Signs Date Time Temp Pulse Resp B/P (MAP) Pulse Ox O2 Delivery O2 Flow Rate FiO2 06/02/17 20:00 97.7 68 20 124/54 96 Room Air 06/02/17 19:03 97.2 06/02/17 18:48 78 18 Room Air 21 06/02/17 16:15 97.2 92 19 122/86 99 Room Air 06/02/17 09:33 73 18 Room Air 21 06/02/17 08:00 99.5 77 18 127/63 99 06/02/17 04:00 97.9 70 20 131/55 99 Room Air 06/02/17 00:00 98.1 64 20 119/57 96 Room Air Intake and Output 06/02/17 06/03/17 19:00 07:00 Intake Total 1280 ml Balance 1280 ml Intake Oral 1280 ml # Voids 3 Objective General Appearance: WD/WN HEENT: normocephalic, atraumatic Respiratory/Chest: chest wall non-tender, lungs clear Breasts: no masses Cardiovascular: normal peripheral pulses Abdomen: normal bowel sounds, soft, non tender Genitourinary: normal external genitalia Skin: no rash Laboratory Tests 06/02/17 05:46: White Blood Count 6.3, Red Blood Count 4.14L, Hemoglobin 11.6L, Hematocrit 36.3L , Mean Corpuscular Volume 88, Mean Corpuscular Hemoglobin 28.1, Mean Corpuscular Hemoglobin Concent 32.1, Red Cell Distribution Width 13.8, Platelet Count 174, Mean Platelet Volume 8.4, Neutrophils (%) (Auto) 63.7, Lymphocytes (% ) (Auto) 20.3, Monocytes (%) (Auto) 11.2H, Eosinophils (%) (Auto) 3.5H, Basophils (%) (Auto) 1.4, Sodium Level 147H, Potassium Level 2.8L, Chloride Level 112H, Carbon Dioxide Level 27, Anion Gap 8, Blood Urea Nitrogen 3L, Creatinine 0.7, Estimat Glomerular Filtration Rate > 60, Glucose Level 86, Calcium Level 8.0L, Phosphorus Level 3.3, Magnesium Level 1.7L, Total Bilirubin 0.3, Aspartate Amino Transf (AST/SGOT) 16, Alanine Aminotransferase (ALT/SGPT) 14, Alkaline Phosphatase 97, Total Protein 5.8L, Albumin 2.2L, Globulin 3.6, Albumin/Globulin Ratio 0.6L Current Medications Medications (Trade) Dose Ordered Sig/Safia Route PRN Reason Start Time Stop Time Status Last Admin Dose Admin Acetaminophen (Tylenol) 650 mg Q4H PRN ORAL fever 05/30/17 17:00 06/26/17 16:59 Al Hydroxide/Mg Hydroxide (Mylanta) 30 ml Q6H PRN ORAL HEARTBURN 05/30/17 17:00 06/28/17 16:59 Ceftriaxone Sodium 2 gm/ Dextrose 55 ml @ 110 mls/hr Q24H IVPB 05/31/17 11:00 06/06/17 10:59 06/02/17 11:06 Cholestyramine Resin (Questran) 4 gm BID ORAL 06/02/17 09:30 07/02/17 09:29 Diphenhydramine HCl (Benadryl) 25 mg Q6H PRN ORAL Itching 05/30/17 17:00 06/28/17 10:59 06/02/17 21:31 Hydromorphone HCl (Dilaudid) 2 mg Q4H PRN IVP Severe Pain (Pain Scale 7-10) 05/30/17 17:00 06/03/17 16:59 06/02/17 18:33 Hydroxyzine HCl (Vistaril) 10 mg BID ORAL 05/30/17 18:00 06/27/17 17:59 06/02/17 18:17 Loperamide HCl (Imodium) 2 mg Q4H PRN ORAL Diarrhea 06/01/17 17:30 07/01/17 17:29 06/02/17 18:17 Midodrine (Pro-Amatine) 10 mg THREE TIMES A DAY ORAL 05/30/17 18:00 06/29/17 15:29 06/02/17 18:17 Ondansetron HCl (Zofran) 4 mg Q6H PRN IVP Nausea & Vomiting 05/30/17 17:00 06/26/17 16:59 Potassium Chloride (K-Dur) 40 meq ONCE ONCE ORAL 06/02/17 23:45 06/02/17 23:46 Psyllium Hydrophilic Mucilloid (Metamucil) 1 pkt THREE TIMES A DAY ORAL 06/01/17 18:00 07/01/17 17:59 06/01/17 18:16 Sodium Chloride 1,000 ml @ 100 mls/hr Q10H IVLG 05/30/17 16:15 06/26/17 16:14 06/02/17 18:24 ADAMA MENDIETA Jun 02, 2017 22:49
--- NOTE | 2017-06-02 23:08 | Nephrology Progress Note ---
Assessment/Plan Assessment 1. Acute renal failure resolved 2. Hypernatremia 3. Hypokalemia.resolved 4. Hypocalcemia. 5. Low albumin Plan plan to continue ivf monitoring electrolyte replace k as need it avoid NSAID Subjective Constitutional: Reports: no symptoms Genitourinary: Reports: no symptoms Neurologic/Psychiatric: Reports: no symptoms Subjective no complains Objective Objective Last 24 Hour Vital Signs Date Time Temp Pulse Resp B/P (MAP) Pulse Ox O2 Delivery O2 Flow Rate FiO2 06/02/17 20:00 97.7 68 20 124/54 96 Room Air 06/02/17 19:03 97.2 06/02/17 18:48 78 18 Room Air 21 06/02/17 16:15 97.2 92 19 122/86 99 Room Air 06/02/17 09:33 73 18 Room Air 21 06/02/17 08:00 99.5 77 18 127/63 99 06/02/17 04:00 97.9 70 20 131/55 99 Room Air 06/02/17 00:00 98.1 64 20 119/57 96 Room Air Intake and Output 06/02/17 06/03/17 19:00 07:00 Intake Total 1280 ml Balance 1280 ml Intake Oral 1280 ml # Voids 3 Laboratory Tests 06/02/17 05:46: White Blood Count 6.3, Red Blood Count 4.14L, Hemoglobin 11.6L, Hematocrit 36.3L , Mean Corpuscular Volume 88, Mean Corpuscular Hemoglobin 28.1, Mean Corpuscular Hemoglobin Concent 32.1, Red Cell Distribution Width 13.8, Platelet Count 174, Mean Platelet Volume 8.4, Neutrophils (%) (Auto) 63.7, Lymphocytes (% ) (Auto) 20.3, Monocytes (%) (Auto) 11.2H, Eosinophils (%) (Auto) 3.5H, Basophils (%) (Auto) 1.4, Sodium Level 147H, Potassium Level 2.8L, Chloride Level 112H, Carbon Dioxide Level 27, Anion Gap 8, Blood Urea Nitrogen 3L, Creatinine 0.7, Estimat Glomerular Filtration Rate > 60, Glucose Level 86, Calcium Level 8.0L, Phosphorus Level 3.3, Magnesium Level 1.7L, Total Bilirubin 0.3, Aspartate Amino Transf (AST/SGOT) 16, Alanine Aminotransferase (ALT/SGPT) 14, Alkaline Phosphatase 97, Total Protein 5.8L, Albumin 2.2L, Globulin 3.6, Albumin/Globulin Ratio 0.6L Height (Feet): 5 Height (Inches): 7.00 Weight (Pounds): 338 Objective HEAD AND NECK: No JVP. No LAD. No thyromegaly. Extraocular movement intact. Pupils are reactive to light and accommodation. LUNGS: Clear to auscultation. CARDIAC: Regular rate and rhythm. S1 and S2. No murmur. No rub. ABDOMEN: Soft and thin. Not tender and not distended. EXTREMITIES: No edema. No clubbing. No cyanosis. PHILLY DONNELLY Jun 02, 2017 23:08
[2017-06-03] VITALS: BP 123/61
[2017-06-03 04:00] VITALS: BP 117/60
--- NOTE | 2017-06-03 06:43 | General Progress Note ---
Assessment/Plan Problem List: (1) H/O gastric bypass ICD Codes: Z98.890 - Other specified postprocedural states SNOMED: 260463786 (2) Chronic diarrhea ICD Codes: K52.9 - Noninfective gastroenteritis and colitis, unspecified SNOMED: 478819827 (3) Hypoalbuminemia ICD Codes: E88.09 - Other disorders of plasma-protein metabolism, not elsewhere classified SNOMED: 480600316 (4) Malnutrition ICD Codes: E46 - Unspecified protein-calorie malnutrition SNOMED: 93736401 (5) Dumping syndrome ICD Codes: K91.1 - Postgastric surgery syndromes SNOMED: 98753592 Assessment/Plan small frequent meals off miralax and protonix imodium prn trial of cholestyramine patient has had EGD and colonoscopy this year Subjective ROS Limited/Unobtainable: Yes Allergies: Coded Allergies: No Known Allergies (Unverified , 09/04/12) Subjective diarrhea is better Objective Last 24 Hour Vital Signs Date Time Temp Pulse Resp B/P (MAP) Pulse Ox O2 Delivery O2 Flow Rate FiO2 06/03/17 04:00 97.9 66 20 117/60 100 Room Air 06/03/17 00:00 97.5 72 18 123/61 98 Room Air 06/02/17 20:00 97.7 68 20 124/54 96 Room Air 06/02/17 19:03 97.2 06/02/17 18:48 78 18 Room Air 06/02/17 16:15 97.2 92 19 122/86 99 Room Air 06/02/17 09:33 73 18 Room Air 21 06/02/17 08:00 99.5 77 18 127/63 99 Height (Feet): 5 Height (Inches): 7.00 Weight (Pounds): 338 General Appearance: alert EENT: normal ENT inspection Neck: supple Cardiovascular: normal rate Respiratory/Chest: lungs clear Abdomen: normal bowel sounds, non tender, soft Extremities: non-tender REHAN STOUT Jun 03, 2017 06:43
[2017-06-03 08:06] LABS: BASOPHILS % (AUTO) 1.6 % (0.0-2.0); LYMPHOCYTES % (AUTO) 24.8 % (20.0-45.0); MEAN CORPUSCULAR HEMOGLOBIN 28.4 PG (27.0-31.0); MEAN CORPUSCULAR HGB CONC 32.4 G/DL (32.0-36.0); MEAN CORPUSCULAR VOLUME 88 FL (80-99); MEAN PLATELET VOLUME 7.2 FL (6.5-10.1); MONOCYTES % (AUTO) 6.7 % (1.0-10.0); NEUTROPHILS % (AUTO) 64.8 % (45.0-75.0); PLATELET COUNT 255 K/UL (150-450); RED BLOOD COUNT 4.09 M/UL (4.20-5.40); RED CELL DISTRIBUTION WIDTH 13.6 % (11.6-14.8); WHITE BLOOD COUNT 5.1 K/UL (4.8-10.8)
[2017-06-03 08:15] VITALS: BP 131/59
--- NOTE | 2017-06-03 08:18 | General Progress Note ---
Assessment/Plan Problem List: (1) UTI (urinary tract infection) ICD Codes: N39.0 - Urinary tract infection, site not specified SNOMED: 20586208 (2) Fever ICD Codes: R50.9 - Fever, unspecified SNOMED: 442788920 (3) Sepsis ICD Codes: A41.9 - Sepsis, unspecified organism SNOMED: 44355888 (4) Shock ICD Codes: R57.9 - Shock, unspecified SNOMED: 72294998 (5) Malnutrition ICD Codes: E46 - Unspecified protein-calorie malnutrition SNOMED: 17401712 (6) Dizzy ICD Codes: R42 - Dizziness and giddiness SNOMED: 775493375, 893517397 Status: unchanged Assessment/Plan o2 pul tx abx ot pt diet immodium prn neph f/u cbc bmp am dc plan snf Subjective Constitutional: Reports: weakness Allergies: Coded Allergies: No Known Allergies (Unverified , 09/04/12) All Systems: reviewed and negative except above Subjective calm c/o diarrhea sl sob Objective Last 24 Hour Vital Signs Date Time Temp Pulse Resp B/P (MAP) Pulse Ox O2 Delivery O2 Flow Rate FiO2 06/03/17 07:25 70 18 Room Air 21 06/03/17 04:00 97.9 66 20 117/60 100 Room Air 06/03/17 00:00 97.5 72 18 123/61 98 Room Air 06/02/17 20:00 97.7 68 20 124/54 96 Room Air 06/02/17 19:03 97.2 06/02/17 18:48 78 18 Room Air 21 06/02/17 16:15 97.2 92 19 122/86 99 Room Air 06/02/17 09:33 73 18 Room Air 21 Intake and Output 06/03/17 06/04/17 19:00 07:00 Intake Total 100 ml Balance 100 ml IV Total 100 ml Laboratory Tests 06/03/17 07:00: White Blood Count [Pending], Red Blood Count [Pending], Hemoglobin [Pending], Hematocrit [Pending], Mean Corpuscular Volume [Pending], Mean Corpuscular Hemoglobin [Pending], Mean Corpuscular Hemoglobin Concent [Pending], Red Cell Distribution Width [Pending], Platelet Count [Pending], Mean Platelet Volume [ Pending], Neutrophils (%) (Auto) [Pending], Lymphocytes (%) (Auto) [Pending], Monocytes (%) (Auto) [Pending], Eosinophils (%) (Auto) [Pending], Basophils (%) (Auto) [Pending], Sodium Level [Pending], Potassium Level [Pending], Chloride Level [Pending], Carbon Dioxide Level [Pending], Blood Urea Nitrogen [Pending], Creatinine [Pending], Estimat Glomerular Filtration Rate [Pending], Glucose Level [Pending], Calcium Level [Pending], Iron Level [Pending], Unsaturated Iron Binding [Pending], Vitamin B12 Level [Pending], Folate [Pending] Height (Feet): 5 Height (Inches): 7.00 Weight (Pounds): 313 General Appearance: lethargic EENT: normal ENT inspection Neck: normal alignment Cardiovascular: normal peripheral pulses, normal rate, regular rhythm Respiratory/Chest: chest wall non-tender, lungs clear, normal breath sounds Abdomen: normal bowel sounds, non tender, soft Extremities: normal inspection Edema: no edema noted Arm (L), no edema noted Arm (R), no edema noted Leg (L), no edema noted Leg (R), no edema noted Pedal (L), no edema noted Pedal (R), no edema noted Generalized Neurologic: responsive, motor weakness Skin: normal pigmentation, warm/dry JUAN KELLER Jun 03, 2017 08:18
[2017-06-03 08:24] LABS: ANION GAP 4 mmol/L (5-15); CALCIUM 8.3 MG/DL (8.5-10.1); CARBON DIOXIDE 30 MMOL/L (21-32); CHLORIDE 113 MMOL/L (98-107); CREATININE 0.7 MG/DL (0.55-1.30); GLOMERULAR FILTRATION RATE > 60 mL/min (>60); POTASSIUM 3.7 MMOL/L (3.5-5.1); SODIUM 147 MMOL/L (136-145)
[2017-06-03] MEDS: Metamucil Pkt ORAL SCH ×3 (08:33→17:35)
[2017-06-03] MEDS: Loperamide 2mg cap ORAL PRN ×2 (08:33→16:39)
[2017-06-03] MEDS: Midodrine 10mg tab ORAL SCH ×3 (08:33→17:54)
[2017-06-03] MEDS: Cholestyramine 4gm Pkt ORAL SCH ×2 (09:00→17:57)
[2017-06-03 09:52] LABS: FOLIC ACID 21.6 NG/ML (8.6-58.9); IRON 41 ug/dL (50-175); TOTAL IRON BINDING CAPACITY 299 ug/dL (250-450)
[2017-06-03] MEDS ORDERED: Tubing IV Secondary IV ONE (10:02)
--- NOTE | 2017-06-03 10:41 | Infectious Diseases Prog Note ---
Assessment/Plan Assessment/Plan A; Sepsis with Enterobacter Septic shock resolved UTI with Enterobacter Acute renal failure improving Elevated bilirubin & transaminase s/p Cholecystectomy s/p gastric bypass Lactic acidosis MRSA carrier Diarrhea P: Continue Rocephin At time of discharge PO Levaquin X 5 days Check stool for Giardia Ag Subjective ROS Limited/Unobtainable: No Constitutional: Reports: no symptoms Respiratory: Reports: no symptoms Cardiovascular: Reports: no symptoms Gastrointestinal/Abdominal: Reports: diarrhea Genitourinary: Reports: no symptoms Allergies: Coded Allergies: No Known Allergies (Unverified , 09/04/12) Objective Vital Signs Last 24 Hour Vital Signs Date Time Temp Pulse Resp B/P (MAP) Pulse Ox O2 Delivery O2 Flow Rate FiO2 06/03/17 08:15 97.4 78 20 131/59 99 Room Air 06/03/17 07:25 70 18 Room Air 21 06/03/17 04:00 97.9 66 20 117/60 100 Room Air 06/03/17 00:00 97.5 72 18 123/61 98 Room Air 06/02/17 20:00 97.7 68 20 124/54 96 Room Air 06/02/17 19:03 97.2 06/02/17 18:48 78 18 Room Air 21 06/02/17 16:15 97.2 92 19 122/86 99 Room Air Height (Feet): 5 Height (Inches): 7.00 Weight (Pounds): 313 General Appearance: no acute distress HEENT: mucous membranes moist Respiratory/Chest: lungs clear Cardiovascular: normal rate Abdomen: soft, non tender Extremities: no edema Neurologic/Psychiatric: alert, oriented x 3, responsive Laboratory Tests Test 06/03/17 07:00 White Blood Count 5.1 K/UL (4.8-10.8) Red Blood Count 4.09 M/UL (4.20-5.40) L Hemoglobin 11.6 G/DL (12.0-16.0) L Hematocrit 36.0 % (37.0-47.0) L Mean Corpuscular Volume 88 FL (80-99) Mean Corpuscular Hemoglobin 28.4 PG (27.0-31.0) Mean Corpuscular Hemoglobin Concent 32.4 G/DL (32.0-36.0) Red Cell Distribution Width 13.6 % (11.6-14.8) Platelet Count 255 K/UL (150-450) Mean Platelet Volume 7.2 FL (6.5-10.1) Neutrophils (%) (Auto) 64.8 % (45.0-75.0) Lymphocytes (%) (Auto) 24.8 % (20.0-45.0) Monocytes (%) (Auto) 6.7 % (1.0-10.0) Eosinophils (%) (Auto) 2.0 % (0.0-3.0) Basophils (%) (Auto) 1.6 % (0.0-2.0) Sodium Level 147 MMOL/L (136-145) H Potassium Level 3.7 MMOL/L (3.5-5.1) Chloride Level 113 MMOL/L (98-107) H Carbon Dioxide Level 30 MMOL/L (21-32) Anion Gap 4 mmol/L (5-15) L Blood Urea Nitrogen 3 mg/dL (7-18) L Creatinine 0.7 MG/DL (0.55-1.30) Estimat Glomerular Filtration Rate > 60 mL/min (>60) Glucose Level 93 MG/DL (74-106) Calcium Level 8.3 MG/DL (8.5-10.1) L Iron Level 41 ug/dL (50-175) L Total Iron Binding Capacity 299 ug/dL (250-450) Percent Iron Saturation 14 % (15-50) L Unsaturated Iron Binding 258 ug/dL (112-346) Vitamin B12 Level > 2000 PG/ML (193-986) H Folate 21.6 NG/ML (8.6-58.9) Current Medications Medications (Trade) Dose Ordered Sig/Safia Route PRN Reason Start Time Stop Time Status Last Admin Dose Admin Acetaminophen (Tylenol) 650 mg Q4H PRN ORAL fever 05/30/17 17:00 06/26/17 16:59 Al Hydroxide/Mg Hydroxide (Mylanta) 30 ml Q6H PRN ORAL HEARTBURN 05/30/17 17:00 06/28/17 16:59 Ceftriaxone Sodium 2 gm/ Dextrose 55 ml @ 110 mls/hr Q24H IVPB 05/31/17 11:00 06/06/17 10:59 06/02/17 11:06 Cholestyramine Resin (Questran) 4 gm BID ORAL 06/02/17 09:30 07/02/17 09:29 Diphenhydramine HCl (Benadryl) 25 mg Q6H PRN ORAL Itching 05/30/17 17:00 06/28/17 10:59 06/02/17 21:31 Hydromorphone HCl (Dilaudid) 2 mg Q4H PRN IVP Severe Pain (Pain Scale 7-10) 05/30/17 17:00 06/03/17 16:59 06/02/17 18:33 Hydroxyzine HCl (Vistaril) 10 mg BID ORAL 05/30/17 18:00 06/27/17 17:59 06/03/17 08:34 Loperamide HCl (Imodium) 2 mg Q4H PRN ORAL Diarrhea 06/01/17 17:30 07/01/17 17:29 06/03/17 08:33 Midodrine (Pro-Amatine) 10 mg THREE TIMES A DAY ORAL 05/30/17 18:00 06/29/17 15:29 06/03/17 08:33 Ondansetron HCl (Zofran) 4 mg Q6H PRN IVP Nausea & Vomiting 05/30/17 17:00 06/26/17 16:59 Psyllium Hydrophilic Mucilloid (Metamucil) 1 pkt THREE TIMES A DAY ORAL 06/01/17 18:00 07/01/17 17:59 06/03/17 08:33 Sodium Chloride 1,000 ml @ 100 mls/hr Q10H IVLG 05/30/17 16:15 06/26/17 16:14 06/03/17 00:09 SUKHDEV CUEVAS Jun 03, 2017 10:41
[2017-06-03] MEDS: cefTRIAXone 2 GM in D5W 55 ML IVPB SCH (10:45)
[2017-06-03 12:02] VITALS: BP 125/80
--- NOTE | 2017-06-03 12:55 | General Progress Note ---
Assessment/Plan Assessment/Plan ASSESSMENT AND RECOMMENDATIONS: 1. Leukopenia, improved. s/p neupogen, now actually resolved --> The patient currently on antibiotics, continue to monitor with ID team 2. Thrombocytopenia. Likely related to sepsis/consumption, no heparin administered --> viral studies are negative, us of the abdomen has been reviewed --> resolved 3. Coagulopathy, potentially secondary to myelosuppression. Continue to closely follow. 4. Urinary tract infection, on antibiotics. 5. GRAY has improved --> monitor with nephrology 6.Anemia, currently mild. Subjective Allergies: Coded Allergies: No Known Allergies (Unverified , 09/04/12) All Systems: reviewed and negative except above Subjective no fevers or chills Objective Last 24 Hour Vital Signs Date Time Temp Pulse Resp B/P (MAP) Pulse Ox O2 Delivery O2 Flow Rate FiO2 06/03/17 12:02 97.3 68 19 125/80 97 Room Air 06/03/17 08:15 97.4 78 20 131/59 99 Room Air 06/03/17 07:25 70 18 Room Air 21 06/03/17 04:00 97.9 66 20 117/60 100 Room Air 06/03/17 00:00 97.5 72 18 123/61 98 Room Air 06/02/17 20:00 97.7 68 20 124/54 96 Room Air 06/02/17 19:03 97.2 06/02/17 18:48 78 18 Room Air 21 06/02/17 16:15 97.2 92 19 122/86 99 Room Air Intake and Output 06/03/17 06/04/17 19:00 07:00 Intake Total 795 ml Balance 795 ml Intake Oral 240 ml IV Total 555 ml # Voids 1 Laboratory Tests 06/03/17 07:00: White Blood Count 5.1, Red Blood Count 4.09L, Hemoglobin 11.6L, Hematocrit 36.0L , Mean Corpuscular Volume 88, Mean Corpuscular Hemoglobin 28.4, Mean Corpuscular Hemoglobin Concent 32.4, Red Cell Distribution Width 13.6, Platelet Count 255, Mean Platelet Volume 7.2, Neutrophils (%) (Auto) 64.8, Lymphocytes (% ) (Auto) 24.8, Monocytes (%) (Auto) 6.7, Eosinophils (%) (Auto) 2.0, Basophils ( %) (Auto) 1.6, Sodium Level 147H, Potassium Level 3.7, Chloride Level 113H, Carbon Dioxide Level 30, Anion Gap 4L, Blood Urea Nitrogen 3L, Creatinine 0.7, Estimat Glomerular Filtration Rate > 60, Glucose Level 93, Calcium Level 8.3L, Iron Level 41L, Total Iron Binding Capacity 299, Percent Iron Saturation 14L, Unsaturated Iron Binding 258, Vitamin B12 Level > 2000H, Folate 21.6 Height (Feet): 5 Height (Inches): 7.00 Weight (Pounds): 313 General Appearance: no apparent distress EENT: normal ENT inspection Neck: non-tender, normal alignment Cardiovascular: normal peripheral pulses, normal rate, regular rhythm Respiratory/Chest: chest wall non-tender, lungs clear, decreased breath sounds Abdomen: non tender, soft, no mass Skin: warm/dry Valentin Ken Jun 03, 2017 12:55
[2017-06-03 16:12] VITALS: BP 120/49
--- NOTE | 2017-06-03 17:49 | Pulmonology Progress Note ---
Assessment/Plan Problems: (1) Pyelonephritis (2) UTI (urinary tract infection) (3) ATN (acute tubular necrosis) (4) Septic shock Assessment/Plan no new complains improving IV abx wbc is lower hemodynamically better check electrolytes all noted, meds reviewed dc planning soon Subjective ROS Limited/Unobtainable: No Constitutional: Reports: no symptoms HEENT: Repors: no symptoms Respiratory: Reports: no symptoms Allergies: Coded Allergies: No Known Allergies (Unverified , 09/04/12) Objective Last 24 Hour Vital Signs Date Time Temp Pulse Resp B/P (MAP) Pulse Ox O2 Delivery O2 Flow Rate FiO2 06/03/17 16:12 98.0 66 21 120/49 98 Room Air 06/03/17 12:02 97.3 68 19 125/80 97 Room Air 06/03/17 08:15 97.4 78 20 131/59 99 Room Air 06/03/17 07:25 70 18 Room Air 21 06/03/17 04:00 97.9 66 20 117/60 100 Room Air 06/03/17 00:00 97.5 72 18 123/61 98 Room Air 06/02/17 20:00 97.7 68 20 124/54 96 Room Air 06/02/17 19:03 97.2 06/02/17 18:48 78 18 Room Air 21 Intake and Output 06/03/17 06/04/17 19:00 07:00 Intake Total 1335 ml Balance 1335 ml Intake Oral 480 ml IV Total 855 ml # Voids 1 Objective General Appearance: WD/WN HEENT: normocephalic, atraumatic Respiratory/Chest: chest wall non-tender, lungs clear Breasts: no masses Cardiovascular: normal peripheral pulses Abdomen: normal bowel sounds, soft, non tender Genitourinary: normal external genitalia Skin: no rash Laboratory Tests 06/03/17 07:00: White Blood Count 5.1, Red Blood Count 4.09L, Hemoglobin 11.6L, Hematocrit 36.0L , Mean Corpuscular Volume 88, Mean Corpuscular Hemoglobin 28.4, Mean Corpuscular Hemoglobin Concent 32.4, Red Cell Distribution Width 13.6, Platelet Count 255, Mean Platelet Volume 7.2, Neutrophils (%) (Auto) 64.8, Lymphocytes (% ) (Auto) 24.8, Monocytes (%) (Auto) 6.7, Eosinophils (%) (Auto) 2.0, Basophils ( %) (Auto) 1.6, Sodium Level 147H, Potassium Level 3.7, Chloride Level 113H, Carbon Dioxide Level 30, Anion Gap 4L, Blood Urea Nitrogen 3L, Creatinine 0.7, Estimat Glomerular Filtration Rate > 60, Glucose Level 93, Calcium Level 8.3L, Iron Level 41L, Total Iron Binding Capacity 299, Percent Iron Saturation 14L, Unsaturated Iron Binding 258, Vitamin B12 Level > 2000H, Folate 21.6 Current Medications Medications (Trade) Dose Ordered Sig/Safia Route PRN Reason Start Time Stop Time Status Last Admin Dose Admin Acetaminophen (Tylenol) 650 mg Q4H PRN ORAL fever 05/30/17 17:00 06/26/17 16:59 Al Hydroxide/Mg Hydroxide (Mylanta) 30 ml Q6H PRN ORAL HEARTBURN 05/30/17 17:00 06/28/17 16:59 Ceftriaxone Sodium 2 gm/ Dextrose 55 ml @ 110 mls/hr Q24H IVPB 05/31/17 11:00 06/06/17 10:59 06/03/17 10:45 Cholestyramine Resin (Questran) 4 gm BID ORAL 06/02/17 09:30 07/02/17 09:29 Diphenhydramine HCl (Benadryl) 25 mg Q6H PRN ORAL Itching 05/30/17 17:00 06/28/17 10:59 06/02/17 21:31 Hydroxyzine HCl (Vistaril) 10 mg BID ORAL 05/30/17 18:00 06/27/17 17:59 06/03/17 08:34 Loperamide HCl (Imodium) 2 mg Q4H PRN ORAL Diarrhea 06/01/17 17:30 07/01/17 17:29 06/03/17 16:39 Midodrine (Pro-Amatine) 10 mg THREE TIMES A DAY ORAL 05/30/17 18:00 06/29/17 15:29 06/03/17 12:54 Ondansetron HCl (Zofran) 4 mg Q6H PRN IVP Nausea & Vomiting 05/30/17 17:00 06/26/17 16:59 Psyllium Hydrophilic Mucilloid (Metamucil) 1 pkt THREE TIMES A DAY ORAL 06/01/17 18:00 07/01/17 17:59 06/03/17 08:33 Sodium Chloride 1,000 ml @ 100 mls/hr Q10H IVLG 05/30/17 16:15 06/26/17 16:14 06/03/17 10:44 ADAMA MENDIETA Jun 03, 2017 17:49
[2017-06-03 20:00] VITALS: BP 134/92
[2017-06-03] MEDS ORDERED: Zolpidem 5mg tab ORAL PRN (20:15)
[2017-06-04] VITALS: BP 129/61
[2017-06-04 04:00] VITALS: BP 135/64
[2017-06-04] MEDS: Loperamide 2mg cap ORAL PRN (06:43)
[2017-06-04 06:45] LABS: BASOPHILS % (AUTO) 1.7 % (0.0-2.0); EOSINOPHILS % (AUTO) 3.1 % (0.0-3.0); LYMPHOCYTES % (AUTO) 20.8 % (20.0-45.0); MEAN CORPUSCULAR HEMOGLOBIN 29.4 PG (27.0-31.0); MEAN CORPUSCULAR HGB CONC 33.5 G/DL (32.0-36.0); MEAN CORPUSCULAR VOLUME 88 FL (80-99); MEAN PLATELET VOLUME 7.1 FL (6.5-10.1); MONOCYTES % (AUTO) 10.3 % (1.0-10.0); NEUTROPHILS % (AUTO) 64.2 % (45.0-75.0); PLATELET COUNT 270 K/UL (150-450); RED BLOOD COUNT 3.66 M/UL (4.20-5.40); RED CELL DISTRIBUTION WIDTH 13.5 % (11.6-14.8)
[2017-06-04 06:59] LABS: ANION GAP 6 mmol/L (5-15); CALCIUM 8.1 MG/DL (8.5-10.1); CARBON DIOXIDE 29 MMOL/L (21-32); CHLORIDE 111 MMOL/L (98-107); CREATININE 0.6 MG/DL (0.55-1.30); GLOMERULAR FILTRATION RATE > 60 mL/min (>60); POTASSIUM 3.7 MMOL/L (3.5-5.1); SODIUM 146 MMOL/L (136-145)
[2017-06-04 08:15] VITALS: BP 122/58
--- NOTE | 2017-06-04 08:23 | Nephrology Progress Note ---
Assessment/Plan Assessment 1. Acute renal failure resolved 2. Hypernatremia 3. Hypokalemia.resolved 4. Hypocalcemia. 5. Low albumin Plan plan to continue ivf monitoring electrolyte replace k as need it avoid NSAID Subjective Subjective no complains Objective Objective Last 24 Hour Vital Signs Date Time Temp Pulse Resp B/P (MAP) Pulse Ox O2 Delivery O2 Flow Rate FiO2 06/04/17 04:00 Room Air 06/04/17 04:00 98.4 65 21 135/64 96 06/04/17 00:00 98.6 71 20 129/61 94 06/04/17 00:00 Room Air 06/03/17 20:00 99.1 72 21 134/92 95 06/03/17 20:00 Room Air 06/03/17 16:12 98.0 66 21 120/49 98 Room Air 06/03/17 12:02 97.3 68 19 125/80 97 Room Air Laboratory Tests 06/04/17 05:20: White Blood Count 5.0, Red Blood Count 3.66L, Hemoglobin 10.8L, Hematocrit 32.1L , Mean Corpuscular Volume 88, Mean Corpuscular Hemoglobin 29.4, Mean Corpuscular Hemoglobin Concent 33.5, Red Cell Distribution Width 13.5, Platelet Count 270, Mean Platelet Volume 7.1, Neutrophils (%) (Auto) 64.2, Lymphocytes (% ) (Auto) 20.8, Monocytes (%) (Auto) 10.3H, Eosinophils (%) (Auto) 3.1H, Basophils (%) (Auto) 1.7, Sodium Level 146H, Potassium Level 3.7, Chloride Level 111H, Carbon Dioxide Level 29, Anion Gap 6, Blood Urea Nitrogen 4L, Creatinine 0.6, Estimat Glomerular Filtration Rate > 60, Glucose Level 91, Calcium Level 8.1L Height (Feet): 5 Height (Inches): 7.00 Weight (Pounds): 345 Objective HEAD AND NECK: No JVP. No LAD. No thyromegaly. Extraocular movement intact. Pupils are reactive to light and accommodation. LUNGS: Clear to auscultation. CARDIAC: Regular rate and rhythm. S1 and S2. No murmur. No rub. ABDOMEN: Soft and thin. Not tender and not distended. EXTREMITIES: No edema. No clubbing. No cyanosis. PHILLY DONNELLY Jun 04, 2017 08:23
[2017-06-04] MEDS: Cholestyramine 4gm Pkt ORAL SCH (08:48)
[2017-06-04] MEDS: Midodrine 10mg tab ORAL SCH (08:48)
[2017-06-04] MEDS: Metamucil Pkt ORAL SCH (08:48)
--- NOTE | 2017-06-04 09:37 | General Progress Note ---
Assessment/Plan Problem List: (1) UTI (urinary tract infection) ICD Codes: N39.0 - Urinary tract infection, site not specified SNOMED: 50139585 (2) Fever ICD Codes: R50.9 - Fever, unspecified SNOMED: 308597025 (3) Sepsis ICD Codes: A41.9 - Sepsis, unspecified organism SNOMED: 49847828 (4) Shock ICD Codes: R57.9 - Shock, unspecified SNOMED: 90307608 (5) Malnutrition ICD Codes: E46 - Unspecified protein-calorie malnutrition SNOMED: 77291619 (6) Dizzy ICD Codes: R42 - Dizziness and giddiness SNOMED: 114936462, 992096627 Status: stable Assessment/Plan o2 pul tx abx ot pt diet dc to snf Subjective Constitutional: Reports: weakness Allergies: Coded Allergies: No Known Allergies (Unverified , 09/04/12) All Systems: reviewed and negative except above Subjective feeling better si diarrhea Objective Last 24 Hour Vital Signs Date Time Temp Pulse Resp B/P (MAP) Pulse Ox O2 Delivery O2 Flow Rate FiO2 06/04/17 08:15 98.2 75 20 122/58 96 Room Air 06/04/17 04:00 Room Air 06/04/17 04:00 98.4 65 21 135/64 96 06/04/17 00:00 98.6 71 20 129/61 94 06/04/17 00:00 Room Air 06/03/17 20:00 99.1 72 21 134/92 95 06/03/17 20:00 Room Air 06/03/17 16:12 98.0 66 21 120/49 98 Room Air 06/03/17 12:02 97.3 68 19 125/80 97 Room Air Intake and Output 06/04/17 06/05/17 19:00 07:00 Intake Total 480 ml Balance 480 ml Intake Oral 480 ml Laboratory Tests 06/04/17 05:20: White Blood Count 5.0, Red Blood Count 3.66L, Hemoglobin 10.8L, Hematocrit 32.1L , Mean Corpuscular Volume 88, Mean Corpuscular Hemoglobin 29.4, Mean Corpuscular Hemoglobin Concent 33.5, Red Cell Distribution Width 13.5, Platelet Count 270, Mean Platelet Volume 7.1, Neutrophils (%) (Auto) 64.2, Lymphocytes (% ) (Auto) 20.8, Monocytes (%) (Auto) 10.3H, Eosinophils (%) (Auto) 3.1H, Basophils (%) (Auto) 1.7, Sodium Level 146H, Potassium Level 3.7, Chloride Level 111H, Carbon Dioxide Level 29, Anion Gap 6, Blood Urea Nitrogen 4L, Creatinine 0.6, Estimat Glomerular Filtration Rate > 60, Glucose Level 91, Calcium Level 8.1L Height (Feet): 5 Height (Inches): 7.00 Weight (Pounds): 345 General Appearance: alert EENT: normal ENT inspection Neck: normal alignment Cardiovascular: normal peripheral pulses, normal rate, regular rhythm Respiratory/Chest: chest wall non-tender, lungs clear, normal breath sounds Abdomen: normal bowel sounds, non tender, soft Extremities: normal inspection Edema: no edema noted Arm (L), no edema noted Arm (R), no edema noted Leg (L), no edema noted Leg (R), no edema noted Pedal (L), no edema noted Pedal (R), no edema noted Generalized Neurologic: responsive, motor weakness Skin: normal pigmentation, warm/dry JUAN KELLER Jun 04, 2017 09:37
--- NOTE | 2017-06-04 10:59 | GI Progress Note ---
Assessment/Plan Problems: (1) Chronic diarrhea ICD Codes: K52.9 - Noninfective gastroenteritis and colitis, unspecified SNOMED: 550618481 (2) Hypoalbuminemia ICD Codes: E88.09 - Other disorders of plasma-protein metabolism, not elsewhere classified SNOMED: 799440714 (3) Malnutrition ICD Codes: E46 - Unspecified protein-calorie malnutrition SNOMED: 96888821 (4) H/O gastric bypass ICD Codes: Z98.890 - Other specified postprocedural states SNOMED: 906021615 (5) Dumping syndrome ICD Codes: K91.1 - Postgastric surgery syndromes SNOMED: 48439277 Status: stable Status Narrative Discussed with Dr. Cooper. Assessment/Plan okay for DC per GI standpoint small frequent meals off miralax and protonix imodium prn trial of cholestyramine patient has had EGD and colonoscopy this year The patient was seen and examined at bedside and all new and available data was reviewed in the patients chart. I agree with the above findings, impression and plan. (Patient seen earlier today. Signature stamp does not reflect patient encounter time.). - Azul Cooper MD Subjective Subjective diarrhea improved Objective Last 24 Hour Vital Signs Date Time Temp Pulse Resp B/P (MAP) Pulse Ox O2 Delivery O2 Flow Rate FiO2 06/04/17 08:15 98.2 75 20 122/58 96 Room Air 06/04/17 04:00 Room Air 06/04/17 04:00 98.4 65 21 135/64 96 06/04/17 00:00 98.6 71 20 129/61 94 06/04/17 00:00 Room Air 06/03/17 20:00 99.1 72 21 134/92 95 06/03/17 20:00 Room Air 06/03/17 16:12 98.0 66 21 120/49 98 Room Air 06/03/17 12:02 97.3 68 19 125/80 97 Room Air Intake and Output 06/04/17 06/05/17 19:00 07:00 Intake Total 480 ml Balance 480 ml Intake Oral 480 ml Laboratory Tests Test 06/04/17 05:20 White Blood Count 5.0 K/UL (4.8-10.8) Red Blood Count 3.66 M/UL (4.20-5.40) L Hemoglobin 10.8 G/DL (12.0-16.0) L Hematocrit 32.1 % (37.0-47.0) L Mean Corpuscular Volume 88 FL (80-99) Mean Corpuscular Hemoglobin 29.4 PG (27.0-31.0) Mean Corpuscular Hemoglobin Concent 33.5 G/DL (32.0-36.0) Red Cell Distribution Width 13.5 % (11.6-14.8) Platelet Count 270 K/UL (150-450) Mean Platelet Volume 7.1 FL (6.5-10.1) Neutrophils (%) (Auto) 64.2 % (45.0-75.0) Lymphocytes (%) (Auto) 20.8 % (20.0-45.0) Monocytes (%) (Auto) 10.3 % (1.0-10.0) H Eosinophils (%) (Auto) 3.1 % (0.0-3.0) H Basophils (%) (Auto) 1.7 % (0.0-2.0) Sodium Level 146 MMOL/L (136-145) H Potassium Level 3.7 MMOL/L (3.5-5.1) Chloride Level 111 MMOL/L (98-107) H Carbon Dioxide Level 29 MMOL/L (21-32) Anion Gap 6 mmol/L (5-15) Blood Urea Nitrogen 4 mg/dL (7-18) L Creatinine 0.6 MG/DL (0.55-1.30) Estimat Glomerular Filtration Rate > 60 mL/min (>60) Glucose Level 91 MG/DL (74-106) Calcium Level 8.1 MG/DL (8.5-10.1) L Height (Feet): 5 Height (Inches): 7.00 Weight (Pounds): 345 General Appearance: WD/WN, no apparent distress, alert Cardiovascular: normal rate Respiratory/Chest: normal breath sounds, no respiratory distress Abdominal Exam: normal bowel sounds, non tender, soft Extremities: normal range of motion, non-tender Irene Caba N.PMigel Jun 04, 2017 10:59 REHAN COOPER Jun 06, 2017 08:39
[2017-06-04] MEDS: cefTRIAXone 2 GM in D5W 55 ML IVPB SCH (11:00)
--- NOTE | 2017-06-04 12:00 | Cardiac Electrophysiology PN ---
Assessment/Plan Assessment/Plan 1. S/P Septic shock. No chest pain or SOB. No DE. Echocardiogram showed EF 55%. On broad-spectrum antibiotics. Continue Midodrine 10 tid. 2. Chronic obstructive pulmonary disease. 3. Lactic acidosis. 4. Renal failure. Resolved 5. Severe leukopenia. WBC 0.8 increased to 17 and down to 7 on Abx. DW RN OK to DC Subjective Subjective Comfortable in NAD. Going to [facility]. No chest pain Objective Last 24 Hour Vital Signs Date Time Temp Pulse Resp B/P (MAP) Pulse Ox O2 Delivery O2 Flow Rate FiO2 06/04/17 08:15 98.2 75 20 122/58 96 Room Air 06/04/17 04:00 Room Air 06/04/17 04:00 98.4 65 21 135/64 96 06/04/17 00:00 98.6 71 20 129/61 94 06/04/17 00:00 Room Air 06/03/17 20:00 99.1 72 21 134/92 95 06/03/17 20:00 Room Air 06/03/17 16:12 98.0 66 21 120/49 98 Room Air 06/03/17 12:02 97.3 68 19 125/80 97 Room Air Intake and Output 06/04/17 06/05/17 19:00 07:00 Intake Total 480 ml Balance 480 ml Intake Oral 480 ml Laboratory Tests Test 06/04/17 05:20 White Blood Count 5.0 K/UL (4.8-10.8) Red Blood Count 3.66 M/UL (4.20-5.40) L Hemoglobin 10.8 G/DL (12.0-16.0) L Hematocrit 32.1 % (37.0-47.0) L Mean Corpuscular Volume 88 FL (80-99) Mean Corpuscular Hemoglobin 29.4 PG (27.0-31.0) Mean Corpuscular Hemoglobin Concent 33.5 G/DL (32.0-36.0) Red Cell Distribution Width 13.5 % (11.6-14.8) Platelet Count 270 K/UL (150-450) Mean Platelet Volume 7.1 FL (6.5-10.1) Neutrophils (%) (Auto) 64.2 % (45.0-75.0) Lymphocytes (%) (Auto) 20.8 % (20.0-45.0) Monocytes (%) (Auto) 10.3 % (1.0-10.0) H Eosinophils (%) (Auto) 3.1 % (0.0-3.0) H Basophils (%) (Auto) 1.7 % (0.0-2.0) Sodium Level 146 MMOL/L (136-145) H Potassium Level 3.7 MMOL/L (3.5-5.1) Chloride Level 111 MMOL/L (98-107) H Carbon Dioxide Level 29 MMOL/L (21-32) Anion Gap 6 mmol/L (5-15) Blood Urea Nitrogen 4 mg/dL (7-18) L Creatinine 0.6 MG/DL (0.55-1.30) Estimat Glomerular Filtration Rate > 60 mL/min (>60) Glucose Level 91 MG/DL (74-106) Calcium Level 8.1 MG/DL (8.5-10.1) L Objective HEAD AND NECK: No JVD. LUNGS: Coarse rhonchi. CARDIOVASCULAR: Regular S1 and S2. ABDOMEN: Soft. EXTREMITIES: 1 plus pitting edema. CHRISTIAN FONSECA Jun 04, 2017 12:00
[2017-06-04 12:15] VITALS: BP 132/72
--- NOTE | 2017-06-04 17:02 | Pulmonology Progress Note ---
Assessment/Plan Problems: (1) Pyelonephritis (2) UTI (urinary tract infection) (3) ATN (acute tubular necrosis) (4) Septic shock Assessment/Plan no new complains improving wbc is lower hemodynamically better check electrolytes all noted, meds reviewed dc planning for today Subjective ROS Limited/Unobtainable: No Interval Events: doing mch better Allergies: Coded Allergies: No Known Allergies (Unverified , 09/04/12) Objective Last 24 Hour Vital Signs Date Time Temp Pulse Resp B/P (MAP) Pulse Ox O2 Delivery O2 Flow Rate FiO2 06/04/17 12:15 97.7 61 19 132/72 97 Room Air 06/04/17 08:15 98.2 75 20 122/58 96 Room Air 06/04/17 04:00 Room Air 06/04/17 04:00 98.4 65 21 135/64 96 06/04/17 00:00 98.6 71 20 129/61 94 06/04/17 00:00 Room Air 06/03/17 20:00 99.1 72 21 134/92 95 06/03/17 20:00 Room Air Intake and Output 06/04/17 06/05/17 19:00 07:00 Intake Total 480 ml Balance 480 ml Intake Oral 480 ml Objective General Appearance: WD/WN HEENT: normocephalic, atraumatic Respiratory/Chest: chest wall non-tender, lungs clear Breasts: no masses Cardiovascular: normal peripheral pulses Abdomen: normal bowel sounds, soft, non tender Genitourinary: normal external genitalia Skin: no rash Laboratory Tests 06/04/17 05:20: White Blood Count 5.0, Red Blood Count 3.66L, Hemoglobin 10.8L, Hematocrit 32.1L , Mean Corpuscular Volume 88, Mean Corpuscular Hemoglobin 29.4, Mean Corpuscular Hemoglobin Concent 33.5, Red Cell Distribution Width 13.5, Platelet Count 270, Mean Platelet Volume 7.1, Neutrophils (%) (Auto) 64.2, Lymphocytes (% ) (Auto) 20.8, Monocytes (%) (Auto) 10.3H, Eosinophils (%) (Auto) 3.1H, Basophils (%) (Auto) 1.7, Sodium Level 146H, Potassium Level 3.7, Chloride Level 111H, Carbon Dioxide Level 29, Anion Gap 6, Blood Urea Nitrogen 4L, Creatinine 0.6, Estimat Glomerular Filtration Rate > 60, Glucose Level 91, Calcium Level 8.1L ADAMA MENDIETA Jun 04, 2017 17:02
--- NOTE | 2017-06-04 20:41 | General Progress Note ---
Assessment/Plan Assessment/Plan ASSESSMENT AND RECOMMENDATIONS: 1. Leukopenia, improved. s/p neupogen, now actually resolved --> The patient currently on antibiotics, continue to monitor with ID team 2. Thrombocytopenia. Likely related to sepsis/consumption, no heparin administered --> viral studies are negative, us of the abdomen has been reviewed --> resolved 3. Coagulopathy, potentially secondary to myelosuppression. Continue to closely follow. 4. Urinary tract infection, on antibiotics. 5. GRAY has improved --> monitor with nephrology 6.Anemia, currently mild. Subjective Allergies: Coded Allergies: No Known Allergies (Unverified , 09/04/12) All Systems: reviewed and negative except above Subjective no fevers or chills Objective Last 24 Hour Vital Signs Date Time Temp Pulse Resp B/P (MAP) Pulse Ox O2 Delivery O2 Flow Rate FiO2 06/04/17 12:15 97.7 61 19 132/72 97 Room Air 06/04/17 08:15 98.2 75 20 122/58 96 Room Air 06/04/17 04:00 Room Air 06/04/17 04:00 98.4 65 21 135/64 96 06/04/17 00:00 98.6 71 20 129/61 94 06/04/17 00:00 Room Air Intake and Output 06/04/17 06/05/17 19:00 07:00 Intake Total 480 ml Balance 480 ml Intake Oral 480 ml Laboratory Tests 06/04/17 05:20: White Blood Count 5.0, Red Blood Count 3.66L, Hemoglobin 10.8L, Hematocrit 32.1L , Mean Corpuscular Volume 88, Mean Corpuscular Hemoglobin 29.4, Mean Corpuscular Hemoglobin Concent 33.5, Red Cell Distribution Width 13.5, Platelet Count 270, Mean Platelet Volume 7.1, Neutrophils (%) (Auto) 64.2, Lymphocytes (% ) (Auto) 20.8, Monocytes (%) (Auto) 10.3H, Eosinophils (%) (Auto) 3.1H, Basophils (%) (Auto) 1.7, Sodium Level 146H, Potassium Level 3.7, Chloride Level 111H, Carbon Dioxide Level 29, Anion Gap 6, Blood Urea Nitrogen 4L, Creatinine 0.6, Estimat Glomerular Filtration Rate > 60, Glucose Level 91, Calcium Level 8.1L Height (Feet): 5 Height (Inches): 7.00 Weight (Pounds): 345 General Appearance: no apparent distress EENT: normal ENT inspection Neck: normal alignment Extremities: normal range of motion Neurologic: music therapist II-XII grossly normal Valentin Ken Jun 04, 2017 20:41
[2017-06-06] MEDS ORDERED: LEVAQUIN500 MG ORAL (08:41)
--- NOTE | 2017-06-06 08:43 | Discharge Summary ---
Discharge Summary Hospital Course Date of Admission May 27, 2017 at 04:50 Date of Discharge Jun 04, 2017 at 12:10 Admitting Diagnosis septic shock HPI Rufina Darby Cousin is a 67 year old female who was admitted on May 27, 2017 at 04: 50 for Septick Shock Hospital Course dc summary #[id number] Discharge Medications New Medications: Levofloxacin* (Levaquin*) 500 Mg Tablet 500 MG ORAL DAILY, #6 TAB Continued Medications: Acetaminophen* (Tylenol Extra Strength*) 500 Mg Tablet 500 MG ORAL Q6H, #30 TAB 0 Refills Cyclobenzaprine Hcl* (Flexeril*) 10 Mg Tablet 10 MG ORAL THREE TIMES A DAY for 7 Days, #21 TAB Dicyclomine Hcl* (Dicyclomine Hcl*) 10 Mg Capsule 10 MG PO QID, CAP Ferrous Sulfate (Ferrous Sulfate) 325 Mg Tablet 1 TAB ORAL DAILY, TAB 0 Refills Hydrocodone/Acetaminophen 5-325* (Hydrocodone/Acetaminophen 5-325*) 1 Each Tablet 1 TAB ORAL Q6H PRN for For Pain, #20 TAB 0 Refills Lorazepam* (Ativan*) 1 Mg Tablet 1 MG ORAL THREE TIMES A DAY, #15 TAB Tramadol Hcl* (Ultram*) 50 Mg Tablet 50 MG ORAL EVERY 8 HOURS PRN for For Pain, #30 TAB 0 Refills Discharge Condition Upon Discharge: stable Discharge Disposition Patient was discharged to SNF Discharge Diagnoses: Discharge Instructions Discharge Instructions Special Instructions I have been assigned to complete a D/C Summary on this account. I was not involved in the patient management Carole Mohamud NP ([place]anchtein) Jun 06, 2017 08:43
--- NOTE | 2017-06-06 11:15 | Discharge Summary 2 SIG ---
DATE OF ADMISSION: 05/27/2017 DATE OF DISCHARGE: 06/04/2017 REASON FOR ADMISSION: 67-year-old female with history of gastric bypass, chronic diarrhea, low back pain, COPD, bronchitis, remote history of DVT, presented to emergency department with chills and fever. She reported feeling lightheaded . Workup in the emergency room revealed severe leukopenia, WBC- 0.8. Lactic acid - 6.6. Potassium -3.2. Total bilirubin -2.2, direct bilirubin -1.1, AST- 127, ALT- 85. Troponin was negative. Urinalysis with gross evidence of UTI. EKG showed normal sinus rhythm with diffuse ST depression. Chest x-ray was negative. Venous duplex of bilateral lower extremities was negative. Vital signs revealed fever-102.9, heart rate- 130, blood pressure-99/46, and pulse oximetry was stable on room air. Central line was inserted. The patient was started on septic protocol and transferred to ICU for further management with diagnoses of septic shock, acute febrile illness, UTI, possible pyelonephritis. HOSPITAL COURSE: The patient was admitted to ICU. Patient was on IV fluids, blood pressure did not respond to fluid challenge, and the patient was started on Levophed to keep mean arterial systolic pressure above 65. Supervisor [employer] followed. Hypotension was likely secondary to septic shock. The patient had no chest pain. No shortness of breath. Troponin was negative. Echocardiogram revealed preserved ejection fraction of 50% to 55%, right ventricular systolic pressure of 38 consistent with mild pulmonary hypertension, and significant left diastolic dysfunction. No evidence of CHF exacerbation at this time. The patient was ruled out for acute MS. The patient eventually was able to be weaned from the Levophed and started on midodrine. Blood pressure was stable. Warp Clamper closely followed. The patient initially demonstrated evidence of acute renal failure with BUN -31 and creatinine- 1.8. Per associate art director, renal failure likely multifactorial secondary to unstable hemodynamics, possibly also due to aminoglycoside, since Amikacin was administered in the emergency department , possible chronic kidney disease. The patient was hydrated with IV fluids. Electrolytes were replaced as needed. Nephrotoxics were avoided.Specifically, was advised to avoid nonsteroid anti-inflammatory drugs for pain management. Acute renal failure eventually resolved. Creatinine and BUN down to normal values. Infectious disease doctor followed the patient. Urine culture revealed Enterobacter. Blood culture revealed Enterobacter. The patient was on IV antibiotics. Repeated blood cultures were negative. Antibiotic changed to oral for additional five more days to complete the course of treatment as per ID recommendation. Lactic acidosis resolved, likely secondary to sepsis. Health Informatics Advisor had seen the patient. The patient initially was given one dose of Neupogen for severe leukopenia, WBC- 0.8. Leukopenia was likely secondary to septic shock. It resolved after Neupogen. Actually, the patient had leukocytosis afterwards until infection resolved. The patient had remote history of DVT. Venous duplex was negative. The patient had evidence of thrombocytopenia. Heparin was held. HIV test was negative. Hepatitis panel was negative. Abdominal ultrasound revealed no evidence of cirrhosis. Thrombocytopenia resolved. Platelet count stable upon discharge, thrombocytopenia was likely secondary to sepsis as well. The patient had mild anemia. Workup revealed anemia of chronic disease. Counts were clsoely monitored. No trend down. Continue to monitor in the [facility]. The patient with history of gastric bypass and had chronic diarrhea. GI consulted. Symptomatic treatment provided. Patient was started on low-residue diet with small frequent meals. The patient was initially on MiraLAX and Protonix, which were discontinued. Imodium was provided as needed. Diarrhea improved. Patient was started on trial of cholestyramine. EGD and colonoscopy were done earlier in 2017. Pain management was provided. The patient had history of COPD. Supplemental oxygen and pulmonary toilet were on standby. Pulse oximetry was stable on room air. No evidence of COPD exacerbation. No cough. No wheezing. All consultants cleared the patient for discharge. The patient was stable for discharge to the [facility]. FINAL DIAGNOSES: 1. Septic shock, resolved. 2. Sepsis with Enterobacter. 3. Urinary tract infection with Enterobacter. 4. Acute renal failure, resolved. 5. Electrolyte imbalance; hypokalemia, hypernatremia, hypocalcemia. 6. Chronic obstructive pulmonary disease. 7. Transaminitis. 8. Lactic acidosis. 9. History of gastric bypass. 10. Dumping syndrome. 11. Anemia. 12. Thrombocytopenia, resolved. 13. Chronic diarrhea. DISCHARGE MEDICATIONS: See medication reconciliation list. DISCHARGE INSTRUCTIONS: The patient was discharged to [facility]. FOLLOWUP: Follow up with medical doctor at the facility. Alfonso Rodríguez D.O. I have been assigned to dictate discharge summary on this account and I was not involved in the patient's management. Carole Puckettallie N.PMigel DR: Liz JOB#: [id number] CC: DONTAE
== END 2017-06-04 12:10 | DRG 871 ==
LOC: EDBD 04:18 → EMR 04:46 → ICU 04:50 → EDBEDREQ 09:37 → ICU 10:38 → 2W 05-30 16:31 → 3E 05-31 23:45 → 4E 05-31 23:56
DX: A41.9 Sepsis, unspecified organism (principal); R65.21 Severe sepsis with septic shock; N17.0 Acute kidney failure with tubular necrosis; E46 Unspecified protein-calorie malnutrition; E87.0 Hyperosmolality and hypernatremia; D69.6 Thrombocytopenia, unspecified; N13.30 Unspecified hydronephrosis; E83.51 Hypocalcemia; N39.0 Urinary tract infection, site not specified; Z86.718 Personal history of other venous thrombosis and embolism; F41.9 Anxiety disorder, unspecified; J44.9 Chronic obstructive pulmonary disease, unspecified; E87.6 Hypokalemia; D63.8 Anemia in other chronic diseases classified elsewhere; Z98.84 Bariatric surgery status; B96.89 Other specified bacterial agents as the cause of diseases classified elsewhere; R74.0 Nonspecific elevation of levels of transaminase and lactic acid dehydrogenase [LDH]; Z96.652 Presence of left artificial knee joint; K52.89 Other specified noninfective gastroenteritis and colitis; E66.01 Morbid (severe) obesity due to excess calories; R42 Dizziness and giddiness; K91.1 Postgastric surgery syndromes; Y83.9 Surgical procedure, unspecified as the cause of abnormal reaction of the patient, or of later complication, without mention of misadventure at the time of the procedure; Z22.322 Carrier or suspected carrier of Methicillin resistant Staphylococcus aureus
CPT/HCPCS: 36415; 36600; 71010; 74176; 76700; 80048; 80053; 80150; 81003; 82043; 82248; 82378; 82550; 82553; 82570; 82607; 82746; 82803; 83540; 83550; 83605; 83735; 83880; 84100; 84300; 84439; 84443; 84484; 85007; 85025; 85384; 85610; 85651; 85730; 86703; 86705; 86709; 86710; 86803; 87040; 87070; 87081; 87086; 87181; 87205; 87340; 89050; 93005; 93306; 93970; 94640; 94664; 94760; 97803; J2405; J7620; J8499

== ENCOUNTER 2017-09-26 00:32 | Emergency (ER) | payer MEDICARE, MEDICAID ==
[~2017-09-26] VITALS: Ht 167.6 cm; Wt 108.9 kg
[~2017-09-26 00:32] MED LIST changes: +ACETAMINOPHEN-1 EAC1 ORAL; +DICYCLOMINE HCL10 MG PO; +FEOSOL1 TAB ORAL; +HYDROXYZINE HCL10 M1 PO; +LEVAQUIN500 MG ORAL; +TRAMADOL HCL50 MG ORAL; +ZOFRAN4 M3 ORAL
--- NOTE | 2017-09-26 01:06 | Emergency Room Report ---
History of Present Illness General Chief Complaint: Female Urogenital Problems Source: Patient Present Illness HPI 67-year-old female, history of obesity with gastric bypass, also history of septic shock/UTI this past May, presenting with gross hematuria for 4 days also with some crampy suprapubic pain. Denies being on any blood thinners. No fever no chills. No nausea vomiting diarrhea. Allergies: Coded Allergies: No Known Allergies (Unverified , 09/04/12) Patient History Past Medical History: see triage record Past Surgical History: none Pertinent Family History: none Last Menstrual Period: n/a Reviewed Nursing Documentation: PMH: Agreed; PSxH: Agreed Nursing Documentation-PMH Past Medical History: No History, Except For Hx Cardiac Problems: Yes Hx Hypertension: No - left knee replacement Hx Pacemaker: No Hx Asthma: Yes - bronchitis Hx COPD: Yes Hx Diabetes: No Hx Cancer: No Hx Dialysis: No - AKF 05/2017 Hx Neurological Problems: No Hx Cerebrovascular Accident: No Hx Seizures: No Review of Systems All Other Systems: negative except mentioned in HPI Physical Exam Vital Signs Date Time Temp Pulse Resp B/P (MAP) Pulse Ox O2 Delivery O2 Flow Rate FiO2 09/26/17 00:43 97.8 83 16 130/74 100 Room Air 97.9 Sp02 EP Interpretation: reviewed, normal General Appearance: normal inspection, well appearing, no apparent distress, alert, GCS 15, non-toxic Head: normocephalic, atraumatic Eyes: bilateral eye normal inspection, bilateral eye PERRL, bilateral eye EOMI ENT: normal ENT inspection, normal pharynx, normal voice, moist mucus membranes Neck: normal inspection, full range of motion, supple Respiratory: normal inspection, lungs clear, normal breath sounds, no respiratory distress, no retraction, no wheezing, speaking full sentences, chest symmetrical Cardiovascular #1: normal inspection, regular rate, rhythm, no edema, normal capillary refill Cardiovascular #2: 2+ radial (R), 2+ radial (L) Gastrointestinal: soft, non-distended, no guarding, other - nontender, no guarding no rigidity, no focal right or left lower quadrant tenderness Genitourinary: no CVA tenderness Musculoskeletal: normal inspection, back normal, normal range of motion, non- tender Neurologic: normal inspection, alert, oriented x3, responsive, motor strength/ tone normal, sensory intact, normal gait, speech normal Psychiatric: normal inspection, judgement/insight normal, memory normal Skin: normal inspection, normal color, no rash, warm/dry, well hydrated, normal turgor Medical Decision Making Diagnostic Impression: Primary Impression: Hematuria ER Course 67-year-old female with hematuria and suprapubic pain DDX: UTI/pyelonephritis, coagulopathy Plan: Obtain labs, ua, ucx, coags ER course: Patient has remained stable during ED stay. Remains nontoxic labs unremarkable except for hematuria pt asymptomatic stable for dc with pmd fu Disposition: Patient is to be discharged to home. Patient is instructed to follow up with their primary care doctor within 2 days. Strict return precautions discussed with patient such as fever, chills, worsening/severe pain, chest pain, SOB, nausea, vomiting, which may indicate severe illness. Patient verbalizes understanding and agrees with plan. Please note that this Emergency Department Report was dictated using [employer] designer technology software, occasionally this can lead to erroneous entry secondary to interpretation by the dictation equipment EKG Diagnostic Results EP Interpretation: Yes Rate: normal Rhythm: NSR ST Segments: No acute changes ASA given to patient: No Laboratory Tests Test 09/26/17 00:46 09/26/17 01:07 Urine Color Red Urine Appearance Turbid Urine pH 6 (4.5-8.0) Urine Specific [place] 1.025 (1.005-1.035) Urine Protein 3+ (NEGATIVE) H Urine Glucose (UA) Negative (NEGATIVE) Urine Ketones 2+ (NEGATIVE) H Urine Occult Blood 5+ (NEGATIVE) H Urine Nitrite Negative (NEGATIVE) Urine Bilirubin Negative (NEGATIVE) Urine Urobilinogen 1 MG/DL (0.0-1.0) H Urine Leukocyte Esterase 1+ (NEGATIVE) H Urine RBC Tntc /HPF (0 - 2) H Urine WBC 2-4 /HPF (0 - 2) Urine Squamous Epithelial Cells Occasional /LPF Urine Bacteria Few /HPF (NONE) White Blood Count 4.5 K/UL (4.8-10.8) L Red Blood Count 4.46 M/UL (4.20-5.40) Hemoglobin 12.2 G/DL (12.0-16.0) Hematocrit 37.7 % (37.0-47.0) Mean Corpuscular Volume 85 FL (80-99) Mean Corpuscular Hemoglobin 27.3 PG (27.0-31.0) Mean Corpuscular Hemoglobin Concent 32.3 G/DL (32.0-36.0) Red Cell Distribution Width 13.4 % (11.6-14.8) Platelet Count 208 K/UL (150-450) Mean Platelet Volume 7.1 FL (6.5-10.1) Neutrophils (%) (Auto) 45.7 % (45.0-75.0) Lymphocytes (%) (Auto) 37.3 % (20.0-45.0) Monocytes (%) (Auto) 11.8 % (1.0-10.0) H Eosinophils (%) (Auto) 3.2 % (0.0-3.0) H Basophils (%) (Auto) 2.0 % (0.0-2.0) Prothrombin Time 10.0 SEC (9.30-11.50) Prothrombin Time INR 1.0 (0.9-1.1) PTT 25 SEC (23-33) Sodium Level 139 MMOL/L (136-145) Potassium Level 3.5 MMOL/L (3.5-5.1) Chloride Level 103 MMOL/L (98-107) Carbon Dioxide Level 31 MMOL/L (21-32) Anion Gap 5 mmol/L (5-15) Blood Urea Nitrogen 14 mg/dL (7-18) Creatinine 0.6 MG/DL (0.55-1.30) Estimate Glomerular Filtration Rate > 60 mL/min (>60) Glucose Level 103 MG/DL (74-106) Calcium Level 8.3 MG/DL (8.5-10.1) L Total Bilirubin 0.3 MG/DL (0.2-1.0) Aspartate Amino Transferase (AST) 22 U/L (15-37) Alanine Aminotransferase (ALT) 10 U/L (12-78) L Alkaline Phosphatase 80 U/L (46-116) Troponin I 0.000 ng/mL (0.000-0.056) Pro-B-Type Natriuretic Peptide 23 pg/mL (0-125) Total Protein 6.8 G/DL (6.4-8.2) Albumin 3.7 G/DL (3.4-5.0) Globulin 3.1 g/dL Albumin/Globulin Ratio 1.2 (1.0-2.7) Last Vital Signs Date Time Temp Pulse Resp B/P (MAP) Pulse Ox O2 Delivery O2 Flow Rate FiO2 09/26/17 00:43 97.8 83 16 130/74 100 Room Air 97.9 Disposition: HOME, SELF-CARE Condition: Improved Pawel Le M.D. Sep 26, 2017 01:06
[2017-09-26 01:30] LABS: EOSINOPHILS % (AUTO) 3.2 % (0.0-3.0); HEMATOCRIT 37.7 % (37.0-47.0); HEMOGLOBIN 12.2 G/DL (12.0-16.0); LYMPHOCYTES % (AUTO) 37.3 % (20.0-45.0); MEAN CORPUSCULAR VOLUME 85 FL (80-99); MONOCYTES % (AUTO) 11.8 % (1.0-10.0); NEUTROPHILS % (AUTO) 45.7 % (45.0-75.0); PLATELET COUNT 208 K/UL (150-450); RED BLOOD COUNT 4.46 M/UL (4.20-5.40); RED CELL DISTRIBUTION WIDTH 13.4 % (11.6-14.8); WHITE BLOOD COUNT 4.5 K/UL (4.8-10.8)
[2017-09-26 01:38] LABS: APPEARANCE,URINE TURBID; BILIRUBIN, URINE NEGATIVE (NEGATIVE); GLUCOSE, URINE (UA) NEGATIVE (NEGATIVE); KETONES,URINE 2+ (NEGATIVE); LEUKOCYTE ESTERASE ,URINE 1+ (NEGATIVE); NITRITE,URINE NEGATIVE (NEGATIVE); PH,URINE 6 (4.5-8.0); PROTEIN,URINE 3+ (NEGATIVE); UROBILINOGEN,URINE 1 MG/DL (0.0-1.0)
[2017-09-26 01:39] LABS: COLOR,URINE RED
[2017-09-26 01:43] LABS: ANION GAP 5 mmol/L (5-15); BLOOD UREA NITROGEN 14 mg/dL (7-18); CALCIUM 8.3 MG/DL (8.5-10.1); CARBON DIOXIDE 31 MMOL/L (21-32); CHLORIDE 103 MMOL/L (98-107); CREATININE 0.6 MG/DL (0.55-1.30); POTASSIUM 3.5 MMOL/L (3.5-5.1); SODIUM 139 MMOL/L (136-145)
[2017-09-26 01:54] LABS: ALANINE AMINOTRANSFERASE 10 U/L (12-78); ALBUMIN 3.7 G/DL (3.4-5.0); ALBUMIN/GLOBULIN RATIO 1.2 (1.0-2.7); ALKALINE PHOSPHATASE 80 U/L (46-116); ASPARTATE AMINO TRANSFERASE 22 U/L (15-37); BILIRUBIN,TOTAL 0.3 MG/DL (0.2-1.0)
[2017-09-26 02:46] VITALS: BP 130/74
--- NOTE | 2017-09-26 16:31 | Cardiology Report ---
APPROVED REPORT EKG Measurement Heart [id number] MI [id number] Sinus rhythm with marked sinus arrhythmia with 1st degree AV block Cannot rule out Anterior infarct, age undetermined Abnormal ECG
== END 2017-09-26 02:47 | disposition home or self-care (01) ==
LOC: EMR 00:59
DX: R31.9 Hematuria, unspecified (principal); Z98.84 Bariatric surgery status; Z96.652 Presence of left artificial knee joint
CPT/HCPCS: 36415; 80053; 81003; 83880; 84484; 85025; 85610; 85730; 93005; 99282

== ENCOUNTER 2018-12-09 08:57 | Inpatient (IN) | payer MEDICAID, MEDICARE ==
[~2018-12-09] VITALS: Ht 165.1 cm; Wt 110.7 kg
--- NOTE | 2018-12-09 08:57 | NUR ---
ED Nurse Note: Patient brought in by ambulance RA 69 from home due to s/p fall, patient reports she slip and fell mechanical ground fall this morning, c/o right hip pain 01/01 patient is alert awake x4 breahthing unlabored and even, patient denies any head injury reports she fell on her right side, patient reports she has bilateral knee replacement, right knee pain as well but it's chronic.
[2018-12-09 09:02] VITALS: BP 114/54
[2018-12-09] MEDS ORDERED: PROAIR HFA8.5 GM INH (09:10)
--- NOTE | 2018-12-09 09:25 | NUR ---
ED Nurse Note: blood sent to lab
--- NOTE | 2018-12-09 09:27 | NUR ---
ED Nurse Note: Patient went to CT
[2018-12-09 09:30] LABS: HEMATOCRIT 25.8 % (37.0-47.0); HEMOGLOBIN 7.4 G/DL (12.0-16.0); MEAN CORPUSCULAR VOLUME 72 FL (80-99); PLATELET COUNT 319 K/UL (150-450); RED CELL DISTRIBUTION WIDTH 18.4 % (11.6-14.8); WHITE BLOOD COUNT 3.3 K/UL (4.8-10.8)
[2018-12-09 09:49] LABS: ANION GAP 6 mmol/L (5-15); BLOOD UREA NITROGEN 7 mg/dL (7-18); CALCIUM 8.2 MG/DL (8.5-10.1); CARBON DIOXIDE 27 MMOL/L (21-32); CHLORIDE 108 MMOL/L (98-107); CREATININE 0.4 MG/DL (0.55-1.30); POTASSIUM 4.1 MMOL/L (3.5-5.1); SODIUM 141 MMOL/L (136-145)
[2018-12-09 09:54] LABS: ALANINE AMINOTRANSFERASE 10 U/L (12-78); ALBUMIN 2.7 G/DL (3.4-5.0); ALBUMIN/GLOBULIN RATIO 0.8 (1.0-2.7); ALKALINE PHOSPHATASE 68 U/L (46-116); ASPARTATE AMINO TRANSFERASE 11 U/L (15-37); BILIRUBIN,TOTAL 0.2 MG/DL (0.2-1.0)
--- NOTE | 2018-12-09 09:58 | Diagnostic Imaging Report ---
Indications: Head trauma, slip and fall Technique: Spiral acquisitions obtained through the brain. Angled axial and coronal 5 x 5 mm slices were reconstructed. Total dose length product 1383.28 mGycm. CTDI vol(s) 70.38 mGy. Dose reduction achieved using automated exposure control Comparison: 04/23/2007 Findings: No acute intracranial hemorrhage nor edema, mass effect, nor midline shift. There is periventricular deep white matter low-attenuation consistent with chronic microvascular ischemic changes, progressive since the previous study. Normal size ventricles and extra axial CSF spaces, for age. Otherwise normal rojas-white differentiation. Visualized orbits are unremarkable. There is ethmoid and sphenoid sinus and mucosal disease and right maxillary sinus opacification. The mastoids are clear. The calvarium is intact. Impression: Negative for acute intracranial bleed or mass effect Periventricular deep white matter low-attenuation, consistent with chronic microvascular ischemic change, progressive since 04/23/[address] scanner at [facility] is accredited by the [employer] and the scans are performed using protocols designed to limit radiation exposure to as low as reasonably achievable to attain images of sufficient resolution adequate for diagnostic evaluation.
--- NOTE | 2018-12-09 10:10 | NUR ---
ED Nurse Note: patient came back from CT
--- NOTE | 2018-12-09 10:16 | NUR ---
ED Nurse Note: notified Dr. Garcia for patient's need for pain medication
--- NOTE | 2018-12-09 10:39 | NUR ---
ED Nurse Note: notified Dr. Garcia again regarding patient's pain.
--- NOTE | 2018-12-09 10:40 | Diagnostic Imaging Report ---
Indication: Chest pain Technique: One view of the chest Comparison: 05/28/2017 Findings: Previously demonstrated central venous catheter is no longer evident. Lungs pleural spaces are clear. The heart size is upper limits normal. The aorta is tortuous and calcified. Extensive surgical clips are seen in the epigastric region and right upper quadrant. No significant interim change other than the central line removal Impression: No acute process. Findings as noted
--- NOTE | 2018-12-09 10:45 | Diagnostic Imaging Report ---
Clinical Indication:Trauma, pain, status post fall Technique: 3 views of the right wrist Comparison: None Findings: On the lateral view, triangular density projects at the anterior base of the first metacarpal, could represent a fracture fragment. However, there is considerable degenerative change of the first carpometacarpal joint with degenerative remodeling. No other evidence of fracture or dislocation. The remaining joint spaces are preserved. The bones are osteoporotic. Impression: Degenerative changes of the first carpometacarpal joint, progressive since prior exam 08/01/2016 Possible bony fragment at the base of the first metacarpal, could indicate fracture fragment of indeterminate acuity, versus heterotopic new bone related to degenerative changes. Correlate with clinical finding No other acute bony trauma Osteoporosis. Findings discussed by phone with Dr. Jasmine in the emergency room at the time of interpretation
[2018-12-09] MEDS: HYDROcodone/Acetamin 5/325 tab ORAL ONE ×2 (10:56→11:06)
--- NOTE | 2018-12-09 11:06 | NUR ---
ED Nurse Note: patient refused to take [place] stating that she takes it every other day, and it will not going to help her pain right now. patient wants to talk to Dr. Garcia, notified Dr. Garcia, and she said she will come and talk to patient.
--- NOTE | 2018-12-09 11:09 | Diagnostic Imaging Report ---
Indication: Trauma, pain, status post fall Technique: One view of the pelvis, 2 views of the right hip Comparison: none Findings: No acute fractures. No dislocations. The joint spaces are preserved. Impression: No definite acute bony trauma Note, however, that in early osteoporotic patients, nondisplaced hip and pelvic fractures can easily be occult. Consider cross-sectional imaging if there is high clinical suspicion
[2018-12-09] MEDS ORDERED: Morphine Sulfate 4mg/ml Inj (IV USE ONLY) IVP ONE (11:30)
--- NOTE | 2018-12-09 11:55 | Emergency Room Report ---
History of Present Illness General Chief Complaint: Multiple Trauma/Fall Source: Patient Present Illness HPI This patient states that she was walking and there was an uneven surface on the floor and she slipped and fell onto her right side. She complains of pain in her right hip and right buttock. She also complains of right wrist pain. She denies that she had any symptoms prior to the fall. She states that she was not lightheaded. She did not have chest pain. She had been feeling well and was going to take care of some puppies that were in the laundry room. She states that her pain is excruciating and intolerable. She states she also is currently in a work-up for anemia. However, she does have a history of gastric bypass and has dumping syndrome. She is taking a lot of iron tablets daily. She has had a full work-up to include upper and lower endoscopy. She states that otherwise she has been feeling well. She denies head trauma or injury. She denies headache or neck pain. She denies chest pain or shortness of breath. She denies abdominal pain. She has no other complaints. Allergies: Coded Allergies: No Known Allergies (Unverified , 09/04/12) Patient History Past Medical History: see triage record, asthma, other - anemia Past Surgical History: hysterectomy, other - BL Knee replacement, gastric bypass x2, exploratory lap. Social History: Denies: smoking, alcohol use, drug use Now: No Reviewed Nursing Documentation: PMH: Agreed; PSxH: Agreed Nursing Documentation-PMH Past Medical History: No History, Except For Hx Hypertension: No - left knee replacement Hx Pacemaker: No Hx Asthma: Yes Hx COPD: Yes Hx Diabetes: No Hx Cancer: No Hx Dialysis: No - AKF 05/2017 History Of Psychiatric Problem: No Hx Neurological Problems: No Hx Cerebrovascular Accident: No Hx Seizures: No Review of Systems All Other Systems: negative except mentioned in HPI Physical Exam Vital Signs Date Time Temp Pulse Resp B/P (MAP) Pulse Ox O2 Delivery O2 Flow Rate FiO2 12/09/18 08:48 98.1 78 14 114/54 (74) 100 Room Air Sp02 EP Interpretation: reviewed, normal General Appearance: no apparent distress, alert, GCS 15, non-toxic Head: normocephalic, atraumatic Eyes: bilateral eye normal inspection, bilateral eye PERRL ENT: hearing grossly normal, normal pharynx, no angioedema, normal voice Neck: full range of motion, supple/symm/no masses Respiratory: chest non-tender, lungs clear, normal breath sounds, no respiratory distress, no retraction, no accessory muscle use, speaking full sentences Cardiovascular #1: regular rate, rhythm, no edema Gastrointestinal: normal bowel sounds, non tender, soft, non-distended, no guarding, no rebound Rectal: deferred Musculoskeletal: back normal, normal range of motion, other - TTP over the R. buttock soft tissue. No pain w/ROM of the R. hip. Abrasion over R. elbow. + Pain w/ ROM of the R. wrist. No Bony TTP of the R. hand/wrist. Neurologic: alert, oriented x3, responsive, motor strength/tone normal, sensory intact, speech normal Psychiatric: judgement/insight normal, memory normal, mood/affect normal, no suicidal/homicidal ideation Skin: normal color, no rash, warm/dry, well hydrated Medical Decision Making Diagnostic Impression: Primary Impression: Intractable pain Additional Impressions: Fall Contusion Anemia ER Course This patient has severe intractable pain. She is obese and has difficulty getting up and down the stairs of her home. She states she is concerned that she will be unable to get up and down the stairs in her home. She was offered oral [place] here in the emergency department and declined it stating she needed IV pain medications. The patient may have developed a tolerance for narcotics. She was given IV morphine in the emergency department. She was asking for Dilaudid. I felt that given the lack of significant injury, Dilaudid was not indicated. The patient will be admitted for pain control and for rehab and evaluation for her home safety. She is admitted for further evaluation and treatment. Laboratory Tests Test 12/09/18 09:15 White Blood Count 3.3 K/UL (4.8-10.8) L Red Blood Count 3.60 M/UL (4.20-5.40) L Hemoglobin 7.4 G/DL (12.0-16.0) L Hematocrit 25.8 % (37.0-47.0) L Mean Corpuscular Volume 72 FL (80-99) L Mean Corpuscular Hemoglobin 20.5 PG (27.0-31.0) L Mean Corpuscular Hemoglobin Concent 28.7 G/DL (32.0-36.0) L Red Cell Distribution Width 18.4 % (11.6-14.8) H Platelet Count 319 K/UL (150-450) Mean Platelet Volume 6.6 FL (6.5-10.1) Neutrophils (%) (Auto) % (45.0-75.0) Lymphocytes (%) (Auto) % (20.0-45.0) Monocytes (%) (Auto) % (1.0-10.0) Eosinophils (%) (Auto) % (0.0-3.0) Basophils (%) (Auto) % (0.0-2.0) Differential Total Cells Counted 100 Neutrophils % (Manual) 58 % (45-75) Lymphocytes % (Manual) 24 % (20-45) Monocytes % (Manual) 12 % (1-10) H Eosinophils % (Manual) 4 % (0-3) H Basophils % (Manual) 2 % (0-2) Band Neutrophils 0 % (0-8) Platelet Estimate Adequate Platelet Morphology Normal Hypochromasia 3+ Anisocytosis 2+ Microcytosis 2+ Prothrombin Time 10.5 SEC (9.30-11.50) Prothrombin Time INR 1.0 (0.9-1.1) PTT 25 SEC (23-33) Sodium Level 141 MMOL/L (136-145) Potassium Level 4.1 MMOL/L (3.5-5.1) Chloride Level 108 MMOL/L (98-107) H Carbon Dioxide Level 27 MMOL/L (21-32) Anion Gap 6 mmol/L (5-15) Blood Urea Nitrogen 7 mg/dL (7-18) Creatinine 0.4 MG/DL (0.55-1.30) L Estimate Glomerular Filtration Rate > 60 mL/min (>60) Glucose Level 108 MG/DL (74-106) H Calcium Level 8.2 MG/DL (8.5-10.1) L Total Bilirubin 0.2 MG/DL (0.2-1.0) Aspartate Amino Transferase (AST) 11 U/L (15-37) L Alanine Aminotransferase (ALT) 10 U/L (12-78) L Alkaline Phosphatase 68 U/L (46-116) Troponin I 0.000 ng/mL (0.000-0.056) Total Protein 6.0 G/DL (6.4-8.2) L Albumin 2.7 G/DL (3.4-5.0) L Globulin 3.3 g/dL Albumin/Globulin Ratio 0.8 (1.0-2.7) L EKG Diagnostic Results Rate: normal Rhythm: other - SR w/ 1st degree AV block ST Segments: no acute changes Rhythm Strip Diag. Results EP Interpretation: yes Rate: 60's Rhythm: NSR, no PVC's, no ectopy Chest X-Ray Diagnostic Results Chest X-Ray Diagnostic Results : Chest X-Ray Ordered: Yes # of Views/Limited/Complete: 1 View Indication: Other - fall EP Interpretation: Yes Interpretation: no consolidation, no effusion, no pneumothorax, no acute cardiopulmonary disease Impression: No acute disease Electronically Signed by: Leigha Garcia DO Other X-Ray Diagnostic Results Other X-Ray Diagnostic Results : X-Ray ordered: R. wrist, R. hip # of Views/Limited Vs Complete: Complete Indication: Pain EP Interpretation: Yes Interpretation: no dislocation, no soft tissue swelling, no fractures Impression: No acute disease Electronically Signed by: Leigha Garcia DO PA Scribe Text Please see electronic medical record for full reports. CT/MRI/US Diagnostic Results CT/MRI/US Diagnostic Results : Imaging Test Ordered: CT head Impression No acute findings. Specifically no intracranial bleed, mass effect or edema. See official report. Last Vital Signs Date Time Temp Pulse Resp B/P (MAP) Pulse Ox O2 Delivery O2 Flow Rate FiO2 12/09/18 09:03 78 14 Room Air 12/09/18 09:02 98.1 114/54 100 Disposition: ADMITTED INPATIENT Condition: Stable Referrals: NOT CHOSEN IPA/,REFERRING (PCP) Leigha Garcia DO Dec 09, 2018 11:55
[2018-12-09 12:35] VITALS: BP 119/61
--- NOTE | 2018-12-09 13:18 | NUR ---
ED Nurse Note: report given to Christina in 4E. Endorsed all plan of care to Christina ROBLERO.
--- NOTE | 2018-12-09 13:50 | NUR ---
ED Nurse Note: Patient left ED with all of her belongigns with CERTIFIED ADAPTED PHYSICAL EDUCATOR Heidi and report given to Christina
--- NOTE | 2018-12-09 14:21 | Consultation ---
History of Present Illness General Date patient seen: Dec 09, 2018 Chief Complaint: Multiple Trauma/Fall Present Illness HPI 68 year old female with hx of gastric bypass, dumping syndrome, COPD, presented to ER after and episode of fall. She slipped and fell onto her right side. She complained of pain in her right hip and right buttock. She also complains of right wrist pain. She stated that her pain is excruciating and intolerable. She states that otherwise she has been feeling well. She denies head trauma or injury. She denies headache or neck pain. she was found to be severely anemic. She is admitted for further work up. Allergies: Coded Allergies: No Known Allergies (Unverified , 09/04/12) Medication History Scheduled Acetaminophen* (Tylenol Extra Strength*), 500 MG ORAL Q6H Albuterol Sulfate* (Proair Hfa*), 1 PUFF INH Q6H, (Reported) Cyclobenzaprine Hcl* (Flexeril*), 10 MG ORAL THREE TIMES A DAY Cyclobenzaprine Hcl* (Flexeril*), 10 MG ORAL TWICE A DAY, (Reported) Dicyclomine Hcl* (Dicyclomine Hcl*), 10 MG PO QID, (Reported) Ferrous Sulfate (Ferrous Sulfate), 1 TAB ORAL DAILY, (Reported) Furosemide (Furosemide), 20 MG PO DAILY, (Reported) Hydroxyzine Hcl (Hydroxyzine Hcl), 25 MG PO THREE TIMES A DAY, (Reported) Ibuprofen* (Motrin*), 600 MG ORAL THREE TIMES A DAY Levofloxacin* (Levaquin*), 500 MG ORAL DAILY Lorazepam* (Ativan*), 1 MG ORAL THREE TIMES A DAY Naproxen* (Naproxen*), 500 MG ORAL TWICE A DAY, (Reported) Prednisone* (Prednisone*), 60 MG ORAL DAILY Trimethoprim/Sulfamethoxazole 160/800* (Bactrim Ds Tablet*), 1 TAB ORAL Q12H Scheduled PRN Acetaminophen With Codeine (T#3) (Tylenol #3 Tab*), 2 TAB ORAL Q8HR PRN for For Pain, (Reported) Hydrocodone/Acetaminophen 5-325* (Hydrocodone/Acetaminophen 5-325*), 1 TAB ORAL Q6H PRN for For Pain Ibuprofen* (Motrin*), 200 MG ORAL FOUR TIMES A DAY PRN for For Pain, (Reported) Ondansetron* (Zofran*), 4 MG ORAL Q6H PRN for Nausea & Vomiting, (Reported) Tramadol Hcl* (Ultram*), 50 MG ORAL EVERY 8 HOURS PRN for For Pain, (Reported) Patient History Healthcare decision maker AMANDADon DAVID Resuscitation status Advanced Directive on File No Past Medical/Surgical History Past Medical/Surgical History: (1) Chronic diarrhea (2) Dumping syndrome (3) Anxiety (4) History of DVT (deep vein thrombosis) (5) Obesities, morbid (6) H/O gastric bypass Review of Systems All Other Systems: negative except mentioned in HPI Physical Exam General Appearance: WD/WN Lines, tubes and drains: peripheral, central line HEENT: normocephalic, anicteric Neck: non-tender, supple Respiratory/Chest: chest wall non-tender, no respiratory distress Breasts: no masses Cardiovascular/Chest: normal peripheral pulses Abdomen: normal bowel sounds Last 24 Hour Vital Signs Date Time Temp Pulse Resp B/P (MAP) Pulse Ox O2 Delivery O2 Flow Rate FiO2 12/09/18 13:49 98.1 71 16 119/61 98 Room Air 12/09/18 12:35 98.1 71 16 119/61 98 Room Air 12/09/18 11:50 98.1 12/09/18 09:03 78 14 Room Air 12/09/18 09:02 98.1 78 14 114/54 100 Room Air 12/09/18 08:48 98.1 78 14 114/54 (74) 100 Room Air Laboratory Tests Test 12/09/18 09:15 White Blood Count 3.3 K/UL (4.8-10.8) L Red Blood Count 3.60 M/UL (4.20-5.40) L Hemoglobin 7.4 G/DL (12.0-16.0) L Hematocrit 25.8 % (37.0-47.0) L Mean Corpuscular Volume 72 FL (80-99) L Mean Corpuscular Hemoglobin 20.5 PG (27.0-31.0) L Mean Corpuscular Hemoglobin Concent 28.7 G/DL (32.0-36.0) L Red Cell Distribution Width 18.4 % (11.6-14.8) H Platelet Count 319 K/UL (150-450) Mean Platelet Volume 6.6 FL (6.5-10.1) Neutrophils (%) (Auto) % (45.0-75.0) Lymphocytes (%) (Auto) % (20.0-45.0) Monocytes (%) (Auto) % (1.0-10.0) Eosinophils (%) (Auto) % (0.0-3.0) Basophils (%) (Auto) % (0.0-2.0) Differential Total Cells Counted 100 Neutrophils % (Manual) 58 % (45-75) Lymphocytes % (Manual) 24 % (20-45) Monocytes % (Manual) 12 % (1-10) H Eosinophils % (Manual) 4 % (0-3) H Basophils % (Manual) 2 % (0-2) Band Neutrophils 0 % (0-8) Platelet Estimate Adequate Platelet Morphology Normal Hypochromasia 3+ Anisocytosis 2+ Microcytosis 2+ Prothrombin Time 10.5 SEC (9.30-11.50) Prothromb Time International Ratio 1.0 (0.9-1.1) Activated Partial Thromboplast Time 25 SEC (23-33) Sodium Level 141 MMOL/L (136-145) Potassium Level 4.1 MMOL/L (3.5-5.1) Chloride Level 108 MMOL/L (98-107) H Carbon Dioxide Level 27 MMOL/L (21-32) Anion Gap 6 mmol/L (5-15) Blood Urea Nitrogen 7 mg/dL (7-18) Creatinine 0.4 MG/DL (0.55-1.30) L Estimat Glomerular Filtration Rate > 60 mL/min (>60) Glucose Level 108 MG/DL (74-106) H Calcium Level 8.2 MG/DL (8.5-10.1) L Total Bilirubin 0.2 MG/DL (0.2-1.0) Aspartate Amino Transf (AST/SGOT) 11 U/L (15-37) L Alanine Aminotransferase (ALT/SGPT) 10 U/L (12-78) L Alkaline Phosphatase 68 U/L (46-116) Troponin I 0.000 ng/mL (0.000-0.056) Total Protein 6.0 G/DL (6.4-8.2) L Albumin 2.7 G/DL (3.4-5.0) L Globulin 3.3 g/dL Albumin/Globulin Ratio 0.8 (1.0-2.7) L Height (Feet): 5 Height (Inches): 7.00 Weight (Pounds): 240 Assessment/Plan Problem List: (1) Anemia ICD Codes: D64.9 - Anemia, unspecified SNOMED: 613805154 (2) Intractable pain ICD Codes: R52 - Pain, unspecified SNOMED: 62956123 (3) Anxiety ICD Codes: F41.9 - Anxiety disorder, unspecified SNOMED: 69005214 (4) Obesities, morbid ICD Codes: E66.01 - Morbid (severe) obesity due to excess calories SNOMED: 500301966 (5) H/O gastric bypass ICD Codes: Z98.890 - Other specified postprocedural states SNOMED: 901291923 Assessment/Plan: symptomatic treatment anemia work up pain management GI evaluation dvt prophylaxis Latha Gill MD Dec 09, 2018 14:21
--- NOTE | 2018-12-09 14:26 | Consultation ---
Consult Note Consult Note asked to eval at the request of dr Rodríguez Seen in ER : Room 4 Patient here for fall BUT has long history of Urological problem and hematuria Had gastric stapling and Hysterectomy in the past . Assessment/Plan stable Renal parameters h/o Hematuria: No UA available yet fall, Right hip contusion Obese BMI 37.6 check UA Uro eval if needed continue per consultants James Dunn MD Dec 09, 2018 14:26
[2018-12-09] MEDS ORDERED: Dextrose 50% 25ml Syringe IV PRN (14:30)
[2018-12-09] MEDS ORDERED: Morphine Sulfate 2mg/ml Inj(IV/IM USE ONLY) IVP PRN (14:30)
[2018-12-09] MEDS ORDERED: LORazepam Inj 2mg/ml 1ml IV PRN (14:30)
[2018-12-09 14:53] LABS: FERRITIN 13 NG/ML (8-388)
[2018-12-09 15:07] LABS: % IRON SATURATION 3 % (15-50); IRON 9 ug/dL (50-175); TOTAL IRON BINDING CAPACITY 339 ug/dL (250-450)
[2018-12-09 16:00] VITALS: BP 111/51
[2018-12-09] MEDS: Cyclobenzaprine 10mg Tab ORAL SCH (17:49)
--- NOTE | 2018-12-09 17:57 | Consultation ---
History of Present Illness General Date patient seen: Dec 09, 2018 Present Illness Allergies: Coded Allergies: No Known Allergies (Unverified , 09/04/12) Medication History Scheduled Acetaminophen* (Tylenol Extra Strength*), 500 MG ORAL Q6H Albuterol Sulfate* (Proair Hfa*), 1 PUFF INH Q6H, (Reported) Cyclobenzaprine Hcl* (Flexeril*), 10 MG ORAL THREE TIMES A DAY Cyclobenzaprine Hcl* (Flexeril*), 10 MG ORAL TWICE A DAY, (Reported) Dicyclomine Hcl* (Dicyclomine Hcl*), 10 MG PO QID, (Reported) Ferrous Sulfate (Ferrous Sulfate), 1 TAB ORAL DAILY, (Reported) Furosemide (Furosemide), 20 MG PO DAILY, (Reported) Hydroxyzine Hcl (Hydroxyzine Hcl), 25 MG PO THREE TIMES A DAY, (Reported) Ibuprofen* (Motrin*), 600 MG ORAL THREE TIMES A DAY Levofloxacin* (Levaquin*), 500 MG ORAL DAILY Lorazepam* (Ativan*), 1 MG ORAL THREE TIMES A DAY Naproxen* (Naproxen*), 500 MG ORAL TWICE A DAY, (Reported) Prednisone* (Prednisone*), 60 MG ORAL DAILY Trimethoprim/Sulfamethoxazole 160/800* (Bactrim Ds Tablet*), 1 TAB ORAL Q12H Scheduled PRN Acetaminophen With Codeine (T#3) (Tylenol #3 Tab*), 2 TAB ORAL Q8HR PRN for For Pain, (Reported) Hydrocodone/Acetaminophen 5-325* (Hydrocodone/Acetaminophen 5-325*), 1 TAB ORAL Q6H PRN for For Pain Ibuprofen* (Motrin*), 200 MG ORAL FOUR TIMES A DAY PRN for For Pain, (Reported) Ondansetron* (Zofran*), 4 MG ORAL Q6H PRN for Nausea & Vomiting, (Reported) Tramadol Hcl* (Ultram*), 50 MG ORAL EVERY 8 HOURS PRN for For Pain, (Reported) Patient History Healthcare decision maker TOLU HERNANDEZ Resuscitation status Full Code Advanced Directive on File No Physical Exam Last 24 Hour Vital Signs Date Time Temp Pulse Resp B/P (MAP) Pulse Ox O2 Delivery O2 Flow Rate FiO2 12/09/18 16:00 98.2 74 18 111/51 (71) 98 12/09/18 15:41 Room Air 12/09/18 13:49 98.1 71 16 119/61 98 Room Air 12/09/18 12:35 98.1 71 16 119/61 98 Room Air 12/09/18 11:50 98.1 12/09/18 09:03 78 14 Room Air 12/09/18 09:02 98.1 78 14 114/54 100 Room Air 12/09/18 08:48 98.1 78 14 114/54 (74) 100 Room Air Laboratory Tests Test 12/09/18 09:15 White Blood Count 3.3 K/UL (4.8-10.8) L Red Blood Count 3.60 M/UL (4.20-5.40) L Hemoglobin 7.4 G/DL (12.0-16.0) L Hematocrit 25.8 % (37.0-47.0) L Mean Corpuscular Volume 72 FL (80-99) L Mean Corpuscular Hemoglobin 20.5 PG (27.0-31.0) L Mean Corpuscular Hemoglobin Concent 28.7 G/DL (32.0-36.0) L Red Cell Distribution Width 18.4 % (11.6-14.8) H Platelet Count 319 K/UL (150-450) Mean Platelet Volume 6.6 FL (6.5-10.1) Neutrophils (%) (Auto) % (45.0-75.0) Lymphocytes (%) (Auto) % (20.0-45.0) Monocytes (%) (Auto) % (1.0-10.0) Eosinophils (%) (Auto) % (0.0-3.0) Basophils (%) (Auto) % (0.0-2.0) Differential Total Cells Counted 100 Neutrophils % (Manual) 58 % (45-75) Lymphocytes % (Manual) 24 % (20-45) Monocytes % (Manual) 12 % (1-10) H Eosinophils % (Manual) 4 % (0-3) H Basophils % (Manual) 2 % (0-2) Band Neutrophils 0 % (0-8) Platelet Estimate Adequate Platelet Morphology Normal Hypochromasia 3+ Anisocytosis 2+ Microcytosis 2+ Prothrombin Time 10.5 SEC (9.30-11.50) Prothromb Time International Ratio 1.0 (0.9-1.1) Activated Partial Thromboplast Time 25 SEC (23-33) Sodium Level 141 MMOL/L (136-145) Potassium Level 4.1 MMOL/L (3.5-5.1) Chloride Level 108 MMOL/L (98-107) H Carbon Dioxide Level 27 MMOL/L (21-32) Anion Gap 6 mmol/L (5-15) Blood Urea Nitrogen 7 mg/dL (7-18) Creatinine 0.4 MG/DL (0.55-1.30) L Estimat Glomerular Filtration Rate > 60 mL/min (>60) Glucose Level 108 MG/DL (74-106) H Hemoglobin A1c 4.9 % (4.3-6.0) Calcium Level 8.2 MG/DL (8.5-10.1) L Iron Level 9 ug/dL (50-175) L Total Iron Binding Capacity 339 ug/dL (250-450) Percent Iron Saturation 3 % (15-50) L Unsaturated Iron Binding 330 ug/dL (112-346) Ferritin 13 NG/ML (8-388) Total Bilirubin 0.2 MG/DL (0.2-1.0) Aspartate Amino Transf (AST/SGOT) 11 U/L (15-37) L Alanine Aminotransferase (ALT/SGPT) 10 U/L (12-78) L Alkaline Phosphatase 68 U/L (46-116) Troponin I 0.000 ng/mL (0.000-0.056) Total Protein 6.0 G/DL (6.4-8.2) L Albumin 2.7 G/DL (3.4-5.0) L Globulin 3.3 g/dL Albumin/Globulin Ratio 0.8 (1.0-2.7) L Vitamin B12 Level 307 PG/ML (193-986) Folate 18.2 NG/ML (8.6-58.9) Height (Feet): 5 Height (Inches): 5.00 Weight (Pounds): 243 Medications Current Medications Medications (Trade) Dose Ordered Sig/Safia Route PRN Reason Start Time Stop Time Status Last Admin Dose Admin Acetaminophen (Tylenol) 650 mg Q4H PRN ORAL fever 12/09/18 14:30 01/08/19 14:29 Cyclobenzaprine HCl (Flexeril) 10 mg THREE TIMES A DAY ORAL 12/09/18 18:00 01/08/19 17:59 Dextrose (Dextrose 50%) 25 ml Q30M PRN IV Hypoglycemia 12/09/18 14:30 01/08/19 14:23 Dextrose (Dextrose 50%) 50 ml Q30M PRN IV hypoglycemia 12/09/18 14:30 01/08/19 14:29 Furosemide (Lasix) 20 mg DAILY ORAL 12/10/18 09:00 01/09/19 08:59 Lorazepam (Ativan 2mg/ml 1ml) 0.5 mg Q4H PRN IV For Anxiety 12/09/18 14:30 12/16/18 14:29 Morphine Sulfate (Morphine Sulfate) 1 mg Q4H PRN IVP pain 4-10 12/09/18 14:30 12/16/18 14:29 12/09/18 14:44 Ondansetron HCl (Zofran) 4 mg Q6H PRN IVP Nausea & Vomiting 12/09/18 14:30 01/08/19 14:29 Polyethylene Glycol (Miralax) 17 gm HSPRN PRN ORAL Constipation 12/09/18 14:30 01/08/19 14:29 Zolpidem Tartrate (Ambien) 5 mg HSPRN PRN ORAL Insomnia 12/09/18 14:30 12/16/18 14:29 Assessment/Plan Assessment/Plan: (1) Lumbar Sprain (2) Lumbar Radiculopathy (3) Lumbar DDD (4 Lumbar Spondylosis (5) R/O Lumbar Herniated disc Seen dictated. Dirk May Dec 09, 2018 17:57
--- NOTE | 2018-12-09 18:00 | History and Physical Report ---
DATE OF ADMISSION: 12/09/2018 TIME SEEN: 12 noon. CONSULTANTS: 1. James Dunn M.D. 2. Tan Suarez M.D. 3. Valentin Ken MD 4. Latha Gill M.D. 5. Miguel Garcia M.D. 6. Meron Rincon M.D. 7. Kirk Tyler M.D. CHIEF COMPLAINT: Fall, pain, obese, hematuria, weakness. BRIEF HISTORY: This is a 68-year-old female, who lives at home with sister presented this morning, having tripped and fell. No loss of consciousness, complaining of achy allover. Initial x-ray negative per ER. The patient also complained of hematuria, weakness, and being admitted shortly to med/surg, currently calm in bed, slight general pain, no complaint. REVIEW OF SYSTEMS: No chest pain. No shortness of breath. No nausea, vomiting, or diarrhea. PAST MEDICAL HISTORY: Includes ATN, sciatica, malnutrition, obesity, hematuria. PAST SURGICAL HISTORY: Right knee gastric bypass, carpal tunnel bilaterally, hysterectomy, gallbladder. MEDICATIONS: Include morphine and hydrocodone. ALLERGIES: Denies. SOCIAL HISTORY: No smoking. Occasional alcohol. No intravenous drug abuse. FAMILY HISTORY: Noncontributory. PHYSICAL EXAMINATION: GENERAL: Calm in bed, oriented x3, no acute distress. VITAL SIGNS: Temperature is 98 degrees, pulse 81, respiratory rate 16, blood pressure 119/61. CARDIOVASCULAR: No murmur. LUNGS: Distant and clear. ABDOMEN: Bowel sounds positive. Nontender. Nondistended. EXTREMITIES: No cyanosis, clubbing, edema. NEUROLOGIC: The patient moves all extremities, slightly weak. LABORATORY AND DIAGNOSTIC DATA: White count 3.3, H and H 10.4/25, platelets 319. BMP shows chloride 108, creatinine 0.4, glucose 108. AST 11 and ALT 10. Albumin 2.7. INR is 1.0. PTT 25. ASSESSMENT: 1. Fall. 2. Pain. 3. Obese. 4. Hematuria. 5. Weakness. 6. Anemia. 7. Leukopenia. 8. ATN. 9. Sciatica. 10. Malnutrition. 11. Hematuria. 12. Obesity. PLAN: 1. PT/OT, dietary followup. 2. Pain control. 3. Transfuse as needed. 4. Resume home medications. 5. CBC and BMP in the morning . 6. We will continue to follow the patient. Alfonso Rodríguez D.O. DR: [place] JOB#: [id number] CC:
[2018-12-09 19:03] LABS: APPEARANCE,URINE VERY CLOUDY; BILIRUBIN, URINE NEGATIVE (NEGATIVE); COLOR,URINE RED; GLUCOSE, URINE (UA) NEGATIVE (NEGATIVE); KETONES,URINE NEGATIVE (NEGATIVE); LEUKOCYTE ESTERASE ,URINE NEGATIVE (NEGATIVE); NITRITE,URINE NEGATIVE (NEGATIVE); PH,URINE 6 (4.5-8.0); PROTEIN,URINE 3+ (NEGATIVE); UROBILINOGEN,URINE NORMAL MG/DL (0.0-1.0)
--- NOTE | 2018-12-09 19:14 | NUR ---
HAND-OFF: Report given to Preeti ROBLERO.
--- NOTE | 2018-12-09 19:30 | NUR ---
NURSE NOTES: Received patient from ANNIKA Vasquez. Patient was calm, awake, alert and oriented x 4. No signs of distress. IV in tact. SCDs currently on and running. Bed in lowest position with call light within easy reach. Bed alarm on. Will continue to monitor.
[2018-12-09 20:00] VITALS: BP 113/54
--- NOTE | 2018-12-09 20:00 | Consultation ---
DATE OF CONSULTATION: 12/09/2018 PAIN MANAGEMENT CONSULTATION CONSULTING PHYSICIAN: Meron Rincon M.D. REFERRING PHYSICIAN: Alfonso Rodríguez D.O. PHYSICIAN PAEDIATRIC SURGEON: Emely Todd CHIEF COMPLAINT: Low back pain. HISTORY OF PRESENT ILLNESS: This is a 68-year-old female who is being seen on the [facility] of [facility] for comprehensive pain management consultation. The patient was admitted under the care of Dr. Rodríguez. After fall, complained of severe lower back pain with radiation into the right lower extremity, rating at 8/10, it is worse with movement. It happened this morning, it is constant, acute, throbbing pain increased with movement and nothing has been helping with her pain. Due to this, we were consulted. The patient will have adequate pain control while here in the hospital. She had a fall and suffered a back injury. PAST MEDICAL HISTORY: Morbid obesity. PAST SURGICAL HISTORY: Hysterectomy, gastric bypass, bilateral knee replacement. SOCIAL HISTORY: Denies smoking tobacco, drinking alcohol, intravenous drug abuse. ALLERGIES: No known drug allergies. MEDICATIONS: Tylenol, ProAir, Flexeril,ferrous sulfate, furosemide, hydroxyzine, Motrin, Levaquin, Ativan, naproxen, prednisone, Bactrim, Tylenol No.3, [place], Motrin, Zofran, Ultram. REVIEW OF SYSTEMS: Denies rash, fever, chills, sweating, dizziness, drowsiness, blurred vision, sore throat, change in weight. No shortness of breath or chest pain. No nausea, vomiting, or blood in the stool or urine. No bowel or bladder. No history of neck and low back pain. PHYSICAL EXAMINATION: GENERAL: Alert, awake, oriented. VITAL SIGNS: Blood pressure 101/51, heart rate 75, oxygen saturation 98%, respiratory 18, temperature 98.2 degrees Fahrenheit. HEENT: PERRLA. NECK: Range of motion is full in all directions. No tenderness. No adenopathy. LUNGS: Decreased breath sounds bilaterally. HEART: S1 and S2 regular. ABDOMEN: Obese. BACK: Range of motion is decreased in flexion and extension with tenderness present. EXTREMITIES: Upper and lower extremity range of motion is decreased with the patient condition. No cyanosis. No clubbing. Sensory is intact. Reflexes are not obtainable. No adenopathy. ASSESSMENT AND PLAN: This is a 68-year-old female with lumbar sprain, lumbar degenerative disk disease, lumbar spondylosis, lumbar radiculopathy, rule out lumbar herniated disk. The patient will be continued on morphine increased to 2 mg IV every 4 hours needed for severe pain. We will order an MRI of lumbar spine without contrast to rule out further pathology in the lower back. The patient was discussed with Dr. Rincon and Dr. Rincon concurred. We will follow the patient. Thank you very much for the courtesy of this consultation. Meron Rincon M.D. TIGRE Todd DR: KATIA JOB#: [id number] CC: DONTAE
--- NOTE | 2018-12-09 22:30 | Consultation ---
History of Present Illness General Date patient seen: Dec 09, 2018 Chief Complaint: Fall with pain Referring physician: Dr. Rodríguez Present Illness HPI Rufina Ceja Cousin is a 68-year-old female with a PMH of ATN, sciatica, malnutrition, obesity, hematuria, right knee replacement, gastric bypass, carpal tunnel bilaterally, hysterectomy, cholecystectomy, who lives at home with her sister presented this morning, having experienced a mechanical trip and fall after her slipper got caught in a crevice. She denies any loss of consciousness, complaining of achey pain allover. She has also been admitted with additional complaints of chronic hematuria and weakness for assessment and observation. Neurological consultation has been requested to assess for any neurological deficits or neuropathies at this time. Allergies: Coded Allergies: No Known Allergies (Unverified , 09/04/12) Medication History Scheduled Acetaminophen* (Tylenol Extra Strength*), 500 MG ORAL Q6H Albuterol Sulfate* (Proair Hfa*), 1 PUFF INH Q6H, (Reported) Cyclobenzaprine Hcl* (Flexeril*), 10 MG ORAL THREE TIMES A DAY Cyclobenzaprine Hcl* (Flexeril*), 10 MG ORAL TWICE A DAY, (Reported) Dicyclomine Hcl* (Dicyclomine Hcl*), 10 MG PO QID, (Reported) Ferrous Sulfate (Ferrous Sulfate), 1 TAB ORAL DAILY, (Reported) Furosemide (Furosemide), 20 MG PO DAILY, (Reported) Hydroxyzine Hcl (Hydroxyzine Hcl), 25 MG PO THREE TIMES A DAY, (Reported) Ibuprofen* (Motrin*), 600 MG ORAL THREE TIMES A DAY Levofloxacin* (Levaquin*), 500 MG ORAL DAILY Lorazepam* (Ativan*), 1 MG ORAL THREE TIMES A DAY Naproxen* (Naproxen*), 500 MG ORAL TWICE A DAY, (Reported) Prednisone* (Prednisone*), 60 MG ORAL DAILY Trimethoprim/Sulfamethoxazole 160/800* (Bactrim Ds Tablet*), 1 TAB ORAL Q12H Scheduled PRN Acetaminophen With Codeine (T#3) (Tylenol #3 Tab*), 2 TAB ORAL Q8HR PRN for For Pain, (Reported) Hydrocodone/Acetaminophen 5-325* (Hydrocodone/Acetaminophen 5-325*), 1 TAB ORAL Q6H PRN for For Pain Ibuprofen* (Motrin*), 200 MG ORAL FOUR TIMES A DAY PRN for For Pain, (Reported) Ondansetron* (Zofran*), 4 MG ORAL Q6H PRN for Nausea & Vomiting, (Reported) Tramadol Hcl* (Ultram*), 50 MG ORAL EVERY 8 HOURS PRN for For Pain, (Reported) Patient History Healthcare decision maker TOLU HERNANDEZ Resuscitation status Full Code Advanced Directive on File No Review of Systems Constitutional: Reports: weakness; Denies: no symptoms, see HPI, chills, sweats , fever, malaise, other Eye: Denies: no symptoms, see HPI, eye pain, blurred vision, tearing, double vision, nose pain, nose congestion, acuity changes, discharge, other ENT: Denies: no symptoms, see HPI, ear pain, ear discharge, nose pain, nose congestion, throat pain, throat swelling, mouth pain, hearing loss, nasal discharge, other Respiratory: Denies: no symptoms, see HPI, cough, orthopnea, shortness of breath, stridor, wheezing, DICKINSON, sputum, other Cardiovascular: Denies: no symptoms, see HPI, chest pain, edema, palpitations, syncope, PND, other Gastrointestinal: Denies: no symptoms, see HPI, abdominal pain, constipation, diarrhea, nausea, vomiting, melena, hematemesis, other Genitourinary: Reports: dysuria, hematuria; Denies: no symptoms, see HPI, discharge, frequency, pain, retention, incontinence, urgency, vag bleed/dc, other Musculoskeletal: Reports: see HPI, joint pain, joint swelling, muscle pain; Denies: no symptoms, back pain, gout, muscle stiffness, other Skin: Denies: no symptoms, see HPI, rash, change in color, change in hair/nails , dryness, lesions, other Psychiatric: Denies: no symptoms, see HPI, prior hx, anxiety, depressed feelings, emotional problems, SI, HI, hallucinations, other Neurological: Reports: see HPI, tingling; Denies: no symptoms, headache, numbness, paresthesia, seizure, tremors, focal weakness, syncope, dizziness, other Endocrine: Denies: no symptoms, see HPI, excessive sweating, flushing, intolerance to temperature, increased thirst, increased urine, unexplained weight loss, other Hematologic/Lymphatic: Denies: no symptoms, see HPI, anemia, blood clots, easy bleeding, easy bruising, swollen glands, diathesis, other Physical Exam General Appearance: WD/WN, no apparent distress, alert, overweight Lines, tubes and drains: peripheral HEENT: normocephalic, atraumatic, anicteric, mucous membranes moist, PERRL, EOMI, pharynx normal, supple, no JVD Neck: non-tender, normal alignment, supple, normal inspection Respiratory/Chest: normal breath sounds, no respiratory distress, no accessory muscle use Cardiovascular/Chest: normal rate, no JVD Extremities: normal capillary refill, non-pitting, inflammation, other - Bilateral knee replacements, right knee most recently. Echymosses and mild non pitting edema on right knee / lower leg (not ankle) secondary to fall/ injury. 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 Physical Exam Narrative Patient has diffuse weakness of extremities, R>L but no apparent neurological or new deficits given patient's well documented history of MSK/ neuropathic complaints Last 24 Hour Vital Signs Date Time Temp Pulse Resp B/P (MAP) Pulse Ox O2 Delivery O2 Flow Rate FiO2 12/09/18 20:00 98.2 69 20 113/54 (73) 97 12/09/18 16:00 98.2 74 18 111/51 (71) 98 12/09/18 15:41 Room Air 12/09/18 13:49 98.1 71 16 119/61 98 Room Air 12/09/18 12:35 98.1 71 16 119/61 98 Room Air 12/09/18 11:50 98.1 12/09/18 09:03 78 14 Room Air 12/09/18 09:02 98.1 78 14 114/54 100 Room Air 12/09/18 08:48 98.1 78 14 114/54 (74) 100 Room Air Laboratory Tests Test 12/09/18 09:15 12/09/18 18:30 White Blood Count 3.3 K/UL (4.8-10.8) L Red Blood Count 3.60 M/UL (4.20-5.40) L Hemoglobin 7.4 G/DL (12.0-16.0) L Hematocrit 25.8 % (37.0-47.0) L Mean Corpuscular Volume 72 FL (80-99) L Mean Corpuscular Hemoglobin 20.5 PG (27.0-31.0) L Mean Corpuscular Hemoglobin Concent 28.7 G/DL (32.0-36.0) L Red Cell Distribution Width 18.4 % (11.6-14.8) H Platelet Count 319 K/UL (150-450) Mean Platelet Volume 6.6 FL (6.5-10.1) Neutrophils (%) (Auto) % (45.0-75.0) Lymphocytes (%) (Auto) % (20.0-45.0) Monocytes (%) (Auto) % (1.0-10.0) Eosinophils (%) (Auto) % (0.0-3.0) Basophils (%) (Auto) % (0.0-2.0) Differential Total Cells Counted 100 Neutrophils % (Manual) 58 % (45-75) Lymphocytes % (Manual) 24 % (20-45) Monocytes % (Manual) 12 % (1-10) H Eosinophils % (Manual) 4 % (0-3) H Basophils % (Manual) 2 % (0-2) Band Neutrophils 0 % (0-8) Platelet Estimate Adequate Platelet Morphology Normal Hypochromasia 3+ Anisocytosis 2+ Microcytosis 2+ Prothrombin Time 10.5 SEC (9.30-11.50) Prothromb Time International Ratio 1.0 (0.9-1.1) Activated Partial Thromboplast Time 25 SEC (23-33) Sodium Level 141 MMOL/L (136-145) Potassium Level 4.1 MMOL/L (3.5-5.1) Chloride Level 108 MMOL/L (98-107) H Carbon Dioxide Level 27 MMOL/L (21-32) Anion Gap 6 mmol/L (5-15) Blood Urea Nitrogen 7 mg/dL (7-18) Creatinine 0.4 MG/DL (0.55-1.30) L Estimat Glomerular Filtration Rate > 60 mL/min (>60) Glucose Level 108 MG/DL (74-106) H Hemoglobin A1c 4.9 % (4.3-6.0) Calcium Level 8.2 MG/DL (8.5-10.1) L Iron Level 9 ug/dL (50-175) L Total Iron Binding Capacity 339 ug/dL (250-450) Percent Iron Saturation 3 % (15-50) L Unsaturated Iron Binding 330 ug/dL (112-346) Ferritin 13 NG/ML (8-388) Total Bilirubin 0.2 MG/DL (0.2-1.0) Aspartate Amino Transf (AST/SGOT) 11 U/L (15-37) L Alanine Aminotransferase (ALT/SGPT) 10 U/L (12-78) L Alkaline Phosphatase 68 U/L (46-116) Troponin I 0.000 ng/mL (0.000-0.056) Total Protein 6.0 G/DL (6.4-8.2) L Albumin 2.7 G/DL (3.4-5.0) L Globulin 3.3 g/dL Albumin/Globulin Ratio 0.8 (1.0-2.7) L Vitamin B12 Level 307 PG/ML (193-986) Folate 18.2 NG/ML (8.6-58.9) Urine Color Red Urine Appearance Very cloudy Urine pH 6 (4.5-8.0) Urine Specific [place] 1.015 (1.005-1.035) Urine Protein 3+ (NEGATIVE) H Urine Glucose (UA) Negative (NEGATIVE) Urine Ketones Negative (NEGATIVE) Urine Blood 5+ (NEGATIVE) H Urine Nitrite Negative (NEGATIVE) Urine Bilirubin Negative (NEGATIVE) Urine Urobilinogen Normal MG/DL (0.0-1.0) Urine Leukocyte Esterase Negative (NEGATIVE) Urine RBC Tntc /HPF (0 - 2) H Urine WBC 0 /HPF (0 - 2) Urine Squamous Epithelial Cells None /LPF (NONE/OCC) Urine Bacteria None /HPF (NONE) Height (Feet): 5 Height (Inches): 5.00 Weight (Pounds): 243 Medications Current Medications Medications (Trade) Dose Ordered Sig/Safia Route PRN Reason Start Time Stop Time Status Last Admin Dose Admin Acetaminophen (Tylenol) 650 mg Q4H PRN ORAL fever 12/09/18 14:30 01/08/19 14:29 Cyclobenzaprine HCl (Flexeril) 10 mg THREE TIMES A DAY ORAL 12/09/18 18:00 01/08/19 17:59 12/09/18 17:49 Dextrose (Dextrose 50%) 25 ml Q30M PRN IV Hypoglycemia 12/09/18 14:30 01/08/19 14:23 Dextrose (Dextrose 50%) 50 ml Q30M PRN IV hypoglycemia 12/09/18 14:30 01/08/19 14:29 Furosemide (Lasix) 20 mg DAILY ORAL 12/10/18 09:00 01/09/19 08:59 Lorazepam (Ativan 2mg/ml 1ml) 0.5 mg Q4H PRN IV For Anxiety 12/09/18 14:30 12/16/18 14:29 Morphine Sulfate (Morphine Sulfate) 2 mg Q4H PRN IVP pain 4-10 12/09/18 18:30 12/16/18 14:29 Ondansetron HCl (Zofran) 4 mg Q6H PRN IVP Nausea & Vomiting 12/09/18 14:30 01/08/19 14:29 Polyethylene Glycol (Miralax) 17 gm HSPRN PRN ORAL Constipation 12/09/18 14:30 01/08/19 14:29 Zolpidem Tartrate (Ambien) 5 mg HSPRN PRN ORAL Insomnia 12/09/18 14:30 12/16/18 14:29 Assessment/Plan Problem List: (1) Headache Assessment & Plan: Denies at this time. ICD Codes: R51 - Headache SNOMED: 27998558 (2) Contusion of finger of right hand ICD Codes: S60.00XA - Contusion of unspecified finger without damage to nail, initial encounter SNOMED: 18405584 (3) Sciatica of right side ICD Codes: M54.31 - Sciatica, right side SNOMED: 35801583 (4) ATN (acute tubular necrosis) ICD Codes: N17.0 - Acute kidney failure with tubular necrosis SNOMED: 58408955 (5) Anxiety ICD Codes: F41.9 - Anxiety disorder, unspecified SNOMED: 92763592 (6) History of DVT (deep vein thrombosis) ICD Codes: Z86.718 - Personal history of other venous thrombosis and embolism SNOMED: 881167038 (7) Fall ICD Codes: W19.XXXA - Unspecified fall, initial encounter SNOMED: 3177123, 821069695 (8) Intractable pain ICD Codes: R52 - Pain, unspecified SNOMED: 07181966 (9) Contusion ICD Codes: T14.8XXA - Other injury of unspecified body region, initial encounter SNOMED: 383911343 Qualifiers: (10) Anemia ICD Codes: D64.9 - Anemia, unspecified SNOMED: 287453155 Status: stable Assessment/Plan: Mechanical fall described with no indication of syncope of neurologic failure however generalized weakness certainly attributable to anemia / iron deficiency / hypocalcemia Replace/ Replete lytes IV Inpatient investigation regarding hematuria? Patient has a long history of neuropathic syndromes and arthralgia as she is S/ P bilateral TKAs May continue Q4 hour neuro obs No indication for neuroimaging at this time. Spinal / hip imaging is pending at this time- no further orders recommended at this time. Discussed commencement of medication such as Gabapentin. Patient will consider this. Continue Pain management SBP<140 Check TSH Lindy Wooten N.P. Dec 09, 2018 22:30
[2018-12-09] MEDS: Morphine Sulfate 2mg/ml Inj(IV/IM USE ONLY) IVP PRN (23:07)
[2018-12-10] VITALS: BP 113/54
[2018-12-10] MEDS: Zolpidem 5mg tab ORAL PRN (01:13)
--- NOTE | 2018-12-10 03:30 | Consultation ---
DATE OF CONSULTATION: 12/09/2018 ORTHOPEDIC CONSULTATION CONSULTING PHYSICIAN: Kirk Tyler M.D. REFERRING PHYSICIAN: Alfonso Rodríguez M.D. CHIEF COMPLAINT: Right hip pain. HISTORY OF PRESENT ILLNESS: The patient is a pleasant 68-year-old female, who has pretty complicated medical history, earlier today kind of fell. She reported that she slipped and right foot gave out and she landed directly on the right side. She has some posterior buttock and low back pain. Orthopedic consultation was obtained for further care and recommendation. PAST MEDICAL HISTORY: Reviewed per intake chart. PAST SURGICAL HISTORY: Reviewed per intake chart. MEDICATIONS: Reviewed per intake chart. PHYSICAL EXAMINATION: GENERAL: The patient is alert and oriented. . EXTREMITIES: She has pain in the hip that she describes in the posterior buttock area and in the mid back. She denies any issues like numbness or tingling of lower extremity. Posterior calf is soft. She has well-healed incisions of both the right and left knee. No ecchymosis. No swelling. ASSESSMENT: Right posterior buttock pain, possible lumbar spine versus nondisplaced sacral ala fracture. DISCUSSION: At this point, she does not pubic rami, but she does have pain in the posterior buttock area. This may represent possible sacral ala fracture. Overall turned to risk of lower back. We will go ahead and get an MRI of the lumbar spine as well as pelvis and see further care and recommendation. Kirk Tyler M.D. DR: LAURY JOB#: [id number] CC:
[2018-12-10 04:00] VITALS: BP 121/80
[2018-12-10] MEDS: Morphine Sulfate 2mg/ml Inj(IV/IM USE ONLY) IVP PRN ×3 (05:16→13:36)
[2018-12-10 06:43] LABS: HEMATOCRIT 25.9 % (37.0-47.0); HEMOGLOBIN 7.5 G/DL (12.0-16.0); MEAN CORPUSCULAR VOLUME 72 FL (80-99); PLATELET COUNT 318 K/UL (150-450); RED BLOOD COUNT 3.62 M/UL (4.20-5.40); RED CELL DISTRIBUTION WIDTH 18.2 % (11.6-14.8); WHITE BLOOD COUNT 3.2 K/UL (4.8-10.8)
[2018-12-10 07:17] LABS: ALANINE AMINOTRANSFERASE 12 U/L (12-78); ALBUMIN 2.5 G/DL (3.4-5.0); ALBUMIN/GLOBULIN RATIO 0.8 (1.0-2.7); ALKALINE PHOSPHATASE 65 U/L (46-116); ANION GAP 7 mmol/L (5-15); ASPARTATE AMINO TRANSFERASE 12 U/L (15-37); BILIRUBIN,TOTAL 0.3 MG/DL (0.2-1.0); BLOOD UREA NITROGEN 6 mg/dL (7-18); CALCIUM 8.4 MG/DL (8.5-10.1); CARBON DIOXIDE 28 MMOL/L (21-32); CHLORIDE 106 MMOL/L (98-107); CHOLESTEROL 118 MG/DL (< 200); CREATININE 0.4 MG/DL (0.55-1.30); HDL CHOLESTEROL 56 MG/DL (40-60); POTASSIUM 3.9 MMOL/L (3.5-5.1); SODIUM 141 MMOL/L (136-145); TRIGLYCERIDES 44 MG/DL (30-150)
--- NOTE | 2018-12-10 07:36 | NUR ---
HAND-OFF: Report given to ANNIKA Farmer.
[2018-12-10 08:00] VITALS: BP 108/52
[2018-12-10] MEDS: Cyclobenzaprine 10mg Tab ORAL SCH ×3 (08:53→17:32)
--- NOTE | 2018-12-10 09:35 | NUR ---
PT EVALUATION NOTE Patient seen for initial evaluation, see complete evaluation for details. Patient presents with impaired functional mobility due to pain s/p fall. Patient requires SBA for bed mobility, and is supervised for transfers and ambulation with FWW. Patient ambulated at home without an assistive device and used to hold on to hayes. Patient lives in a 2 story house and has 17 stairs to negotiate. Patient will benefit from skilled inpatient PT intervention to address balance, gait, safety and functional mobility. Anticipate discharge home once medically cleared by MD. Recommend OP PT follow up after discharge. Patient appears to have necessary DME at home. Addendum: 12/10/18 at 1229 by ANNIA CHACON PT Amended: Links added.
--- NOTE | 2018-12-10 11:05 | NUR ---
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 IS:MORPHINE SULFATE 8mg IVP ADMITTED TO MED/SURG DCP: RETURN HOME
[2018-12-10] MEDS ORDERED: Iron Sucrose 200 MG in NS 110 ML IV ONE (11:30)
--- NOTE | 2018-12-10 11:59 | NUR ---
NURSE NOTES: PT AXOX4, CALM, RESTING IN BED. PT HAD PAIN OF RIGHT HIP, AND RN ADMINISTERED PRN MORPHINE 2MG IVP. PT STATES IT WAS INEFFECTIVE. RN LEFT MESSAGE FOR DR MENDIETA FOR PT'S REQUEST FOR DILAUDID. PT STATES SHE HAD HEMATURIA FOR THE PAST FEW MONTHS. DR KELLER MADE AWARE AND WITH ORDERS TO CONSULT DR FERNANDEZ, SAMANTA, AND ABEL. DR ENGLAND MADE AWARE. RN LEFT MESSAGE FOR DR ROMAN'S OFFICE. DR FERNANDEZ WITH ORDER TO TRANSFUSE 1 UNIT PRBCS TODAY.
[2018-12-10 12:00] VITALS: BP 109/49
--- NOTE | 2018-12-10 12:42 | Nephrology Progress Note ---
Assessment/Plan Problem List: (1) Hematuria (2) Anemia (3) Hypoalbuminemia (4) Obesities, morbid Assessment stable Renal parameters h/o Hematuria: fall, Right hip contusion Obese BMI 37.6 Plan IV iron B12 SQ check UA and c/s Uro eval continue per consultants Subjective ROS Limited/Unobtainable: No Constitutional: Reports: malaise Objective Objective Last 24 Hour Vital Signs Date Time Temp Pulse Resp B/P (MAP) Pulse Ox O2 Delivery O2 Flow Rate FiO2 12/10/18 08:00 98.3 88 19 108/52 (70) 98 12/10/18 04:00 98.1 103 20 121/80 (94) 97 12/10/18 00:00 97.8 76 20 113/54 (73) 96 12/09/18 21:00 Room Air 12/09/18 20:00 98.2 69 20 113/54 (73) 97 12/09/18 16:00 98.2 74 18 111/51 (71) 98 12/09/18 15:41 Room Air 12/09/18 13:49 98.1 71 16 119/61 98 Room Air Intake and Output 12/09/18 12/10/18 19:00 07:00 Intake Total 360 ml 200 ml Balance 360 ml 200 ml Intake Oral 360 ml 200 ml # Voids 3 6 # Bowel Movements 1 Laboratory Tests 12/09/18 18:30: Urine Color Red, Urine Appearance Very cloudy, Urine pH 6, Urine Specific [place] 1.015, Urine Protein 3+H, Urine Glucose (UA) Negative, Urine Ketones Negative, Urine Blood 5+H, Urine Nitrite Negative, Urine Bilirubin Negative, Urine Urobilinogen Normal, Urine Leukocyte Esterase Negative, Urine RBC TntcH, Urine WBC 0, Urine Squamous Epithelial Cells None, Urine Bacteria None 12/10/18 05:15: White Blood Count 3.2L, Red Blood Count 3.62L, Hemoglobin 7.5L, Hematocrit 25.9L , Mean Corpuscular Volume 72L, Mean Corpuscular Hemoglobin 20.6L, Mean Corpuscular Hemoglobin Concent 28.8L, Red Cell Distribution Width 18.2H, Platelet Count 318, Mean Platelet Volume 6.2L, Neutrophils (%) (Auto) , Lymphocytes (%) (Auto) , Monocytes (%) (Auto) , Eosinophils (%) (Auto) , Basophils (%) (Auto) , Differential Total Cells Counted 100, Neutrophils % ( Manual) 59, Lymphocytes % (Manual) 26, Monocytes % (Manual) 11H, Eosinophils % ( Manual) 2, Basophils % (Manual) 2, Band Neutrophils 0, Platelet Estimate Adequate, Platelet Morphology Normal, Hypochromasia 3+, Anisocytosis 2+, Microcytosis 2+, Sodium Level 141, Potassium Level 3.9, Chloride Level 106, Carbon Dioxide Level 28, Anion Gap 7, Blood Urea Nitrogen 6L, Creatinine 0.4L, Estimat Glomerular Filtration Rate > 60, Glucose Level 90, Uric Acid 2.6, Calcium Level 8.4L, Phosphorus Level 4.0, Magnesium Level 1.9, Total Bilirubin 0.3, Aspartate Amino Transf (AST/SGOT) 12L, Alanine Aminotransferase (ALT/SGPT) 12, Alkaline Phosphatase 65, Total Protein 5.7L, Albumin 2.5L, Globulin 3.2, Albumin/Globulin Ratio 0.8L, Triglycerides Level 44, Cholesterol Level 118, LDL Cholesterol 55, HDL Cholesterol 56, Cholesterol/HDL Ratio 2.1L, Thyroid Stimulating Hormone (TSH) 3.546 Height (Feet): 5 Height (Inches): 5.00 Weight (Pounds): 243 General Appearance: no apparent distress, lethargic Cardiovascular: normal rate Respiratory/Chest: lungs clear Abdomen: soft James Dunn MD Dec 10, 2018 12:42
[2018-12-10] MEDS: Vitamin B12 1000mcg/ml Inj SUBQ SCH (13:36)
--- NOTE | 2018-12-10 13:36 | General Progress Note ---
Assessment/Plan Problem List: (1) Sciatica ICD Codes: M54.30 - Sciatica, unspecified side SNOMED: 98385094 (2) Thrombocytopenia ICD Codes: D69.6 - Thrombocytopenia, unspecified SNOMED: 847750114 (3) Anemia ICD Codes: D64.9 - Anemia, unspecified SNOMED: 541622717 (4) Fall ICD Codes: W19.XXXA - Unspecified fall, initial encounter SNOMED: 1664756, 645748504 (5) Hematuria ICD Codes: R31.9 - Hematuria, unspecified SNOMED: 25695815 (6) Obesities, morbid ICD Codes: E66.01 - Morbid (severe) obesity due to excess calories SNOMED: 493003944 Status: stable, progressing Assessment/Plan: pt diet abx pt diet transfuse prn cbc bmp am Subjective Constitutional: Reports: weakness Respiratory: Reports: shortness of breath Allergies: Coded Allergies: No Known Allergies (Unverified , 09/04/12) All Systems: reviewed and negative except above Subjective calm in bed Objective Last 24 Hour Vital Signs Date Time Temp Pulse Resp B/P (MAP) Pulse Ox O2 Delivery O2 Flow Rate FiO2 12/10/18 12:00 98.2 82 19 109/49 (69) 97 12/10/18 08:00 98.3 88 19 108/52 (70) 98 12/10/18 04:00 98.1 103 20 121/80 (94) 97 12/10/18 00:00 97.8 76 20 113/54 (73) 96 12/09/18 21:00 Room Air 12/09/18 20:00 98.2 69 20 113/54 (73) 97 12/09/18 16:00 98.2 74 18 111/51 (71) 98 12/09/18 15:41 Room Air 12/09/18 13:49 98.1 71 16 119/61 98 Room Air Intake and Output 12/09/18 12/10/18 19:00 07:00 Intake Total 360 ml 200 ml Balance 360 ml 200 ml Intake Oral 360 ml 200 ml # Voids 3 6 # Bowel Movements 1 Laboratory Tests 12/09/18 18:30: Urine Color Red, Urine Appearance Very cloudy, Urine pH 6, Urine Specific [place] 1.015, Urine Protein 3+H, Urine Glucose (UA) Negative, Urine Ketones Negative, Urine Blood 5+H, Urine Nitrite Negative, Urine Bilirubin Negative, Urine Urobilinogen Normal, Urine Leukocyte Esterase Negative, Urine RBC TntcH, Urine WBC 0, Urine Squamous Epithelial Cells None, Urine Bacteria None 12/10/18 05:15: White Blood Count 3.2L, Red Blood Count 3.62L, Hemoglobin 7.5L, Hematocrit 25.9L , Mean Corpuscular Volume 72L, Mean Corpuscular Hemoglobin 20.6L, Mean Corpuscular Hemoglobin Concent 28.8L, Red Cell Distribution Width 18.2H, Platelet Count 318, Mean Platelet Volume 6.2L, Neutrophils (%) (Auto) , Lymphocytes (%) (Auto) , Monocytes (%) (Auto) , Eosinophils (%) (Auto) , Basophils (%) (Auto) , Differential Total Cells Counted 100, Neutrophils % ( Manual) 59, Lymphocytes % (Manual) 26, Monocytes % (Manual) 11H, Eosinophils % ( Manual) 2, Basophils % (Manual) 2, Band Neutrophils 0, Platelet Estimate Adequate, Platelet Morphology Normal, Hypochromasia 3+, Anisocytosis 2+, Microcytosis 2+, Sodium Level 141, Potassium Level 3.9, Chloride Level 106, Carbon Dioxide Level 28, Anion Gap 7, Blood Urea Nitrogen 6L, Creatinine 0.4L, Estimat Glomerular Filtration Rate > 60, Glucose Level 90, Uric Acid 2.6, Calcium Level 8.4L, Phosphorus Level 4.0, Magnesium Level 1.9, Total Bilirubin 0.3, Aspartate Amino Transf (AST/SGOT) 12L, Alanine Aminotransferase (ALT/SGPT) 12, Alkaline Phosphatase 65, Total Protein 5.7L, Albumin 2.5L, Globulin 3.2, Albumin/Globulin Ratio 0.8L, Triglycerides Level 44, Cholesterol Level 118, LDL Cholesterol 55, HDL Cholesterol 56, Cholesterol/HDL Ratio 2.1L, Thyroid Stimulating Hormone (TSH) 3.546 Height (Feet): 5 Height (Inches): 5.00 Weight (Pounds): 243 General Appearance: lethargic EENT: normal ENT inspection Neck: normal alignment Cardiovascular: normal peripheral pulses, normal rate, regular rhythm Respiratory/Chest: chest wall non-tender, lungs clear, normal breath sounds Abdomen: normal bowel sounds, non tender, soft Extremities: normal inspection Edema: no edema noted Arm (L), no edema noted Arm (R), no edema noted Leg (L), no edema noted Leg (R), no edema noted Pedal (L), no edema noted Pedal (R), no edema noted Generalized Neurologic: responsive, motor weakness Skin: normal pigmentation, warm/dry Alfonso Rodríguez DO Dec 10, 2018 13:36
--- NOTE | 2018-12-10 14:47 | Pulmonology Progress Note ---
Assessment/Plan Problems: (1) Anemia (2) Intractable pain (3) Anxiety (4) Obesities, morbid (5) H/O gastric bypass Assessment/Plan prbc prn all noted symptomatic treatment anemia work up pain management GI evaluation dvt prophylaxis Subjective ROS Limited/Unobtainable: No HEENT: Repors: no symptoms Respiratory: Reports: no symptoms Allergies: Coded Allergies: No Known Allergies (Unverified , 09/04/12) Objective Last 24 Hour Vital Signs Date Time Temp Pulse Resp B/P (MAP) Pulse Ox O2 Delivery O2 Flow Rate FiO2 12/10/18 12:00 98.2 82 19 109/49 (69) 97 12/10/18 09:00 Room Air 12/10/18 08:00 98.3 88 19 108/52 (70) 98 12/10/18 04:00 98.1 103 20 121/80 (94) 97 12/10/18 00:00 97.8 76 20 113/54 (73) 96 12/09/18 21:00 Room Air 12/09/18 20:00 98.2 69 20 113/54 (73) 97 12/09/18 16:00 98.2 74 18 111/51 (71) 98 12/09/18 15:41 Room Air Intake and Output 12/09/18 12/10/18 19:00 07:00 Intake Total 360 ml 200 ml Balance 360 ml 200 ml Intake Oral 360 ml 200 ml # Voids 3 6 # Bowel Movements 1 General Appearance: WD/WN HEENT: normocephalic, atraumatic Respiratory/Chest: chest wall non-tender, no respiratory distress Cardiovascular: normal peripheral pulses, regular rhythm Abdomen: soft, non tender, no mass Laboratory Tests 12/09/18 18:30: Urine Color Red, Urine Appearance Very cloudy, Urine pH 6, Urine Specific [place] 1.015, Urine Protein 3+H, Urine Glucose (UA) Negative, Urine Ketones Negative, Urine Blood 5+H, Urine Nitrite Negative, Urine Bilirubin Negative, Urine Urobilinogen Normal, Urine Leukocyte Esterase Negative, Urine RBC TntcH, Urine WBC 0, Urine Squamous Epithelial Cells None, Urine Bacteria None 12/10/18 05:15: White Blood Count 3.2L, Red Blood Count 3.62L, Hemoglobin 7.5L, Hematocrit 25.9L , Mean Corpuscular Volume 72L, Mean Corpuscular Hemoglobin 20.6L, Mean Corpuscular Hemoglobin Concent 28.8L, Red Cell Distribution Width 18.2H, Platelet Count 318, Mean Platelet Volume 6.2L, Neutrophils (%) (Auto) , Lymphocytes (%) (Auto) , Monocytes (%) (Auto) , Eosinophils (%) (Auto) , Basophils (%) (Auto) , Differential Total Cells Counted 100, Neutrophils % ( Manual) 59, Lymphocytes % (Manual) 26, Monocytes % (Manual) 11H, Eosinophils % ( Manual) 2, Basophils % (Manual) 2, Band Neutrophils 0, Platelet Estimate Adequate, Platelet Morphology Normal, Hypochromasia 3+, Anisocytosis 2+, Microcytosis 2+, Sodium Level 141, Potassium Level 3.9, Chloride Level 106, Carbon Dioxide Level 28, Anion Gap 7, Blood Urea Nitrogen 6L, Creatinine 0.4L, Estimat Glomerular Filtration Rate > 60, Glucose Level 90, Uric Acid 2.6, Calcium Level 8.4L, Phosphorus Level 4.0, Magnesium Level 1.9, Total Bilirubin 0.3, Aspartate Amino Transf (AST/SGOT) 12L, Alanine Aminotransferase (ALT/SGPT) 12, Alkaline Phosphatase 65, Total Protein 5.7L, Albumin 2.5L, Globulin 3.2, Albumin/Globulin Ratio 0.8L, Triglycerides Level 44, Cholesterol Level 118, LDL Cholesterol 55, HDL Cholesterol 56, Cholesterol/HDL Ratio 2.1L, Thyroid Stimulating Hormone (TSH) 3.546 Current Medications Medications (Trade) Dose Ordered Sig/Safia Route PRN Reason Start Time Stop Time Status Last Admin Dose Admin Acetaminophen (Tylenol) 650 mg Q4H PRN ORAL fever 12/09/18 14:30 01/08/19 14:29 Cyanocobalamin (Vitamin B12) 1,000 mcg Q24H SUBQ 12/10/18 13:00 12/12/18 13:01 12/10/18 13:36 Cyclobenzaprine HCl (Flexeril) 10 mg THREE TIMES A DAY ORAL 12/09/18 18:00 01/08/19 17:59 12/10/18 12:29 Dextrose (Dextrose 50%) 25 ml Q30M PRN IV Hypoglycemia 12/09/18 14:30 01/08/19 14:23 Dextrose (Dextrose 50%) 50 ml Q30M PRN IV hypoglycemia 12/09/18 14:30 01/08/19 14:29 Furosemide (Lasix) 20 mg DAILY ORAL 12/10/18 09:00 01/09/19 08:59 12/10/18 08:53 Iron Sucrose 100 mg/Sodium Chloride 60 ml @ 240 mls/hr BEDTIME IV 12/10/18 21:00 12/14/18 21:14 Lorazepam (Ativan 2mg/ml 1ml) 0.5 mg Q4H PRN IV For Anxiety 12/09/18 14:30 12/16/18 14:29 Morphine Sulfate (Morphine Sulfate) 4 mg Q4H PRN IVP Severe Pain (Pain Scale 7-10) 12/10/18 14:30 12/17/18 14:29 Ondansetron HCl (Zofran) 4 mg Q6H PRN IVP Nausea & Vomiting 12/09/18 14:30 01/08/19 14:29 12/10/18 13:06 Polyethylene Glycol (Miralax) 17 gm HSPRN PRN ORAL Constipation 12/09/18 14:30 01/08/19 14:29 Zolpidem Tartrate (Ambien) 5 mg HSPRN PRN ORAL Insomnia 12/09/18 14:30 12/16/18 14:29 12/10/18 01:13 Latha Gill MD Dec 10, 2018 14:47
[2018-12-10 16:00] VITALS: BP 107/59
--- NOTE | 2018-12-10 16:07 | Cardiology Report ---
APPROVED REPORT EKG Measurement Heart [id number] Sinus rhythm with sinus arrhythmia with 1st degree AV block Otherwise normal ECG
--- NOTE | 2018-12-10 16:54 | Diagnostic Imaging Report ---
Indication: Pain from recent fall, right-sided low back pain and upper buttock pain Technique: Sagittal T1 and T2 fast spin echo, sagittal STIR, axial T1 and T2 fast spin-echo images of the lumbar spine Comparison: none Findings: There is anterior offset of L4 on L5, minimal posterior offset of L5 on S1 and of L2 on L3. Otherwise normal bony alignment. The vertebral body heights are preserved. Vertebral body marrow signal is normal except for some Modic type II degenerative changes within the L4 vertebral body. The conus medullaris terminates at the inferior L1 level. At T12-L1, there is minimal degenerative disc narrowing. No significant disc bulge or protrusion, spinal stenosis, or neural foraminal stenosis. At L1-2, the disc space is largely preserved. There is minimal circumferential annular bulge which does not compromise the spinal canal. The neural foramina are preserved. At L2-3, there is minimal narrowing of the disc. There is minimal circumferential annular bulge. This results in slight compromise of the bilateral neural foramina, probably not significant. No significant spinal stenosis. At L3-4, there is minimal degenerative disc narrowing. No significant disc bulge or protrusion, spinal stenosis, or neural foraminal narrowing. There is bilateral facet arthrosis. At L4-5, circumferential annular bulge and the alignment abnormality results in mild to moderate narrowing of the spinal canal, also exacerbated by facet and ligamentum flavum hypertrophy. The alignment abnormality results in mild compromise of the bilateral neural foramina. There is degenerative narrowing of the disc at this level, moderate. At L5-S1, there is mild degenerative disc narrowing. There is mild circumferential annular bulge which does not significantly compromise the spinal canal or neural foramina. Included extra spinal soft tissues demonstrate mild left hydronephrosis. There is also mild proximal hydroureter This was not evident on a prior CT scan of 05/27/2017. That exam didn't show right hydronephrosis, however, which is not evident currently. Impression: No evidence of acute bony trauma.. Degenerative changes, as detailed on a level by level basis above Left mild hydronephrosis. Consider CT to determine etiology
--- NOTE | 2018-12-10 16:57 | Diagnostic Imaging Report ---
Indication: Headache Technique: sagittal T1 fast spin echo, axial T1 FLAIR, axial T2 FLAIR, axial T2 FS PROPELLER, axial T2* GRE, axial diffusion weighted images. ADC and exponential ADC maps generated Comparison: Head CT 12/09/2018 Findings: No abnormal areas of restricted diffusion to suggest acute infarction. No acute hemorrhage or edema. No mass effect nor midline shift. There is age-related enlargement of the ventricles and extra axial CSF spaces. There is punctate and confluent periventricular deep white matter high T2 signal, consistent with chronic microvascular ischemic changes. There is mucosal disease within the ethmoid and right maxillary sinuses. There is evidence of an empty sella.. The vascular flow voids are preserved. Impression: Negative for acute intracranial bleed, mass effect, or infarct Chronic age-related volume loss Periventricular deep white matter high T2 signal, consistent with chronic small vessel microvascular ischemic changes Sinus disease
--- NOTE | 2018-12-10 17:03 | Consultation ---
History of Present Illness General Date patient seen: Dec 10, 2018 Chief Complaint: Multiple Trauma/Fall Present Illness Allergies: Coded Allergies: No Known Allergies (Unverified , 09/04/12) Medication History Scheduled Acetaminophen* (Tylenol Extra Strength*), 500 MG ORAL Q6H Albuterol Sulfate* (Proair Hfa*), 1 PUFF INH Q6H, (Reported) Cyclobenzaprine Hcl* (Flexeril*), 10 MG ORAL THREE TIMES A DAY Cyclobenzaprine Hcl* (Flexeril*), 10 MG ORAL TWICE A DAY, (Reported) Dicyclomine Hcl* (Dicyclomine Hcl*), 10 MG PO QID, (Reported) Ferrous Sulfate (Ferrous Sulfate), 1 TAB ORAL DAILY, (Reported) Furosemide (Furosemide), 20 MG PO DAILY, (Reported) Hydroxyzine Hcl (Hydroxyzine Hcl), 25 MG PO THREE TIMES A DAY, (Reported) Ibuprofen* (Motrin*), 600 MG ORAL THREE TIMES A DAY Levofloxacin* (Levaquin*), 500 MG ORAL DAILY Lorazepam* (Ativan*), 1 MG ORAL THREE TIMES A DAY Naproxen* (Naproxen*), 500 MG ORAL TWICE A DAY, (Reported) Prednisone* (Prednisone*), 60 MG ORAL DAILY Trimethoprim/Sulfamethoxazole 160/800* (Bactrim Ds Tablet*), 1 TAB ORAL Q12H Scheduled PRN Acetaminophen With Codeine (T#3) (Tylenol #3 Tab*), 2 TAB ORAL Q8HR PRN for For Pain, (Reported) Hydrocodone/Acetaminophen 5-325* (Hydrocodone/Acetaminophen 5-325*), 1 TAB ORAL Q6H PRN for For Pain Ibuprofen* (Motrin*), 200 MG ORAL FOUR TIMES A DAY PRN for For Pain, (Reported) Ondansetron* (Zofran*), 4 MG ORAL Q6H PRN for Nausea & Vomiting, (Reported) Tramadol Hcl* (Ultram*), 50 MG ORAL EVERY 8 HOURS PRN for For Pain, (Reported) Patient History Healthcare decision maker TOLU HERNANDEZ Resuscitation status Full Code Advanced Directive on File No Physical Exam Last 24 Hour Vital Signs Date Time Temp Pulse Resp B/P (MAP) Pulse Ox O2 Delivery O2 Flow Rate FiO2 12/10/18 12:00 98.2 82 19 109/49 (69) 97 12/10/18 09:00 Room Air 12/10/18 08:00 98.3 88 19 108/52 (70) 98 12/10/18 04:00 98.1 103 20 121/80 (94) 97 12/10/18 00:00 97.8 76 20 113/54 (73) 96 12/09/18 21:00 Room Air 12/09/18 20:00 98.2 69 20 113/54 (73) 97 Intake and Output 12/09/18 12/10/18 19:00 07:00 Intake Total 360 ml 200 ml Balance 360 ml 200 ml Intake Oral 360 ml 200 ml # Voids 3 6 # Bowel Movements 1 Laboratory Tests Test 12/09/18 18:30 12/10/18 05:15 Urine Color Red Urine Appearance Very cloudy Urine pH 6 (4.5-8.0) Urine Specific [place] 1.015 (1.005-1.035) Urine Protein 3+ (NEGATIVE) H Urine Glucose (UA) Negative (NEGATIVE) Urine Ketones Negative (NEGATIVE) Urine Blood 5+ (NEGATIVE) H Urine Nitrite Negative (NEGATIVE) Urine Bilirubin Negative (NEGATIVE) Urine Urobilinogen Normal MG/DL (0.0-1.0) Urine Leukocyte Esterase Negative (NEGATIVE) Urine RBC Tntc /HPF (0 - 2) H Urine WBC 0 /HPF (0 - 2) Urine Squamous Epithelial Cells None /LPF (NONE/OCC) Urine Bacteria None /HPF (NONE) White Blood Count 3.2 K/UL (4.8-10.8) L Red Blood Count 3.62 M/UL (4.20-5.40) L Hemoglobin 7.5 G/DL (12.0-16.0) L Hematocrit 25.9 % (37.0-47.0) L Mean Corpuscular Volume 72 FL (80-99) L Mean Corpuscular Hemoglobin 20.6 PG (27.0-31.0) L Mean Corpuscular Hemoglobin Concent 28.8 G/DL (32.0-36.0) L Red Cell Distribution Width 18.2 % (11.6-14.8) H Platelet Count 318 K/UL (150-450) Mean Platelet Volume 6.2 FL (6.5-10.1) L Neutrophils (%) (Auto) % (45.0-75.0) Lymphocytes (%) (Auto) % (20.0-45.0) Monocytes (%) (Auto) % (1.0-10.0) Eosinophils (%) (Auto) % (0.0-3.0) Basophils (%) (Auto) % (0.0-2.0) Differential Total Cells Counted 100 Neutrophils % (Manual) 59 % (45-75) Lymphocytes % (Manual) 26 % (20-45) Monocytes % (Manual) 11 % (1-10) H Eosinophils % (Manual) 2 % (0-3) Basophils % (Manual) 2 % (0-2) Band Neutrophils 0 % (0-8) Platelet Estimate Adequate Platelet Morphology Normal Hypochromasia 3+ Anisocytosis 2+ Microcytosis 2+ Sodium Level 141 MMOL/L (136-145) Potassium Level 3.9 MMOL/L (3.5-5.1) Chloride Level 106 MMOL/L (98-107) Carbon Dioxide Level 28 MMOL/L (21-32) Anion Gap 7 mmol/L (5-15) Blood Urea Nitrogen 6 mg/dL (7-18) L Creatinine 0.4 MG/DL (0.55-1.30) L Estimat Glomerular Filtration Rate > 60 mL/min (>60) Glucose Level 90 MG/DL (74-106) Uric Acid 2.6 MG/DL (2.6-7.2) Calcium Level 8.4 MG/DL (8.5-10.1) L Phosphorus Level 4.0 MG/DL (2.5-4.9) Magnesium Level 1.9 MG/DL (1.8-2.4) Total Bilirubin 0.3 MG/DL (0.2-1.0) Aspartate Amino Transf (AST/SGOT) 12 U/L (15-37) L Alanine Aminotransferase (ALT/SGPT) 12 U/L (12-78) Alkaline Phosphatase 65 U/L (46-116) Total Protein 5.7 G/DL (6.4-8.2) L Albumin 2.5 G/DL (3.4-5.0) L Globulin 3.2 g/dL Albumin/Globulin Ratio 0.8 (1.0-2.7) L Triglycerides Level 44 MG/DL (30-150) Cholesterol Level 118 MG/DL (< 200) LDL Cholesterol 55 mg/dL (<100) HDL Cholesterol 56 MG/DL (40-60) Cholesterol/HDL Ratio 2.1 (3.3-4.4) L Thyroid Stimulating Hormone (TSH) 3.546 uiU/mL (0.358-3.740) Height (Feet): 5 Height (Inches): 5.00 Weight (Pounds): 243 Medications Current Medications Medications (Trade) Dose Ordered Sig/Safia Route PRN Reason Start Time Stop Time Status Last Admin Dose Admin Acetaminophen (Tylenol) 650 mg Q4H PRN ORAL fever 12/09/18 14:30 01/08/19 14:29 Cyanocobalamin (Vitamin B12) 1,000 mcg Q24H SUBQ 12/10/18 13:00 12/12/18 13:01 12/10/18 13:36 Cyclobenzaprine HCl (Flexeril) 10 mg THREE TIMES A DAY ORAL 12/09/18 18:00 01/08/19 17:59 12/10/18 12:29 Dextrose (Dextrose 50%) 25 ml Q30M PRN IV Hypoglycemia 12/09/18 14:30 01/08/19 14:23 Dextrose (Dextrose 50%) 50 ml Q30M PRN IV hypoglycemia 12/09/18 14:30 01/08/19 14:29 Furosemide (Lasix) 20 mg DAILY ORAL 12/10/18 09:00 01/09/19 08:59 12/10/18 08:53 Iron Sucrose 100 mg/Sodium Chloride 60 ml @ 240 mls/hr BEDTIME IV 12/10/18 21:00 12/14/18 21:14 Lorazepam (Ativan 2mg/ml 1ml) 0.5 mg Q4H PRN IV For Anxiety 12/09/18 14:30 12/16/18 14:29 Morphine Sulfate (Morphine Sulfate) 4 mg Q4H PRN IVP Severe Pain (Pain Scale 7-10) 12/10/18 14:30 12/17/18 14:29 Ondansetron HCl (Zofran) 4 mg Q6H PRN IVP Nausea & Vomiting 12/09/18 14:30 01/08/19 14:29 12/10/18 13:06 Polyethylene Glycol (Miralax) 17 gm HSPRN PRN ORAL Constipation 12/09/18 14:30 01/08/19 14:29 Zolpidem Tartrate (Ambien) 5 mg HSPRN PRN ORAL Insomnia 12/09/18 14:30 12/16/18 14:29 12/10/18 01:13 Assessment/Plan Assessment/Plan: HEMATOLOGY/ONCOLOGY CONSULTATION DATE OF CONSULT: 12/10/2017 REFERRING PHYSICIAN: Alfonso Rodríguez REASON FOR CONSULT: Anemia, leukopenia HISTORY OF PRESENT ILLNESS: This is a 68-year-old female, who lives at home with sister presented this morning, having tripped and fell. No loss of consciousness, complaining of aches all over. Initial x-ray negative per ER. The patient also complained of hematuria, weakness, and was admitted to med/ surg. Currently calm in bed, slight general pain, no other complaints. Review of cbc showed a low wbc level of 3.2 and low hgb of 7.5. Hematology services were consulted for the evaluation and management of anemia and leukopenia. Pt has an active bleed and 1 unit PRBC has been ordered. PAST MEDICAL HISTORY: ATN, sciatica, malnutrition, obesity, hematuria. PAST SURGICAL HISTORY: Right knee gastric bypass, carpal tunnel bilaterally, hysterectomy, gallbladder. ALLERGIES: Denies. SOCIAL HISTORY: No smoking. Occasional alcohol. No intravenous drug abuse. FAMILY HISTORY: Noncontributory. ROS: Constitutional: No fever, no chills, no night sweats, no fatigue Skin: No rashes, lumps, itchiness, dryness HEENT: No GASPAR, ear ache, visual changes, double vision, nosebleeds Breasts: No lumps, pain, discharge Pulmonary: No cough, sputum, shortness of breath, coughing up blood Cardiovascular: No chest pain, tightness, palpitations, syncope, PND GI: No nausea, vomiting, diarrhea, melena, hematochezia, change in appetite, : No dysuria, frequency, urgency, urinary incontinence, foamy urine Musculoskeletal: No joint swelling or muscle pain, trauma, back pain Neurologic: No dizziness, fainting, seizures, changes in smell or taste Psychiatric: No nervousness, stress, or depression, anxiety, hallucinations Endocrine: No weight change, heat or cold intolerance, tremor, insomnia OBJECTIVE PHYSICAL EXAMINATION: GENERAL: Calm in bed, oriented x3, no acute distress. VITAL SIGNS: Have been reviewed. CARDIOVASCULAR: No murmur. LUNGS: Distant and clear. ABDOMEN: Bowel sounds positive. Nontender. Nondistended. EXTREMITIES: No cyanosis, clubbing, edema. NEUROLOGIC: The patient moves all extremities, slightly weak. Last 24 Hour Vital Signs Date Time Temp Pulse Resp B/P (MAP) Pulse Ox O2 Delivery O2 Flow Rate FiO2 12/10/18 12:00 98.2 82 19 109/49 (69) 97 12/10/18 09:00 Room Air 12/10/18 08:00 98.3 88 19 108/52 (70) 98 12/10/18 04:00 98.1 103 20 121/80 (94) 97 12/10/18 00:00 97.8 76 20 113/54 (73) 96 12/09/18 21:00 Room Air 12/09/18 20:00 98.2 69 20 113/54 (73) 97 Laboratory Tests Test 12/09/18 18:30 12/10/18 05:15 Urine Color Red Urine Appearance Very cloudy Urine pH 6 (4.5-8.0) Urine Specific [place] 1.015 (1.005-1.035) Urine Protein 3+ (NEGATIVE) H Urine Glucose (UA) Negative (NEGATIVE) Urine Ketones Negative (NEGATIVE) Urine Blood 5+ (NEGATIVE) H Urine Nitrite Negative (NEGATIVE) Urine Bilirubin Negative (NEGATIVE) Urine Urobilinogen Normal MG/DL (0.0-1.0) Urine Leukocyte Esterase Negative (NEGATIVE) Urine RBC Tntc /HPF (0 - 2) H Urine WBC 0 /HPF (0 - 2) Urine Squamous Epithelial Cells None /LPF (NONE/OCC) Urine Bacteria None /HPF (NONE) White Blood Count 3.2 K/UL (4.8-10.8) L Red Blood Count 3.62 M/UL (4.20-5.40) L Hemoglobin 7.5 G/DL (12.0-16.0) L Hematocrit 25.9 % (37.0-47.0) L Mean Corpuscular Volume 72 FL (80-99) L Mean Corpuscular Hemoglobin 20.6 PG (27.0-31.0) L Mean Corpuscular Hemoglobin Concent 28.8 G/DL (32.0-36.0) L Red Cell Distribution Width 18.2 % (11.6-14.8) H Platelet Count 318 K/UL (150-450) Mean Platelet Volume 6.2 FL (6.5-10.1) L Neutrophils (%) (Auto) % (45.0-75.0) Lymphocytes (%) (Auto) % (20.0-45.0) Monocytes (%) (Auto) % (1.0-10.0) Eosinophils (%) (Auto) % (0.0-3.0) Basophils (%) (Auto) % (0.0-2.0) Differential Total Cells Counted 100 Neutrophils % (Manual) 59 % (45-75) Lymphocytes % (Manual) 26 % (20-45) Monocytes % (Manual) 11 % (1-10) H Eosinophils % (Manual) 2 % (0-3) Basophils % (Manual) 2 % (0-2) Band Neutrophils 0 % (0-8) Platelet Estimate Adequate Platelet Morphology Normal Hypochromasia 3+ Anisocytosis 2+ Microcytosis 2+ Sodium Level 141 MMOL/L (136-145) Potassium Level 3.9 MMOL/L (3.5-5.1) Chloride Level 106 MMOL/L (98-107) Carbon Dioxide Level 28 MMOL/L (21-32) Anion Gap 7 mmol/L (5-15) Blood Urea Nitrogen 6 mg/dL (7-18) L Creatinine 0.4 MG/DL (0.55-1.30) L Estimat Glomerular Filtration Rate > 60 mL/min (>60) Glucose Level 90 MG/DL (74-106) Uric Acid 2.6 MG/DL (2.6-7.2) Calcium Level 8.4 MG/DL (8.5-10.1) L Phosphorus Level 4.0 MG/DL (2.5-4.9) Magnesium Level 1.9 MG/DL (1.8-2.4) Total Bilirubin 0.3 MG/DL (0.2-1.0) Aspartate Amino Transf (AST/SGOT) 12 U/L (15-37) L Alanine Aminotransferase (ALT/SGPT) 12 U/L (12-78) Alkaline Phosphatase 65 U/L (46-116) Total Protein 5.7 G/DL (6.4-8.2) L Albumin 2.5 G/DL (3.4-5.0) L Globulin 3.2 g/dL Albumin/Globulin Ratio 0.8 (1.0-2.7) L Triglycerides Level 44 MG/DL (30-150) Cholesterol Level 118 MG/DL (< 200) LDL Cholesterol 55 mg/dL (<100) HDL Cholesterol 56 MG/DL (40-60) Cholesterol/HDL Ratio 2.1 (3.3-4.4) L Thyroid Stimulating Hormone (TSH) 3.546 uiU/mL (0.358-3.740) MEDICATIONS: Have been reviewed LABORATORY DATA: 12/10: wbc 3.1 hgb 7.5 plt 318 ASSESSMENT AND PLAN # Leukopenia -- multiple etiologies could be related to underlying liver disease , medication-induced, infection versus viral syndrome --> peripheral smear has been ordered and does not show significant abnormalities --> Medications have been reviewed --> Continue to monitor for improvement, trend cbc --> Hep panel and HIV have been ordered --> US abd ordered to r/o cirrhosis and hepatosplenomegaly --> reverse isolation if ANC is <2000 --> Give neupogen if ANC <1000 # Anemia of iron deficiency due to underlying hematuria. Will f/u with urology. --> Anemia workup has been ordered, rule out gi bleed --> No evidence of hemolysis is noted, peripheral smear has been reviewed. --> Hgb goal >7. Transfuse prn. --> Epogen or iron at this time is not particularly indicated --> Medications have been reviewed --> low threshold for gi evaluation in case has occult + --> bone marrow biopsy is not indicated given the other more likely causes --> Blood tx: 1 unit 12/10 # Hematuria. Urology is following, appreciate recs. # Fall. PT/OT, dietary followup. # Obesity. --> Recommend diet and lifestyle modifications # Weakness. # ATN. # Sciatica. The time the note is entered does not reflect the time the patient was examined. I greatly appreciate the consultation. Valentin Ken MD Dec 10, 2018 17:03
--- NOTE | 2018-12-10 17:31 | General Progress Note ---
Assessment/Plan Assessment/Plan: (1) Lumbar Sprain (2) Lumbar Radiculopathy (3) Lumbar DDD (4 Lumbar Spondylosis (5) R/O Lumbar Herniated disc MRI pending Continued on Morphine D/w Dr. Rincon and he concurred. Subjective Date patient seen: Dec 10, 2018 Time patient seen: 05:00 - pm Allergies: Coded Allergies: No Known Allergies (Unverified , 09/04/12) Subjective REVIEW OF SYSTEMS: Denies rash, fever, chills, sweating, dizziness, drowsiness, blurred vision, sore throat, change in weight. No shortness of breath or chest pain. No nausea, vomiting, or blood in the stool or urine. No bowel or bladder. No history of neck and low back pain. SUBJECTIVE: Patient is in bed and pain was not tolerated on the Morphine increased to 4mg now better, Waiting to go for MRI. Objective Last 24 Hour Vital Signs Date Time Temp Pulse Resp B/P (MAP) Pulse Ox O2 Delivery O2 Flow Rate FiO2 12/10/18 16:00 99.8 75 18 107/59 (75) 95 12/10/18 12:00 98.2 82 19 109/49 (69) 97 12/10/18 09:00 Room Air 12/10/18 08:00 98.3 88 19 108/52 (70) 98 12/10/18 04:00 98.1 103 20 121/80 (94) 97 12/10/18 00:00 97.8 76 20 113/54 (73) 96 12/09/18 21:00 Room Air 12/09/18 20:00 98.2 69 20 113/54 (73) 97 Intake and Output 12/09/18 12/10/18 19:00 07:00 Intake Total 360 ml 200 ml Balance 360 ml 200 ml Intake Oral 360 ml 200 ml # Voids 3 6 # Bowel Movements 1 Laboratory Tests 12/09/18 18:30: Urine Color Red, Urine Appearance Very cloudy, Urine pH 6, Urine Specific [place] 1.015, Urine Protein 3+H, Urine Glucose (UA) Negative, Urine Ketones Negative, Urine Blood 5+H, Urine Nitrite Negative, Urine Bilirubin Negative, Urine Urobilinogen Normal, Urine Leukocyte Esterase Negative, Urine RBC TntcH, Urine WBC 0, Urine Squamous Epithelial Cells None, Urine Bacteria None 12/10/18 05:15: White Blood Count 3.2L, Red Blood Count 3.62L, Hemoglobin 7.5L, Hematocrit 25.9L , Mean Corpuscular Volume 72L, Mean Corpuscular Hemoglobin 20.6L, Mean Corpuscular Hemoglobin Concent 28.8L, Red Cell Distribution Width 18.2H, Platelet Count 318, Mean Platelet Volume 6.2L, Neutrophils (%) (Auto) , Lymphocytes (%) (Auto) , Monocytes (%) (Auto) , Eosinophils (%) (Auto) , Basophils (%) (Auto) , Differential Total Cells Counted 100, Neutrophils % ( Manual) 59, Lymphocytes % (Manual) 26, Monocytes % (Manual) 11H, Eosinophils % ( Manual) 2, Basophils % (Manual) 2, Band Neutrophils 0, Platelet Estimate Adequate, Platelet Morphology Normal, Hypochromasia 3+, Anisocytosis 2+, Microcytosis 2+, Sodium Level 141, Potassium Level 3.9, Chloride Level 106, Carbon Dioxide Level 28, Anion Gap 7, Blood Urea Nitrogen 6L, Creatinine 0.4L, Estimat Glomerular Filtration Rate > 60, Glucose Level 90, Uric Acid 2.6, Calcium Level 8.4L, Phosphorus Level 4.0, Magnesium Level 1.9, Total Bilirubin 0.3, Aspartate Amino Transf (AST/SGOT) 12L, Alanine Aminotransferase (ALT/SGPT) 12, Alkaline Phosphatase 65, Total Protein 5.7L, Albumin 2.5L, Globulin 3.2, Albumin/Globulin Ratio 0.8L, Triglycerides Level 44, Cholesterol Level 118, LDL Cholesterol 55, HDL Cholesterol 56, Cholesterol/HDL Ratio 2.1L, Thyroid Stimulating Hormone (TSH) 3.546 Height (Feet): 5 Height (Inches): 5.00 Weight (Pounds): 243 Objective GENERAL: Alert, awake, oriented. LUNGS: Decreased breath sounds bilaterally. HEART: S1 and S2 regular. ABDOMEN: Obese. EXTREMITIES: No cyanosis. No clubbing. Dirk May Dec 10, 2018 17:31
--- NOTE | 2018-12-10 17:49 | NUR ---
NURSE NOTES: PT FINISHED WITH ALL MRI IMAGING STUDIES. PT WAS STARTED ON 1 UNIT PRBC TRANSFUSION AT 1705 HRS. IN NO APPARENT DISTRESS AT THIS TIME. PT TOLERATING WELL. PT AMBULATING WITH WALKER WITH MINIMAL ASSIST. WILL CONTINUE TO MONITOR.
--- NOTE | 2018-12-10 17:57 | Diagnostic Imaging Report ---
Indication: Trauma to right side of pelvis from fall, pain in upper buttock and lower back Technique: Axial T1, axial FSE IR, axial T2 fat-saturated, coronal T1 FSE, coronal FSEIR, coronal T2 FRFSE fat-saturated, of the pelvis, coronal oblique proton-density fat-saturated images of the right hip. Comparison: No comparison MRIs. Reference made to abdomen pelvis CT dated 05/27/2017 Findings: No marrow signal abnormality to suggest acute fracture demonstrated. No evidence of significant soft tissue contusion. There is a unilocular simple cyst in the anterior right side of the pelvis which measures 5.6 cm long axis dimension. This is also evident on the previous 2017 CT scan as well as an earlier CT scan of 2010. The pelvic viscera are otherwise unremarkable. Impression: No evidence of acute bony or soft tissue trauma Right-sided pelvic cyst, probably adnexal in origin. Stability since 2011 indicates benignity
--- NOTE | 2018-12-10 19:29 | NUR ---
HAND-OFF: Report given to Liat MERINO RN.
--- NOTE | 2018-12-10 19:43 | NUR ---
NURSE NOTES: RECEIVED PT FROM CLAUDE RN, PT IS AWAKE, AAO X4. PT IS ON ROOM AIR, UNLABORED BREATHING, NO ACUTE DISTRESS NOTED. IV ON LEFT AC 20G IS INTACT AND PATENT, CURRENTLY RUNNING 1 UNIT OF pRBC. NO REACTIONS NOTED. VSS. PT DENIES PAIN AT THE MOMENT. BED IS LOCKED AT THE LOWEST POSITION, BED ALARMS ACTIVE, SIDE RAILS UP X2, AND CALL LIGHT IS WITHIN REACH. WILL CONTINUE TO MONITOR.
[2018-12-10 20:00] VITALS: BP 98/57
[2018-12-10] MEDS: Iron Sucrose 100 MG in NS 55 ML IV SCH (20:58)
[2018-12-10] MEDS: Morphine Sulfate 4mg/ml Inj (IV USE ONLY) IVP PRN (22:56)
--- NOTE | 2018-12-10 23:08 | Neurology Progress Note ---
Interim History Interim History ROS Limited/Unobtainable: No Complaints: Fall with Weakness Interim History This visit was performed on December 10, [address] Milan Gary. Objective Physical Exam Last Vital Signs Date Time Temp Pulse Resp B/P (MAP) Pulse Ox O2 Delivery O2 Flow Rate FiO2 12/10/18 16:00 99.8 75 18 107/59 (75) 95 12/10/18 09:00 Room Air Laboratory Tests Test 12/10/18 05:15 White Blood Count 3.2 K/UL (4.8-10.8) L Red Blood Count 3.62 M/UL (4.20-5.40) L Hemoglobin 7.5 G/DL (12.0-16.0) L Hematocrit 25.9 % (37.0-47.0) L Mean Corpuscular Volume 72 FL (80-99) L Mean Corpuscular Hemoglobin 20.6 PG (27.0-31.0) L Mean Corpuscular Hemoglobin Concent 28.8 G/DL (32.0-36.0) L Red Cell Distribution Width 18.2 % (11.6-14.8) H Platelet Count 318 K/UL (150-450) Mean Platelet Volume 6.2 FL (6.5-10.1) L Neutrophils (%) (Auto) % (45.0-75.0) Lymphocytes (%) (Auto) % (20.0-45.0) Monocytes (%) (Auto) % (1.0-10.0) Eosinophils (%) (Auto) % (0.0-3.0) Basophils (%) (Auto) % (0.0-2.0) Differential Total Cells Counted 100 Neutrophils % (Manual) 59 % (45-75) Lymphocytes % (Manual) 26 % (20-45) Monocytes % (Manual) 11 % (1-10) H Eosinophils % (Manual) 2 % (0-3) Basophils % (Manual) 2 % (0-2) Band Neutrophils 0 % (0-8) Platelet Estimate Adequate Platelet Morphology Normal Hypochromasia 3+ Anisocytosis 2+ Microcytosis 2+ Sodium Level 141 MMOL/L (136-145) Potassium Level 3.9 MMOL/L (3.5-5.1) Chloride Level 106 MMOL/L (98-107) Carbon Dioxide Level 28 MMOL/L (21-32) Anion Gap 7 mmol/L (5-15) Blood Urea Nitrogen 6 mg/dL (7-18) L Creatinine 0.4 MG/DL (0.55-1.30) L Estimat Glomerular Filtration Rate > 60 mL/min (>60) Glucose Level 90 MG/DL (74-106) Uric Acid 2.6 MG/DL (2.6-7.2) Calcium Level 8.4 MG/DL (8.5-10.1) L Phosphorus Level 4.0 MG/DL (2.5-4.9) Magnesium Level 1.9 MG/DL (1.8-2.4) Total Bilirubin 0.3 MG/DL (0.2-1.0) Aspartate Amino Transf (AST/SGOT) 12 U/L (15-37) L Alanine Aminotransferase (ALT/SGPT) 12 U/L (12-78) Alkaline Phosphatase 65 U/L (46-116) Total Protein 5.7 G/DL (6.4-8.2) L Albumin 2.5 G/DL (3.4-5.0) L Globulin 3.2 g/dL Albumin/Globulin Ratio 0.8 (1.0-2.7) L Triglycerides Level 44 MG/DL (30-150) Cholesterol Level 118 MG/DL (< 200) LDL Cholesterol 55 mg/dL (<100) HDL Cholesterol 56 MG/DL (40-60) Cholesterol/HDL Ratio 2.1 (3.3-4.4) L Thyroid Stimulating Hormone (TSH) 3.546 uiU/mL (0.358-3.740) Neurologic Exam Objective General Appearance: WD/WN, no apparent distress, alert, overweight Lines, tubes and drains: peripheral HEENT: normocephalic, atraumatic, anicteric, mucous membranes moist, PERRL, EOMI, pharynx normal, supple, no JVD Neck: non-tender, normal alignment, supple, normal inspection Respiratory/Chest: normal breath sounds, no respiratory distress, no accessory muscle use Cardiovascular/Chest: normal rate, no JVD Extremities: normal capillary refill, non-pitting, inflammation, other - Bilateral knee replacements, right knee most recently. Echymosses and mild non pitting edema on right knee / lower leg (not ankle) secondary to fall/ injury. 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 Physical Exam Narrative Patient has diffuse weakness of extremities, R>L but no apparent neurological or new deficits given patient's well documented history of MSK/ neuropathic complaints Imaging [facility] [address] [place], [place] [id number] , fax [phone] Pedro Burleson M.D. Cyber Security Engineer Patient : BOUBACAR MARK Referring Physician: Lindy Wooten N.P. ID Number: [id number] Service Date: 12/10/18 : 1950 Report Date: 12/10/18 Gender: F Accession No.: [id number] Location: Procedure: MRI Brain no Contrast Indication: Headache Technique: sagittal T1 fast spin echo, axial T1 FLAIR, axial T2 FLAIR, axial T2 FS PROPELLER, axial T2* GRE, axial diffusion weighted images. ADC and exponential ADC maps generated Comparison: Head CT 12/09/2018 Findings: No abnormal areas of restricted diffusion to suggest acute infarction. No acute hemorrhage or edema. No mass effect nor midline shift. There is age- related enlargement of the ventricles and extra axial CSF spaces. There is punctate and confluent periventricular deep white matter high T2 signal, consistent with chronic microvascular ischemic changes. There is mucosal disease within the ethmoid and right maxillary sinuses. There is evidence of an empty sella.. The vascular flow voids are preserved. Impression: Negative for acute intracranial bleed, mass effect, or infarct Chronic age-related volume loss Periventricular deep white matter high T2 signal, consistent with chronic small vessel microvascular ischemic changes Sinus disease Dictated By: Kuldeep Lawrence MD Electronically Signed By: Kuldeep Lawrence MD Signed Date/Time 12/10/18 9354 CC: Lindy Wooten N.P.; Alfonso Rodríguez DO [facility] [address] [facility]. [place], [place] [id number] , fax [phone] Pedro Burleson M.D. Cyber Security Engineer Patient : BOUBACAR MARK Referring Physician: Dirk May ID Number: [id number] Service Date: 12/10/18 : 1950 Report Date: 12/10/18 Gender: F Accession No.: [id number] Location: Procedure: MRI L Spine no Contrast Indication: Pain from recent fall, right-sided low back pain and upper buttock pain Technique: Sagittal T1 and T2 fast spin echo, sagittal STIR, axial T1 and T2 fast spin-echo images of the lumbar spine Comparison: none Findings: There is anterior offset of L4 on L5, minimal posterior offset of L5 on S1 and of L2 on L3. Otherwise normal bony alignment. The vertebral body heights are preserved. Vertebral body marrow signal is normal except for some Modic type II degenerative changes within the L4 vertebral body. The conus medullaris terminates at the inferior L1 level. At T12-L1, there is minimal degenerative disc narrowing. No significant disc bulge or protrusion, spinal stenosis, or neural foraminal stenosis. At L1-2, the disc space is largely preserved. There is minimal circumferential annular bulge which does not compromise the spinal canal. The neural foramina are preserved. At L2-3, there is minimal narrowing of the disc. There is minimal circumferential annular bulge. This results in slight compromise of the bilateral neural foramina, probably not significant. No significant spinal stenosis. At L3-4, there is minimal degenerative disc narrowing. No significant disc bulge or protrusion, spinal stenosis, or neural foraminal narrowing. There is bilateral facet arthrosis. At L4-5, circumferential annular bulge and the alignment abnormality results in mild to moderate narrowing of the spinal canal, also exacerbated by facet and ligamentum flavum hypertrophy. The alignment abnormality results in mild compromise of the bilateral neural foramina. There is degenerative narrowing of the disc at this level, moderate. At L5-S1, there is mild degenerative disc narrowing. There is mild circumferential annular bulge which does not significantly compromise the spinal canal or neural foramina. Included extra spinal soft tissues demonstrate mild left hydronephrosis. There is also mild proximal hydroureter This was not evident on a prior CT scan of 2016. That exam didn't show right hydronephrosis, however, which is not evident currently. Impression: No evidence of acute bony trauma.. Degenerative changes, as detailed on a level by level basis above Left mild hydronephrosis. Consider CT to determine etiology Dictated By: Kuldeep Lawrence MD Electronically Signed By: Kuldeep Lawrence MD Signed Date/Time 12/10/18 1648 CC: Alfonso Rodríguez DO; Dirk May [facility] [address] [place] [address] [place] [address] [phone], fax [phone] Pedro Burleson M.D. Cyber Security Engineer Patient : BOUBACAR MARK Referring Physician: Kirk Tyler MD ID Number: [id number] Service Date: 12/10/18 : 1950 Report Date: 12/10/18 Gender: F Accession No.: [id number] Location: Procedure: MRI Pelvis no Contrast Indication: Trauma to right side of pelvis from fall, pain in upper buttock and lower back Technique: Axial T1, axial FSE IR, axial T2 fat-saturated, coronal T1 FSE, coronal FSEIR, coronal T2 FRFSE fat-saturated, of the pelvis, coronal oblique proton- density fat-saturated images of the right hip. Comparison: No comparison MRIs. Reference made to abdomen pelvis CT dated 2016 Findings: No marrow signal abnormality to suggest acute fracture demonstrated. No evidence of significant soft tissue contusion. There is a unilocular simple cyst in the anterior right side of the pelvis which measures 5.6 cm long axis dimension. This is also evident on the previous 2017 CT scan as well as an earlier CT scan of 2011. The pelvic viscera are otherwise unremarkable. Impression: No evidence of acute bony or soft tissue trauma Right-sided pelvic cyst, probably adnexal in origin. Stability since 2010 indicates benignity Dictated By: Kuldeep Lawrence MD Electronically Signed By: Kuldeep Lawrence MD Signed Date/Time 12/10/18 1751 CC: Alfonso Rodríguez DO; Kirk Tyler MD Impression/Recommendations Problems: (1) Contusion of finger of right hand (2) Sciatica of right side (3) ATN (acute tubular necrosis) (4) Anxiety (5) History of DVT (deep vein thrombosis) (6) Fall (7) Intractable pain (8) Anemia (9) Hematuria (10) Sciatica Status: stable Recommendations Previously discussed starting Gabapentin - agree with 300mg TID, may consider decreasing daytime doses and taking higher dose at bedtime if daytime sedation is an issue Continue general neuro obs SBP<140 PT Lindy Wooten N.P. Dec 10, 2018 23:08
[2018-12-11] VITALS: BP 98/47
[2018-12-11 04:00] VITALS: BP 107/51
--- NOTE | 2018-12-11 04:00 | Progress Note ---
DATE: 12/10/2018 NOTE: POOR AUDIO SUBJECTIVE: The patient had an MRI of the pelvis as well as the lumbar spine today. She still has pain in the right hip and posterior buttock. MRI of the pelvis shows no obvious fracture of the pelvic ring or femoral head. Lumbar spine shows facet arthropathy in the L4-L5 Assessment: she has a old compression fracture and looks like she does not have a pelvic rim fracture or femoral neck fracture. At this point, I recommend conservative treatment with physical therapy. If she still has pain she in under the care of painter bottom. So, if she has continued issue, she may be a candidate for possible epidural injection. Kirk Tyler M.D. DR: Manuela JOB#: [id number] CC: Ramos Carter
[2018-12-11] MEDS: Morphine Sulfate 4mg/ml Inj (IV USE ONLY) IVP PRN ×2 (06:57→16:30)
--- NOTE | 2018-12-11 07:30 | NUR ---
NURSE NOTES: Received pt from RN JOSE. pt is alert and orient x4. Pt is in RA, No SOB or acute respiratory distress noted. Pt has intact iv access LAC 20G SL. pt is eating breakfast. Pt still complaining hematuria. All needs attended, bed is locked and is in the lowest position, call light within east reach. will continue to monitor.
--- NOTE | 2018-12-11 07:43 | NUR ---
HAND-OFF: Report given to ANNIKA VICENTE.
[2018-12-11 08:00] VITALS: BP 94/56
[2018-12-11 08:40] LABS: BASOPHILS % (AUTO) 1.5 % (0.0-2.0); EOSINOPHILS % (AUTO) 2.1 % (0.0-3.0); HEMATOCRIT 32.9 % (37.0-47.0); HEMOGLOBIN 9.6 G/DL (12.0-16.0); LYMPHOCYTES % (AUTO) 24.2 % (20.0-45.0); MEAN CORPUSCULAR VOLUME 74 FL (80-99); MONOCYTES % (AUTO) 10.7 % (1.0-10.0); NEUTROPHILS % (AUTO) 61.5 % (45.0-75.0); PLATELET COUNT 384 K/UL (150-450); RED BLOOD COUNT 4.48 M/UL (4.20-5.40); RED CELL DISTRIBUTION WIDTH 19.1 % (11.6-14.8); WHITE BLOOD COUNT 3.6 K/UL (4.8-10.8)
--- NOTE | 2018-12-11 08:40 | General Progress Note ---
Assessment/Plan Assessment/Plan: (1) Lumbar Sprain (2) Lumbar Radiculopathy (3) Lumbar DDD (4) Lumbar Spondylosis (5) Lumbar Herniated disc Continued on Morphine we will start Neurontin 300mg TID D/w Dr. Rincon and he concurred. Subjective Date patient seen: Dec 11, 2018 Time patient seen: 07:30 - am Allergies: Coded Allergies: No Known Allergies (Unverified , 09/04/12) Subjective REVIEW OF SYSTEMS: Denies rash, fever, chills, sweating, dizziness, drowsiness, blurred vision, sore throat, change in weight. No shortness of breath or chest pain. No nausea, vomiting, or blood in the stool or urine. No bowel or bladder. No history of neck and low back pain. SUBJECTIVE: Patient is doing better and gets out of bed with PT. She is looking forward to continued PT. MRIS were reviewed. D/w her about Neurontin and she seems to understand. Objective Last 24 Hour Vital Signs Date Time Temp Pulse Resp B/P (MAP) Pulse Ox O2 Delivery O2 Flow Rate FiO2 12/11/18 07:27 98.1 12/11/18 04:00 98.1 72 20 107/51 (69) 94 12/11/18 00:00 98.6 74 20 98/47 (64) 94 12/10/18 21:00 Room Air 12/10/18 20:00 98.1 75 18 98/57 (71) 94 12/10/18 16:00 99.8 75 18 107/59 (75) 95 12/10/18 12:00 98.2 82 19 109/49 (69) 97 12/10/18 09:00 Room Air Intake and Output 12/10/18 12/11/18 19:00 07:00 Intake Total 1320 ml 240 ml Balance 1320 ml 240 ml IV Total 120 ml 240 ml Other 1200 ml # Voids 2 Laboratory Tests 12/11/18 06:52: White Blood Count [Pending], Red Blood Count [Pending], Hemoglobin [Pending], Hematocrit [Pending], Mean Corpuscular Volume [Pending], Mean Corpuscular Hemoglobin [Pending], Mean Corpuscular Hemoglobin Concent [Pending], Red Cell Distribution Width [Pending], Platelet Count [Pending], Mean Platelet Volume [ Pending], Neutrophils (%) (Auto) [Pending], Lymphocytes (%) (Auto) [Pending], Monocytes (%) (Auto) [Pending], Eosinophils (%) (Auto) [Pending], Basophils (%) (Auto) [Pending], Sodium Level [Pending], Potassium Level [Pending], Chloride Level [Pending], Carbon Dioxide Level [Pending], Blood Urea Nitrogen [Pending], Creatinine [Pending], Estimat Glomerular Filtration Rate [Pending], Glucose Level [Pending], Calcium Level [Pending] Height (Feet): 5 Height (Inches): 5.00 Weight (Pounds): 244 Objective GENERAL: Alert, awake, oriented. LUNGS: Decreased breath sounds bilaterally. HEART: S1 and S2 regular. ABDOMEN: Obese. EXTREMITIES: No cyanosis. No clubbing. NEURO: No changes. Procedure: MRI L Spine no Contrast Findings: There is anterior offset of L4 on L5, minimal posterior offset of L5 on S1 and of L2 on L3. Otherwise normal bony alignment. The vertebral body heights are preserved. Vertebral body marrow signal is normal except for some Modic type II degenerative changes within the L4 vertebral body. The conus medullaris terminates at the inferior L1 level. At T12-L1, there is minimal degenerative disc narrowing. No significant disc bulge or protrusion, spinal stenosis, or neural foraminal stenosis. At L1-2, the disc space is largely preserved. There is minimal circumferential annular bulge which does not compromise the spinal canal. The neural foramina are preserved. At L2-3, there is minimal narrowing of the disc. There is minimal circumferential annular bulge. This results in slight compromise of the bilateral neural foramina, probably not significant. No significant spinal stenosis. At L3-4, there is minimal degenerative disc narrowing. No significant disc bulge or protrusion, spinal stenosis, or neural foraminal narrowing. There is bilateral facet arthrosis. At L4-5, circumferential annular bulge and the alignment abnormality results in mild to moderate narrowing of the spinal canal, also exacerbated by facet and ligamentum flavum hypertrophy. The alignment abnormality results in mild compromise of the bilateral neural foramina. There is degenerative narrowing of the disc at this level, moderate. At L5-S1, there is mild degenerative disc narrowing. There is mild circumferential annular bulge which does not significantly compromise the spinal canal or neural foramina. Procedure: MRI Pelvis no Contrast Findings: No marrow signal abnormality to suggest acute fracture demonstrated. No evidence of significant soft tissue contusion. There is a unilocular simple cyst in the anterior right side of the pelvis which measures 5.6 cm long axis dimension. This is also evident on the previous 2016 CT scan as well as an earlier CT scan of 2010. The pelvic viscera are otherwise unremarkable. Dirk May Dec 11, 2018 08:40
[2018-12-11 09:05] LABS: ANION GAP 9 mmol/L (5-15); BLOOD UREA NITROGEN 7 mg/dL (7-18); CALCIUM 9.2 MG/DL (8.5-10.1); CARBON DIOXIDE 29 MMOL/L (21-32); CHLORIDE 104 MMOL/L (98-107); CREATININE 0.5 MG/DL (0.55-1.30); POTASSIUM 3.8 MMOL/L (3.5-5.1); SODIUM 142 MMOL/L (136-145)
[2018-12-11] MEDS: Cyclobenzaprine 10mg Tab ORAL SCH ×3 (09:09→17:32)
--- NOTE | 2018-12-11 11:07 | NUR ---
NURSE NOTES: Dr ROMAN visited pt and ordered abd pelvic ct with and with out contrast stat and asked RN to give his office number to pt, noted and carried out. consent form for contrast signed by pt and is in the chart. will continue to monitor.
[2018-12-11] MEDS ORDERED: Isovue-300 100ml vial INJ PRN (11:15)
--- NOTE | 2018-12-11 11:15 | Nephrology Progress Note ---
Assessment/Plan Problem List: (1) Hematuria (2) Anemia Assessment: Low Iron (3) Obesities, morbid Assessment stable Renal parameters h/o Hematuria: fall, Right hip contusion Obese BMI 37.6 Plan IV iron- B12 SQ check UA and c/s Uro eval continue per consultants was transfused per other MD order ! Subjective ROS Limited/Unobtainable: No Constitutional: Reports: malaise Objective Objective Last 24 Hour Vital Signs Date Time Temp Pulse Resp B/P (MAP) Pulse Ox O2 Delivery O2 Flow Rate FiO2 12/11/18 09:39 98.1 12/11/18 09:00 Room Air 12/11/18 08:00 98.5 85 19 94/56 (69) 100 12/11/18 07:27 98.1 12/11/18 04:00 98.1 72 20 107/51 (69) 94 12/11/18 00:00 98.6 74 20 98/47 (64) 94 12/10/18 21:00 Room Air 12/10/18 20:00 98.1 75 18 98/57 (71) 94 12/10/18 16:00 99.8 75 18 107/59 (75) 95 12/10/18 12:00 98.2 82 19 109/49 (69) 97 Intake and Output 12/10/18 12/11/18 18:59 06:59 Intake Total 1320 ml 240 ml Balance 1320 ml 240 ml IV Total 120 ml 240 ml Other 1200 ml # Voids 2 Laboratory Tests 12/11/18 06:52: White Blood Count 3.6L, Red Blood Count 4.48, Hemoglobin 9.6L, Hematocrit 32.9L , Mean Corpuscular Volume 74L, Mean Corpuscular Hemoglobin 21.5L, Mean Corpuscular Hemoglobin Concent 29.2L, Red Cell Distribution Width 19.1H, Platelet Count 384, Mean Platelet Volume 6.5, Neutrophils (%) (Auto) 61.5, Lymphocytes (%) (Auto) 24.2, Monocytes (%) (Auto) 10.7H, Eosinophils (%) (Auto) 2.1, Basophils (%) (Auto) 1.5, Sodium Level 142, Potassium Level 3.8, Chloride Level 104, Carbon Dioxide Level 29, Anion Gap 9, Blood Urea Nitrogen 7, Creatinine 0.5L, Estimat Glomerular Filtration Rate > 60, Glucose Level 92, Calcium Level 9.2 Height (Feet): 5 Height (Inches): 5.00 Weight (Pounds): 244 General Appearance: no apparent distress Objective no change James Dunn MD Dec 11, 2018 11:15
--- NOTE | 2018-12-11 11:30 | NUR ---
NURSE NOTES: pt has hematuria, urine sent to lab as order. waiting for result. will continue to monitor.
[2018-12-11 12:00] VITALS: BP 90/56
[2018-12-11] MEDS: Vitamin B12 1000mcg/ml Inj SUBQ SCH (12:44)
--- NOTE | 2018-12-11 14:00 | NUR ---
NURSE NOTES: Dr jones visited pt and he is notified about hypotension and Dr stated as long as pt is asymptomatic no problem and we can give him pain meds as order. will continue to monitor.
--- NOTE | 2018-12-11 15:00 | Pulmonology Progress Note ---
Assessment/Plan Problems: (1) Intractable pain (2) Anemia (3) Anxiety (4) Obesities, morbid (5) H/O gastric bypass Assessment/Plan prbc prn all noted symptomatic treatment anemia work up pain management GI evaluation dvt prophylaxis Subjective ROS Limited/Unobtainable: No Constitutional: Reports: no symptoms HEENT: Repors: no symptoms Allergies: Coded Allergies: No Known Allergies (Unverified , 09/04/12) Objective Last 24 Hour Vital Signs Date Time Temp Pulse Resp B/P (MAP) Pulse Ox O2 Delivery O2 Flow Rate FiO2 12/11/18 13:14 98.1 12/11/18 12:00 98.7 84 18 90/56 (67) 98 12/11/18 09:00 Room Air 12/11/18 08:00 98.5 85 19 94/56 (69) 100 12/11/18 07:27 98.1 12/11/18 04:00 98.1 72 20 107/51 (69) 94 12/11/18 00:00 98.6 74 20 98/47 (64) 94 12/10/18 21:00 Room Air 12/10/18 20:00 98.1 75 18 98/57 (71) 94 12/10/18 16:00 99.8 75 18 107/59 (75) 95 Intake and Output 12/10/18 12/11/18 18:59 06:59 Intake Total 1320 ml 240 ml Balance 1320 ml 240 ml IV Total 120 ml 240 ml Other 1200 ml # Voids 2 General Appearance: WD/WN HEENT: normocephalic, anicteric Respiratory/Chest: chest wall non-tender, lungs clear Cardiovascular: normal rate Abdomen: normal bowel sounds Skin: no rash, no lesions Laboratory Tests 12/11/18 06:52: White Blood Count 3.6L, Red Blood Count 4.48, Hemoglobin 9.6L, Hematocrit 32.9L , Mean Corpuscular Volume 74L, Mean Corpuscular Hemoglobin 21.5L, Mean Corpuscular Hemoglobin Concent 29.2L, Red Cell Distribution Width 19.1H, Platelet Count 384, Mean Platelet Volume 6.5, Neutrophils (%) (Auto) 61.5, Lymphocytes (%) (Auto) 24.2, Monocytes (%) (Auto) 10.7H, Eosinophils (%) (Auto) 2.1, Basophils (%) (Auto) 1.5, Sodium Level 142, Potassium Level 3.8, Chloride Level 104, Carbon Dioxide Level 29, Anion Gap 9, Blood Urea Nitrogen 7, Creatinine 0.5L, Estimat Glomerular Filtration Rate > 60, Glucose Level 92, Calcium Level 9.2 Current Medications Medications (Trade) Dose Ordered Sig/Safia Route PRN Reason Start Time Stop Time Status Last Admin Dose Admin Acetaminophen (Tylenol) 650 mg Q4H PRN ORAL fever 12/09/18 14:30 01/08/19 14:29 Cyanocobalamin (Vitamin B12) 1,000 mcg Q24H SUBQ 12/10/18 13:00 12/12/18 13:01 12/11/18 12:44 Cyclobenzaprine HCl (Flexeril) 10 mg THREE TIMES A DAY ORAL 12/09/18 18:00 01/08/19 17:59 12/11/18 12:44 Dextrose (Dextrose 50%) 25 ml Q30M PRN IV Hypoglycemia 12/09/18 14:30 01/08/19 14:23 Dextrose (Dextrose 50%) 50 ml Q30M PRN IV hypoglycemia 12/09/18 14:30 01/08/19 14:29 Furosemide (Lasix) 20 mg DAILY ORAL 12/10/18 09:00 01/09/19 08:59 12/11/18 09:09 Gabapentin (Neurontin) 300 mg THREE TIMES A DAY ORAL 12/11/18 09:00 01/10/19 08:59 12/11/18 12:43 Iopamidol (Isovue-300 100ml) 100 ml NOW PRN INJ Radiology Procedure 12/11/18 11:15 12/13/18 23:59 Iron Sucrose 100 mg/Sodium Chloride 60 ml @ 240 mls/hr BEDTIME IV 12/10/18 21:00 12/14/18 21:14 12/10/18 20:58 Lorazepam (Ativan 2mg/ml 1ml) 0.5 mg Q4H PRN IV For Anxiety 12/09/18 14:30 12/16/18 14:29 Morphine Sulfate (Morphine Sulfate) 4 mg Q4H PRN IVP Severe Pain (Pain Scale 7-10) 12/10/18 14:30 12/17/18 14:29 6/19/19 06:57 Ondansetron HCl (Zofran) 4 mg Q6H PRN IVP Nausea & Vomiting 12/09/18 14:30 01/08/19 14:29 12/10/18 13:06 Polyethylene Glycol (Miralax) 17 gm HSPRN PRN ORAL Constipation 12/09/18 14:30 01/08/19 14:29 Zolpidem Tartrate (Ambien) 5 mg HSPRN PRN ORAL Insomnia 12/09/18 14:30 12/16/18 14:29 12/10/18 01:13 Latha Gill MD Dec 11, 2018 15:00
--- NOTE | 2018-12-11 15:06 | General Progress Note ---
Assessment/Plan Problem List: (1) Sciatica ICD Codes: M54.30 - Sciatica, unspecified side SNOMED: 60005911 (2) Thrombocytopenia ICD Codes: D69.6 - Thrombocytopenia, unspecified SNOMED: 636155537 (3) Anemia ICD Codes: D64.9 - Anemia, unspecified SNOMED: 859457603 (4) Fall ICD Codes: W19.XXXA - Unspecified fall, initial encounter SNOMED: 5330307, 631863764 (5) Hematuria ICD Codes: R31.9 - Hematuria, unspecified SNOMED: 59604331 (6) Obesities, morbid ICD Codes: E66.01 - Morbid (severe) obesity due to excess calories SNOMED: 672853843 Status: stable, progressing Assessment/Plan: pt diet abx pt diet transfuse prn cbc bmp am dc plan w hh Subjective Allergies: Coded Allergies: No Known Allergies (Unverified , 09/04/12) Subjective calm in bed Objective Last 24 Hour Vital Signs Date Time Temp Pulse Resp B/P (MAP) Pulse Ox O2 Delivery O2 Flow Rate FiO2 12/11/18 13:14 98.1 12/11/18 12:00 98.7 84 18 90/56 (67) 98 12/11/18 09:00 Room Air 12/11/18 08:00 98.5 85 19 94/56 (69) 100 12/11/18 07:27 98.1 12/11/18 04:00 98.1 72 20 107/51 (69) 94 12/11/18 00:00 98.6 74 20 98/47 (64) 94 12/10/18 21:00 Room Air 12/10/18 20:00 98.1 75 18 98/57 (71) 94 12/10/18 16:00 99.8 75 18 107/59 (75) 95 Intake and Output 12/10/18 12/11/18 18:59 06:59 Intake Total 1320 ml 240 ml Balance 1320 ml 240 ml IV Total 120 ml 240 ml Other 1200 ml # Voids 2 Laboratory Tests 12/11/18 06:52: White Blood Count 3.6L, Red Blood Count 4.48, Hemoglobin 9.6L, Hematocrit 32.9L , Mean Corpuscular Volume 74L, Mean Corpuscular Hemoglobin 21.5L, Mean Corpuscular Hemoglobin Concent 29.2L, Red Cell Distribution Width 19.1H, Platelet Count 384, Mean Platelet Volume 6.5, Neutrophils (%) (Auto) 61.5, Lymphocytes (%) (Auto) 24.2, Monocytes (%) (Auto) 10.7H, Eosinophils (%) (Auto) 2.1, Basophils (%) (Auto) 1.5, Sodium Level 142, Potassium Level 3.8, Chloride Level 104, Carbon Dioxide Level 29, Anion Gap 9, Blood Urea Nitrogen 7, Creatinine 0.5L, Estimat Glomerular Filtration Rate > 60, Glucose Level 92, Calcium Level 9.2 Height (Feet): 5 Height (Inches): 5.00 Weight (Pounds): 244 General Appearance: lethargic EENT: normal ENT inspection Neck: normal alignment Cardiovascular: normal peripheral pulses, normal rate, regular rhythm Respiratory/Chest: chest wall non-tender, lungs clear, normal breath sounds Abdomen: normal bowel sounds, non tender, soft Extremities: normal inspection Edema: no edema noted Arm (L), no edema noted Arm (R), no edema noted Leg (L), no edema noted Leg (R), no edema noted Pedal (L), no edema noted Pedal (R), no edema noted Generalized Neurologic: responsive, motor weakness Skin: normal pigmentation, warm/dry Alfonso Rodríguez DO Dec 11, 2018 15:06
--- NOTE | 2018-12-11 15:36 | Diagnostic Imaging Report ---
Indication: Hematuria and anemia Technique: No oral contrast, per protocol. Precontrast spiral acquisitions obtained through the abdomen and pelvis. IV administration nonionic contrast. Multiphasic spiral acquisitions obtained through the abdomen and pelvis Multiplanar reconstructions were generated. Total dose length product 5571 mGycm. CTDIvol(s) 28, 12, T12, 176, 28, 28, 29 mGy. Radiation dose was minimized using automated exposure control Comparison: Noncontrast study dated 05/27/2017 Findings: A 3 mm calculus in the lower pole of the right kidney. This is not evident on the previous exam. No left renal or ureteral calculi demonstrated. No calculi are demonstrated within the bladder. On the postcontrast images, a subcentimeter low-attenuation lesion is seen in the interpolar region of the right kidney and multiple small subcentimeter low-attenuation lesions are seen in the left kidney. These are not evident on the previous noncontrast images. Previously demonstrated right ureteral calculus and associated hydronephrosis/hydroureter are not evident on the current exam. On the delayed phase images, there is normal filling of both renal collecting systems and both ureters. No ureteral or collecting system filling defect or other abnormality is demonstrated. The contrast filled bladder appears unremarkable. The liver demonstrates a low-attenuation lesion in the left hepatic lobe which measures approximately 4 cm in diameter. This is is only equivocally evident on the most recent noninfused study but is evident on a prior contrast scan of 02/20/2011 and probably unchanged. There is suggestion of some peripheral nodular enhancement as well as some slight filling in on the delayed phase images so this may represent a hemangioma. There are multiple subcentimeter low-attenuation liver lesions which are too small to characterize a lesion near the ana hepatis does demonstrate fluid attenuation consistent with benign simple cyst. The gallbladder is surgically absent. There is mild ectasia of the extrahepatic bile ducts. There is a surgical clip apparently positioned between the duodenum and the pancreatic head, also evident previously. The pancreas is unremarkable. The spleen is unremarkable. The adrenals are unremarkable. No retroperitoneal or mesenteric mass or adenopathy. There is a anterior right pelvic cyst which measures 5.5 cm long axis dimension. This was also evident on the 2011 exam and appears unchanged. Surgical clips are seen in the pelvis. The uterus is surgically absent, as previously. The appendix is normal. No evidence of diverticulosis or diverticulitis. There is a surgical staple line in the right lower quadrant small bowel. There is again demonstrated evidence of prior gastric bypass surgery. Small bowel loops in the areas of anastomosis are dilated, presumably on a functional basis as this is unchanged from the earlier study, but no generalized small bowel distention is evident. No free or loculated intraperitoneal gas or fluid. 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 The bones are remarkable only for degenerative spondylosis changes. The included lung bases demonstrate some posterior dependent atelectatic changes and/or scarring. Calcifications are seen in the parenchyma at the left lung base. Impression: Nonobstructive 3 mm right lower pole intrarenal calculus No other findings to explain stated clinical history of hematuria demonstrated. Bilateral subcentimeter low-attenuation renal lesions, too small to characterize, most likely benign simple cysts 4 cm left lobe liver lesion. Is also visible on a prior 2010 contrast study. Lack of interim change indicates benign process. Enhancement characteristics are suggestive of but not diagnostic for a hemangioma There is a right lobe hepatic cyst. Other low-attenuation liver lesions are too small to characterize but most likely represent benign simple cysts or bile hamartomas Evidence of prior gastric bypass surgery and gastrojejunostomy Other postsurgical changes as described, including evidence of prior cholecystectomy and prior hysterectomy. Surgical staple line in the right lower quadrant small bowel may be related to the gastric surgery or may be indicative of separate surgery. 5.5 cm anterior right pelvic cyst, unchanged from multiple earlier studies, presumed benign Other findings as noted, including right thigh intramuscular lipoma, degenerative spondylosis, posterior dependent pulmonary atelectatic changes, basilar pulmonary parenchymal calcific scarring. The CT scanner at [facility] is accredited by the [employer] and the scans are performed using protocols designed to limit radiation exposure to as low as reasonably achievable to attain images of sufficient resolution adequate for diagnostic evaluation.
[2018-12-11 16:00] VITALS: BP 119/57
--- NOTE | 2018-12-11 19:44 | NUR ---
HAND-OFF: Report given to ANNIKA STEPHENS.
[2018-12-11 20:00] VITALS: BP 119/71
--- NOTE | 2018-12-11 20:00 | NUR ---
NURSE NOTES: Received a patient in chair, Patient is awake, AAO X4, on room air, no acute distress noted, IV on L AC 20G is intact and patent, bed locked and lowest position, bed alarms on, side rails up X2, call light is within reach, will continue to monitor.
[2018-12-11] MEDS: Iron Sucrose 100 MG in NS 55 ML IV SCH (20:37)
[2018-12-12] VITALS (7 sets, daily range): BP systolic 88–116; BP diastolic 46–65
--- NOTE | 2018-12-12 03:00 | Consultation ---
DATE OF CONSULTATION: 12/11/2018 CONSULTING PHYSICIAN: Demond Dale M.D. REFERRING PHYSICIAN: Alfonso Rodríguez D.O. REASON FOR CONSULTATION: Chronic hematuria. HISTORY OF PRESENT ILLNESS: This is a 68-year-old female that had hematuria for the last several months, was evaluated at the [facility], had a cystoscopy and a workup that showed some old possible in the lumen of the bladder with some infection. Hematuria is fairly minimal, but it is on and off and she was admitted to the hospital with a history of fall and possible pelvic fracture. PAST MEDICAL HISTORY: ATN, sciatica, malnutrition, obesity, and hematuria. PAST SURGICAL HISTORY: Right knee repair, gastric bypass, carpal tunnel repair, hysterectomy, cholecystectomy. ALLERGIES: Denies. FAMILY HISTORY: Noncontributory. PHYSICAL EXAMINATION: VITAL SIGNS: She is afebrile. Vital signs are stable. NEUROLOGIC: Intact. LUNGS: Clear to auscultation. CARDIOVASCULAR: Regular rate and rhythm. ABDOMEN: Soft, nontender. No CVA tenderness. LABORATORY DATA: Reviewed. Her H and H is 10.4, creatinine is 0.4. ASSESSMENT AND PLAN: The patient has chronic hematuria, unknown etiology, would need CT urogram with and without IV contrast to evaluate . She will have a cystoscopy as an outpatient. I gave her my office information and I will follow her as an outpatient with you. Demond Dale M.D. DR: DAMION JOB#: [id number] CC:
--- NOTE | 2018-12-12 04:00 | NUR ---
NURSE NOTES: Patient remains stable. Patient encouraged to call for assistance. Hematuria noted. Bed locked and lowest position, bed alarms on, side rails up X2, call light is within reach, will continue to monitor.
[2018-12-12] MEDS: Morphine Sulfate 4mg/ml Inj (IV USE ONLY) IVP PRN ×2 (05:04→18:09)
[2018-12-12 06:18] LABS: BASOPHILS % (AUTO) 1.9 % (0.0-2.0); EOSINOPHILS % (AUTO) 4.2 % (0.0-3.0); HEMATOCRIT 31.6 % (37.0-47.0); HEMOGLOBIN 9.2 G/DL (12.0-16.0); LYMPHOCYTES % (AUTO) 20.7 % (20.0-45.0); MEAN CORPUSCULAR VOLUME 73 FL (80-99); MONOCYTES % (AUTO) 11.4 % (1.0-10.0); NEUTROPHILS % (AUTO) 61.8 % (45.0-75.0); PLATELET COUNT 344 K/UL (150-450); RED BLOOD COUNT 4.31 M/UL (4.20-5.40); RED CELL DISTRIBUTION WIDTH 19.6 % (11.6-14.8); WHITE BLOOD COUNT 3.8 K/UL (4.8-10.8)
[2018-12-12 06:34] LABS: ANION GAP 6 mmol/L (5-15); BLOOD UREA NITROGEN 8 mg/dL (7-18); CALCIUM 8.9 MG/DL (8.5-10.1); CARBON DIOXIDE 31 MMOL/L (21-32); CHLORIDE 103 MMOL/L (98-107); CREATININE 0.6 MG/DL (0.55-1.30); POTASSIUM 3.7 MMOL/L (3.5-5.1); SODIUM 140 MMOL/L (136-145)
--- NOTE | 2018-12-12 07:34 | NUR ---
HAND-OFF: Report given to ANNIKA Page.
--- NOTE | 2018-12-12 07:58 | NUR ---
NURSE NOTES: Pt resting in bed. A/O x 4, calm. denies pain. no SOB. call light within reach. Bed alarm on. will continue to monitor
--- NOTE | 2018-12-12 09:01 | General Progress Note ---
Assessment/Plan Assessment/Plan: (1) Lumbar Sprain (2) Lumbar Radiculopathy (3) Lumbar DDD (4) Lumbar Spondylosis (5) Lumbar Herniated disc Continued on Morphine and Neurontin D/w Dr. Rincon and he concurred. Subjective Date patient seen: Dec 12, 2018 Time patient seen: 08:30 - am Allergies: Coded Allergies: No Known Allergies (Unverified , 09/04/12) Subjective REVIEW OF SYSTEMS: Denies rash, fever, chills, sweating, dizziness, drowsiness, blurred vision, sore throat, change in weight. No shortness of breath or chest pain. No nausea, vomiting, or blood in the stool or urine. No bowel or bladder. No history of neck and low back pain. SUBJECTIVE: Patient is in bed no signs of pain or distress. Has gotten 3 doses of the Morphine in the last 24hrs. Has no new complaints at this time. Objective Last 24 Hour Vital Signs Date Time Temp Pulse Resp B/P (MAP) Pulse Ox O2 Delivery O2 Flow Rate FiO2 12/12/18 05:09 109/65 (80) 12/12/18 04:00 98.2 75 18 101/51 (68) 96 12/12/18 00:00 97.4 76 20 99/46 (63) 100 12/11/18 21:00 Room Air 12/11/18 20:00 97.2 100 18 119/71 (87) 95 12/11/18 18:02 98.1 12/11/18 17:00 98.1 12/11/18 16:00 98.3 84 18 119/57 (77) 95 12/11/18 12:00 98.7 84 18 90/56 (67) 98 Intake and Output 12/11/18 12/12/18 19:00 07:00 Intake Total 600 ml 760 ml Balance 600 ml 760 ml Intake Oral 600 ml 700 ml IV Total 60 ml # Voids 2 Laboratory Tests 12/12/18 05:05: White Blood Count 3.8L, Red Blood Count 4.31, Hemoglobin 9.2L, Hematocrit 31.6L , Mean Corpuscular Volume 73L, Mean Corpuscular Hemoglobin 21.4L, Mean Corpuscular Hemoglobin Concent 29.2L, Red Cell Distribution Width 19.6H, Platelet Count 344, Mean Platelet Volume 6.3L, Neutrophils (%) (Auto) 61.8, Lymphocytes (%) (Auto) 20.7, Monocytes (%) (Auto) 11.4H, Eosinophils (%) (Auto) 4.2H, Basophils (%) (Auto) 1.9, Sodium Level 140, Potassium Level 3.7, Chloride Level 103, Carbon Dioxide Level 31, Anion Gap 6, Blood Urea Nitrogen 8, Creatinine 0.6, Estimat Glomerular Filtration Rate > 60, Glucose Level 113H, Calcium Level 8.9 Height (Feet): 5 Height (Inches): 5.00 Weight (Pounds): 244 Objective GENERAL: Alert, awake, oriented. LUNGS: Decreased breath sounds bilaterally. HEART: S1 and S2 regular. ABDOMEN: Obese. EXTREMITIES: No cyanosis. No clubbing. NEURO: No changes. Dirk May Dec 12, 2018 09:01
[2018-12-12] MEDS: Cyclobenzaprine 10mg Tab ORAL SCH ×3 (09:26→17:24)
--- NOTE | 2018-12-12 11:25 | NUR ---
[facility] SI:CONTUSION . ANEMIA VS: BP 99/46, P 76, T 97.4, RR 20, SpO2 95 WBC 3.8, H&H 9.2/31.6 IS:FLEXERIL 10mg LASIX 20mg MORPHINE SULFATE 4mg IVP IRON SUCROSE 60ml MED/SURG STATUS
--- NOTE | 2018-12-12 11:48 | General Progress Note ---
Assessment/Plan Problem List: (1) Sciatica ICD Codes: M54.30 - Sciatica, unspecified side SNOMED: 58737970 (2) Thrombocytopenia ICD Codes: D69.6 - Thrombocytopenia, unspecified SNOMED: 020699281 (3) Anemia ICD Codes: D64.9 - Anemia, unspecified SNOMED: 235553216 (4) Fall ICD Codes: W19.XXXA - Unspecified fall, initial encounter SNOMED: 7524449, 410697131 (5) Hematuria ICD Codes: R31.9 - Hematuria, unspecified SNOMED: 91690036 (6) Obesities, morbid ICD Codes: E66.01 - Morbid (severe) obesity due to excess calories SNOMED: 837079562 Status: unchanged Assessment/Plan: pt diet abx pt diet transfuse prn cbc bmp am aru eval Subjective Constitutional: Reports: weakness Respiratory: Reports: shortness of breath Allergies: Coded Allergies: No Known Allergies (Unverified , 09/04/12) All Systems: reviewed and negative except above Subjective calm in bed Objective Last 24 Hour Vital Signs Date Time Temp Pulse Resp B/P (MAP) Pulse Ox O2 Delivery O2 Flow Rate FiO2 12/12/18 09:56 98.2 12/12/18 09:00 Room Air 12/12/18 08:00 98.2 18 116/62 (80) 95 12/12/18 05:09 109/65 (80) 12/12/18 04:00 98.2 75 18 101/51 (68) 96 12/12/18 00:00 97.4 76 20 99/46 (63) 100 12/11/18 21:00 Room Air 12/11/18 20:00 97.2 100 18 119/71 (87) 95 12/11/18 17:00 98.1 12/11/18 16:00 98.3 84 18 119/57 (77) 95 12/11/18 12:00 98.7 84 18 90/56 (67) 98 Intake and Output 12/11/18 12/12/18 18:59 06:59 Intake Total 600 ml 760 ml Balance 600 ml 760 ml Intake Oral 600 ml 700 ml IV Total 60 ml # Voids 2 Laboratory Tests 12/12/18 05:05: White Blood Count 3.8L, Red Blood Count 4.31, Hemoglobin 9.2L, Hematocrit 31.6L , Mean Corpuscular Volume 73L, Mean Corpuscular Hemoglobin 21.4L, Mean Corpuscular Hemoglobin Concent 29.2L, Red Cell Distribution Width 19.6H, Platelet Count 344, Mean Platelet Volume 6.3L, Neutrophils (%) (Auto) 61.8, Lymphocytes (%) (Auto) 20.7, Monocytes (%) (Auto) 11.4H, Eosinophils (%) (Auto) 4.2H, Basophils (%) (Auto) 1.9, Sodium Level 140, Potassium Level 3.7, Chloride Level 103, Carbon Dioxide Level 31, Anion Gap 6, Blood Urea Nitrogen 8, Creatinine 0.6, Estimat Glomerular Filtration Rate > 60, Glucose Level 113H, Calcium Level 8.9 Height (Feet): 5 Height (Inches): 5.00 Weight (Pounds): 244 General Appearance: lethargic EENT: normal ENT inspection Neck: normal alignment Cardiovascular: normal peripheral pulses, normal rate, regular rhythm Respiratory/Chest: chest wall non-tender, lungs clear, normal breath sounds Abdomen: normal bowel sounds, non tender, soft Extremities: normal inspection Edema: no edema noted Arm (L), no edema noted Arm (R), no edema noted Leg (L), no edema noted Leg (R), no edema noted Pedal (L), no edema noted Pedal (R), no edema noted Generalized Neurologic: responsive, motor weakness Skin: normal pigmentation, warm/dry Alfonso Rodríguez DO Dec 12, 2018 11:48
[2018-12-12] MEDS: Vitamin B12 1000mcg/ml Inj SUBQ SCH (12:24)
--- NOTE | 2018-12-12 13:06 | Pulmonology Progress Note ---
Assessment/Plan Problems: (1) Intractable pain (2) Anemia (3) Anxiety (4) Obesities, morbid (5) H/O gastric bypass Assessment/Plan got venofer no new complains all noted symptomatic treatment anemia work up pain management GI evaluation dvt prophylaxis Subjective ROS Limited/Unobtainable: No Constitutional: Reports: no symptoms HEENT: Repors: no symptoms Respiratory: Reports: no symptoms Allergies: Coded Allergies: No Known Allergies (Unverified , 09/04/12) Objective Last 24 Hour Vital Signs Date Time Temp Pulse Resp B/P (MAP) Pulse Ox O2 Delivery O2 Flow Rate FiO2 12/12/18 12:00 98.1 79 18 88/59 (69) 95 12/12/18 09:56 98.2 12/12/18 09:00 Room Air 12/12/18 08:00 98.2 18 116/62 (80) 95 12/12/18 05:09 109/65 (80) 12/12/18 04:00 98.2 75 18 101/51 (68) 96 12/12/18 00:00 97.4 76 20 99/46 (63) 100 12/11/18 21:00 Room Air 12/11/18 20:00 97.2 100 18 119/71 (87) 95 12/11/18 17:00 98.1 12/11/18 16:00 98.3 84 18 119/57 (77) 95 Intake and Output 12/11/18 12/12/18 18:59 06:59 Intake Total 600 ml 760 ml Balance 600 ml 760 ml Intake Oral 600 ml 700 ml IV Total 60 ml # Voids 2 Objective General Appearance: WD/WN HEENT: normocephalic, atraumatic Respiratory/Chest: chest wall non-tender, lungs clear Cardiovascular: normal peripheral pulses, normal rate Abdomen: normal bowel sounds, soft, non tender Genitourinary: normal external genitalia Extremities: no clubbing Skin: no rash Microbiology Date/Time Source Procedure Growth Status 12/11/18 11:30 Urine,Clean Catch Urine Culture - Preliminary Gram Positive Cocci Resulted Laboratory Tests 12/12/18 05:05: White Blood Count 3.8L, Red Blood Count 4.31, Hemoglobin 9.2L, Hematocrit 31.6L , Mean Corpuscular Volume 73L, Mean Corpuscular Hemoglobin 21.4L, Mean Corpuscular Hemoglobin Concent 29.2L, Red Cell Distribution Width 19.6H, Platelet Count 344, Mean Platelet Volume 6.3L, Neutrophils (%) (Auto) 61.8, Lymphocytes (%) (Auto) 20.7, Monocytes (%) (Auto) 11.4H, Eosinophils (%) (Auto) 4.2H, Basophils (%) (Auto) 1.9, Sodium Level 140, Potassium Level 3.7, Chloride Level 103, Carbon Dioxide Level 31, Anion Gap 6, Blood Urea Nitrogen 8, Creatinine 0.6, Estimat Glomerular Filtration Rate > 60, Glucose Level 113H, Calcium Level 8.9 Current Medications Medications (Trade) Dose Ordered Sig/Safia Route PRN Reason Start Time Stop Time Status Last Admin Dose Admin Acetaminophen (Tylenol) 650 mg Q4H PRN ORAL fever 12/09/18 14:30 01/08/19 14:29 Cyclobenzaprine HCl (Flexeril) 10 mg THREE TIMES A DAY ORAL 12/09/18 18:00 01/08/19 17:59 12/12/18 12:26 Dextrose (Dextrose 50%) 25 ml Q30M PRN IV Hypoglycemia 12/09/18 14:30 01/08/19 14:23 Dextrose (Dextrose 50%) 50 ml Q30M PRN IV hypoglycemia 12/09/18 14:30 01/08/19 14:29 Furosemide (Lasix) 20 mg DAILY ORAL 12/10/18 09:00 01/09/19 08:59 12/12/18 09:26 Gabapentin (Neurontin) 300 mg THREE TIMES A DAY ORAL 12/11/18 09:00 01/10/19 08:59 12/12/18 12:26 Iopamidol (Isovue-300 100ml) 100 ml NOW PRN INJ Radiology Procedure 12/11/18 11:15 12/13/18 23:59 Iron Sucrose 100 mg/Sodium Chloride 60 ml @ 240 mls/hr BEDTIME IV 12/10/18 21:00 12/14/18 21:14 12/11/18 20:37 Lorazepam (Ativan 2mg/ml 1ml) 0.5 mg Q4H PRN IV For Anxiety 12/09/18 14:30 12/16/18 14:29 Morphine Sulfate (Morphine Sulfate) 4 mg Q4H PRN IVP Severe Pain (Pain Scale 7-10) 12/10/18 14:30 12/17/18 14:29 12/12/18 05:04 Ondansetron HCl (Zofran) 4 mg Q6H PRN IVP Nausea & Vomiting 12/09/18 14:30 01/08/19 14:29 12/11/18 17:36 Polyethylene Glycol (Miralax) 17 gm HSPRN PRN ORAL Constipation 12/09/18 14:30 01/08/19 14:29 Zolpidem Tartrate (Ambien) 5 mg HSPRN PRN ORAL Insomnia 12/09/18 14:30 12/16/18 14:29 12/10/18 01:13 Latha Gill MD Dec 12, 2018 13:06
--- NOTE | 2018-12-12 14:22 | Nephrology Progress Note ---
Assessment/Plan Problem List: (1) Hematuria (2) Anemia Assessment: Low Iron (3) Obesities, morbid Assessment stable Renal parameters h/o Hematuria: fall, Right hip contusion Obese BMI 37.6 Plan IV iron- B12 SQ check UA and c/s: Cultures pending Uro eval continue per consultants was transfused per other MD order ! Subjective ROS Limited/Unobtainable: No Constitutional: Reports: malaise Objective Objective Last 24 Hour Vital Signs Date Time Temp Pulse Resp B/P (MAP) Pulse Ox O2 Delivery O2 Flow Rate FiO2 12/12/18 12:56 98.2 12/12/18 12:00 98.1 79 18 88/59 (69) 95 12/12/18 09:00 Room Air 12/12/18 08:00 98.2 18 116/62 (80) 95 12/12/18 05:09 109/65 (80) 12/12/18 04:00 98.2 75 18 101/51 (68) 96 12/12/18 00:00 97.4 76 20 99/46 (63) 100 12/11/18 21:00 Room Air 12/11/18 20:00 97.2 100 18 119/71 (87) 95 12/11/18 17:00 98.1 12/11/18 16:00 98.3 84 18 119/57 (77) 95 Intake and Output 12/11/18 12/12/18 18:59 06:59 Intake Total 600 ml 760 ml Balance 600 ml 760 ml Intake Oral 600 ml 700 ml IV Total 60 ml # Voids 2 Laboratory Tests 12/12/18 05:05: White Blood Count 3.8L, Red Blood Count 4.31, Hemoglobin 9.2L, Hematocrit 31.6L , Mean Corpuscular Volume 73L, Mean Corpuscular Hemoglobin 21.4L, Mean Corpuscular Hemoglobin Concent 29.2L, Red Cell Distribution Width 19.6H, Platelet Count 344, Mean Platelet Volume 6.3L, Neutrophils (%) (Auto) 61.8, Lymphocytes (%) (Auto) 20.7, Monocytes (%) (Auto) 11.4H, Eosinophils (%) (Auto) 4.2H, Basophils (%) (Auto) 1.9, Sodium Level 140, Potassium Level 3.7, Chloride Level 103, Carbon Dioxide Level 31, Anion Gap 6, Blood Urea Nitrogen 8, Creatinine 0.6, Estimat Glomerular Filtration Rate > 60, Glucose Level 113H, Calcium Level 8.9 Height (Feet): 5 Height (Inches): 5.00 Weight (Pounds): 244 General Appearance: no apparent distress Cardiovascular: normal rate Respiratory/Chest: lungs clear Abdomen: soft Objective no change James Dunn MD Dec 12, 2018 14:22
--- NOTE | 2018-12-12 18:15 | Hematology/Onc Progress Note ---
Assessment/Plan Assessment/Plan ASSESSMENT AND PLAN # Leukopenia -- multiple etiologies could be related to underlying liver disease , medication-induced, infection versus viral syndrome --> peripheral smear has been ordered and does not show significant abnormalities --> Medications have been reviewed --> Continue to monitor for improvement, trend cbc --> Hep panel and HIV neg --> US abd ordered to r/o cirrhosis and hepatosplenomegaly DOES NOT show any --> reverse isolation if ANC is <2000 --> Give neupogen if ANC <1000 # Anemia of iron deficiency due to underlying hematuria. Will f/u with urology. --> Anemia workup has been ordered, rule out gi bleed --> No evidence of hemolysis is noted, peripheral smear has been reviewed. --> Hgb goal >7. Transfuse prn. --> IRON IV Started --> Medications have been reviewed --> low threshold for gi evaluation in case has occult + --> bone marrow biopsy is not indicated given the other more likely causes --> Blood tx: 1 unit 12/10 # Hematuria. Urology is following, appreciate recs. --> on ivf # Fall. PT/OT, dietary followup. # Obesity. --> Recommend diet and lifestyle modifications # Weakness. # ATN. # Sciatica. The time the note is entered does not reflect the time the patient was examined. I greatly appreciate the consultation. Subjective Constitutional: Denies: no symptoms, chills, fever, malaise, weakness, other HEENT: Denies: no symptoms, eye pain, blurred vision, tearing, double vision, ear pain, ear discharge, nose pain, nose congestion, throat pain, throat swelling, mouth pain, mouth swelling, other Respiratory: Denies: no symptoms, cough, shortness of breath, SOB with excertion, SOB at rest, sputum, wheezing, other Gastrointestinal/Abdominal: Denies: no symptoms, abdomen distended, abdominal pain, black stools, tarry stools, blood in stool, constipated, diarrhea, difficulty swallowing, nausea, poor appetite, poor fluid intake, rectal bleeding , vomiting, other Neurologic/Psychiatric: Denies: no symptoms, anxiety, depressed, emotional problems, headache, numbness, paresthesia, pre-existing deficit, seizure, tingling, tremors, weakness, other Endocrine: Denies: no symptoms, excessive sweating, flushing, intolerance to cold, intolerance to heat, increased hunger, increased thirst, increased urine, unexplained weight gain, unexplained weight loss, other Hematologic/Lymphatic: Denies: no symptoms, anemia, easy bleeding, easy bruising, adenopathy, other Allergies: Coded Allergies: No Known Allergies (Unverified , 09/04/12) Subjective 12/12: hematuria is better, on iv iron, no f/c Objective Objective Current Medications Medications (Trade) Dose Ordered Sig/Safia Route PRN Reason Start Time Stop Time Status Last Admin Dose Admin Acetaminophen (Tylenol) 650 mg Q4H PRN ORAL fever 12/09/18 14:30 01/08/19 14:29 Cyclobenzaprine HCl (Flexeril) 10 mg THREE TIMES A DAY ORAL 12/09/18 18:00 01/08/19 17:59 12/12/18 17:24 Dextrose (Dextrose 50%) 25 ml Q30M PRN IV Hypoglycemia 12/09/18 14:30 01/08/19 14:23 Dextrose (Dextrose 50%) 50 ml Q30M PRN IV hypoglycemia 12/09/18 14:30 01/08/19 14:29 Furosemide (Lasix) 20 mg DAILY ORAL 12/10/18 09:00 01/09/19 08:59 12/12/18 09:26 Gabapentin (Neurontin) 300 mg THREE TIMES A DAY ORAL 12/11/18 09:00 01/10/19 08:59 12/12/18 17:24 Iopamidol (Isovue-300 100ml) 100 ml NOW PRN INJ Radiology Procedure 12/11/18 11:15 12/13/18 23:59 Iron Sucrose 100 mg/Sodium Chloride 60 ml @ 240 mls/hr BEDTIME IV 12/10/18 21:00 12/14/18 21:14 12/11/18 20:37 Lorazepam (Ativan 2mg/ml 1ml) 0.5 mg Q4H PRN IV For Anxiety 12/09/18 14:30 12/16/18 14:29 Morphine Sulfate (Morphine Sulfate) 4 mg Q4H PRN IVP Severe Pain (Pain Scale 7-10) 12/10/18 14:30 12/17/18 14:29 12/12/18 05:04 Ondansetron HCl (Zofran) 4 mg Q6H PRN IVP Nausea & Vomiting 12/09/18 14:30 01/08/19 14:29 12/11/18 17:36 Polyethylene Glycol (Miralax) 17 gm HSPRN PRN ORAL Constipation 12/09/18 14:30 01/08/19 14:29 Zolpidem Tartrate (Ambien) 5 mg HSPRN PRN ORAL Insomnia 12/09/18 14:30 12/16/18 14:29 12/10/18 01:13 Last 24 Hour Vital Signs Date Time Temp Pulse Resp B/P (MAP) Pulse Ox O2 Delivery O2 Flow Rate FiO2 12/12/18 16:00 97.9 97 18 106/62 (77) 95 12/12/18 12:56 98.2 12/12/18 12:00 98.1 79 18 88/59 (69) 95 12/12/18 09:00 Room Air 12/12/18 08:00 98.2 18 116/62 (80) 95 12/12/18 05:09 109/65 (80) 12/12/18 04:00 98.2 75 18 101/51 (68) 96 12/12/18 00:00 97.4 76 20 99/46 (63) 100 12/11/18 21:00 Room Air 12/11/18 20:00 97.2 100 18 119/71 (87) 95 12/11/18 17:00 98.1 12/11/18 16:00 98.3 84 18 119/57 (77) 95 12/11/18 12:00 98.7 84 18 90/56 (67) 98 12/11/18 09:00 Room Air 12/11/18 08:00 98.5 85 19 94/56 (69) 100 12/11/18 04:00 98.1 72 20 107/51 (69) 94 12/11/18 00:00 98.6 74 20 98/47 (64) 94 12/10/18 21:00 Room Air 12/10/18 20:00 98.1 75 18 98/57 (71) 94 Intake and Output 12/11/18 12/12/18 18:59 06:59 Intake Total 600 ml 760 ml Balance 600 ml 760 ml Intake Oral 600 ml 700 ml IV Total 60 ml # Voids 2 Labs Test 12/09/18 18:30 12/10/18 05:15 12/11/18 06:52 12/12/18 05:05 Urine Color Red Urine Appearance Very cloudy Urine pH 6 (4.5-8.0) Urine Specific [place] 1.015 (1.005-1.035) Urine Protein 3+ (NEGATIVE) Urine Glucose (UA) Negative (NEGATIVE) Urine Ketones Negative (NEGATIVE) Urine Blood 5+ (NEGATIVE) Urine Nitrite Negative (NEGATIVE) Urine Bilirubin Negative (NEGATIVE) Urine Urobilinogen Normal MG/DL (0.0-1.0) Urine Leukocyte Esterase Negative (NEGATIVE) Urine RBC Tntc /HPF (0 - 2) Urine WBC 0 /HPF (0 - 2) Urine Squamous Epithelial Cells None /LPF (NONE/OCC) Urine Bacteria None /HPF (NONE) White Blood Count 3.2 K/UL (4.8-10.8) 3.6 K/UL (4.8-10.8) 3.8 K/UL (4.8-10.8) Red Blood Count 3.62 M/UL (4.20-5.40) 4.48 M/UL (4.20-5.40) 4.31 M/UL (4.20-5.40) Hemoglobin 7.5 G/DL (12.0-16.0) 9.6 G/DL (12.0-16.0) 9.2 G/DL (12.0-16.0) Hematocrit 25.9 % (37.0-47.0) 32.9 % (37.0-47.0) 31.6 % (37.0-47.0) Mean Corpuscular Volume 72 FL (80-99) 74 FL (80-99) 73 FL (80-99) Mean Corpuscular Hemoglobin 20.6 PG (27.0-31.0) 21.5 PG (27.0-31.0) 21.4 PG (27.0-31.0) Mean Corpuscular Hemoglobin Concent 28.8 G/DL (32.0-36.0) 29.2 G/DL (32.0-36.0) 29.2 G/DL (32.0-36.0) Red Cell Distribution Width 18.2 % (11.6-14.8) 19.1 % (11.6-14.8) 19.6 % (11.6-14.8) Platelet Count 318 K/UL (150-450) 384 K/UL (150-450) 344 K/UL (150-450) Mean Platelet Volume 6.2 FL (6.5-10.1) 6.5 FL (6.5-10.1) 6.3 FL (6.5-10.1) Neutrophils (%) (Auto) % (45.0-75.0) 61.5 % (45.0-75.0) 61.8 % (45.0-75.0) Lymphocytes (%) (Auto) % (20.0-45.0) 24.2 % (20.0-45.0) 20.7 % (20.0-45.0) Monocytes (%) (Auto) % (1.0-10.0) 10.7 % (1.0-10.0) 11.4 % (1.0-10.0) Eosinophils (%) (Auto) % (0.0-3.0) 2.1 % (0.0-3.0) 4.2 % (0.0-3.0) Basophils (%) (Auto) % (0.0-2.0) 1.5 % (0.0-2.0) 1.9 % (0.0-2.0) Differential Total Cells Counted 100 Neutrophils % (Manual) 59 % (45-75) Lymphocytes % (Manual) 26 % (20-45) Monocytes % (Manual) 11 % (1-10) Eosinophils % (Manual) 2 % (0-3) Basophils % (Manual) 2 % (0-2) Band Neutrophils 0 % (0-8) Platelet Estimate Adequate Platelet Morphology Normal Hypochromasia 3+ Anisocytosis 2+ Microcytosis 2+ Sodium Level 141 MMOL/L (136-145) 142 MMOL/L (136-145) 140 MMOL/L (136-145) Potassium Level 3.9 MMOL/L (3.5-5.1) 3.8 MMOL/L (3.5-5.1) 3.7 MMOL/L (3.5-5.1) Chloride Level 106 MMOL/L (98-107) 104 MMOL/L (98-107) 103 MMOL/L (98-107) Carbon Dioxide Level 28 MMOL/L (21-32) 29 MMOL/L (21-32) 31 MMOL/L (21-32) Anion Gap 7 mmol/L (5-15) 9 mmol/L (5-15) 6 mmol/L (5-15) Blood Urea Nitrogen 6 mg/dL (7-18) 7 mg/dL (7-18) 8 mg/dL (7-18) Creatinine 0.4 MG/DL (0.55-1.30) 0.5 MG/DL (0.55-1.30) 0.6 MG/DL (0.55-1.30) Estimat Glomerular Filtration Rate > 60 mL/min (>60) > 60 mL/min (>60) > 60 mL/min (>60) Glucose Level 90 MG/DL (74-106) 92 MG/DL (74-106) 113 MG/DL (74-106) Uric Acid 2.6 MG/DL (2.6-7.2) Calcium Level 8.4 MG/DL (8.5-10.1) 9.2 MG/DL (8.5-10.1) 8.9 MG/DL (8.5-10.1) Phosphorus Level 4.0 MG/DL (2.5-4.9) Magnesium Level 1.9 MG/DL (1.8-2.4) Total Bilirubin 0.3 MG/DL (0.2-1.0) Aspartate Amino Transf (AST/SGOT) 12 U/L (15-37) Alanine Aminotransferase (ALT/SGPT) 12 U/L (12-78) Alkaline Phosphatase 65 U/L (46-116) Total Protein 5.7 G/DL (6.4-8.2) Albumin 2.5 G/DL (3.4-5.0) Globulin 3.2 g/dL Albumin/Globulin Ratio 0.8 (1.0-2.7) Triglycerides Level 44 MG/DL (30-150) Cholesterol Level 118 MG/DL (< 200) LDL Cholesterol 55 mg/dL (<100) HDL Cholesterol 56 MG/DL (40-60) Cholesterol/HDL Ratio 2.1 (3.3-4.4) Thyroid Stimulating Hormone (TSH) 3.546 uiU/mL (0.358-3.740) Height (Feet): 5 Height (Inches): 5.00 Weight (Pounds): 244 Objective OBJECTIVE PHYSICAL EXAMINATION: GENERAL: Calm in bed, oriented x3, no acute distress. VITAL SIGNS: Have been reviewed. CARDIOVASCULAR: No murmur. LUNGS: Distant and clear. ABDOMEN: Bowel sounds positive. Nontender. Nondistended. EXTREMITIES: No cyanosis, clubbing, edema. NEUROLOGIC: The patient moves all extremities, slightly weak. Valentin Ken MD Dec 12, 2018 18:15
--- NOTE | 2018-12-12 19:33 | NUR ---
HAND-OFF: Report given to HERMELINDA ROBLERO.
--- NOTE | 2018-12-12 19:45 | NUR ---
NURSE NOTES: Received a patient in bed, Patient is awake, AAO X4, on room air, no acute distress noted, IV on L&R AC is intact and patent. Left message to Dr. Demond Dale regarding that Dr. Reyna Lindo [phone] (office), (mobile) wants to talk about the plan of surgery. Bed locked and lowest position, bed alarms on, side rails up X2, call light is within reach, will continue to monitor.
[2018-12-12] MEDS: Iron Sucrose 100 MG in NS 55 ML IV SCH (20:38)
--- NOTE | 2018-12-12 23:14 | Diagnostic Imaging Report ---
APPROVED REPORT CPT Code: 79372 Present Symptoms Comments: BILATERAL LEGS PAIN. BILATERAL: Imaging reveals a patent deep venous system bilaterally. There is no evidence of thrombus within the femoral, popliteal or tibial segments. The greater saphenous veins are also within normal limits. Doppler indicates normal spontaneous flow within these segments.
[2018-12-13] VITALS: BP 101/56
[2018-12-13] MEDS: Morphine Sulfate 4mg/ml Inj (IV USE ONLY) IVP PRN ×2 (01:39→16:17)
--- NOTE | 2018-12-13 01:40 | NUR ---
NURSE NOTES: Patient remains stable. Patient encouraged to call for assistance. Hematuria noted. Patient requested pain med for pain 7/10 and Morphine PRN given. Will continue to monitor.
[2018-12-13 04:00] VITALS: BP 104/56
--- NOTE | 2018-12-13 07:11 | NUR ---
HAND-OFF: Report given to ANNIKA Roque.
--- NOTE | 2018-12-13 07:45 | NUR ---
NURSE NOTES: received report from ANNIKA Epps. patient in bed. alert. verbally responsive. no respiratory distress noted. no c/o pain at this time. contact isolation d/t hx mrsa nares. PPE for care. no skin issues. IV on LAC, RAC intact. ambulate with walker. bed in the lowest position , call light within reach. alarm on. will continue to provide plan of care.
[2018-12-13 08:00] VITALS: BP 114/59
--- NOTE | 2018-12-13 08:46 | General Progress Note ---
Assessment/Plan Status: unchanged Assessment/Plan: (1) Lumbar Sprain (2) Lumbar Radiculopathy (3) Lumbar DDD (4) Lumbar Spondylosis (5) Lumbar Herniated disc Continued on Morphine and Neurontin D/w Dr. Rincon and he concurred. Subjective Date patient seen: Dec 13, 2018 Time patient seen: 07:30 - am Allergies: Coded Allergies: No Known Allergies (Unverified , 09/04/12) Subjective REVIEW OF SYSTEMS: Denies rash, fever, chills, sweating, dizziness, drowsiness, blurred vision, sore throat, change in weight. No shortness of breath or chest pain. No nausea, vomiting, or blood in the stool. No bowel or bladder. No history of neck and low back pain. SUBJECTIVE: Patient standing walking. No signs of pain or distress. Has used 3 doses of Morphine in the last 24hrs. She has no new complaints at this time. Objective Last 24 Hour Vital Signs Date Time Temp Pulse Resp B/P (MAP) Pulse Ox O2 Delivery O2 Flow Rate FiO2 12/13/18 04:00 98.1 77 18 104/56 (72) 96 12/13/18 00:00 98.4 77 18 101/56 (71) 95 12/12/18 21:00 Room Air 12/12/18 20:00 98.2 79 20 100/58 (72) 95 12/12/18 18:39 97.9 12/12/18 17:54 97.9 12/12/18 16:00 97.9 97 18 106/62 (77) 95 12/12/18 12:00 98.1 79 18 88/59 (69) 95 12/12/18 09:00 Room Air Intake and Output 12/12/18 12/13/18 19:00 07:00 Intake Total 600 ml 760 ml Balance 600 ml 760 ml Intake Oral 600 ml 700 ml IV Total 60 ml Laboratory Tests 12/13/18 07:52: White Blood Count [Pending], Red Blood Count [Pending], Hemoglobin [Pending], Hematocrit [Pending], Mean Corpuscular Volume [Pending], Mean Corpuscular Hemoglobin [Pending], Mean Corpuscular Hemoglobin Concent [Pending], Red Cell Distribution Width [Pending], Platelet Count [Pending], Mean Platelet Volume [ Pending], Neutrophils (%) (Auto) [Pending], Lymphocytes (%) (Auto) [Pending], Monocytes (%) (Auto) [Pending], Eosinophils (%) (Auto) [Pending], Basophils (%) (Auto) [Pending], Sodium Level [Pending], Potassium Level [Pending], Chloride Level [Pending], Carbon Dioxide Level [Pending], Blood Urea Nitrogen [Pending], Creatinine [Pending], Estimat Glomerular Filtration Rate [Pending], Glucose Level [Pending], Calcium Level [Pending] Height (Feet): 5 Height (Inches): 5.00 Weight (Pounds): 244 Objective GENERAL: Alert, awake, oriented. LUNGS: Decreased breath sounds bilaterally. HEART: S1 and S2 regular. ABDOMEN: Obese. EXTREMITIES: No cyanosis. No clubbing. NEURO: No changes. Dirk May Dec 13, 2018 08:46
[2018-12-13 08:47] LABS: HEMATOCRIT 30.4 % (37.0-47.0); MEAN CORPUSCULAR VOLUME 73 FL (80-99); PLATELET COUNT 306 K/UL (150-450); RED BLOOD COUNT 4.15 M/UL (4.20-5.40); RED CELL DISTRIBUTION WIDTH 19.4 % (11.6-14.8); WHITE BLOOD COUNT 3.2 K/UL (4.8-10.8)
[2018-12-13 09:04] LABS: ANION GAP 9 mmol/L (5-15); BLOOD UREA NITROGEN 10 mg/dL (7-18); CALCIUM 8.8 MG/DL (8.5-10.1); CARBON DIOXIDE 28 MMOL/L (21-32); CHLORIDE 105 MMOL/L (98-107); CREATININE 0.6 MG/DL (0.55-1.30); POTASSIUM 3.9 MMOL/L (3.5-5.1); SODIUM 142 MMOL/L (136-145)
[2018-12-13] MEDS: Cyclobenzaprine 10mg Tab ORAL SCH ×3 (09:11→17:16)
--- NOTE | 2018-12-13 10:15 | NUR ---
RD ASSESSMENT & RECOMMENDATIONS SEE CARE ACTIVITY FOR COMPLETE ASSESSMENT DAILY ESTIMATED NEEDS: Needs based on Pulmonary, h/o morbid obesity with gastric bypass, 74kg adj 25-30 kcals/kg 1850- 2220 total kcals 1.5-2.0 IBW g protein/kg 92-122 g total protein Fluid per MD, on lasix NUTRITION DIAGNOSIS: Altered nutrition related lab values r/t clinical status and hematuria as evidenced by low Hgb (7.4 on adm), s/p PRBC. CURRENT DIET: Regular PO DIET RECOMMENDATIONS: LOW NA diet / rec 5 small meals daily ADDITIONAL RECOMMENDATIONS: 1) Obtain a standing weight as able or calibrated bed scale wts On laisx/ daily wts 2) Rec High protein/ Low carb meals 3) Check lytes daily on lasix 4) Add B-complex x1 daily 5) Monitor BG (trending up-> 92, 113, 154)
[2018-12-13] MEDS: Miralax 17gm pkt ORAL PRN (11:19)
[2018-12-13 12:00] VITALS: BP 106/53
--- NOTE | 2018-12-13 12:44 | General Progress Note ---
Assessment/Plan Problem List: (1) Sciatica ICD Codes: M54.30 - Sciatica, unspecified side SNOMED: 34156392 (2) Thrombocytopenia ICD Codes: D69.6 - Thrombocytopenia, unspecified SNOMED: 411335289 (3) Anemia ICD Codes: D64.9 - Anemia, unspecified SNOMED: 952041898 (4) Fall ICD Codes: W19.XXXA - Unspecified fall, initial encounter SNOMED: 2031545, 955381814 (5) Hematuria ICD Codes: R31.9 - Hematuria, unspecified SNOMED: 58395637 (6) Obesities, morbid ICD Codes: E66.01 - Morbid (severe) obesity due to excess calories SNOMED: 901134884 Status: stable, progressing Assessment/Plan: pt diet abx pt diet transfuse prn cbc bmp am aru eval Subjective Constitutional: Reports: weakness Allergies: Coded Allergies: No Known Allergies (Unverified , 09/04/12) All Systems: reviewed and negative except above Subjective calm in bed Objective Last 24 Hour Vital Signs Date Time Temp Pulse Resp B/P (MAP) Pulse Ox O2 Delivery O2 Flow Rate FiO2 12/13/18 09:00 Room Air 12/13/18 08:00 98.3 103 18 114/59 (77) 96 12/13/18 04:00 98.1 77 18 104/56 (72) 96 12/13/18 00:00 98.4 77 18 101/56 (71) 95 12/12/18 21:00 Room Air 12/12/18 20:00 98.2 79 20 100/58 (72) 95 12/12/18 18:39 97.9 12/12/18 17:54 97.9 12/12/18 16:00 97.9 97 18 106/62 (77) 95 Intake and Output 12/12/18 12/13/18 19:00 07:00 Intake Total 600 ml 760 ml Balance 600 ml 760 ml Intake Oral 600 ml 700 ml IV Total 60 ml Laboratory Tests 12/13/18 07:52: White Blood Count 3.2L, Red Blood Count 4.15L, Hemoglobin 9.0L, Hematocrit 30.4L , Mean Corpuscular Volume 73L, Mean Corpuscular Hemoglobin 21.6L, Mean Corpuscular Hemoglobin Concent 29.5L, Red Cell Distribution Width 19.4H, Platelet Count 306, Mean Platelet Volume 7.1, Neutrophils (%) (Auto) , Lymphocytes (%) (Auto) , Monocytes (%) (Auto) , Eosinophils (%) (Auto) , Basophils (%) (Auto) , Differential Total Cells Counted 100, Neutrophils % ( Manual) 63, Lymphocytes % (Manual) 23, Monocytes % (Manual) 7, Eosinophils % ( Manual) 7H, Basophils % (Manual) 0, Band Neutrophils 0, Platelet Estimate Adequate, Platelet Morphology Normal, Hypochromasia 1+, Anisocytosis 2+, Microcytosis 1+, Sodium Level 142, Potassium Level 3.9, Chloride Level 105, Carbon Dioxide Level 28, Anion Gap 9, Blood Urea Nitrogen 10, Creatinine 0.6, Estimat Glomerular Filtration Rate > 60, Glucose Level 154H, Calcium Level 8.8 Height (Feet): 5 Height (Inches): 5.00 Weight (Pounds): 244 General Appearance: lethargic EENT: normal ENT inspection Neck: normal alignment Cardiovascular: normal peripheral pulses, normal rate, regular rhythm Respiratory/Chest: chest wall non-tender, lungs clear, normal breath sounds Abdomen: normal bowel sounds, non tender, soft Pelvis: normal external exam, normal rectal exam, speculum exam normal Extremities: normal inspection Edema: no edema noted Arm (L), no edema noted Arm (R), no edema noted Leg (L), no edema noted Leg (R), no edema noted Pedal (L), no edema noted Pedal (R), no edema noted Generalized Neurologic: responsive, motor weakness Skin: normal pigmentation, warm/dry Alfonso Rodríguez DO Dec 13, 2018 12:44
--- NOTE | 2018-12-13 12:47 | NUR ---
NURSE NOTES: patient has not had BM since 12/10. admistered miralax PRN as ordered.
--- NOTE | 2018-12-13 13:13 | Pulmonology Progress Note ---
Assessment/Plan Problems: (1) Intractable pain (2) Anemia (3) Anxiety (4) Obesities, morbid (5) H/O gastric bypass Assessment/Plan got venofer no new complains all noted symptomatic treatment anemia work up pain management GI evaluation dvt prophylaxis Subjective ROS Limited/Unobtainable: No Constitutional: Reports: no symptoms HEENT: Repors: no symptoms Allergies: Coded Allergies: No Known Allergies (Unverified , 09/04/12) Objective Last 24 Hour Vital Signs Date Time Temp Pulse Resp B/P (MAP) Pulse Ox O2 Delivery O2 Flow Rate FiO2 12/13/18 12:00 98.2 83 18 106/53 (70) 100 12/13/18 09:00 Room Air 12/13/18 08:00 98.3 103 18 114/59 (77) 96 12/13/18 04:00 98.1 77 18 104/56 (72) 96 12/13/18 00:00 98.4 77 18 101/56 (71) 95 12/12/18 21:00 Room Air 12/12/18 20:00 98.2 79 20 100/58 (72) 95 12/12/18 18:39 97.9 12/12/18 17:54 97.9 12/12/18 16:00 97.9 97 18 106/62 (77) 95 Intake and Output 12/12/18 12/13/18 19:00 07:00 Intake Total 600 ml 760 ml Balance 600 ml 760 ml Intake Oral 600 ml 700 ml IV Total 60 ml Objective General Appearance: WD/WN HEENT: normocephalic, atraumatic Respiratory/Chest: chest wall non-tender, lungs clear Cardiovascular: normal peripheral pulses, normal rate Abdomen: normal bowel sounds, soft, non tender Genitourinary: normal external genitalia Extremities: no clubbing Skin: no rash Microbiology Date/Time Source Procedure Growth Status 12/11/18 11:30 Urine,Clean Catch Urine Culture - Preliminary Gram Positive Cocci Resulted Laboratory Tests 12/13/18 07:52: White Blood Count 3.2L, Red Blood Count 4.15L, Hemoglobin 9.0L, Hematocrit 30.4L , Mean Corpuscular Volume 73L, Mean Corpuscular Hemoglobin 21.6L, Mean Corpuscular Hemoglobin Concent 29.5L, Red Cell Distribution Width 19.4H, Platelet Count 306, Mean Platelet Volume 7.1, Neutrophils (%) (Auto) , Lymphocytes (%) (Auto) , Monocytes (%) (Auto) , Eosinophils (%) (Auto) , Basophils (%) (Auto) , Differential Total Cells Counted 100, Neutrophils % ( Manual) 63, Lymphocytes % (Manual) 23, Monocytes % (Manual) 7, Eosinophils % ( Manual) 7H, Basophils % (Manual) 0, Band Neutrophils 0, Platelet Estimate Adequate, Platelet Morphology Normal, Hypochromasia 1+, Anisocytosis 2+, Microcytosis 1+, Sodium Level 142, Potassium Level 3.9, Chloride Level 105, Carbon Dioxide Level 28, Anion Gap 9, Blood Urea Nitrogen 10, Creatinine 0.6, Estimat Glomerular Filtration Rate > 60, Glucose Level 154H, Calcium Level 8.8 Current Medications Medications (Trade) Dose Ordered Sig/Safia Route PRN Reason Start Time Stop Time Status Last Admin Dose Admin Acetaminophen (Tylenol) 650 mg Q4H PRN ORAL fever 12/09/18 14:30 01/08/19 14:29 Cyclobenzaprine HCl (Flexeril) 10 mg THREE TIMES A DAY ORAL 12/09/18 18:00 01/08/19 17:59 12/13/18 12:39 Dextrose (Dextrose 50%) 25 ml Q30M PRN IV Hypoglycemia 12/09/18 14:30 01/08/19 14:23 Dextrose (Dextrose 50%) 50 ml Q30M PRN IV hypoglycemia 12/09/18 14:30 01/08/19 14:29 Furosemide (Lasix) 20 mg DAILY ORAL 12/10/18 09:00 01/09/19 08:59 12/13/18 09:10 Gabapentin (Neurontin) 300 mg THREE TIMES A DAY ORAL 12/11/18 09:00 01/10/19 08:59 12/13/18 12:38 Iopamidol (Isovue-300 100ml) 100 ml NOW PRN INJ Radiology Procedure 12/11/18 11:15 12/13/18 23:59 Iron Sucrose 100 mg/Sodium Chloride 60 ml @ 240 mls/hr BEDTIME IV 12/10/18 21:00 12/14/18 21:14 12/12/18 20:38 Lorazepam (Ativan 2mg/ml 1ml) 0.5 mg Q4H PRN IV For Anxiety 12/09/18 14:30 12/16/18 14:29 Morphine Sulfate (Morphine Sulfate) 4 mg Q4H PRN IVP Severe Pain (Pain Scale 7-10) 12/10/18 14:30 12/17/18 14:29 12/13/18 01:39 Ondansetron HCl (Zofran) 4 mg Q6H PRN IVP Nausea & Vomiting 12/09/18 14:30 01/08/19 14:29 12/11/18 17:36 Polyethylene Glycol (Miralax) 17 gm HSPRN PRN ORAL Constipation 12/09/18 14:30 01/08/19 14:29 12/13/18 11:19 Zolpidem Tartrate (Ambien) 5 mg HSPRN PRN ORAL Insomnia 12/09/18 14:30 12/16/18 14:29 12/10/18 01:13 Latha Gill MD Dec 13, 2018 13:13
--- NOTE | 2018-12-13 14:10 | NUR ---
NURSE NOTES: patient received phone call from DR. Dale office and made appointment on 12/17/18 @ 0900 to see the urologist. notified Marcos Kiser(primary).
--- NOTE | 2018-12-13 15:00 | Nephrology Progress Note ---
Assessment/Plan Problem List: (1) Hematuria (2) Anemia Assessment: Low Iron (3) Obesities, morbid Assessment stable Renal parameters h/o Hematuria: fall, Right hip contusion Obese BMI 37.6 Plan IV iron- B12 SQ check UA and c/s: Cultures pending Uro eval continue per consultants was transfused per other MD order ! Subjective ROS Limited/Unobtainable: No Constitutional: Reports: malaise Objective Objective Last 24 Hour Vital Signs Date Time Temp Pulse Resp B/P (MAP) Pulse Ox O2 Delivery O2 Flow Rate FiO2 12/13/18 12:00 98.2 83 18 106/53 (70) 100 12/13/18 09:00 Room Air 12/13/18 08:00 98.3 103 18 114/59 (77) 96 12/13/18 04:00 98.1 77 18 104/56 (72) 96 12/13/18 00:00 98.4 77 18 101/56 (71) 95 12/12/18 21:00 Room Air 12/12/18 20:00 98.2 79 20 100/58 (72) 95 12/12/18 18:39 97.9 12/12/18 17:54 97.9 12/12/18 16:00 97.9 97 18 106/62 (77) 95 Intake and Output 12/12/18 12/13/18 18:59 06:59 Intake Total 600 ml 760 ml Balance 600 ml 760 ml Intake Oral 600 ml 700 ml IV Total 60 ml Laboratory Tests 12/13/18 07:52: White Blood Count 3.2L, Red Blood Count 4.15L, Hemoglobin 9.0L, Hematocrit 30.4L , Mean Corpuscular Volume 73L, Mean Corpuscular Hemoglobin 21.6L, Mean Corpuscular Hemoglobin Concent 29.5L, Red Cell Distribution Width 19.4H, Platelet Count 306, Mean Platelet Volume 7.1, Neutrophils (%) (Auto) , Lymphocytes (%) (Auto) , Monocytes (%) (Auto) , Eosinophils (%) (Auto) , Basophils (%) (Auto) , Differential Total Cells Counted 100, Neutrophils % ( Manual) 63, Lymphocytes % (Manual) 23, Monocytes % (Manual) 7, Eosinophils % ( Manual) 7H, Basophils % (Manual) 0, Band Neutrophils 0, Platelet Estimate Adequate, Platelet Morphology Normal, Hypochromasia 1+, Anisocytosis 2+, Microcytosis 1+, Sodium Level 142, Potassium Level 3.9, Chloride Level 105, Carbon Dioxide Level 28, Anion Gap 9, Blood Urea Nitrogen 10, Creatinine 0.6, Estimat Glomerular Filtration Rate > 60, Glucose Level 154H, Calcium Level 8.8 Height (Feet): 5 Height (Inches): 5.00 Weight (Pounds): 244 General Appearance: no apparent distress Objective no change James Dunn MD Dec 13, 2018 14:59
[2018-12-13] MEDS: Thiamine 100mg tab ORAL SCH (15:07)
[2018-12-13 15:21] LABS: ALANINE AMINOTRANSFERASE 12 U/L (12-78); ALBUMIN 2.6 G/DL (3.4-5.0); ALKALINE PHOSPHATASE 68 U/L (46-116); ASPARTATE AMINO TRANSFERASE 10 U/L (15-37); BILIRUBIN,DIRECT < 0.1 MG/DL (0.0-0.3); BILIRUBIN,TOTAL 0.2 MG/DL (0.2-1.0); PHOSPHORUS 3.9 MG/DL (2.5-4.9)
[2018-12-13 16:00] VITALS: BP 106/61
[2018-12-13] MEDS: Pyridoxine 50mg tab ORAL SCH (16:13)
--- NOTE | 2018-12-13 17:00 | NUR ---
NURSE NOTES: patient has nasal congestion and asked claritin which she takes at home. notified Dr. Gill and received order Claritin 10mg tab po daily. given first dose at 1720. will get schedule dose 12/14/18@0900 as ordered. order noted and carried out.
--- NOTE | 2018-12-13 19:32 | NUR ---
HAND-OFF: Report given to ANNIKA Mitchell.
[2018-12-13 20:00] VITALS: BP 109/49
--- NOTE | 2018-12-13 20:20 | NUR ---
NURSE NOTES: Pt is received from ANNIKA Mitchell. Pt is in bed, awake and alert. No acute distress noted. Pt states that she has some pain on the right leg when she ambulates.Pain medication will be given as ordered PRN. Pt ambulates to the bathroom with walker. Fall precautions in place. Pt instructed to call for assistance before getting out of bed. Bed locked low in position,side rails up and call light within reach.
[2018-12-13] MEDS: Iron Sucrose 100 MG in NS 55 ML IV SCH (20:52)
[2018-12-14] VITALS: BP 115/75
[2018-12-14] MEDS: HYDROcodone/Acetamin 5/325 tab ORAL PRN
[2018-12-14] MEDS: Miralax 17gm pkt ORAL PRN (00:01)
[2018-12-14 04:00] VITALS: BP 110/51
--- NOTE | 2018-12-14 06:00 | NUR ---
NURSE NOTES: Pt is in bed, awake and alert. No acute distress noted.
--- NOTE | 2018-12-14 07:15 | NUR ---
HAND-OFF: Report given to ANNIKA Coon.
--- NOTE | 2018-12-14 07:16 | Pulmonology Progress Note ---
Assessment/Plan Problems: (1) Intractable pain (2) Anemia (3) Anxiety (4) Obesities, morbid (5) H/O gastric bypass Assessment/Plan doing better, wants to go home no new complains all noted symptomatic treatment anemia work up pain management dvt prophylaxis Subjective ROS Limited/Unobtainable: No Constitutional: Reports: no symptoms HEENT: Repors: no symptoms Respiratory: Reports: no symptoms Allergies: Coded Allergies: No Known Allergies (Unverified , 09/04/12) Objective Last 24 Hour Vital Signs Date Time Temp Pulse Resp B/P (MAP) Pulse Ox O2 Delivery O2 Flow Rate FiO2 12/14/18 04:00 97.6 90 18 110/51 (70) 98 12/14/18 00:00 97.9 96 18 115/75 (88) 100 12/13/18 21:00 Room Air 12/13/18 20:00 97.8 93 18 109/49 (69) 96 12/13/18 16:00 98.4 105 18 106/61 (76) 97 12/13/18 12:00 98.2 83 18 106/53 (70) 100 12/13/18 09:00 Room Air 12/13/18 08:00 98.3 103 18 114/59 (77) 96 Intake and Output 12/13/18 12/14/18 19:00 07:00 Intake Total 600 ml 1380 ml Balance 600 ml 1380 ml Intake Oral 600 ml 120 ml IV Total 60 ml Other 1200 ml # Voids 3 1 # Bowel Movements 1 Objective General Appearance: WD/WN HEENT: normocephalic, atraumatic Respiratory/Chest: chest wall non-tender, lungs clear Cardiovascular: normal peripheral pulses, normal rate Abdomen: normal bowel sounds, soft, non tender Genitourinary: normal external genitalia Extremities: no clubbing Skin: no rash Microbiology Date/Time Source Procedure Growth Status 12/11/18 11:30 Urine,Clean Catch Urine Culture - Final Gram Positive Cocci Complete Laboratory Tests 12/13/18 07:52: White Blood Count 3.2L, Red Blood Count 4.15L, Hemoglobin 9.0L, Hematocrit 30.4L , Mean Corpuscular Volume 73L, Mean Corpuscular Hemoglobin 21.6L, Mean Corpuscular Hemoglobin Concent 29.5L, Red Cell Distribution Width 19.4H, Platelet Count 306, Mean Platelet Volume 7.1, Neutrophils (%) (Auto) , Lymphocytes (%) (Auto) , Monocytes (%) (Auto) , Eosinophils (%) (Auto) , Basophils (%) (Auto) , Differential Total Cells Counted 100, Neutrophils % ( Manual) 63, Lymphocytes % (Manual) 23, Monocytes % (Manual) 7, Eosinophils % ( Manual) 7H, Basophils % (Manual) 0, Band Neutrophils 0, Platelet Estimate Adequate, Platelet Morphology Normal, Hypochromasia 1+, Anisocytosis 2+, Microcytosis 1+, Sodium Level 142, Potassium Level 3.9, Chloride Level 105, Carbon Dioxide Level 28, Anion Gap 9, Blood Urea Nitrogen 10, Creatinine 0.6, Estimat Glomerular Filtration Rate > 60, Glucose Level 154H, Calcium Level 8.8, Phosphorus Level 3.9, Magnesium Level 1.8, Total Bilirubin 0.2, Direct Bilirubin < 0.1, Aspartate Amino Transf (AST/SGOT) 10L, Alanine Aminotransferase (ALT/SGPT) 12, Alkaline Phosphatase 68, Total Protein 6.0L, Albumin 2.6L Current Medications Medications (Trade) Dose Ordered Sig/Safia Route PRN Reason Start Time Stop Time Status Last Admin Dose Admin Acetaminophen (Tylenol) 650 mg Q4H PRN ORAL fever 12/09/18 14:30 01/08/19 14:29 Acetaminophen/ Hydrocodone Bitart ([place] 5/325) 1 tab Q4H PRN ORAL Moderate Pain (Pain Scale 4-6) 12/13/18 16:00 12/20/18 15:59 12/14/18 00:00 Cyclobenzaprine HCl (Flexeril) 10 mg THREE TIMES A DAY ORAL 12/09/18 18:00 01/08/19 17:59 12/13/18 17:16 Dextrose (Dextrose 50%) 25 ml Q30M PRN IV Hypoglycemia 12/09/18 14:30 01/08/19 14:23 Dextrose (Dextrose 50%) 50 ml Q30M PRN IV hypoglycemia 12/09/18 14:30 01/08/19 14:29 Furosemide (Lasix) 20 mg DAILY ORAL 12/10/18 09:00 01/09/19 08:59 12/13/18 09:10 Gabapentin (Neurontin) 300 mg THREE TIMES A DAY ORAL 12/11/18 09:00 01/10/19 08:59 12/13/18 17:16 Iron Sucrose 100 mg/Sodium Chloride 60 ml @ 240 mls/hr BEDTIME IV 12/10/18 21:00 12/14/18 21:14 12/13/18 20:52 Loratadine (Claritin 10mg) 10 mg DAILY ORAL 12/13/18 18:00 01/12/19 17:59 12/13/18 17:16 Lorazepam (Ativan 2mg/ml 1ml) 0.5 mg Q4H PRN IV For Anxiety 12/09/18 14:30 12/16/18 14:29 Morphine Sulfate (Morphine Sulfate) 4 mg Q4H PRN IVP Severe Pain (Pain Scale 7-10) 12/10/18 14:30 12/17/18 14:29 12/13/18 16:17 Ondansetron HCl (Zofran) 4 mg Q6H PRN IVP Nausea & Vomiting 12/09/18 14:30 01/08/19 14:29 12/11/18 17:36 Polyethylene Glycol (Miralax) 17 gm HSPRN PRN ORAL Constipation 12/09/18 14:30 01/08/19 14:29 12/14/18 00:01 Pyridoxine HCl (Vitamin B6) 50 mg DAILY ORAL 12/13/18 16:00 01/12/19 15:59 12/13/18 16:13 Thiamine HCl (Vitamin B1) 100 mg DAILY ORAL 12/13/18 15:00 01/12/19 14:59 12/13/18 15:07 Zolpidem Tartrate (Ambien) 5 mg HSPRN PRN ORAL Insomnia 12/09/18 14:30 12/16/18 14:29 12/10/18 01:13 Latha Gill MD Dec 14, 2018 07:16
[2018-12-14] MEDS ORDERED: Milk of Magnesia 30ml Ud ORAL PRN (07:45)
--- NOTE | 2018-12-14 07:45 | General Progress Note ---
Assessment/Plan Problem List: (1) Sciatica ICD Codes: M54.30 - Sciatica, unspecified side SNOMED: 96112233 (2) Thrombocytopenia ICD Codes: D69.6 - Thrombocytopenia, unspecified SNOMED: 677931621 (3) Anemia ICD Codes: D64.9 - Anemia, unspecified SNOMED: 455940009 (4) Fall ICD Codes: W19.XXXA - Unspecified fall, initial encounter SNOMED: 8397323, 823170439 (5) Hematuria ICD Codes: R31.9 - Hematuria, unspecified SNOMED: 11719233 (6) Obesities, morbid ICD Codes: E66.01 - Morbid (severe) obesity due to excess calories SNOMED: 153521574 Status: stable, progressing Assessment/Plan: pt diet abx pt diet transfuse prn cbc bmp am aru eval Subjective Constitutional: Reports: weakness Allergies: Coded Allergies: No Known Allergies (Unverified , 09/04/12) All Systems: reviewed and negative except above Subjective calm in bed Objective Last 24 Hour Vital Signs Date Time Temp Pulse Resp B/P (MAP) Pulse Ox O2 Delivery O2 Flow Rate FiO2 12/14/18 04:00 97.6 90 18 110/51 (70) 98 12/14/18 00:00 97.9 96 18 115/75 (88) 100 12/13/18 21:00 Room Air 12/13/18 20:00 97.8 93 18 109/49 (69) 96 12/13/18 16:00 98.4 105 18 106/61 (76) 97 12/13/18 12:00 98.2 83 18 106/53 (70) 100 12/13/18 09:00 Room Air 12/13/18 08:00 98.3 103 18 114/59 (77) 96 Intake and Output 12/13/18 12/14/18 19:00 07:00 Intake Total 600 ml 1380 ml Balance 600 ml 1380 ml Intake Oral 600 ml 120 ml IV Total 60 ml Other 1200 ml # Voids 3 1 # Bowel Movements 1 Laboratory Tests 12/13/18 07:52: White Blood Count 3.2L, Red Blood Count 4.15L, Hemoglobin 9.0L, Hematocrit 30.4L , Mean Corpuscular Volume 73L, Mean Corpuscular Hemoglobin 21.6L, Mean Corpuscular Hemoglobin Concent 29.5L, Red Cell Distribution Width 19.4H, Platelet Count 306, Mean Platelet Volume 7.1, Neutrophils (%) (Auto) , Lymphocytes (%) (Auto) , Monocytes (%) (Auto) , Eosinophils (%) (Auto) , Basophils (%) (Auto) , Differential Total Cells Counted 100, Neutrophils % ( Manual) 63, Lymphocytes % (Manual) 23, Monocytes % (Manual) 7, Eosinophils % ( Manual) 7H, Basophils % (Manual) 0, Band Neutrophils 0, Platelet Estimate Adequate, Platelet Morphology Normal, Hypochromasia 1+, Anisocytosis 2+, Microcytosis 1+, Sodium Level 142, Potassium Level 3.9, Chloride Level 105, Carbon Dioxide Level 28, Anion Gap 9, Blood Urea Nitrogen 10, Creatinine 0.6, Estimat Glomerular Filtration Rate > 60, Glucose Level 154H, Calcium Level 8.8, Phosphorus Level 3.9, Magnesium Level 1.8, Total Bilirubin 0.2, Direct Bilirubin < 0.1, Aspartate Amino Transf (AST/SGOT) 10L, Alanine Aminotransferase (ALT/SGPT) 12, Alkaline Phosphatase 68, Total Protein 6.0L, Albumin 2.6L Height (Feet): 5 Height (Inches): 5.00 Weight (Pounds): 244 General Appearance: alert EENT: normal ENT inspection Neck: normal alignment Cardiovascular: normal peripheral pulses, normal rate, regular rhythm Respiratory/Chest: chest wall non-tender, lungs clear, normal breath sounds Abdomen: normal bowel sounds, non tender, soft Extremities: normal inspection Edema: no edema noted Arm (L), no edema noted Arm (R), no edema noted Leg (L), no edema noted Leg (R), no edema noted Pedal (L), no edema noted Pedal (R), no edema noted Generalized Neurologic: responsive, motor weakness Skin: normal pigmentation, warm/dry Alfonso Rodríguez DO Dec 14, 2018 07:45
--- NOTE | 2018-12-14 07:54 | NUR ---
NURSE NOTES: pt in bed with no sob nor in any form of distress noted. breathing regular and unlabored. denies pain at this time. bed in lowest position. call light within reach at all time. will continue to monitor.
[2018-12-14 08:00] VITALS: BP 110/50
[2018-12-14] MEDS: Pyridoxine 50mg tab ORAL SCH (08:21)
[2018-12-14] MEDS: Thiamine 100mg tab ORAL SCH (08:21)
[2018-12-14] MEDS: Cyclobenzaprine 10mg Tab ORAL SCH ×3 (08:22→17:04)
[2018-12-14 08:50] LABS: HEMATOCRIT 29.8 % (37.0-47.0); HEMOGLOBIN 8.8 G/DL (12.0-16.0); MEAN CORPUSCULAR VOLUME 75 FL (80-99); PLATELET COUNT 280 K/UL (150-450); RED CELL DISTRIBUTION WIDTH 20.4 % (11.6-14.8)
--- NOTE | 2018-12-14 11:28 | Nephrology Progress Note ---
Assessment/Plan Problem List: (1) Hematuria (2) Anemia Assessment: Low Iron (3) Obesities, morbid Assessment stable Renal parameters h/o Hematuria: fall, Right hip contusion Obese BMI 37.6 Plan IV iron- B12 SQ check UA and c/s: Cultures pending Uro eval continue per consultants was transfused per other MD order ! Subjective ROS Limited/Unobtainable: No Constitutional: Reports: malaise Objective Objective Last 24 Hour Vital Signs Date Time Temp Pulse Resp B/P (MAP) Pulse Ox O2 Delivery O2 Flow Rate FiO2 12/14/18 09:29 Room Air 12/14/18 08:52 97.8 12/14/18 08:00 97.8 88 18 110/50 (70) 98 12/14/18 04:00 97.6 90 18 110/51 (70) 98 12/14/18 00:00 97.9 96 18 115/75 (88) 100 12/13/18 21:00 Room Air 12/13/18 20:00 97.8 93 18 109/49 (69) 96 12/13/18 16:00 98.4 105 18 106/61 (76) 97 12/13/18 12:00 98.2 83 18 106/53 (70) 100 Intake and Output 12/13/18 12/14/18 19:00 07:00 Intake Total 600 ml 1380 ml Balance 600 ml 1380 ml Intake Oral 600 ml 120 ml IV Total 60 ml Other 1200 ml # Voids 3 1 # Bowel Movements 1 Laboratory Tests 12/14/18 06:14: White Blood Count 3.0L, Red Blood Count 4.00L, Hemoglobin 8.8L, Hematocrit 29.8L , Mean Corpuscular Volume 75L, Mean Corpuscular Hemoglobin 22.0L, Mean Corpuscular Hemoglobin Concent 29.5L, Red Cell Distribution Width 20.4H, Platelet Count 280, Mean Platelet Volume 6.6, Neutrophils (%) (Auto) , Lymphocytes (%) (Auto) , Monocytes (%) (Auto) , Eosinophils (%) (Auto) , Basophils (%) (Auto) , Differential Total Cells Counted 100, Neutrophils % ( Manual) 56, Lymphocytes % (Manual) 27, Monocytes % (Manual) 16H, Eosinophils % ( Manual) 1, Basophils % (Manual) 0, Band Neutrophils 0, Platelet Estimate Adequate, Platelet Morphology Normal, Hypochromasia 1+, Anisocytosis 2+, Microcytosis 1+, Ovalocytes Occasional Height (Feet): 5 Height (Inches): 5.00 Weight (Pounds): 244 General Appearance: no apparent distress Objective no change James Dunn MD Dec 14, 2018 11:28
[2018-12-14 12:00] VITALS: BP 112/66
--- NOTE | 2018-12-14 13:42 | Hematology/Onc Progress Note ---
Assessment/Plan Assessment/Plan ASSESSMENT AND PLAN # Leukopenia -- multiple etiologies could be related to underlying liver disease , medication-induced, infection versus viral syndrome --> peripheral smear has been ordered and does not show significant abnormalities --> Medications have been reviewed --> Continue to monitor for improvement, trend cbc --> Hep panel and HIV neg --> US abd ordered to r/o cirrhosis and hepatosplenomegaly DOES NOT show any --> reverse isolation if ANC is <2000 --> Give neupogen if ANC <1000 --> wbc trend: 3.2 # Anemia of iron deficiency due to underlying hematuria. Will f/u with urology. --> Anemia workup has been ordered, rule out gi bleed --> No evidence of hemolysis is noted, peripheral smear has been reviewed. --> Hgb goal >7. Transfuse prn. --> IRON IV Started through 12/14 --> Medications have been reviewed --> low threshold for gi evaluation in case has occult + --> bone marrow biopsy is not indicated given the other more likely causes --> Blood tx: 1 unit 12/10 --> Hgb trend: 9--> # Hematuria. Urology is following, appreciate recs. --> on ivf # Fall. PT/OT, dietary followup. # Obesity. --> Recommend diet and lifestyle modifications # Weakness. # ATN. # Sciatica. The time the note is entered does not reflect the time the patient was examined. I greatly appreciate the consultation. Subjective Hematologic/Lymphatic: Reports: anemia Allergies: Coded Allergies: No Known Allergies (Unverified , 09/04/12) All Systems: reviewed and negative except above Subjective 12/12: hematuria is better, on iv iron, no f/c 12/13: Pt awake and alert. No acute events. H/H stable. Objective Objective Current Medications Medications (Trade) Dose Ordered Sig/Safia Route PRN Reason Start Time Stop Time Status Last Admin Dose Admin Acetaminophen (Tylenol) 650 mg Q4H PRN ORAL fever 12/09/18 14:30 01/08/19 14:29 Acetaminophen/ Hydrocodone Bitart ([place] 5/325) 1 tab Q4H PRN ORAL Moderate Pain (Pain Scale 4-6) 12/13/18 16:00 12/20/18 15:59 12/14/18 00:00 Cyclobenzaprine HCl (Flexeril) 10 mg THREE TIMES A DAY ORAL 12/09/18 18:00 01/08/19 17:59 12/14/18 13:07 Dextrose (Dextrose 50%) 25 ml Q30M PRN IV Hypoglycemia 12/09/18 14:30 01/08/19 14:23 Dextrose (Dextrose 50%) 50 ml Q30M PRN IV hypoglycemia 12/09/18 14:30 01/08/19 14:29 Furosemide (Lasix) 20 mg DAILY ORAL 12/10/18 09:00 01/09/19 08:59 12/14/18 08:23 Gabapentin (Neurontin) 300 mg THREE TIMES A DAY ORAL 12/11/18 09:00 01/10/19 08:59 12/14/18 13:06 Iron Sucrose 100 mg/Sodium Chloride 60 ml @ 240 mls/hr BEDTIME IV 12/10/18 21:00 12/14/18 21:14 12/13/18 20:52 Loratadine (Claritin 10mg) 10 mg DAILY ORAL 12/13/18 18:00 01/12/19 17:59 12/14/18 08:22 Lorazepam (Ativan 2mg/ml 1ml) 0.5 mg Q4H PRN IV For Anxiety 12/09/18 14:30 12/16/18 14:29 Magnesium Hydroxide (Mom) 30 ml BIDPRN PRN ORAL Constipation 12/14/18 07:45 01/13/19 07:44 12/14/18 08:22 Morphine Sulfate (Morphine Sulfate) 4 mg Q4H PRN IVP Severe Pain (Pain Scale 7-10) 12/10/18 14:30 12/17/18 14:29 12/13/18 16:17 Ondansetron HCl (Zofran) 4 mg Q6H PRN IVP Nausea & Vomiting 12/09/18 14:30 01/08/19 14:29 12/11/18 17:36 Polyethylene Glycol (Miralax) 17 gm HSPRN PRN ORAL Constipation 12/09/18 14:30 01/08/19 14:29 12/14/18 00:01 Pyridoxine HCl (Vitamin B6) 50 mg DAILY ORAL 12/13/18 16:00 01/12/19 15:59 12/14/18 08:21 Thiamine HCl (Vitamin B1) 100 mg DAILY ORAL 12/13/18 15:00 01/12/19 14:59 12/14/18 08:21 Zolpidem Tartrate (Ambien) 5 mg HSPRN PRN ORAL Insomnia 12/09/18 14:30 12/16/18 14:29 12/10/18 01:13 Last 24 Hour Vital Signs Date Time Temp Pulse Resp B/P (MAP) Pulse Ox O2 Delivery O2 Flow Rate FiO2 12/14/18 12:00 97.9 77 18 112/66 (81) 99 12/14/18 09:29 Room Air 12/14/18 08:52 97.8 12/14/18 08:00 97.8 88 18 110/50 (70) 98 12/14/18 04:00 97.6 90 18 110/51 (70) 98 12/14/18 00:00 97.9 96 18 115/75 (88) 100 12/13/18 21:00 Room Air 12/13/18 20:00 97.8 93 18 109/49 (69) 96 12/13/18 16:00 98.4 105 18 106/61 (76) 97 12/13/18 12:00 98.2 83 18 106/53 (70) 100 12/13/18 09:00 Room Air 12/13/18 08:00 98.3 103 18 114/59 (77) 96 12/13/18 04:00 98.1 77 18 104/56 (72) 96 12/13/18 00:00 98.4 77 18 101/56 (71) 95 12/12/18 21:00 Room Air 12/12/18 20:00 98.2 79 20 100/58 (72) 95 12/12/18 18:39 97.9 12/12/18 16:00 97.9 97 18 106/62 (77) 95 Intake and Output 12/13/18 12/14/18 19:00 07:00 Intake Total 600 ml 1380 ml Balance 600 ml 1380 ml Intake Oral 600 ml 120 ml IV Total 60 ml Other 1200 ml # Voids 3 1 # Bowel Movements 1 Labs Test 12/12/18 05:05 12/13/18 07:52 12/14/18 06:14 White Blood Count 3.8 K/UL (4.8-10.8) 3.2 K/UL (4.8-10.8) 3.0 K/UL (4.8-10.8) Red Blood Count 4.31 M/UL (4.20-5.40) 4.15 M/UL (4.20-5.40) 4.00 M/UL (4.20-5.40) Hemoglobin 9.2 G/DL (12.0-16.0) 9.0 G/DL (12.0-16.0) 8.8 G/DL (12.0-16.0) Hematocrit 31.6 % (37.0-47.0) 30.4 % (37.0-47.0) 29.8 % (37.0-47.0) Mean Corpuscular Volume 73 FL (80-99) 73 FL (80-99) 75 FL (80-99) Mean Corpuscular Hemoglobin 21.4 PG (27.0-31.0) 21.6 PG (27.0-31.0) 22.0 PG (27.0-31.0) Mean Corpuscular Hemoglobin Concent 29.2 G/DL (32.0-36.0) 29.5 G/DL (32.0-36.0) 29.5 G/DL (32.0-36.0) Red Cell Distribution Width 19.6 % (11.6-14.8) 19.4 % (11.6-14.8) 20.4 % (11.6-14.8) Platelet Count 344 K/UL (150-450) 306 K/UL (150-450) 280 K/UL (150-450) Mean Platelet Volume 6.3 FL (6.5-10.1) 7.1 FL (6.5-10.1) 6.6 FL (6.5-10.1) Neutrophils (%) (Auto) 61.8 % (45.0-75.0) % (45.0-75.0) % (45.0-75.0) Lymphocytes (%) (Auto) 20.7 % (20.0-45.0) % (20.0-45.0) % (20.0-45.0) Monocytes (%) (Auto) 11.4 % (1.0-10.0) % (1.0-10.0) % (1.0-10.0) Eosinophils (%) (Auto) 4.2 % (0.0-3.0) % (0.0-3.0) % (0.0-3.0) Basophils (%) (Auto) 1.9 % (0.0-2.0) % (0.0-2.0) % (0.0-2.0) Sodium Level 140 MMOL/L (136-145) 142 MMOL/L (136-145) Potassium Level 3.7 MMOL/L (3.5-5.1) 3.9 MMOL/L (3.5-5.1) Chloride Level 103 MMOL/L (98-107) 105 MMOL/L (98-107) Carbon Dioxide Level 31 MMOL/L (21-32) 28 MMOL/L (21-32) Anion Gap 6 mmol/L (5-15) 9 mmol/L (5-15) Blood Urea Nitrogen 8 mg/dL (7-18) 10 mg/dL (7-18) Creatinine 0.6 MG/DL (0.55-1.30) 0.6 MG/DL (0.55-1.30) Estimat Glomerular Filtration Rate > 60 mL/min (>60) > 60 mL/min (>60) Glucose Level 113 MG/DL (74-106) 154 MG/DL (74-106) Calcium Level 8.9 MG/DL (8.5-10.1) 8.8 MG/DL (8.5-10.1) Differential Total Cells Counted 100 100 Neutrophils % (Manual) 63 % (45-75) 56 % (45-75) Lymphocytes % (Manual) 23 % (20-45) 27 % (20-45) Monocytes % (Manual) 7 % (1-10) 16 % (1-10) Eosinophils % (Manual) 7 % (0-3) 1 % (0-3) Basophils % (Manual) 0 % (0-2) 0 % (0-2) Band Neutrophils 0 % (0-8) 0 % (0-8) Platelet Estimate Adequate Adequate Platelet Morphology Normal Normal Hypochromasia 1+ 1+ Anisocytosis 2+ 2+ Microcytosis 1+ 1+ Phosphorus Level 3.9 MG/DL (2.5-4.9) Magnesium Level 1.8 MG/DL (1.8-2.4) Total Bilirubin 0.2 MG/DL (0.2-1.0) Direct Bilirubin < 0.1 MG/DL (0.0-0.3) Aspartate Amino Transf (AST/SGOT) 10 U/L (15-37) Alanine Aminotransferase (ALT/SGPT) 12 U/L (12-78) Alkaline Phosphatase 68 U/L (46-116) Total Protein 6.0 G/DL (6.4-8.2) Albumin 2.6 G/DL (3.4-5.0) Ovalocytes Occasional Height (Feet): 5 Height (Inches): 5.00 Weight (Pounds): 244 Objective OBJECTIVE PHYSICAL EXAMINATION: GENERAL: Calm in bed, oriented x3, no acute distress. VITAL SIGNS: Have been reviewed. CARDIOVASCULAR: No murmur. LUNGS: Distant and clear. ABDOMEN: Bowel sounds positive. Nontender. Nondistended. EXTREMITIES: No cyanosis, clubbing, edema. NEUROLOGIC: The patient moves all extremities, slightly weak. Valentin Ken MD Dec 14, 2018 13:42
[2018-12-14 16:00] VITALS: BP 121/63
[2018-12-14] MEDS: Morphine Sulfate 4mg/ml Inj (IV USE ONLY) IVP PRN (18:20)
--- NOTE | 2018-12-14 19:28 | NUR ---
HAND-OFF: Report given to ANNIKA kulkarni.
[2018-12-14 20:00] VITALS: BP 92/42
--- NOTE | 2018-12-14 20:16 | NUR ---
NURSE NOTES: RECIEVED PT.IN BED ALERT AND ORIENTED W/ NO DISTRESS NOTED @ THIS TIME.INSTRUCTED TO USE CALL LIGHT FOR ANY ASSISTANCE,VERBALIZES UNDERSTANDING.CALL LIGHT WITHIN REACH.BED IN LOW POSITION.WILL CONTINUE W/ PLAN OF CARE.
[2018-12-14] MEDS: Iron Sucrose 100 MG in NS 55 ML IV SCH (21:10)
--- NOTE | 2018-12-14 21:29 | Neurology Progress Note ---
Interim History Interim History ROS Limited/Unobtainable: No Complaints: Fall with Weakness Interim History This visit was performed on December 14, [address] Milan Gary. Objective Physical Exam Last Vital Signs Date Time Temp Pulse Resp B/P (MAP) Pulse Ox O2 Delivery O2 Flow Rate FiO2 12/14/18 20:00 98.2 90 18 92/42 (59) 96 12/14/18 09:29 Room Air Laboratory Tests Test 12/14/18 06:14 White Blood Count 3.0 K/UL (4.8-10.8) L Red Blood Count 4.00 M/UL (4.20-5.40) L Hemoglobin 8.8 G/DL (12.0-16.0) L Hematocrit 29.8 % (37.0-47.0) L Mean Corpuscular Volume 75 FL (80-99) L Mean Corpuscular Hemoglobin 22.0 PG (27.0-31.0) L Mean Corpuscular Hemoglobin Concent 29.5 G/DL (32.0-36.0) L Red Cell Distribution Width 20.4 % (11.6-14.8) H Platelet Count 280 K/UL (150-450) Mean Platelet Volume 6.6 FL (6.5-10.1) Neutrophils (%) (Auto) % (45.0-75.0) Lymphocytes (%) (Auto) % (20.0-45.0) Monocytes (%) (Auto) % (1.0-10.0) Eosinophils (%) (Auto) % (0.0-3.0) Basophils (%) (Auto) % (0.0-2.0) Differential Total Cells Counted 100 Neutrophils % (Manual) 56 % (45-75) Lymphocytes % (Manual) 27 % (20-45) Monocytes % (Manual) 16 % (1-10) H Eosinophils % (Manual) 1 % (0-3) Basophils % (Manual) 0 % (0-2) Band Neutrophils 0 % (0-8) Platelet Estimate Adequate Platelet Morphology Normal Hypochromasia 1+ Anisocytosis 2+ Microcytosis 1+ Ovalocytes Occasional Neurologic Exam Objective General Appearance: WD/WN, no apparent distress, alert, overweight Lines, tubes and drains: peripheral HEENT: normocephalic, atraumatic, anicteric, mucous membranes moist, PERRL, EOMI, pharynx normal, supple, no JVD Neck: non-tender, normal alignment, supple, normal inspection Respiratory/Chest: normal breath sounds, no respiratory distress, no accessory muscle use Cardiovascular/Chest: normal rate, no JVD Extremities: normal capillary refill, non-pitting, inflammation, other - Bilateral knee replacements, right knee most recently. Echymosses and mild non pitting edema on right knee / lower leg (not ankle) secondary to fall/ injury. 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 Physical Exam Narrative Patient has diffuse weakness of extremities, R>L but no apparent neurological or new deficits given patient's well documented history of MSK/ neuropathic complaints Impression/Recommendations Problems: (1) Contusion of finger of right hand (2) Sciatica of right side (3) ATN (acute tubular necrosis) (4) Anxiety (5) History of DVT (deep vein thrombosis) (6) Fall (7) Intractable pain (8) Anemia (9) Hematuria (10) Sciatica Status: stable, progressing Recommendations Previously discussed starting Gabapentin - agree with 300mg TID, may consider decreasing daytime doses and taking higher dose at bedtime if daytime sedation is an issue Continue general neuro obs SBP<140 PT Lindy Wooten N.P. Dec 14, 2018 21:29
--- NOTE | 2018-12-14 23:00 | NUR ---
NURSE NOTES: PT. AMBULATE TO THE BR W/ STEADY GAIT ,HEMATURIA NOTED NO C/O PAIN.WILL CONTINUE TO MONITOR.
[2018-12-14] MEDS: Zolpidem 5mg tab ORAL PRN (23:42)
[2018-12-15] VITALS: BP 109/59
[2018-12-15 04:00] VITALS: BP 99/62
--- NOTE | 2018-12-15 07:30 | NUR ---
NURSE NOTES: Patient is in bed awake and able to verbalize needs. Stable. Denies pain or SOB. Patient encouraged to use call light for assistance, verbalized understanding. Patient is in bed in locked and lowest position with call light within reach. Will continue to monitor.
--- NOTE | 2018-12-15 07:40 | NUR ---
HAND-OFF: Report given to SELINA ROBLERO.
[2018-12-15 08:00] VITALS: BP 101/61
[2018-12-15 08:18] LABS: HEMATOCRIT 33.5 % (37.0-47.0); HEMOGLOBIN 9.8 G/DL (12.0-16.0); MEAN CORPUSCULAR VOLUME 76 FL (80-99); PLATELET COUNT 291 K/UL (150-450); RED BLOOD COUNT 4.43 M/UL (4.20-5.40); RED CELL DISTRIBUTION WIDTH 21.9 % (11.6-14.8)
[2018-12-15] MEDS: Pyridoxine 50mg tab ORAL SCH (08:22)
[2018-12-15] MEDS: Cyclobenzaprine 10mg Tab ORAL SCH ×3 (08:23→17:21)
[2018-12-15] MEDS: Thiamine 100mg tab ORAL SCH (08:23)
[2018-12-15 08:30] LABS: ANION GAP 8 mmol/L (5-15); BLOOD UREA NITROGEN 9 mg/dL (7-18); CALCIUM 9.1 MG/DL (8.5-10.1); CARBON DIOXIDE 29 MMOL/L (21-32); CHLORIDE 105 MMOL/L (98-107); CREATININE 0.5 MG/DL (0.55-1.30); POTASSIUM 4.4 MMOL/L (3.5-5.1); SODIUM 141 MMOL/L (136-145)
[2018-12-15] MEDS ORDERED: LORazepam Inj 2mg/ml 1ml IV PRN (08:30)
[2018-12-15] MEDS: Morphine Sulfate 4mg/ml Inj (IV USE ONLY) IVP PRN (11:16)
--- NOTE | 2018-12-15 11:48 | Nephrology Progress Note ---
Assessment/Plan Problem List: (1) Hematuria (2) Anemia Assessment: Low Iron (3) Obesities, morbid Assessment stable Renal parameters h/o Hematuria: fall, Right hip contusion Obese BMI 37.6 Plan IV iron- B12 SQ check UA and c/s: Cultures pending Uro eval continue per consultants was transfused per other MD order ! Subjective ROS Limited/Unobtainable: No Constitutional: Reports: malaise Objective Objective Last 24 Hour Vital Signs Date Time Temp Pulse Resp B/P (MAP) Pulse Ox O2 Delivery O2 Flow Rate FiO2 12/15/18 09:00 Room Air 12/15/18 08:00 98.4 85 17 101/61 (74) 98 12/15/18 04:00 97.9 77 18 99/62 (74) 96 12/15/18 00:00 97.7 86 18 109/59 (76) 98 12/14/18 21:00 Room Air 12/14/18 20:00 98.2 90 18 92/42 (59) 96 12/14/18 18:50 98.0 12/14/18 17:34 98.0 12/14/18 16:00 98.0 96 19 121/63 (82) 98 12/14/18 12:00 97.9 77 18 112/66 (81) 99 Intake and Output 12/14/18 12/15/18 19:00 07:00 Intake Total 1080 ml 1560 ml Balance 1080 ml 1560 ml Intake Oral 1080 ml 360 ml Other 1200 ml # Voids 4 2 Laboratory Tests 12/15/18 07:45: White Blood Count 3.0L, Red Blood Count 4.43, Hemoglobin 9.8L, Hematocrit 33.5L , Mean Corpuscular Volume 76L, Mean Corpuscular Hemoglobin 22.1L, Mean Corpuscular Hemoglobin Concent 29.1L, Red Cell Distribution Width 21.9H, Platelet Count 291, Mean Platelet Volume 6.5, Neutrophils (%) (Auto) , Lymphocytes (%) (Auto) , Monocytes (%) (Auto) , Eosinophils (%) (Auto) , Basophils (%) (Auto) , Differential Total Cells Counted 100, Neutrophils % ( Manual) 76H, Lymphocytes % (Manual) 16L, Monocytes % (Manual) 6, Eosinophils % ( Manual) 2, Basophils % (Manual) 0, Band Neutrophils 0, Platelet Estimate Adequate, Platelet Morphology Normal, Hypochromasia 2+, Anisocytosis 2+, Microcytosis 1+, Sodium Level 141, Potassium Level 4.4, Chloride Level 105, Carbon Dioxide Level 29, Anion Gap 8, Blood Urea Nitrogen 9, Creatinine 0.5L, Estimat Glomerular Filtration Rate > 60, Glucose Level 132H, Calcium Level 9.1 Height (Feet): 5 Height (Inches): 5.00 Weight (Pounds): 244 General Appearance: no apparent distress, lethargic Cardiovascular: normal rate Respiratory/Chest: lungs clear Abdomen: soft Objective no change James Dunn MD Dec 15, 2018 11:48
[2018-12-15 12:00] VITALS: BP 112/59
--- NOTE | 2018-12-15 14:03 | Hematology/Onc Progress Note ---
Assessment/Plan Assessment/Plan ASSESSMENT AND PLAN # Leukopenia -- multiple etiologies could be related to underlying liver disease , medication-induced, infection versus viral syndrome --> peripheral smear has been ordered and does not show significant abnormalities --> Medications have been reviewed --> Continue to monitor for improvement, trend cbc --> Hep panel and HIV neg --> US abd ordered to r/o cirrhosis and hepatosplenomegaly DOES NOT show any --> reverse isolation if ANC is <2000 --> Give neupogen if ANC <1000 --> wbc trend: 3.2-->3--> # Anemia of iron deficiency due to underlying hematuria. Will f/u with urology. --> Anemia workup has been ordered, rule out gi bleed --> No evidence of hemolysis is noted, peripheral smear has been reviewed. --> Hgb goal >7. Transfuse prn. --> Completed 5 bags of IRON IV Started through 12/14 --> Medications have been reviewed --> low threshold for gi evaluation in case has occult + --> bone marrow biopsy is not indicated given the other more likely causes --> Blood tx: 1 unit 12/10 --> Hgb trend: 9-->9.8 # Hematuria. Urology is following, appreciate recs. --> on ivf # Fall. PT/OT, dietary followup. # Obesity. --> Recommend diet and lifestyle modifications # Weakness. # ATN. # Sciatica. The time the note is entered does not reflect the time the patient was examined. I greatly appreciate the consultation. Subjective Hematologic/Lymphatic: Reports: anemia Allergies: Coded Allergies: No Known Allergies (Unverified , 09/04/12) All Systems: reviewed and negative except above Subjective 12/12: hematuria is better, on iv iron, no f/c 12/13: Pt awake and alert. No acute events. H/H stable. 12/15: Pt in bed awake and able to verbalize needs. Stable. Denies pain or SOB.5 bags of IV iron complete. H/H stable. Urine cx negative Objective Objective Current Medications Medications (Trade) Dose Ordered Sig/Safia Route PRN Reason Start Time Stop Time Status Last Admin Dose Admin Acetaminophen (Tylenol) 650 mg Q4H PRN ORAL fever 12/09/18 14:30 01/08/19 14:29 Acetaminophen/ Hydrocodone Bitart ([place] 5/325) 1 tab Q4H PRN ORAL Moderate Pain (Pain Scale 4-6) 12/13/18 16:00 12/20/18 15:59 12/14/18 00:00 Cyclobenzaprine HCl (Flexeril) 10 mg THREE TIMES A DAY ORAL 12/09/18 18:00 01/08/19 17:59 12/15/18 13:04 Dextrose (Dextrose 50%) 25 ml Q30M PRN IV Hypoglycemia 12/09/18 14:30 01/08/19 14:23 Dextrose (Dextrose 50%) 50 ml Q30M PRN IV hypoglycemia 12/09/18 14:30 01/08/19 14:29 Furosemide (Lasix) 20 mg DAILY ORAL 12/10/18 09:00 01/09/19 08:59 12/15/18 08:22 Gabapentin (Neurontin) 300 mg THREE TIMES A DAY ORAL 12/11/18 09:00 01/10/19 08:59 12/15/18 13:04 Loratadine (Claritin 10mg) 10 mg DAILY ORAL 12/13/18 18:00 01/12/19 17:59 12/15/18 08:23 Lorazepam (Ativan 2mg/ml 1ml) 0.5 mg Q4H PRN IV For Anxiety 12/15/18 08:30 12/22/18 08:29 Magnesium Hydroxide (Mom) 30 ml BIDPRN PRN ORAL Constipation 12/14/18 07:45 01/13/19 07:44 12/14/18 08:22 Morphine Sulfate (Morphine Sulfate) 4 mg Q4H PRN IVP Severe Pain (Pain Scale 7-10) 12/10/18 14:30 12/17/18 14:29 12/15/18 11:16 Ondansetron HCl (Zofran) 4 mg Q6H PRN IVP Nausea & Vomiting 12/09/18 14:30 01/08/19 14:29 12/11/18 17:36 Polyethylene Glycol (Miralax) 17 gm HSPRN PRN ORAL Constipation 12/09/18 14:30 01/08/19 14:29 12/14/18 00:01 Pyridoxine HCl (Vitamin B6) 50 mg DAILY ORAL 12/13/18 16:00 01/12/19 15:59 12/15/18 08:22 Thiamine HCl (Vitamin B1) 100 mg DAILY ORAL 12/13/18 15:00 01/12/19 14:59 12/15/18 08:23 Zolpidem Tartrate (Ambien) 5 mg HSPRN PRN ORAL Insomnia 12/15/18 20:00 12/22/18 19:59 Last 24 Hour Vital Signs Date Time Temp Pulse Resp B/P (MAP) Pulse Ox O2 Delivery O2 Flow Rate FiO2 12/15/18 12:00 97.8 84 18 112/59 (76) 98 12/15/18 09:00 Room Air 12/15/18 08:00 98.4 85 17 101/61 (74) 98 12/15/18 04:00 97.9 77 18 99/62 (74) 96 12/15/18 00:00 97.7 86 18 109/59 (76) 98 12/14/18 21:00 Room Air 12/14/18 20:00 98.2 90 18 92/42 (59) 96 12/14/18 18:50 98.0 12/14/18 17:34 98.0 12/14/18 16:00 98.0 96 19 121/63 (82) 98 12/14/18 12:00 97.9 77 18 112/66 (81) 99 12/14/18 09:29 Room Air 12/14/18 08:00 97.8 88 18 110/50 (70) 98 12/14/18 04:00 97.6 90 18 110/51 (70) 98 12/14/18 00:00 97.9 96 18 115/75 (88) 100 12/13/18 21:00 Room Air 12/13/18 20:00 97.8 93 18 109/49 (69) 96 12/13/18 16:00 98.4 105 18 106/61 (76) 97 Intake and Output 12/14/18 12/15/18 19:00 07:00 Intake Total 1080 ml 1560 ml Balance 1080 ml 1560 ml Intake Oral 1080 ml 360 ml Other 1200 ml # Voids 4 2 Labs Test 12/13/18 07:52 12/14/18 06:14 12/15/18 07:45 White Blood Count 3.2 K/UL (4.8-10.8) 3.0 K/UL (4.8-10.8) 3.0 K/UL (4.8-10.8) Red Blood Count 4.15 M/UL (4.20-5.40) 4.00 M/UL (4.20-5.40) 4.43 M/UL (4.20-5.40) Hemoglobin 9.0 G/DL (12.0-16.0) 8.8 G/DL (12.0-16.0) 9.8 G/DL (12.0-16.0) Hematocrit 30.4 % (37.0-47.0) 29.8 % (37.0-47.0) 33.5 % (37.0-47.0) Mean Corpuscular Volume 73 FL (80-99) 75 FL (80-99) 76 FL (80-99) Mean Corpuscular Hemoglobin 21.6 PG (27.0-31.0) 22.0 PG (27.0-31.0) 22.1 PG (27.0-31.0) Mean Corpuscular Hemoglobin Concent 29.5 G/DL (32.0-36.0) 29.5 G/DL (32.0-36.0) 29.1 G/DL (32.0-36.0) Red Cell Distribution Width 19.4 % (11.6-14.8) 20.4 % (11.6-14.8) 21.9 % (11.6-14.8) Platelet Count 306 K/UL (150-450) 280 K/UL (150-450) 291 K/UL (150-450) Mean Platelet Volume 7.1 FL (6.5-10.1) 6.6 FL (6.5-10.1) 6.5 FL (6.5-10.1) Neutrophils (%) (Auto) % (45.0-75.0) % (45.0-75.0) % (45.0-75.0) Lymphocytes (%) (Auto) % (20.0-45.0) % (20.0-45.0) % (20.0-45.0) Monocytes (%) (Auto) % (1.0-10.0) % (1.0-10.0) % (1.0-10.0) Eosinophils (%) (Auto) % (0.0-3.0) % (0.0-3.0) % (0.0-3.0) Basophils (%) (Auto) % (0.0-2.0) % (0.0-2.0) % (0.0-2.0) Differential Total Cells Counted 100 100 100 Neutrophils % (Manual) 63 % (45-75) 56 % (45-75) 76 % (45-75) Lymphocytes % (Manual) 23 % (20-45) 27 % (20-45) 16 % (20-45) Monocytes % (Manual) 7 % (1-10) 16 % (1-10) 6 % (1-10) Eosinophils % (Manual) 7 % (0-3) 1 % (0-3) 2 % (0-3) Basophils % (Manual) 0 % (0-2) 0 % (0-2) 0 % (0-2) Band Neutrophils 0 % (0-8) 0 % (0-8) 0 % (0-8) Platelet Estimate Adequate Adequate Adequate Platelet Morphology Normal Normal Normal Hypochromasia 1+ 1+ 2+ Anisocytosis 2+ 2+ 2+ Microcytosis 1+ 1+ 1+ Sodium Level 142 MMOL/L (136-145) 141 MMOL/L (136-145) Potassium Level 3.9 MMOL/L (3.5-5.1) 4.4 MMOL/L (3.5-5.1) Chloride Level 105 MMOL/L (98-107) 105 MMOL/L (98-107) Carbon Dioxide Level 28 MMOL/L (21-32) 29 MMOL/L (21-32) Anion Gap 9 mmol/L (5-15) 8 mmol/L (5-15) Blood Urea Nitrogen 10 mg/dL (7-18) 9 mg/dL (7-18) Creatinine 0.6 MG/DL (0.55-1.30) 0.5 MG/DL (0.55-1.30) Estimat Glomerular Filtration Rate > 60 mL/min (>60) > 60 mL/min (>60) Glucose Level 154 MG/DL (74-106) 132 MG/DL (74-106) Calcium Level 8.8 MG/DL (8.5-10.1) 9.1 MG/DL (8.5-10.1) Phosphorus Level 3.9 MG/DL (2.5-4.9) Magnesium Level 1.8 MG/DL (1.8-2.4) Total Bilirubin 0.2 MG/DL (0.2-1.0) Direct Bilirubin < 0.1 MG/DL (0.0-0.3) Aspartate Amino Transf (AST/SGOT) 10 U/L (15-37) Alanine Aminotransferase (ALT/SGPT) 12 U/L (12-78) Alkaline Phosphatase 68 U/L (46-116) Total Protein 6.0 G/DL (6.4-8.2) Albumin 2.6 G/DL (3.4-5.0) Ovalocytes Occasional Height (Feet): 5 Height (Inches): 5.00 Weight (Pounds): 244 Objective OBJECTIVE PHYSICAL EXAMINATION: GENERAL: Calm in bed, oriented x3, no acute distress. VITAL SIGNS: Have been reviewed. CARDIOVASCULAR: No murmur. LUNGS: Distant and clear. ABDOMEN: Bowel sounds positive. Nontender. Nondistended. EXTREMITIES: No cyanosis, clubbing, edema. NEUROLOGIC: The patient moves all extremities, slightly weak. Valentin Ken MD Dec 15, 2018 14:03
--- NOTE | 2018-12-15 14:57 | Pulmonology Progress Note ---
Assessment/Plan Problems: (1) Intractable pain (2) Anemia (3) Anxiety (4) Obesities, morbid (5) H/O gastric bypass Assessment/Plan doing better, wants to go home no new complains all noted symptomatic treatment anemia work up pain management dvt prophylaxis Subjective ROS Limited/Unobtainable: No Constitutional: Reports: no symptoms HEENT: Repors: no symptoms Allergies: Coded Allergies: No Known Allergies (Unverified , 09/04/12) Objective Last 24 Hour Vital Signs Date Time Temp Pulse Resp B/P (MAP) Pulse Ox O2 Delivery O2 Flow Rate FiO2 12/15/18 12:00 97.8 84 18 112/59 (76) 98 12/15/18 09:00 Room Air 12/15/18 08:00 98.4 85 17 101/61 (74) 98 12/15/18 04:00 97.9 77 18 99/62 (74) 96 12/15/18 00:00 97.7 86 18 109/59 (76) 98 12/14/18 21:00 Room Air 12/14/18 20:00 98.2 90 18 92/42 (59) 96 12/14/18 18:50 98.0 12/14/18 17:34 98.0 12/14/18 16:00 98.0 96 19 121/63 (82) 98 Intake and Output 12/14/18 12/15/18 19:00 07:00 Intake Total 1080 ml 1560 ml Balance 1080 ml 1560 ml Intake Oral 1080 ml 360 ml Other 1200 ml # Voids 4 2 Objective General Appearance: WD/WN HEENT: normocephalic, atraumatic Respiratory/Chest: chest wall non-tender, lungs clear Cardiovascular: normal peripheral pulses, normal rate Abdomen: normal bowel sounds, soft, non tender Genitourinary: normal external genitalia Extremities: no clubbing Skin: no rash Laboratory Tests 12/15/18 07:45: White Blood Count 3.0L, Red Blood Count 4.43, Hemoglobin 9.8L, Hematocrit 33.5L , Mean Corpuscular Volume 76L, Mean Corpuscular Hemoglobin 22.1L, Mean Corpuscular Hemoglobin Concent 29.1L, Red Cell Distribution Width 21.9H, Platelet Count 291, Mean Platelet Volume 6.5, Neutrophils (%) (Auto) , Lymphocytes (%) (Auto) , Monocytes (%) (Auto) , Eosinophils (%) (Auto) , Basophils (%) (Auto) , Differential Total Cells Counted 100, Neutrophils % ( Manual) 76H, Lymphocytes % (Manual) 16L, Monocytes % (Manual) 6, Eosinophils % ( Manual) 2, Basophils % (Manual) 0, Band Neutrophils 0, Platelet Estimate Adequate, Platelet Morphology Normal, Hypochromasia 2+, Anisocytosis 2+, Microcytosis 1+, Sodium Level 141, Potassium Level 4.4, Chloride Level 105, Carbon Dioxide Level 29, Anion Gap 8, Blood Urea Nitrogen 9, Creatinine 0.5L, Estimat Glomerular Filtration Rate > 60, Glucose Level 132H, Calcium Level 9.1 Current Medications Medications (Trade) Dose Ordered Sig/Safia Route PRN Reason Start Time Stop Time Status Last Admin Dose Admin Acetaminophen (Tylenol) 650 mg Q4H PRN ORAL fever 12/09/18 14:30 01/08/19 14:29 Acetaminophen/ Hydrocodone Bitart ([place] 5/325) 1 tab Q4H PRN ORAL Moderate Pain (Pain Scale 4-6) 12/13/18 16:00 12/20/18 15:59 12/14/18 00:00 Cyclobenzaprine HCl (Flexeril) 10 mg THREE TIMES A DAY ORAL 12/09/18 18:00 01/08/19 17:59 12/15/18 13:04 Dextrose (Dextrose 50%) 25 ml Q30M PRN IV Hypoglycemia 12/09/18 14:30 01/08/19 14:23 Dextrose (Dextrose 50%) 50 ml Q30M PRN IV hypoglycemia 12/09/18 14:30 01/08/19 14:29 Furosemide (Lasix) 20 mg DAILY ORAL 12/10/18 09:00 01/09/19 08:59 12/15/18 08:22 Gabapentin (Neurontin) 300 mg THREE TIMES A DAY ORAL 12/11/18 09:00 01/10/19 08:59 12/15/18 13:04 Loratadine (Claritin 10mg) 10 mg DAILY ORAL 12/13/18 18:00 01/12/19 17:59 12/15/18 08:23 Lorazepam (Ativan 2mg/ml 1ml) 0.5 mg Q4H PRN IV For Anxiety 12/15/18 08:30 12/22/18 08:29 Magnesium Hydroxide (Mom) 30 ml BIDPRN PRN ORAL Constipation 12/14/18 07:45 01/13/19 07:44 12/14/18 08:22 Morphine Sulfate (Morphine Sulfate) 4 mg Q4H PRN IVP Severe Pain (Pain Scale 7-10) 12/10/18 14:30 12/17/18 14:29 12/15/18 11:16 Ondansetron HCl (Zofran) 4 mg Q6H PRN IVP Nausea & Vomiting 12/09/18 14:30 01/08/19 14:29 12/11/18 17:36 Polyethylene Glycol (Miralax) 17 gm HSPRN PRN ORAL Constipation 12/09/18 14:30 01/08/19 14:29 12/14/18 00:01 Pyridoxine HCl (Vitamin B6) 50 mg DAILY ORAL 12/13/18 16:00 01/12/19 15:59 12/15/18 08:22 Thiamine HCl (Vitamin B1) 100 mg DAILY ORAL 12/13/18 15:00 01/12/19 14:59 12/15/18 08:23 Zolpidem Tartrate (Ambien) 5 mg HSPRN PRN ORAL Insomnia 12/15/18 20:00 12/22/18 19:59 Latha Gill MD Dec 15, 2018 14:57
[2018-12-15 16:00] VITALS: BP 99/54
--- NOTE | 2018-12-15 16:33 | General Progress Note ---
Assessment/Plan Problem List: (1) Sciatica ICD Codes: M54.30 - Sciatica, unspecified side SNOMED: 36711931 (2) Thrombocytopenia ICD Codes: D69.6 - Thrombocytopenia, unspecified SNOMED: 301153421 (3) Anemia ICD Codes: D64.9 - Anemia, unspecified SNOMED: 812076499 (4) Fall ICD Codes: W19.XXXA - Unspecified fall, initial encounter SNOMED: 2231724, 367251268 (5) Hematuria ICD Codes: R31.9 - Hematuria, unspecified SNOMED: 22901603 (6) Obesities, morbid ICD Codes: E66.01 - Morbid (severe) obesity due to excess calories SNOMED: 544103737 Status: stable, progressing Assessment/Plan: pt diet abx pt diet transfuse prn cbc bmp am aru eval Subjective Constitutional: Reports: weakness Allergies: Coded Allergies: No Known Allergies (Unverified , 09/04/12) All Systems: reviewed and negative except above Subjective sleepy calm in bed Objective Last 24 Hour Vital Signs Date Time Temp Pulse Resp B/P (MAP) Pulse Ox O2 Delivery O2 Flow Rate FiO2 12/15/18 12:00 97.8 84 18 112/59 (76) 98 12/15/18 09:00 Room Air 12/15/18 08:00 98.4 85 17 101/61 (74) 98 12/15/18 04:00 97.9 77 18 99/62 (74) 96 12/15/18 00:00 97.7 86 18 109/59 (76) 98 12/14/18 21:00 Room Air 12/14/18 20:00 98.2 90 18 92/42 (59) 96 12/14/18 18:50 98.0 12/14/18 17:34 98.0 Intake and Output 12/14/18 12/15/18 19:00 07:00 Intake Total 1080 ml 1560 ml Balance 1080 ml 1560 ml Intake Oral 1080 ml 360 ml Other 1200 ml # Voids 4 2 Laboratory Tests 12/15/18 07:45: White Blood Count 3.0L, Red Blood Count 4.43, Hemoglobin 9.8L, Hematocrit 33.5L , Mean Corpuscular Volume 76L, Mean Corpuscular Hemoglobin 22.1L, Mean Corpuscular Hemoglobin Concent 29.1L, Red Cell Distribution Width 21.9H, Platelet Count 291, Mean Platelet Volume 6.5, Neutrophils (%) (Auto) , Lymphocytes (%) (Auto) , Monocytes (%) (Auto) , Eosinophils (%) (Auto) , Basophils (%) (Auto) , Differential Total Cells Counted 100, Neutrophils % ( Manual) 76H, Lymphocytes % (Manual) 16L, Monocytes % (Manual) 6, Eosinophils % ( Manual) 2, Basophils % (Manual) 0, Band Neutrophils 0, Platelet Estimate Adequate, Platelet Morphology Normal, Hypochromasia 2+, Anisocytosis 2+, Microcytosis 1+, Sodium Level 141, Potassium Level 4.4, Chloride Level 105, Carbon Dioxide Level 29, Anion Gap 8, Blood Urea Nitrogen 9, Creatinine 0.5L, Estimat Glomerular Filtration Rate > 60, Glucose Level 132H, Calcium Level 9.1 Height (Feet): 5 Height (Inches): 5.00 Weight (Pounds): 244 General Appearance: lethargic EENT: normal ENT inspection Neck: normal alignment Cardiovascular: normal peripheral pulses, normal rate, regular rhythm Respiratory/Chest: chest wall non-tender, lungs clear, normal breath sounds Abdomen: normal bowel sounds, non tender, soft Extremities: normal inspection Edema: no edema noted Arm (L), no edema noted Arm (R), no edema noted Leg (L), no edema noted Leg (R), no edema noted Pedal (L), no edema noted Pedal (R), no edema noted Generalized Neurologic: motor weakness Skin: normal pigmentation, warm/dry Alfonso Rodríguez DO Dec 15, 2018 16:33
--- NOTE | 2018-12-15 16:34 | General Progress Note ---
Assessment/Plan Status: stable, progressing Assessment/Plan: (1) Lumbar Sprain (2) Lumbar Radiculopathy (3) Lumbar DDD (4) Lumbar Spondylosis (5) Lumbar Herniated disc Continued on Morphine and Neurontin D/w Dr. Rincon and he concurred. Subjective Date patient seen: Dec 15, 2018 Time patient seen: 03:15 - pm Allergies: Coded Allergies: No Known Allergies (Unverified , 09/04/12) Subjective REVIEW OF SYSTEMS: Denies rash, fever, chills, sweating, dizziness, drowsiness, blurred vision, sore throat, change in weight. No shortness of breath or chest pain. No nausea, vomiting, or blood in the stool. No bowel or bladder. C/o back pain. SUBJECTIVE: Patient is in bed and reports that the pain has been at a mild level tolerated on the Morphine 2 doses and [place] 1 dose in the last 24hrs. No new complaints at this time. Objective Last 24 Hour Vital Signs Date Time Temp Pulse Resp B/P (MAP) Pulse Ox O2 Delivery O2 Flow Rate FiO2 12/15/18 12:00 97.8 84 18 112/59 (76) 98 12/15/18 09:00 Room Air 12/15/18 08:00 98.4 85 17 101/61 (74) 98 12/15/18 04:00 97.9 77 18 99/62 (74) 96 12/15/18 00:00 97.7 86 18 109/59 (76) 98 12/14/18 21:00 Room Air 12/14/18 20:00 98.2 90 18 92/42 (59) 96 12/14/18 18:50 98.0 12/14/18 17:34 98.0 Intake and Output 12/14/18 12/15/18 19:00 07:00 Intake Total 1080 ml 1560 ml Balance 1080 ml 1560 ml Intake Oral 1080 ml 360 ml Other 1200 ml # Voids 4 2 Laboratory Tests 12/15/18 07:45: White Blood Count 3.0L, Red Blood Count 4.43, Hemoglobin 9.8L, Hematocrit 33.5L , Mean Corpuscular Volume 76L, Mean Corpuscular Hemoglobin 22.1L, Mean Corpuscular Hemoglobin Concent 29.1L, Red Cell Distribution Width 21.9H, Platelet Count 291, Mean Platelet Volume 6.5, Neutrophils (%) (Auto) , Lymphocytes (%) (Auto) , Monocytes (%) (Auto) , Eosinophils (%) (Auto) , Basophils (%) (Auto) , Differential Total Cells Counted 100, Neutrophils % ( Manual) 76H, Lymphocytes % (Manual) 16L, Monocytes % (Manual) 6, Eosinophils % ( Manual) 2, Basophils % (Manual) 0, Band Neutrophils 0, Platelet Estimate Adequate, Platelet Morphology Normal, Hypochromasia 2+, Anisocytosis 2+, Microcytosis 1+, Sodium Level 141, Potassium Level 4.4, Chloride Level 105, Carbon Dioxide Level 29, Anion Gap 8, Blood Urea Nitrogen 9, Creatinine 0.5L, Estimat Glomerular Filtration Rate > 60, Glucose Level 132H, Calcium Level 9.1 Height (Feet): 5 Height (Inches): 5.00 Weight (Pounds): 244 Objective GENERAL: Alert, awake, oriented. LUNGS: Decreased breath sounds bilaterally. HEART: S1 and S2 regular. ABDOMEN: Obese. EXTREMITIES: No cyanosis. No clubbing. NEURO: No changes. Dirk May Dec 15, 2018 16:34
--- NOTE | 2018-12-15 17:42 | NUR ---
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 ANEMIA T 97.8 HR 84 RR 18 B/P 112/59 SATS 98% ON RA WBC 3 CR 0.5 GLU 132 IS:FLEXERIL 10mg LASIX 20mg MORPHINE SULFATE 4mg IVP IRON SUCROSE 60ml MED/SURG STATUS
--- NOTE | 2018-12-15 19:48 | NUR ---
HAND-OFF: Report given to Sweetie ROBLERO. Patient is stable.
[2018-12-15 20:00] VITALS: BP 101/65
[2018-12-15] MEDS ORDERED: Zolpidem 5mg tab ORAL PRN (20:00)
[2018-12-15] MEDS: HYDROcodone/Acetamin 5/325 tab ORAL PRN (23:04)
--- NOTE | 2018-12-15 23:36 | Neurology Progress Note ---
Interim History Interim History ROS Limited/Unobtainable: No Complaints: Fall with Weakness Objective Physical Exam Last Vital Signs Date Time Temp Pulse Resp B/P (MAP) Pulse Ox O2 Delivery O2 Flow Rate FiO2 12/15/18 16:00 98.1 58 17 99/54 (69) 98 12/15/18 09:00 Room Air Laboratory Tests Test 12/15/18 07:45 White Blood Count 3.0 K/UL (4.8-10.8) L Red Blood Count 4.43 M/UL (4.20-5.40) Hemoglobin 9.8 G/DL (12.0-16.0) L Hematocrit 33.5 % (37.0-47.0) L Mean Corpuscular Volume 76 FL (80-99) L Mean Corpuscular Hemoglobin 22.1 PG (27.0-31.0) L Mean Corpuscular Hemoglobin Concent 29.1 G/DL (32.0-36.0) L Red Cell Distribution Width 21.9 % (11.6-14.8) H Platelet Count 291 K/UL (150-450) Mean Platelet Volume 6.5 FL (6.5-10.1) Neutrophils (%) (Auto) % (45.0-75.0) Lymphocytes (%) (Auto) % (20.0-45.0) Monocytes (%) (Auto) % (1.0-10.0) Eosinophils (%) (Auto) % (0.0-3.0) Basophils (%) (Auto) % (0.0-2.0) Differential Total Cells Counted 100 Neutrophils % (Manual) 76 % (45-75) H Lymphocytes % (Manual) 16 % (20-45) L Monocytes % (Manual) 6 % (1-10) Eosinophils % (Manual) 2 % (0-3) Basophils % (Manual) 0 % (0-2) Band Neutrophils 0 % (0-8) Platelet Estimate Adequate Platelet Morphology Normal Hypochromasia 2+ Anisocytosis 2+ Microcytosis 1+ Sodium Level 141 MMOL/L (136-145) Potassium Level 4.4 MMOL/L (3.5-5.1) Chloride Level 105 MMOL/L (98-107) Carbon Dioxide Level 29 MMOL/L (21-32) Anion Gap 8 mmol/L (5-15) Blood Urea Nitrogen 9 mg/dL (7-18) Creatinine 0.5 MG/DL (0.55-1.30) L Estimat Glomerular Filtration Rate > 60 mL/min (>60) Glucose Level 132 MG/DL (74-106) H Calcium Level 9.1 MG/DL (8.5-10.1) Neurologic Exam Objective General Appearance: WD/WN, no apparent distress, alert, overweight Lines, tubes and drains: peripheral HEENT: normocephalic, atraumatic, anicteric, mucous membranes moist, PERRL, EOMI, pharynx normal, supple, no JVD Neck: non-tender, normal alignment, supple, normal inspection Respiratory/Chest: normal breath sounds, no respiratory distress, no accessory muscle use Cardiovascular/Chest: normal rate, no JVD Extremities: normal capillary refill, non-pitting, inflammation, other - Bilateral knee replacements, right knee most recently. Echymosses and mild non pitting edema on right knee / lower leg (not ankle) secondary to fall/ injury. 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 Physical Exam Narrative Patient has diffuse weakness of extremities, R>L but no apparent neurological or new deficits given patient's well documented history of MSK/ neuropathic complaints Impression/Recommendations Problems: (1) Contusion of finger of right hand (2) Sciatica of right side (3) ATN (acute tubular necrosis) (4) Anxiety (5) History of DVT (deep vein thrombosis) (6) Fall (7) Intractable pain (8) Anemia (9) Hematuria (10) Sciatica Status: stable, progressing Recommendations Previously discussed starting Gabapentin - agree with 300mg TID, may consider decreasing daytime doses and taking higher dose at bedtime if daytime sedation is an issue Continue general neuro obs SBP<140 PT Lindy Wooten N.P. Dec 15, 2018 23:36
[2018-12-16] VITALS: BP 94/57
[2018-12-16 04:00] VITALS: BP 101/58
[2018-12-16] MEDS: HYDROcodone/Acetamin 5/325 tab ORAL PRN (05:18)
[2018-12-16 06:39] LABS: BASOPHILS % (AUTO) 1.7 % (0.0-2.0); EOSINOPHILS % (AUTO) 4.6 % (0.0-3.0); HEMOGLOBIN 9.5 G/DL (12.0-16.0); LYMPHOCYTES % (AUTO) 23.5 % (20.0-45.0); MEAN CORPUSCULAR VOLUME 76 FL (80-99); MONOCYTES % (AUTO) 11.3 % (1.0-10.0); NEUTROPHILS % (AUTO) 58.9 % (45.0-75.0); PLATELET COUNT 265 K/UL (150-450); RED BLOOD COUNT 4.22 M/UL (4.20-5.40); WHITE BLOOD COUNT 3.7 K/UL (4.8-10.8)
[2018-12-16 06:50] LABS: ANION GAP 7 mmol/L (5-15); BLOOD UREA NITROGEN 12 mg/dL (7-18); CALCIUM 8.9 MG/DL (8.5-10.1); CARBON DIOXIDE 30 MMOL/L (21-32); CHLORIDE 103 MMOL/L (98-107); CREATININE 0.6 MG/DL (0.55-1.30); POTASSIUM 4.7 MMOL/L (3.5-5.1); SODIUM 139 MMOL/L (136-145)
--- NOTE | 2018-12-16 07:26 | NUR ---
NURSE NOTES: Received pt from ANNIKA Pitt with stable condition. pt denies pain at this time. Bed in lowest position. call light within reach at all time. will continue to monitor.
--- NOTE | 2018-12-16 07:35 | NUR ---
HAND-OFF: Report given to ANNIKA PASTRANA.
[2018-12-16 08:00] VITALS: BP 105/61
[2018-12-16] MEDS: Pyridoxine 50mg tab ORAL SCH (08:01)
[2018-12-16] MEDS: Thiamine 100mg tab ORAL SCH (08:02)
[2018-12-16] MEDS: Cyclobenzaprine 10mg Tab ORAL SCH ×3 (08:02→17:05)
--- NOTE | 2018-12-16 08:40 | General Progress Note ---
Assessment/Plan Status: stable, progressing Assessment/Plan: (1) Lumbar Sprain (2) Lumbar Radiculopathy (3) Lumbar DDD (4) Lumbar Spondylosis (5) Lumbar Herniated disc Continued on Morphine and Neurontin D/w Dr. Rincon and he concurred. Subjective Date patient seen: Dec 16, 2018 Time patient seen: 07:15 - am Allergies: Coded Allergies: No Known Allergies (Unverified , 09/04/12) Subjective REVIEW OF SYSTEMS: Denies rash, fever, chills, sweating, dizziness, drowsiness, blurred vision, sore throat, change in weight. No shortness of breath or chest pain. No nausea, vomiting, or blood in the stool. No bowel or bladder. C/o back pain. SUBJECTIVE: Patient in bed has been c/o pain which has been tolerated on the norco and Morphine. No new complaints at this time. Objective Last 24 Hour Vital Signs Date Time Temp Pulse Resp B/P (MAP) Pulse Ox O2 Delivery O2 Flow Rate FiO2 12/16/18 04:00 97.7 75 18 101/58 (72) 94 12/16/18 00:00 97.6 80 16 94/57 (69) 96 12/15/18 21:00 Room Air 12/15/18 20:00 98.0 96 18 101/65 (77) 12/15/18 16:00 98.1 58 17 99/54 (69) 98 12/15/18 12:00 97.8 84 18 112/59 (76) 98 12/15/18 09:00 Room Air Intake and Output 12/15/18 12/16/18 19:00 07:00 Intake Total 850 ml 236 ml Balance 850 ml 236 ml Intake Oral 236 ml Other 850 ml # Voids 2 Laboratory Tests 12/16/18 05:55: White Blood Count 3.7L, Red Blood Count 4.22, Hemoglobin 9.5L, Hematocrit 32.0L , Mean Corpuscular Volume 76L, Mean Corpuscular Hemoglobin 22.5L, Mean Corpuscular Hemoglobin Concent 29.7L, Red Cell Distribution Width 22.0H, Platelet Count 265, Mean Platelet Volume 7.0, Neutrophils (%) (Auto) 58.9, Lymphocytes (%) (Auto) 23.5, Monocytes (%) (Auto) 11.3H, Eosinophils (%) (Auto) 4.6H, Basophils (%) (Auto) 1.7, Sodium Level 139, Potassium Level 4.7, Chloride Level 103, Carbon Dioxide Level 30, Anion Gap 7, Blood Urea Nitrogen 12, Creatinine 0.6, Estimat Glomerular Filtration Rate > 60, Glucose Level 99, Calcium Level 8.9 Height (Feet): 5 Height (Inches): 5.00 Weight (Pounds): 244 Objective GENERAL: Alert, awake, oriented. LUNGS: Decreased breath sounds bilaterally. HEART: S1 and S2 regular. ABDOMEN: Obese. EXTREMITIES: No cyanosis. No clubbing. NEURO: No changes. Dirk May Dec 16, 2018 08:40
[2018-12-16 12:00] VITALS: BP 123/64
--- NOTE | 2018-12-16 12:23 | NUR ---
EELER NOTES INQUIRY SENT TO [facility]. WILL FOLLOW UP.
[2018-12-16] MEDS: Morphine Sulfate 4mg/ml Inj (IV USE ONLY) IVP PRN (13:05)
--- NOTE | 2018-12-16 13:06 | General Progress Note ---
Assessment/Plan Problem List: (1) Sciatica ICD Codes: M54.30 - Sciatica, unspecified side SNOMED: 69744234 (2) Thrombocytopenia ICD Codes: D69.6 - Thrombocytopenia, unspecified SNOMED: 998010812 (3) Anemia ICD Codes: D64.9 - Anemia, unspecified SNOMED: 362943424 (4) Fall ICD Codes: W19.XXXA - Unspecified fall, initial encounter SNOMED: 6507608, 911318980 (5) Hematuria ICD Codes: R31.9 - Hematuria, unspecified SNOMED: 14009464 (6) Obesities, morbid ICD Codes: E66.01 - Morbid (severe) obesity due to excess calories SNOMED: 018929935 Status: stable, progressing Assessment/Plan: pt diet abx pt diet dc w hh uro eval tomorrow Subjective Constitutional: Reports: weakness Allergies: Coded Allergies: No Known Allergies (Unverified , 09/04/12) All Systems: reviewed and negative except above Subjective wants to go home calm in bed Objective Last 24 Hour Vital Signs Date Time Temp Pulse Resp B/P (MAP) Pulse Ox O2 Delivery O2 Flow Rate FiO2 12/16/18 08:55 Room Air 12/16/18 08:32 97.7 12/16/18 08:00 97.6 89 18 105/61 (76) 94 12/16/18 04:00 97.7 75 18 101/58 (72) 94 12/16/18 00:00 97.6 80 16 94/57 (69) 96 12/15/18 21:00 Room Air 12/15/18 20:00 98.0 96 18 101/65 (77) 12/15/18 16:00 98.1 58 17 99/54 (69) 98 Intake and Output 12/15/18 12/16/18 19:00 07:00 Intake Total 850 ml 236 ml Balance 850 ml 236 ml Intake Oral 236 ml Other 850 ml # Voids 2 Laboratory Tests 12/16/18 05:55: White Blood Count 3.7L, Red Blood Count 4.22, Hemoglobin 9.5L, Hematocrit 32.0L , Mean Corpuscular Volume 76L, Mean Corpuscular Hemoglobin 22.5L, Mean Corpuscular Hemoglobin Concent 29.7L, Red Cell Distribution Width 22.0H, Platelet Count 265, Mean Platelet Volume 7.0, Neutrophils (%) (Auto) 58.9, Lymphocytes (%) (Auto) 23.5, Monocytes (%) (Auto) 11.3H, Eosinophils (%) (Auto) 4.6H, Basophils (%) (Auto) 1.7, Sodium Level 139, Potassium Level 4.7, Chloride Level 103, Carbon Dioxide Level 30, Anion Gap 7, Blood Urea Nitrogen 12, Creatinine 0.6, Estimat Glomerular Filtration Rate > 60, Glucose Level 99, Calcium Level 8.9 Height (Feet): 5 Height (Inches): 5.00 Weight (Pounds): 244 General Appearance: alert EENT: normal ENT inspection Neck: normal alignment Cardiovascular: normal peripheral pulses, normal rate, regular rhythm Respiratory/Chest: chest wall non-tender, lungs clear, normal breath sounds Abdomen: normal bowel sounds, non tender, soft Extremities: normal inspection Edema: no edema noted Arm (L), no edema noted Arm (R), no edema noted Leg (L), no edema noted Leg (R), no edema noted Pedal (L), no edema noted Pedal (R), no edema noted Generalized Neurologic: responsive, motor weakness Skin: normal pigmentation, warm/dry Alfonso Rodríguez DO Dec 16, 2018 13:06
--- NOTE | 2018-12-16 13:18 | Pulmonology Progress Note ---
Assessment/Plan Problems: (1) Intractable pain (2) Anemia (3) Anxiety (4) Obesities, morbid (5) H/O gastric bypass Assessment/Plan doing better, wants to go home no new complains all noted symptomatic treatment anemia work up pain management dvt prophylaxis med/recon done Subjective ROS Limited/Unobtainable: No Constitutional: Reports: no symptoms Respiratory: Reports: no symptoms Allergies: Coded Allergies: No Known Allergies (Unverified , 09/04/12) Objective Last 24 Hour Vital Signs Date Time Temp Pulse Resp B/P (MAP) Pulse Ox O2 Delivery O2 Flow Rate FiO2 12/16/18 08:55 Room Air 12/16/18 08:32 97.7 12/16/18 08:00 97.6 89 18 105/61 (76) 94 12/16/18 04:00 97.7 75 18 101/58 (72) 94 12/16/18 00:00 97.6 80 16 94/57 (69) 96 12/15/18 21:00 Room Air 12/15/18 20:00 98.0 96 18 101/65 (77) 12/15/18 16:00 98.1 58 17 99/54 (69) 98 Intake and Output 12/15/18 12/16/18 19:00 07:00 Intake Total 850 ml 236 ml Balance 850 ml 236 ml Intake Oral 236 ml Other 850 ml # Voids 2 Objective General Appearance: WD/WN HEENT: normocephalic, atraumatic Respiratory/Chest: chest wall non-tender, lungs clear Cardiovascular: normal peripheral pulses, normal rate Abdomen: normal bowel sounds, soft, non tender Genitourinary: normal external genitalia Extremities: no clubbing Skin: no rash Laboratory Tests 12/16/18 05:55: White Blood Count 3.7L, Red Blood Count 4.22, Hemoglobin 9.5L, Hematocrit 32.0L , Mean Corpuscular Volume 76L, Mean Corpuscular Hemoglobin 22.5L, Mean Corpuscular Hemoglobin Concent 29.7L, Red Cell Distribution Width 22.0H, Platelet Count 265, Mean Platelet Volume 7.0, Neutrophils (%) (Auto) 58.9, Lymphocytes (%) (Auto) 23.5, Monocytes (%) (Auto) 11.3H, Eosinophils (%) (Auto) 4.6H, Basophils (%) (Auto) 1.7, Sodium Level 139, Potassium Level 4.7, Chloride Level 103, Carbon Dioxide Level 30, Anion Gap 7, Blood Urea Nitrogen 12, Creatinine 0.6, Estimat Glomerular Filtration Rate > 60, Glucose Level 99, Calcium Level 8.9 Current Medications Medications (Trade) Dose Ordered Sig/Safia Route PRN Reason Start Time Stop Time Status Last Admin Dose Admin Acetaminophen (Tylenol) 650 mg Q4H PRN ORAL fever 12/09/18 14:30 01/08/19 14:29 Acetaminophen/ Hydrocodone Bitart ([place] 5/325) 1 tab Q4H PRN ORAL Moderate Pain (Pain Scale 4-6) 12/13/18 16:00 12/20/18 15:59 12/16/18 05:18 Cyclobenzaprine HCl (Flexeril) 10 mg THREE TIMES A DAY ORAL 12/09/18 18:00 01/08/19 17:59 12/16/18 13:04 Dextrose (Dextrose 50%) 25 ml Q30M PRN IV Hypoglycemia 12/09/18 14:30 01/08/19 14:23 Dextrose (Dextrose 50%) 50 ml Q30M PRN IV hypoglycemia 12/09/18 14:30 01/08/19 14:29 Furosemide (Lasix) 20 mg DAILY ORAL 12/10/18 09:00 01/09/19 08:59 12/16/18 08:02 Gabapentin (Neurontin) 300 mg THREE TIMES A DAY ORAL 12/11/18 09:00 01/10/19 08:59 12/16/18 13:04 Loratadine (Claritin 10mg) 10 mg DAILY ORAL 12/13/18 18:00 01/12/19 17:59 12/16/18 08:02 Lorazepam (Ativan 2mg/ml 1ml) 0.5 mg Q4H PRN IV For Anxiety 12/15/18 08:30 12/22/18 08:29 Magnesium Hydroxide (Mom) 30 ml BIDPRN PRN ORAL Constipation 12/14/18 07:45 01/13/19 07:44 12/14/18 08:22 Morphine Sulfate (Morphine Sulfate) 4 mg Q4H PRN IVP Severe Pain (Pain Scale 7-10) 12/10/18 14:30 12/17/18 14:29 12/16/18 13:05 Ondansetron HCl (Zofran) 4 mg Q6H PRN IVP Nausea & Vomiting 12/09/18 14:30 01/08/19 14:29 12/11/18 17:36 Polyethylene Glycol (Miralax) 17 gm HSPRN PRN ORAL Constipation 12/09/18 14:30 01/08/19 14:29 12/14/18 00:01 Pyridoxine HCl (Vitamin B6) 50 mg DAILY ORAL 12/13/18 16:00 01/12/19 15:59 12/16/18 08:01 Thiamine HCl (Vitamin B1) 100 mg DAILY ORAL 12/13/18 15:00 01/12/19 14:59 12/16/18 08:02 Zolpidem Tartrate (Ambien) 5 mg HSPRN PRN ORAL Insomnia 12/15/18 20:00 12/22/18 19:59 Latha Gill MD Dec 16, 2018 13:18
--- NOTE | 2018-12-16 13:27 | NUR ---
*-* DISCHARGE PLANNING *-* PATIENT HAS BEEN REFERRED TO: [facility] [email or web address] [phone] Work [phone] Work Work Fax
--- NOTE | 2018-12-16 15:05 | Hematology/Onc Progress Note ---
Assessment/Plan Assessment/Plan ASSESSMENT AND PLAN # Leukopenia -- multiple etiologies could be related to underlying liver disease , medication-induced, infection versus viral syndrome --> peripheral smear has been ordered and does not show significant abnormalities --> Medications have been reviewed --> Continue to monitor for improvement, trend cbc --> Hep panel and HIV neg --> US abd ordered to r/o cirrhosis and hepatosplenomegaly DOES NOT show any --> reverse isolation if ANC is <2000 --> Give neupogen if ANC <1000 --> wbc trend: 3.2-->3--> 3.7 # Anemia of iron deficiency due to underlying hematuria. Will f/u with urology. --> Anemia workup has been ordered, rule out gi bleed --> No evidence of hemolysis is noted, peripheral smear has been reviewed. --> Hgb goal >7. Transfuse prn. --> Completed 5 bags of IRON IV Started through 12/14 --> Medications have been reviewed --> low threshold for gi evaluation in case has occult + --> bone marrow biopsy is not indicated given the other more likely causes --> Blood tx: 1 unit 12/10 --> Hgb trend: 9-->9.8 --> 9.5 # Hematuria. Urology is following, appreciate recs. --> on ivf # Fall. PT/OT, dietary followup. # Obesity. --> Recommend diet and lifestyle modifications # Weakness. # ATN. # Sciatica. The time the note is entered does not reflect the time the patient was examined. I greatly appreciate the consultation. Subjective Allergies: Coded Allergies: No Known Allergies (Unverified , 09/04/12) Subjective Subjective Subjective Hematologic/Lymphatic: Reports: anemia Allergies: Coded Allergies: No Known Allergies (Unverified , 09/04/12) All Systems: reviewed and negative except above Subjective 12/12: hematuria is better, on iv iron, no f/c 12/13: Pt awake and alert. No acute events. H/H stable. 12/15: Pt in bed awake and able to verbalize needs. Stable. Denies pain or SOB.5 bags of IV iron complete. H/H stable. Urine cx negative 12/16: pt states she is having hematuria and has an apt tomorrow with her urologist outpatient. Objective Objective Current Medications Medications (Trade) Dose Ordered Sig/Safia Route PRN Reason Start Time Stop Time Status Last Admin Dose Admin Acetaminophen (Tylenol) 650 mg Q4H PRN ORAL fever 12/09/18 14:30 01/08/19 14:29 Acetaminophen/ Hydrocodone Bitart ([place] 5/325) 1 tab Q4H PRN ORAL Moderate Pain (Pain Scale 4-6) 12/13/18 16:00 12/20/18 15:59 12/16/18 05:18 Cyclobenzaprine HCl (Flexeril) 10 mg THREE TIMES A DAY ORAL 12/09/18 18:00 01/08/19 17:59 12/16/18 13:04 Dextrose (Dextrose 50%) 25 ml Q30M PRN IV Hypoglycemia 12/09/18 14:30 01/08/19 14:23 Dextrose (Dextrose 50%) 50 ml Q30M PRN IV hypoglycemia 12/09/18 14:30 01/08/19 14:29 Furosemide (Lasix) 20 mg DAILY ORAL 12/10/18 09:00 01/09/19 08:59 12/16/18 08:02 Gabapentin (Neurontin) 300 mg THREE TIMES A DAY ORAL 12/11/18 09:00 01/10/19 08:59 12/16/18 13:04 Loratadine (Claritin 10mg) 10 mg DAILY ORAL 12/13/18 18:00 01/12/19 17:59 12/16/18 08:02 Lorazepam (Ativan 2mg/ml 1ml) 0.5 mg Q4H PRN IV For Anxiety 12/15/18 08:30 12/22/18 08:29 Magnesium Hydroxide (Mom) 30 ml BIDPRN PRN ORAL Constipation 12/14/18 07:45 01/13/19 07:44 12/14/18 08:22 Morphine Sulfate (Morphine Sulfate) 4 mg Q4H PRN IVP Severe Pain (Pain Scale 7-10) 12/10/18 14:30 12/17/18 14:29 12/16/18 13:05 Ondansetron HCl (Zofran) 4 mg Q6H PRN IVP Nausea & Vomiting 12/09/18 14:30 01/08/19 14:29 12/11/18 17:36 Polyethylene Glycol (Miralax) 17 gm HSPRN PRN ORAL Constipation 12/09/18 14:30 01/08/19 14:29 12/14/18 00:01 Pyridoxine HCl (Vitamin B6) 50 mg DAILY ORAL 12/13/18 16:00 01/12/19 15:59 12/16/18 08:01 Thiamine HCl (Vitamin B1) 100 mg DAILY ORAL 12/13/18 15:00 01/12/19 14:59 12/16/18 08:02 Zolpidem Tartrate (Ambien) 5 mg HSPRN PRN ORAL Insomnia 12/15/18 20:00 12/22/18 19:59 Last 24 Hour Vital Signs Date Time Temp Pulse Resp B/P (MAP) Pulse Ox O2 Delivery O2 Flow Rate FiO2 12/16/18 13:34 97.7 12/16/18 13:34 97.7 12/16/18 12:00 98.2 85 18 123/64 (83) 98 12/16/18 08:55 Room Air 12/16/18 08:00 97.6 89 18 105/61 (76) 94 12/16/18 04:00 97.7 75 18 101/58 (72) 94 12/16/18 00:00 97.6 80 16 94/57 (69) 96 12/15/18 21:00 Room Air 12/15/18 20:00 98.0 96 18 101/65 (77) 12/15/18 16:00 98.1 58 17 99/54 (69) 98 12/15/18 12:00 97.8 84 18 112/59 (76) 98 12/15/18 09:00 Room Air 12/15/18 08:00 98.4 85 17 101/61 (74) 98 12/15/18 04:00 97.9 77 18 99/62 (74) 96 12/15/18 00:00 97.7 86 18 109/59 (76) 98 12/14/18 21:00 Room Air 12/14/18 20:00 98.2 90 18 92/42 (59) 96 12/14/18 16:00 98.0 96 19 121/63 (82) 98 Intake and Output 12/15/18 12/16/18 19:00 07:00 Intake Total 850 ml 356 ml Balance 850 ml 356 ml Intake Oral 356 ml Other 850 ml # Voids 2 Labs Test 12/14/18 06:14 12/15/18 07:45 12/16/18 05:55 White Blood Count 3.0 K/UL (4.8-10.8) 3.0 K/UL (4.8-10.8) 3.7 K/UL (4.8-10.8) Red Blood Count 4.00 M/UL (4.20-5.40) 4.43 M/UL (4.20-5.40) 4.22 M/UL (4.20-5.40) Hemoglobin 8.8 G/DL (12.0-16.0) 9.8 G/DL (12.0-16.0) 9.5 G/DL (12.0-16.0) Hematocrit 29.8 % (37.0-47.0) 33.5 % (37.0-47.0) 32.0 % (37.0-47.0) Mean Corpuscular Volume 75 FL (80-99) 76 FL (80-99) 76 FL (80-99) Mean Corpuscular Hemoglobin 22.0 PG (27.0-31.0) 22.1 PG (27.0-31.0) 22.5 PG (27.0-31.0) Mean Corpuscular Hemoglobin Concent 29.5 G/DL (32.0-36.0) 29.1 G/DL (32.0-36.0) 29.7 G/DL (32.0-36.0) Red Cell Distribution Width 20.4 % (11.6-14.8) 21.9 % (11.6-14.8) 22.0 % (11.6-14.8) Platelet Count 280 K/UL (150-450) 291 K/UL (150-450) 265 K/UL (150-450) Mean Platelet Volume 6.6 FL (6.5-10.1) 6.5 FL (6.5-10.1) 7.0 FL (6.5-10.1) Neutrophils (%) (Auto) % (45.0-75.0) % (45.0-75.0) 58.9 % (45.0-75.0) Lymphocytes (%) (Auto) % (20.0-45.0) % (20.0-45.0) 23.5 % (20.0-45.0) Monocytes (%) (Auto) % (1.0-10.0) % (1.0-10.0) 11.3 % (1.0-10.0) Eosinophils (%) (Auto) % (0.0-3.0) % (0.0-3.0) 4.6 % (0.0-3.0) Basophils (%) (Auto) % (0.0-2.0) % (0.0-2.0) 1.7 % (0.0-2.0) Differential Total Cells Counted 100 100 Neutrophils % (Manual) 56 % (45-75) 76 % (45-75) Lymphocytes % (Manual) 27 % (20-45) 16 % (20-45) Monocytes % (Manual) 16 % (1-10) 6 % (1-10) Eosinophils % (Manual) 1 % (0-3) 2 % (0-3) Basophils % (Manual) 0 % (0-2) 0 % (0-2) Band Neutrophils 0 % (0-8) 0 % (0-8) Platelet Estimate Adequate Adequate Platelet Morphology Normal Normal Hypochromasia 1+ 2+ Anisocytosis 2+ 2+ Microcytosis 1+ 1+ Ovalocytes Occasional Sodium Level 141 MMOL/L (136-145) 139 MMOL/L (136-145) Potassium Level 4.4 MMOL/L (3.5-5.1) 4.7 MMOL/L (3.5-5.1) Chloride Level 105 MMOL/L (98-107) 103 MMOL/L (98-107) Carbon Dioxide Level 29 MMOL/L (21-32) 30 MMOL/L (21-32) Anion Gap 8 mmol/L (5-15) 7 mmol/L (5-15) Blood Urea Nitrogen 9 mg/dL (7-18) 12 mg/dL (7-18) Creatinine 0.5 MG/DL (0.55-1.30) 0.6 MG/DL (0.55-1.30) Estimat Glomerular Filtration Rate > 60 mL/min (>60) > 60 mL/min (>60) Glucose Level 132 MG/DL (74-106) 99 MG/DL (74-106) Calcium Level 9.1 MG/DL (8.5-10.1) 8.9 MG/DL (8.5-10.1) Height (Feet): 5 Height (Inches): 5.00 Weight (Pounds): 244 Objective OBJECTIVE PHYSICAL EXAMINATION: GENERAL: Calm in bed, oriented x3, no acute distress. VITAL SIGNS: Have been reviewed. CARDIOVASCULAR: No murmur. LUNGS: Distant and clear. ABDOMEN: Bowel sounds positive. Nontender. Nondistended. EXTREMITIES: No cyanosis, clubbing, edema. NEUROLOGIC: The patient moves all extremities, slightly weak. Michelle Can NP Dec 16, 2018 15:05
--- NOTE | 2018-12-16 15:25 | NUR ---
*-* DISCHARGE PLANNED *-* RECEIVED A CALL FROM [place] WITH [facility] STATING THEY WILL FOLLOW PATIENT HOME HEALTH AGENCY.
[2018-12-16 16:00] VITALS: BP 102/53
--- NOTE | 2018-12-16 17:12 | Nephrology Progress Note ---
Assessment/Plan Problem List: (1) Hematuria (2) Anemia Assessment: Low Iron (3) Obesities, morbid Assessment stable Renal parameters h/o Hematuria: fall, Right hip contusion Obese BMI 37.6 Plan IV iron- B12 SQ check UA and c/s: Cultures pending Uro eval continue per consultants was transfused per other MD order ! Subjective ROS Limited/Unobtainable: No Objective Objective Last 24 Hour Vital Signs Date Time Temp Pulse Resp B/P (MAP) Pulse Ox O2 Delivery O2 Flow Rate FiO2 12/16/18 13:34 97.7 12/16/18 13:34 97.7 12/16/18 12:00 98.2 85 18 123/64 (83) 98 12/16/18 08:55 Room Air 12/16/18 08:00 97.6 89 18 105/61 (76) 94 12/16/18 04:00 97.7 75 18 101/58 (72) 94 12/16/18 00:00 97.6 80 16 94/57 (69) 96 12/15/18 21:00 Room Air 12/15/18 20:00 98.0 96 18 101/65 (77) Intake and Output 12/15/18 12/16/18 19:00 07:00 Intake Total 850 ml 356 ml Balance 850 ml 356 ml Intake Oral 356 ml Other 850 ml # Voids 2 Laboratory Tests 12/16/18 05:55: White Blood Count 3.7L, Red Blood Count 4.22, Hemoglobin 9.5L, Hematocrit 32.0L , Mean Corpuscular Volume 76L, Mean Corpuscular Hemoglobin 22.5L, Mean Corpuscular Hemoglobin Concent 29.7L, Red Cell Distribution Width 22.0H, Platelet Count 265, Mean Platelet Volume 7.0, Neutrophils (%) (Auto) 58.9, Lymphocytes (%) (Auto) 23.5, Monocytes (%) (Auto) 11.3H, Eosinophils (%) (Auto) 4.6H, Basophils (%) (Auto) 1.7, Sodium Level 139, Potassium Level 4.7, Chloride Level 103, Carbon Dioxide Level 30, Anion Gap 7, Blood Urea Nitrogen 12, Creatinine 0.6, Estimat Glomerular Filtration Rate > 60, Glucose Level 99, Calcium Level 8.9 Height (Feet): 5 Height (Inches): 5.00 Weight (Pounds): 244 Cardiovascular: normal rate Respiratory/Chest: decreased breath sounds Abdomen: soft Objective no change James Dunn MD Dec 16, 2018 17:12
--- NOTE | 2018-12-16 18:35 | NUR ---
NURSE NOTES: pt discharged to home with [facility] with stable condition. All discharge instruction given to pt and verbalized understanding. Iv heplock removed and covered with gauze and taped. no bleeding noted. Denies any pain. pt was picked up by family member. pt is aware that she will have cystoscopy with Dr. Dale for tomorrow 12/17 and confirmed appt.
--- NOTE | 2018-12-18 17:55 | Discharge Summary ---
Discharge Summary Discharge Summary _ DATE OF ADMISSION: 12/09/2018 DATE OF DISCHARGE: 12/16/2018 DISCHARGED BY: DR Rodríguez REASON FOR ADMISSION: 68 years old female with past medical history of COPD/asthma, acute kidney injury, gastric bypass, left knee replacement, bilateral knee replacement, presented presented after slip and fall onto her right side. Patient was complaining of pain right and right hip and right buttock. Patient was also complaining of right wrist pain. She denied lightheadedness dizziness or blackout. She denied chest pain. She denied head trauma she denied headache or neck pain she denied abdominal pain upon evaluation WBC 3.3 hemoglobin 7.4 hematocrit 25.8 platelets 319. Stable electrolytes and renal parameters. Troponin negative. Chest x-ray revealed no acute cardiopulmonary pathology. EKG revealed normal sinus rhythm no acute ischemic changes. X-ray of the right hip revealed no definite acute bony trauma. No dislocation. No fracture CT of the head revealed no acute intracranial bleeding or mass-effect. Chronic microvascular ischemic changes noted chest x-ray revealed no acute cardiopulmonary pathology. Right wrist x-ray revealed degenerative changes in the first carpometacarpal joint progressive since prior exam in 2017. Possible bony fragment at the base of the first metacarpal could indicate fracture fragment of undetermined acuity versus heterotopic new bone related to degenerative changes. No other acute bony trauma. Brain MRI revealed no evidence of acute intracranial bleeding mass-effect or infarct. Chronic age-related volume loss noted. Venous duplex bilateral lower extremity revealed no evidence of acute DVT. Clinical examination reveal abrasion over the right elbow pain with range of motion on the right wrist but no bony tenderness to palpation of the right hand and wrist. Patient subsequently patient received analgesia and admitted to for further evaluation and home safety. CONSULTANTS: pulmonary Dr. Gill neurologist Dr. Gary healthcare translator Dr. Dunn promos executive producer/oncologist Dr. Ken urologist Dr. Dale orthopedic surgeon Dr. Tyler pain specialist Dr. Rincon HOSPITAL COURSE: Patient admitted. Anemia work-up initiated. Patient received blood transfusion/ 1 unit of packed red blood cells on 12/10. Hemoglobin and hematocrit were closely monitored with goal to keep hemoglobin above 7. Prior to discharge hemoglobin 9.5, hematocrit 32. Anemia work-up was consistent with anemia of iron deficiency. Ferritin 13. MCV 73. Patient completed 5 bags of IV Venofer. Anemia work-up also revealed low normal level of B12. Patient received 3 doses of B12 subcutaneously. Patient noted to have leukopenia. Hepatitis panel and HIV test were both negative. Ultrasound of the abdomen revealed no evidence of cirrhosis or hepatosplenomegaly. Upon discharge WBC 3.7 , slightly up from initial 3.3. Patient was recommended to monitor counts as outpatient. Urinalysis revealed evidence of hematuria. Urology consult was requested. Per urology , patient had chronic hematuria of unknown etiology. Urologist recommended CT urogram and cystoscopy, which to be done as outpatient. CT urogram revealed nonobstructive 3 mm right lower pole intra-renal calculus. No other findings to explain stated clinical history of hematuria were demonstrated. Patient recommended to follow-up with urologist as outpatient for cystoscopy, as recommended by urologist. Urine culture revealed gram-positive cocci with colony count less than 10, likely contamination. Orthopedic surgeon seen and evaluated patient. Patient presented with right posterior buttock pain, possible nondisplaced sacral fracture. Subsequently MRI of the lumbar spine and pelvis was done to evaluate for possible sacral fracture. Pelvis MRI revealed no evidence of acute bony or soft tissue trauma. Lumbar spine MRI revealed no evidence of acute bony trauma. Degenerative changes noted. 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 Orthopedic surgeon followed and personally reviewed imaging. He concluded that patient had no acute pelvic rim or femoral neck fracture , but had an old compression fracture. Surgeon recommended conservative treatment with physical therapy and pain management. If the patient continued to have pain, she may be a candidate for possible epidural injection. Pain management was addressed as per pain specialist recommendation. Pain was controlled. Fall precautions were maintained. Patient was working with physical therapy. Neurologist followed. Patient started on gabapentin 300 mg 3 times daily. Neurologist recommended to decrease daytime dose and may take higher dose at bedtime , if daytime sedation nathaniel be an issue. General neuro observation continued. Renal parameters and electrolytes were closely monitored. Electrolytes corrected as needed. Nephrotoxic's were avoided. Renal function remained stable. Supplemental oxygen and pulmonary toilet were on board as needed t. No evidence of respiratory distress or asthma exacerbation. Pain was eventually controlled. Hemoglobin and hematocrit stable. Patient was stable for discharge home with home health services. Outpatient follow-up with urologist for cystoscopy. FINAL DIAGNOSES: s/p fall Intractable pain Anemia of iron deficiency , probably due to underlying hematuria Leukopenia Hematuria ,chronic, unexplained Morbid obesity History of gastric bypass Old compression fracture Lumbar radiculopathy Lumbar DDD Lumbar spondylosis Lumbar herniated disc Lumbar sprain Anxiety DISCHARGE MEDICATIONS: See Medication Reconciliation list. DISCHARGE INSTRUCTIONS: Patient was discharged home with home health services. Follow up with primary care provider in one week. I have been assigned to dictate discharge summary for this account. I was not involved in the patient's management. Carole Mohamud NP Dec 18, 2018 17:55
== END 2018-12-16 18:30 | disposition home health service (06) | DRG 551 ==
LOC: EDBD 08:57 → EMR 09:20 → EDBEDREQ 11:49 → 4E 11:55 → EDBEDREQ 13:19 → 4E 13:50
PROC: 30233N1 Transfusion of Nonautologous Red Blood Cells into Peripheral Vein, Percutaneous Approach (ICD-10-PCS; principal; 2018-12-10)
DX: S33.5XXA Sprain of ligaments of lumbar spine, initial encounter (principal); N17.0 Acute kidney failure with tubular necrosis; E46 Unspecified protein-calorie malnutrition; S60.00XA Contusion of unspecified finger without damage to nail, initial encounter; W01.0XXA Fall on same level from slipping, tripping and stumbling without subsequent striking against object, initial encounter; M54.31 Sciatica, right side; M54.16 Radiculopathy, lumbar region; R31.9 Hematuria, unspecified; E66.01 Morbid (severe) obesity due to excess calories; Z68.37 Body mass index [BMI] 37.0-37.9, adult; D69.6 Thrombocytopenia, unspecified; D50.0 Iron deficiency anemia secondary to blood loss (chronic); M51.16 Intervertebral disc disorders with radiculopathy, lumbar region; M47.26 Other spondylosis with radiculopathy, lumbar region; Z98.84 Bariatric surgery status; J44.9 Chronic obstructive pulmonary disease, unspecified; Z86.718 Personal history of other venous thrombosis and embolism; Z96.653 Presence of artificial knee joint, bilateral
CPT/HCPCS: 36415; 70450; 70551; 71045; 72148; 72195; 74178; 80048; 80053; 80061; 80076; 81001; 82607; 82728; 82746; 83036; 83540; 83550; 83735; 84100; 84443; 84484; 84550; 85007; 85025; 85610; 85730; 86850; 86900; 86901; 86920; 87086; 93005; 93970; 96374; 97803; 99285; J2405